=== PATIENT | male | born 1945 | race Caucasian/White ===

== ENCOUNTER 2017-12-08 06:41 | Day surgery (SDC) | payer MEDICARE ==
[2017-12-03 11:18] VITALS: BMI 32.5
[2017-12-08] MEDS ORDERED: LIDOCAINE 1% 20 ML VIAL (10MG/ML) FOR IV START INTRADERMA PRN (06:44)
[2017-12-08] MEDS ORDERED: LACTATED RINGERS 1,000 ML IV SCH (06:45)
[2017-12-08 07:20] VITALS: TEMP 98.8
[2017-12-08 07:27] LABS: Glucose,Whole Blood 145 mg/dL (75-99)
[2017-12-08] MEDS ORDERED: PROPOFOL 10 MG/ML 20 ML VIAL IV ONE (07:38)
[2017-12-08] MEDS ORDERED: LIDOCAINE 1% INJ 10MG/ML (20 ML MDV) ONE (07:38)
--- NOTE | 2017-12-08 07:46 | P.GSHP ---
History of Present Illness H&P Date: 12/08/17 Chief Complaint: Colon cancer screening Patient here today for colonoscopy. Last colonoscopy several years ago. No bowel complaints. No family history colon cancer. Past Medical History Past Medical History: Asthma, Diabetes Mellitus, GERD/Reflux, Hyperlipidemia, Hypertension Additional Past Medical History / Comment(s): diet controlled diabetic History of Any Multi-Drug Resistant Organisms: None Reported Past Surgical History: Appendectomy, Hernia Repair, Joint Replacement Additional Past Surgical History / Comment(s): lung surgery benign tumor, lt total knee replacement Past Anesthesia/Blood Transfusion Reactions: Previous Problems w/ Anesthesia Additional Past Anesthesia/Blood Transfusion Reaction / Comment(s): with last endoscopy coughed throughout procedure Smoking Status: Former smoker - Past Family History Mother Family Medical History: No Reported History Additional Family Medical History / Comment(s): adopted Sister(s) Family Medical History: Cancer Additional Family Medical History / Comment(s): pancreatic cancer Medications and Allergies Home Medications Medication Instructions Recorded Confirmed Type Acetaminophen [Tylenol Arthritis] 650 mg PO DAILY PRN 12/03/17 12/08/17 History Albuterol Sulfate [Proventil Hfa] 2 puff INHALATION Q6HR PRN 12/03/17 12/08/17 History Ascorbic Acid [Vitamin C] 1,000 mg PO DAILY 12/03/17 12/08/17 History Aspirin [Adult Low Dose Aspirin EC] 81 mg PO DAILY 12/03/17 12/08/17 History Cholecalciferol [Vitamin D3] 5,000 unit PO DAILY 12/03/17 12/08/17 History Escitalopram Oxalate [Lexapro] 10 mg PO DAILY 12/03/17 12/08/17 History Ferrous Sulfate [Feosol] 325 mg PO DAILY 12/03/17 12/08/17 History Losartan Potassium [Cozaar] 100 mg PO DAILY 12/03/17 12/08/17 History Melatonin 10 mg PO HS 12/03/17 12/08/17 History Multivit-Min/FA/Lycopen/Lutein 1 each PO DAILY 12/03/17 12/08/17 History [Centrum Silver Tablet] Omeprazole [PriLOSEC] 20 mg PO AC-BRKFST 12/03/17 12/08/17 History Simvastatin 40 mg PO DAILY 12/03/17 12/08/17 History buPROPion [Wellbutrin] 150 mg PO BID 12/03/17 12/08/17 History Allergies Allergy/AdvReac Type Severity Reaction Status Date / Time No Known Allergies Allergy Verified 12/03/17 11:05 Surgical - Exam Vital Signs Temp Pulse Resp BP Pulse Ox 98.8 F 86 18 153/82 96 12/08/17 07:17 12/08/17 07:17 12/08/17 07:17 12/08/17 07:17 12/08/17 07:17 Physical exam: General: Well-developed, well-nourished HEENT: Normocephalic, sclerae nonicteric Abdomen: Nontender, nondistended Extremities: No edema Neuro: Alert and oriented Results - Labs Abnormal Lab Results - Last 24 Hours (Table) 12/08/17 Range/Units 07:22 POC Glucose (mg/dL) 145 H (75-99) mg/dL Assessment and Plan (1) Colon cancer screening Narrative/Plan: Will proceed with colonoscopy at this time. Current Visit: Yes Status: Acute Code(s): Z12.11 - ENCOUNTER FOR SCREENING FOR MALIGNANT NEOPLASM OF COLON SNOMED Code(s): 520281294
--- NOTE | 2017-12-08 08:08 | P.PCN ---
Date of Procedure: 12/08/17 Procedure(s) Performed: PREOPERATIVE DIAGNOSIS: Colon cancer screening POSTOPERATIVE DIAGNOSIS: Polyps, diverticulosis PROCEDURE: Colonoscopy with biopsy ANESTHESIA: MAC SURGEON: Jose Bernal M.D. SPECIMENS: Polyps ENDOSCOPIC PROCEDURE: The patient was placed on the endoscopy table in the left decubitus position. The Olympus colonoscope was inserted into the anus and passed under direct visualization to the base of the cecum. The appendiceal orifice was visualized. From that point the scope was slowly withdrawn inspecting all surfaces carefully. There were no neoplastic inflammatory or polypoid lesions throughout the cecum. In the ascending colon a small polyp was removed using the cold biopsy forceps. A similar polyp was identified in the mid transverse and the descending colon and also removed using the cold biopsy forceps. The remainder of the descending sigmoid and rectum appeared normal. There was moderate left-sided diverticulosis present. Digital rectal examination was normal. The patient was taken to the recovery room in stable condition per anesthesia guidelines. RECOMMENDATIONS: Await biopsies results. Anticipate follow-up colonoscopy 5 years.
[2017-12-08 08:29] VITALS: BP 111/69; PULSE 58; RESP 18
== END 2017-12-08 08:53 | disposition home or self-care (01) ==
LOC: ORWHC2ENDO 06:41
PROVIDERS: ATTEND Surgery
DX: Z12.11 Encounter for screening for malignant neoplasm of colon (principal); D12.3 Benign neoplasm of transverse colon; K63.5 Polyp of colon; K57.30 Diverticulosis of large intestine without perforation or abscess without bleeding; J45.909 Unspecified asthma, uncomplicated; E11.9 Type 2 diabetes mellitus without complications; K21.9 Gastro-esophageal reflux disease without esophagitis; F32.9 Major depressive disorder, single episode, unspecified; E78.5 Hyperlipidemia, unspecified; I10 Essential (primary) hypertension; Z96.652 Presence of left artificial knee joint; Z87.891 Personal history of nicotine dependence; Z79.82 Long term (current) use of aspirin; Z79.899 Other long term (current) drug therapy
CPT/HCPCS: 88305; 45380; J2001; J2704

== ENCOUNTER → 2018-01-05 | Outpatient (CLI) | payer OTHER ==
--- NOTE | 2018-01-05 12:50 | CT ---
EXAMINATION TYPE: CT chest wo con DATE OF EXAM: 01/05/2018 COMPARISON: NONE HISTORY: Sx shortness of breath, interstitial lung disease. CT DLP: 192 mGycm. Automated Exposure Control for Dose Reduction was Utilized. TECHNIQUE: CT scan of the thorax is performed without IV contrast per HRCT protocol limiting evaluat ion for pulmonary nodules. FINDINGS: LUNGS: There is right hemidiaphragm elevation. Scattered cystic spaces are seen with mild emphysemato us change. There is upper lung predominant honeycombing and interlobular septal thickening at the rig ht lung base. Calcified pleural plaques are noted along the right major fissure and multifocal mild p leural thickening is seen posteriorly along the right lower lobe. There is mild diffuse cylindrical b ronchiectasis with minimal varicosity in the upper lungs. No focal consolidation to suggest pneumonia . No pleural effusion or pneumothorax. Main ventricular brachial tree is patent. No discrete pulmonar y mass. MEDIASTINUM: Lack of IV contrast is noted to limit evaluation for mediastinal and especially hilar ad enopathy. There are no definitive greater than 1 cm hilar or mediastinal lymph nodes. No cardiomega ly or pericardial effusion is seen. Atherosclerosis is noted of the thoracic aorta, mild overall. OTHER: Incidental note of cholelithiasis is made. Probable left upper pole renal cyst is partially vi sualized. IMPRESSION: 1. Interstitial lung disease with a upper lobe predominance as there is mild fibrosis and early honey combing in the lung apices. Few calcific plaques are also noted. These findings may relate to this pa tient's provided history of possible coccidiomycosis although no nodular pattern is seen. Other upper lobe predominant etiologies such as pneumoconioses, Langerhans' cell histiocytosis, histoplasmosis o r drug induced lung disease or possible. 2. Right hemidiaphragm elevation for which a sniff test was performed on the same day.
--- NOTE | 2018-01-05 13:01 | FL ---
EXAMINATION TYPE: FL sniff test without CXR DATE OF EXAM: 01/05/2018 COMPARISON: NONE HISTORY: Prior thoracic surgery on the right. Right hemidiaphragm elevation. TECHNIQUE: Fluoroscopy. 28 seconds of fluoroscopy time was utilized with 0 images saved as the exam w as recorded. FINDINGS: Evaluation of the hemidiaphragms was performed with real-time fluoroscopically. There is pa radoxical subtle motion of the right hemidiaphragm upon inspiration, expiration, and sniffing althoug h there remains right lung expansion. 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
== END | disposition home or self-care (01) ==
LOC: RADFLMAIN 10:18
PROVIDERS: ATTEND Internal Medicine Critical Care Medicine
DX: J84.9 Interstitial pulmonary disease, unspecified (principal); J84.10 Pulmonary fibrosis, unspecified; G58.8 Other specified mononeuropathies
CPT/HCPCS: 71250; 76000

== ENCOUNTER 2018-02-17 06:56 | Inpatient (IN) | payer OTHER ==
[2018-02-15 14:32] VITALS: BMI 32.5
[~2018-02-17 06:56] MED LIST: MORPHINE SULFATE 2 MG/ML SYRINGE IV PRN; ceFAZolin IN SWFI 2 GM/20 ML SYRINGE IVP ONE
[2018-02-17] MEDS: LACTATED RINGERS 1,000 ML IV SCH ×2 (07:32→23:38)
[2018-02-17 07:33] LABS: Glucose,Whole Blood 145 mg/dL (75-99)
[2018-02-17] MEDS ORDERED: MIDAZOLAM 2 MG/2 ML VIAL IV ONE (07:50)
[2018-02-17] MEDS ORDERED: ONDANSETRON 4 MG/2 ML VIAL IVP ONE (08:04)
[2018-02-17] MEDS ORDERED: LIDOCAINE 1% INJ 10MG/ML (20 ML MDV) ONE (08:21)
[2018-02-17] MEDS ORDERED: fentaNYL (PF) 50 MCG/ML 2 ML AMP ONE (08:21)
[2018-02-17] MEDS ORDERED: ROCURONIUM BROMIDE 10 MG/ML 10 ML VIAL IV ONE (08:21)
[2018-02-17] MEDS ORDERED: SUCCINYLCHOLINE CHLORIDE 100 MG/5 ML SYR IV ONE (08:21)
[2018-02-17] MEDS ORDERED: ePHEDrine SULFATE/0.9% NACL/PF 50 MG/5 ML SYRINGE IV ONE (08:21)
[2018-02-17] MEDS ORDERED: GLYCOPYRROLATE 0.2 MG/ML 2 ML VIAL ONE (08:21)
[2018-02-17] MEDS ORDERED: NEOSTIGMINE 1 MG/ML 10 ML VIAL ONE (08:21)
[2018-02-17] MEDS ORDERED: PROPOFOL 10 MG/ML 20 ML VIAL IV ONE (08:21)
[2018-02-17] MEDS ORDERED: BUPIVACAINE (PF) 0.25% 30 ML VIAL SQ ONE ×2 (08:51)
[2018-02-17] MEDS: HYDROmorphone 0.5 MG/0.5 ML SYRINGE IVP PRN ×4 (09:25→09:48)
--- NOTE | 2018-02-17 09:38 | P.OP ---
Date of Procedure: 02/17/18 Preoperative Diagnosis: Bilateral pulmonary infiltrates Postoperative Diagnosis: Same Procedure(s) Performed: Thoracoscopic left lung biopsy Anesthesia: PRINCEA Admission Nurse Coordinator #1: Brandon Hensley Estimated Blood Loss (ml): 10 IV fluids (ml): 250 Pathology: other (Biopsies of lingula and left lower lobe were sent for pathology as well as cultures including routine AFB and fungal cultures) Condition: stable Disposition: PACU Indications for Procedure: 72-year-old male referred to me by Dr. Schuster for lung biopsy. Patient has persistent cough and mild shortness of breath. He has computed tomography scan showing bilateral pulmonary interstitial disease. Operative Findings: There was some mild interstitial disease with blebs present in the tip of the lingula. Otherwise the lung looked relatively normal. Compliance was less than usual. There was some mild thoracotomy staining of the pulmonary tissues. Description of Procedure: The patient was brought to the operating room, placed supine on the operating table, anesthetized and intubated with double-lumen endotracheal tube. He was turned in the right lateral decubitus position of the left chest sterilely prepped and draped. 3 one-inch incisions were made in the left chest. Video thoracoscope was introduced. Single lung ventilation had been utilized in order to obtain pneumothorax on the left. Lung compliance was poor but we were able to compress along and get adequate pneumothorax to perform the procedure. Findings as noted above. Biopsies of the lingula and the lower lobe were obtained with multiple firings of Endo EFREM medium thick stapler. Specimens were removed from the patient and brought onto the back table where they were cut. Small portion of each was sent for cultures and the remainder for pathology. Staple lines were intact and there was no bleeding. A 28-Swazi chest tube was placed through separate stab incision and positioned posterior apically. It was secured with 0 Ethibond suture. Rib blocks were performed at the level of the incisions with quarter percent Marcaine. The incisions were then closed with Vicryl suture while 2 lung ventilation was reinitiated. The incisions closed they were dressed with skin glue and chest tube dressing was placed around the chest tube. Patient was turned supine and extubated and transferred to recovery in stable condition.
[2018-02-17 09:54] LABS: Glucose,Whole Blood 156 mg/dL (75-99)
[2018-02-17] MEDS ORDERED: hydrALAZINE HCL 20 MG/ML 1 ML VIAL IVP ONE (09:57)
--- NOTE | 2018-02-17 10:17 | XR ---
EXAMINATION TYPE: XR chest 1V portable DATE OF EXAM: 02/17/2018 Comparison: Correlation CT 01/05/2018 Clinical History: 72-year-old male chest tube insertion, post vats Findings: Apically directed left-sided chest tube is present. Possible trace left apical pneumothorax estimated at less than 5%. Low lung volumes and crowded vascular markings. Patchy bibasilar opacity. Heart upp er limits of normal in size. Impression: Low lung volumes. Left-sided chest tube in place. Possible trace left apical pneumothorax less than 5 %. Patchy bibasilar areas of atelectasis or infiltrate.
[2018-02-17] MEDS ORDERED: DEXTROSE 5%-0.45% NACL 1,000 ML IV SCH (11:15)
[2018-02-17] MEDS ORDERED: IPRATROPIUM-ALBUTEROL 3 ML NEB IH PRN (11:15)
[2018-02-17] MEDS ORDERED: ONDANSETRON 4 MG/2 ML VIAL IVP PRN (11:15)
[2018-02-17] MEDS: IPRATROPIUM-ALBUTEROL 3 ML NEB IH SCH ×3 (11:41→18:59)
[2018-02-17] MEDS: KETOROLAC 30 MG/ML 1 ML VIAL IVP SCH ×3 (11:49→23:28)
[2018-02-17] MEDS: traMADol 50 MG TAB PO SCH ×3 (15:06→23:29)
--- NOTE | 2018-02-17 15:59 | P.CNPUL ---
History of Present Illness Consult date: 02/17/18 Chief complaint: Interstitial lung disease, postop lung care following lung biopsy History of present illness: This is a 70-year-old male patient underwent a thoracoscopic left lung biopsy. Estimated blood loss was less than 10 mL. The patient currently is a left- sided chest tube. Chest x-ray postop shows a limited success emphysema on the left. There is a very tiny left apical pneumothorax. There is no evidence of any air leak and output from the chest tube is minimal at this point in time. Pain is under good control. The patient is using incentive spirometer. The patient is awake and alert and following commands and answering questions appropriately. No respiratory distress. No significant cough sputum production chest tightness or wheezing. This biopsy was done as part of an investigation for an underlying interstitial lung disease. 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 He has been expressing progressive exertional dyspnea. He is hemodynamically stable. He is on Ultram for pain control of 10 mg 4 times a day, when necessary. Review of Systems Constitutional: Denies chills, Denies fever Eyes: denies as per HPI, denies blurred vision, denies bulging eye, denies decreased vision, denies diplopia, denies discharge, denies dry eye, denies irritation, denies itching, denies pain, denies photophobia, denies loss of peripheral vision, denies loss of vision, denies tunnel vision/blind spots Ears: deny: decreased hearing, ear discharge, earache, tinnitus Ears, nose, mouth and throat: Denies headache, Denies sore throat Cardiovascular: Reports decreased exercise tolerance, Reports dyspnea on exertion Respiratory: Reports dyspnea Gastrointestinal: Denies abdominal pain, Denies diarrhea, Denies nausea, Denies vomiting Genitourinary: Reports as per HPI Musculoskeletal: Reports as per HPI Musculoskeletal: absent: ankle pain, ankle stiffness, ankle swelling, as per HPI , elbow pain, elbow stiffness, elbow swelling, foot pain, foot stiffness, foot swelling, hand pain, hand stiffness, hand swelling, hip pain, hip stiffness, hip swelling, knee pain, knee stiffness, knee swelling, shoulder pain, shoulder stiffness, shoulder swelling, wrist pain, wrist stiffness, wrist swelling Integumentary: Reports as per HPI Neurological: Reports as per HPI Psychiatric: Reports as per HPI Endocrine: Reports as per HPI Hematologic/Lymphatic: Reports as per HPI Allergic/Immunologic: Reports as per HPI Past Medical History Past Medical History: Asthma, Diabetes Mellitus, GERD/Reflux, Hyperlipidemia, Hypertension, Osteoarthritis (OA) Additional Past Medical History / Comment(s): Diabetes mellitus interstitial lung disease, hyperlipidemia, chronic heartburn, hypertension remote history of a coccidiomycosis of the lungs. History of Any Multi-Drug Resistant Organisms: None Reported Past Surgical History: Appendectomy, Hernia Repair, Joint Replacement Additional Past Surgical History / Comment(s): lung surgery rt thoractomy benign tumor age 19, lt total knee replacement, inguinal hernia repair with mesh Past Anesthesia/Blood Transfusion Reactions: Previous Problems w/ Anesthesia Additional Past Anesthesia/Blood Transfusion Reaction / Comment(s): with last endoscopy coughed throughout procedure Smoking Status: Former smoker - Past Family History Mother Family Medical History: No Reported History Additional Family Medical History / Comment(s): adopted Sister(s) Family Medical History: Cancer Additional Family Medical History / Comment(s): pancreatic cancer Medications and Allergies Home Medications Medication Instructions Recorded Confirmed Type Acetaminophen [Tylenol Arthritis] 650 mg PO DAILY PRN 12/03/17 02/17/18 History Albuterol Sulfate [Proventil Hfa] 2 puff INHALATION RT-Q6H PRN 12/03/17 History Ascorbic Acid [Vitamin C] 1,000 mg PO DAILY 12/03/17 02/17/18 History Aspirin [Adult Low Dose Aspirin EC] 81 mg PO DAILY 12/03/17 02/17/18 History Cholecalciferol [Vitamin D3] 5,000 unit PO DAILY 12/03/17 02/17/18 History Escitalopram Oxalate [Lexapro] 10 mg PO DAILY 12/03/17 02/17/18 History Losartan Potassium [Cozaar] 100 mg PO DAILY 12/03/17 02/17/18 History Melatonin 10 mg PO HS 12/03/17 02/17/18 History Multivit-Min/FA/Lycopen/Lutein 1 tab PO DAILY 12/03/17 02/17/18 History [Centrum Silver Tablet] Omeprazole [PriLOSEC] 20 mg PO AC-BRKFST 12/03/17 02/17/18 History Simvastatin 40 mg PO DAILY 12/03/17 02/17/18 History buPROPion [Wellbutrin] 150 mg PO BID 12/03/17 02/17/18 History Budesonide-Formot 160-4.5 Mcg 2 puff INHALATION RT-BID 02/15/18 02/17/18 History [Symbicort 160-4.5 Mcg Inhaler] Montelukast Sodium [Singulair] 10 mg PO HS 02/15/18 02/17/18 History Allergies Allergy/AdvReac Type Severity Reaction Status Date / Time No Known Allergies Allergy Verified 02/17/18 12:42 Physical Exam Vitals: Vital Signs Temp Pulse Pulse Resp BP BP Pulse Ox 02/17/18 15:34 69 02/17/18 15:26 67 02/17/18 11:53 68 02/17/18 11:42 68 02/17/18 11:03 97.8 F 78 16 131/72 93 L 02/17/18 10:30 79 14 143/76 94 L 02/17/18 10:15 77 16 145/71 92 L 02/17/18 10:00 74 16 164/75 93 L 02/17/18 09:45 70 16 196/82 95 02/17/18 09:30 74 16 179/93 95 02/17/18 09:25 97.3 F L 77 16 185/99 98 02/17/18 07:33 98.6 F 75 16 190/86 98 Intake and Output 02/17/18 02/17/18 02/17/18 06:59 14:59 22:59 Intake Total 600 Output Total 80 Balance 520 Intake: IV 600 Output: Chest Tube Drainage 60 Chest Tube Left Mid- 60 Axillary Chest Estimated Blood Loss 20 Other: Voiding Method Urinal Appearance, comfortable likely distress. Head exam was generally normal. There was no scleral icterus or corneal arcus. Mucous membranes were moist. Neck was supple and without jugular venous distension, thyromegaly, or carotid bruits. Carotids were easily palpable bilaterally. There was no adenopathy. Lungs sounds are diminished equal and symmetrical breath sounds bilaterally started diminished on the left compared to the right, left-sided chest tube Cardiac exam revealed the PMI to be normally situated and sized. The rhythm was regular and no extrasystoles were noted during several minutes of auscultation. The first and second heart sounds were normal and physiologic splitting of the second heart sound was noted. There were no murmurs, rubs, clicks, or gallops. Abdominal exam revealed normal bowel sounds. The abdomen was soft, non-tender, and without masses, organomegaly, or appreciable enlargement of the abdominal aorta. Examination of the extremities revealed easily palpable radial, femoral and pedal pulses. There was no cyanosis, clubbing or edema. Examination of the skin revealed no evidence of significant rashes, suspicious appearing nevi or other concerning lesions. Neurologically the patient is awake and alert and that is no focal neurological deficit. Results - Laboratory Findings Abnormal lab findings: Abnormal Labs 02/17/18 02/17/18 07:31 09:50 POC Glucose (mg/dL) 145 H 156 H - Diagnostic Findings Chest x-ray: image reviewed Assessment and Plan Plan: Assessment 1 physician lung disease, currently under investigation. The patient is status post thoracoscopic left lung biopsy. The patient is postop day #0. The patient is using incentive spirometer has a chest tube in place. Output is minimal. 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 The patient underwent a sniff test that showed paradoxic motion of the right hemidiaphragm compatible with a phrenic nerve palsy, right hemidiaphragmatic paralysis. Plan Patient is doing extremely well. Pain is under good control. Output from the chest tube is minimal. Chest x-ray shows no acute abnormalities. The lung is well expanded. There is may be a questionable left apical pneumothorax and some limited success emphysema along the left lung border. We'll continue to follow make further recommendations. The chest tube will likely, but the next 24 hours.
[2018-02-17] MEDS: HEPARIN SODIUM,PORCINE 5,000 UNIT/ML 1 ML VIAL SQ SCH ×2 (16:32→23:28)
[2018-02-17] MEDS: ceFAZolin IN SWFI 2 GM/20 ML SYRINGE IVP SCH ×2 (16:32→23:27)
[2018-02-17] MEDS: SYMBICORT 160-4.5 MCG INHALER INHALATION SCH (19:02)
[2018-02-17 20:52] VITALS: RESP 20
[2018-02-17] MEDS: buPROPion SR 150 MG TABLET.ER PO SCH (20:53)
[2018-02-17] MEDS ORDERED: MELATONIN 5 MG TABLET PO SCH (21:00)
[2018-02-17] MEDS ORDERED: MONTELUKAST 10 MG TAB PO SCH (21:00)
[2018-02-18 06:47] LABS: Basophils % (A) 0 %; Eosinophils % (A) 1 %; HCT 38.3 % (39.0-53.0); HGB 12.1 gm/dL (13.0-17.5); Lymphocytes % (A) 12 %; MCH 29.1 pg (25.0-35.0); MCHC 31.7 g/dL (31.0-37.0); MCV 91.7 fL (80.0-100.0); Mean Platelet Volume 8.6; Monocytes # (A) 0.6 k/uL (0-1.0); Monocytes % (A) 7 %; Neutrophils # (A) 6.6 k/uL (1.3-7.7); Neutrophils % (A) 79 %; Platelet Count 136 k/uL (150-450); RBC 4.17 m/uL (4.30-5.90); RDW 14.2 % (11.5-15.5); WBC 8.4 k/uL (3.8-10.6)
[2018-02-18] MEDS: KETOROLAC 30 MG/ML 1 ML VIAL IVP SCH (06:51)
[2018-02-18 06:57] LABS: Calcium 9.3 mg/dL (8.4-10.2); Potassium 4.6 mmol/L (3.5-5.1)
[2018-02-18] MEDS ORDERED: PANTOPRAZOLE 40 MG TABLET PO SCH (07:30)
[2018-02-18] MEDS: IPRATROPIUM-ALBUTEROL 3 ML NEB IH SCH ×2 (08:55→11:51)
[2018-02-18] MEDS: SYMBICORT 160-4.5 MCG INHALER INHALATION SCH (08:55)
[2018-02-18] MEDS ORDERED: CHOLECALCIFEROL 1,000 UNIT TAB PO SCH (09:00)
[2018-02-18] MEDS ORDERED: ESCITALOPRAM 10 MG TAB PO SCH (09:00)
[2018-02-18] MEDS ORDERED: ASCORBIC ACID 500 MG TAB PO SCH (09:00)
[2018-02-18] MEDS ORDERED: ASPIRIN 81 MG PO SCH (09:00)
[2018-02-18] MEDS ORDERED: LOSARTAN 50 MG TAB PO SCH (09:00)
[2018-02-18] MEDS ORDERED: ATORVASTATIN 20 MG TAB PO SCH (09:00)
[2018-02-18] MEDS: HEPARIN SODIUM,PORCINE 5,000 UNIT/ML 1 ML VIAL SQ SCH (09:02)
[2018-02-18] MEDS: buPROPion SR 150 MG TABLET.ER PO SCH (09:03)
[2018-02-18] MEDS: traMADol 50 MG TAB PO SCH (09:03)
--- NOTE | 2018-02-18 10:32 | P.PN ---
Subjective Progress Note Date: 02/18/18 Principal diagnosis: Bilateral pulmonary infiltrates. History of asthma, GERD, hyperlipidemia, hypertension, osteoarthritis, remote coccidiomycosis of the lungs, and previous tobacco dependence. POD #1 thoracoscopic left lung biopsy. The patient sitting up in bed this morning in no acute distress. His only complaint was that he didn't get sleep overnight. States pain is controlled with current medication regimen. Left pleural chest tube was placed to waterseal yesterday, no air leak present this morning. Objective - Vital Signs Vital signs: Vital Signs Temp 99.3 F 02/18/18 08:00 Pulse 70 02/18/18 09:12 Resp 20 02/18/18 08:00 BP 126/77 02/18/18 08:00 Pulse Ox 95 02/18/18 08:00 Intake & Output 02/17/18 02/18/18 02/18/18 18:59 06:59 18:59 Intake Total 600 120 240 Output Total 80 130 Balance 520 -10 240 Weight 99.2 kg Intake: IV 600 Oral 120 240 Output: Chest Tube Drainage 60 130 Chest Tube Left Mid- 60 130 Axillary Chest Estimated Blood Loss 20 Other: Voiding Method Urinal Toilet Urinal - Constitutional General appearance: Present: cooperative, no acute distress - Respiratory Details: Lungs sounds diminished bilaterally. Respirations even, nonlabored. Currently on room air with oxygen saturation 95%. Able to achieve 1500 mL on his incentive spirometry. Left pleural chest tube was to waterseal this morning, 130 mL serosanguineous drainage since surgery. No air leaks present. - Cardiovascular Details: S1, S2 present. Regular rate and rhythm, sinus rhythm on telemetry. Palpable peripheral pulses bilaterally. No edema present. No calf pain or tenderness noted. SCDs present. - Gastrointestinal Gastrointestinal Comment(s): Abdomen soft, nontender, nondistended. Active bowel sounds 4 quadrants. Tolerating diet. - Genitourinary Genitourinary Comment(s): Continues to void clear, yellow urine. - Integumentary Integumentary Comment(s): Skin is warm and dry with evidence of good perfusion. - Neurologic Neurologic: Present: CNII-XII intact - Musculoskeletal Musculoskeletal: Present: gait normal, strength equal bilaterally - Psychiatric Psychiatric: Present: A&O x's 3, appropriate affect, intact judgment & insight - Allied health notes Allied health notes reviewed: nursing - Labs CBC & Chem 7: 02/18/18 05:57 02/18/18 05:57 Labs: Abnormal Lab Results - Last 24 Hours (Table) 02/18/18 02/18/18 Range/Units 05:57 05:57 RBC 4.17 L (4.30-5.90) m/uL Hgb 12.1 L (13.0-17.5) gm/dL Hct 38.3 L (39.0-53.0) % Plt Count 136 L (150-450) k/uL BUN 35 H (9-20) mg/dL Creatinine 1.60 H (0.66-1.25) mg/dL Glucose 123 H (74-99) mg/dL Microbiology - Last 24 Hours (Table) 02/17/18 09:20 Gram Stain - Preliminary Lung - Left Tissue Culture - Preliminary 02/17/18 09:30 Acid Fast Bacilli Smear - Final Lung - Left Acid Fast Bacilli Culture - Preliminary 02/17/18 09:20 Acid Fast Bacilli Smear - Final Lung - Left Acid Fast Bacilli Culture - Preliminary 02/17/18 09:30 Gram Stain - Preliminary Lung - Left Tissue Culture - Preliminary 02/17/18 09:20 Anaerobic Culture - Preliminary Lung - Left 02/17/18 09:30 Fungal Culture - Preliminary Lung - Left 02/17/18 09:30 Anaerobic Culture - Preliminary Lung - Left 02/17/18 09:20 Fungal Culture - Preliminary Lung - Left - Imaging and Cardiology Chest x-ray: report reviewed, image reviewed Assessment and Plan (1) Bilateral pulmonary infiltrates on chest x-ray Current Visit: Yes Status: Chronic Code(s): R91.8 - OTHER NONSPECIFIC ABNORMAL FINDING OF LUNG FIELD SNOMED Code(s): 369561574 (2) COPD (chronic obstructive pulmonary disease) Current Visit: Yes Status: Chronic Code(s): J44.9 - CHRONIC OBSTRUCTIVE PULMONARY DISEASE, UNSPECIFIED SNOMED Code(s): 95522710 (3) Asthma Current Visit: Yes Status: Chronic Code(s): J45.909 - UNSPECIFIED ASTHMA, UNCOMPLICATED SNOMED Code(s): 460203204 (4) Hypertension Current Visit: Yes Status: Acute Code(s): I10 - ESSENTIAL (PRIMARY) HYPERTENSION SNOMED Code(s): 28327756 (5) Hyperlipidemia Current Visit: Yes Status: Acute Code(s): E78.5 - HYPERLIPIDEMIA, UNSPECIFIED SNOMED Code(s): 56179324 (6) Osteoarthritis Current Visit: Yes Status: Acute Code(s): M19.90 - UNSPECIFIED OSTEOARTHRITIS, UNSPECIFIED SITE SNOMED Code(s): 313137251 (7) Tobacco dependence in remission Current Visit: Yes Status: Acute Code(s): F17.201 - NICOTINE DEPENDENCE, UNSPECIFIED, IN REMISSION SNOMED Code(s): 039853333 Plan: 1. Left pleural chest tube was discontinued without incident. Patient tolerated well. 2. Repeat chest x-ray in 2 hours. 3. If repeat chest x-ray stable, will discharge to home on home medications. May alternate Tylenol with Motrin for pain control. 4. Follow-up with Dr. Hensley and Dr. Schuster in the next 2 weeks. 5. Encourage continued incentive spirometry use. 6. Encourage continued smoking cessation. 7. Patient instructed to call with any signs and symptoms of infection, heavy lifting for the next couple of weeks. Time with Patient: Greater than 30
--- NOTE | 2018-02-18 11:13 | P.DS ---
Providers Date of admission: 02/17/18 06:56 Expected date of discharge: 02/18/18 Attending physician: Brandon Hensley Consults: 02/17/18 11:15 Consult Physician Routine Consulting Provider: David Savage Consult Reason/Comments: pulm management, pt of [facility] Do you want consulting provider notified?: Yes Primary care physician: Wilson Taylor - Discharge Diagnosis(es) (1) Bilateral pulmonary infiltrates on chest x-ray Current Visit: Yes Status: Chronic (2) COPD (chronic obstructive pulmonary disease) Current Visit: Yes Status: Chronic (3) Asthma Current Visit: Yes Status: Chronic (4) Hypertension Current Visit: Yes Status: Acute (5) Hyperlipidemia Current Visit: Yes Status: Acute (6) Osteoarthritis Current Visit: Yes Status: Acute (7) Tobacco dependence in remission Current Visit: Yes Status: Acute Hospital Course: FINAL DIAGNOSIS: 1. Bilateral pulmonary infiltrates 2. Asthma 3. GERD 4. Hypertension 5. Hyperlipidemia 6. Osteoarthritis 7. Remote coccidiomycosis of the lungs 8. Previous tobacco dependence PRINCIPAL PROCEDURE: 1. Thoracoscopic left lung biopsy HISTORY OF PRESENT ILLNESS: This is a 72-year-old gentleman he follows with Dr. Wilson Taylor on an outpatient basis. He was seen at the ID clinic with complaints of persistent and worsening dyspnea, cough, and clear sputum production. He was referred to Dr. Schuster into the computed tomography scan of the chest which demonstrated bilateral pulmonary interstitial disease, most predominant in the upper lobes. Of note the patient did have a history of previous right thoracotomy and wedge resection of the mass from the right middle lobe which proved to be fungal in origin. The patient was referred to Dr. Hensley from cardiothoracic surgery for thoracoscopic lung biopsy. The usual perioperative course was discussed in detail with the patient has family, all risks and benefits were explained, all questions were answered, and consent was obtained to proceed with surgery. HOSPITAL COURSE: The patient was brought to the hospital on 02/17/2018, taken to the preoperative area, prepared in the usual fashion, and subsequently taken to the operating room where Dr. Hensley to performed a thoracoscopic left lung biopsy. Upon completion of surgery the patient was extubated, taken to the recovery room where he was recovered and monitored hemodynamically, and was eventually admitted to [address] [place] [address] cardiac stepdown unit for further monitoring. He had no air leak the night of surgery and his chest tube was placed to waterseal. The following morning his x-ray demonstrated no residual pneumothorax, he had no air leak, and his chest tube was discontinued. Repeat chest x-ray was stable. His oxygen was titrated down, he was tolerating oral diet, his pain was controlled, and he was ready to be discharged to home on postoperative day #1. He received written and verbal instruction regarding his medications, activity restrictions, signs and symptoms requiring physician notification, and follow-up appointments. COMPLICATIONS: The patient experienced no postoperative complications. Plan - Discharge Summary Discharge Rx Participant: No New Discharge Prescriptions: Continue Multivit-Min/FA/Lycopen/Lutein [Centrum Silver Tablet] 1 tab PO DAILY Cholecalciferol [Vitamin D3] 5,000 unit PO DAILY Aspirin [Adult Low Dose Aspirin EC] 81 mg PO DAILY Simvastatin 40 mg PO DAILY Melatonin 10 mg PO HS Ascorbic Acid [Vitamin C] 1,000 mg PO DAILY Omeprazole [PriLOSEC] 20 mg PO AC-BRKFST Losartan Potassium [Cozaar] 100 mg PO DAILY Escitalopram Oxalate [Lexapro] 10 mg PO DAILY buPROPion [Wellbutrin] 150 mg PO BID Acetaminophen [Tylenol Arthritis] 650 mg PO DAILY PRN PRN Reason: Pain Albuterol Sulfate [Proventil Hfa] 2 puff INHALATION RT-Q6H PRN PRN Reason: Dyspnea Montelukast Sodium [Singulair] 10 mg PO HS Budesonide-Formot 160-4.5 Mcg [Symbicort 160-4.5 Mcg Inhaler] 2 puff INHALATION RT-BID Discharge Medication List Acetaminophen [Tylenol Arthritis] 650 mg PO DAILY PRN 12/03/17 [History] Albuterol Sulfate [Proventil Hfa] 2 puff INHALATION RT-Q6H PRN 12/03/17 [History ] Ascorbic Acid [Vitamin C] 1,000 mg PO DAILY 12/03/17 [History] Aspirin [Adult Low Dose Aspirin EC] 81 mg PO DAILY 12/03/17 [History] Cholecalciferol [Vitamin D3] 5,000 unit PO DAILY 12/03/17 [History] Escitalopram Oxalate [Lexapro] 10 mg PO DAILY 12/03/17 [History] Losartan Potassium [Cozaar] 100 mg PO DAILY 12/03/17 [History] Melatonin 10 mg PO HS 12/03/17 [History] Multivit-Min/FA/Lycopen/Lutein [Centrum Silver Tablet] 1 tab PO DAILY 12/03/17 [ History] Omeprazole [PriLOSEC] 20 mg PO AC-BRKFST 12/03/17 [History] Simvastatin 40 mg PO DAILY 12/03/17 [History] buPROPion [Wellbutrin] 150 mg PO BID 12/03/17 [History] Budesonide-Formot 160-4.5 Mcg [Symbicort 160-4.5 Mcg Inhaler] 2 puff INHALATION RT-BID 02/15/18 [History] Montelukast Sodium [Singulair] 10 mg PO HS 02/15/18 [History] Follow up Appointment(s)/Referral(s): Brandon Hensley MD [STAFF PHYSICIAN] - 03/03/18 1:15 pm Tariq Schuster DO [Doctor of Osteopathic Medicine] - 02/25/18 11:30 am Patient Instructions/Handouts: Video Assisted Thoracoscopic Surgery (DC) Activity/Diet/Wound Care/Special Instructions: DISCHARGE INSTRUCTIONS: 1. No driving for 2 weeks, or until physician gives their ok. 2. No lifting, pushing, or pulling more than 10 pounds for 2 weeks. The physician will advise of any restriction changes. 3. Continue pain control with alternating acetaminophen and ibuprofen. 4. Continue with incentive spirometry and splinting until otherwise directed by the physician. 5. May shower Wednesday then daily using liquid antibacterial soap. 6. Routine incision care. No powders, lotions, ointments on incisions. 7. Please call surgeon/SHIPPING PROCESSOR for temp greater than 101 F or purulent drainage from incisions. Discharge Disposition: HOME SELF-CARE
--- NOTE | 2018-02-18 11:32 | XR ---
EXAMINATION TYPE: XR chest 1V DATE OF EXAM: 02/18/2018 COMPARISON: 02/17/2018 INDICATION: Post VATS TECHNIQUE: Single frontal view of the chest is obtained. FINDINGS: The heart size is normal. The pulmonary vasculature is normal. The lungs are clear. Left-sided chest tube is present. No pneumothorax is evident. The faint minimal left apical line is l ess well visualized appears to have lumbar kink extending to the pleural margin on the current exam. Subcutaneous air is in the lateral left chest wall. IMPRESSION: 1. No pneumothorax. Left-sided chest tube is present.
--- NOTE | 2018-02-18 11:34 | XR ---
EXAMINATION TYPE: XR chest 2V DATE OF EXAM: 02/18/2018 COMPARISON: 02/18/2018 earlier exam INDICATION: Pneumothorax, post chest tube removal TECHNIQUE: Frontal and lateral views of the chest are obtained. FINDINGS: The heart size is normal. The pulmonary vasculature is normal. No suspicious significant infiltrates are evident. Some mild atelectasis may be at the left base. The left-sided chest tube is been removed. No suspicious pneumothorax is evident. Subcutaneous emphys magaly remains at the left lateral chest base. Some atelectasis may be at the left lung base. IMPRESSION: 1. Mild left basilar atelectasis. 2. No pneumothorax post chest tube removal.
[2018-02-18 11:45] VITALS: BP 125/69; TEMP 99
[2018-02-18 11:54] VITALS: PULSE 70
[2018-02-18] MEDS ORDERED: MULTIVITAMINS, THERA 1 EACH TAB PO SCH (12:00)
--- NOTE | 2018-02-18 16:52 | P.PN ---
Subjective Progress Note Date: 02/18/18 on 02/18/2018 the patient is postop day #1. The patient doing extremely well. Chest x-ray shows no acute abnormalities. There is some limited ILD and there left-sided chest tube in place and there is no evidence of any air leak and the patient has no issues with pain. The patient on room air. Hihe is ambulating. Chest tube was removed, and the patient be discharged home today. Objective - Vital Signs Vital signs: Vital Signs Temp 99 F 02/18/18 11:44 Pulse 70 02/18/18 12:02 Resp 20 02/18/18 11:44 BP 125/69 02/18/18 11:44 Pulse Ox 91 L 02/18/18 11:44 Intake & Output 02/17/18 02/18/18 02/18/18 18:59 06:59 18:59 Intake Total 600 120 240 Output Total 80 130 Balance 520 -10 240 Weight 99.2 kg Intake: IV 600 Oral 120 240 Output: Chest Tube Drainage 60 130 Chest Tube Left Mid- 60 130 Axillary Chest Estimated Blood Loss 20 Other: Voiding Method Urinal Toilet Urinal - Exam The patient appeared well nourished and normally developed. Vital signs as documented. Head exam is unremarkable. No scleral icterus or corneal arcus noted. Neck is without jugular venous distension, thyromegaly, or carotid bruits. Carotid upstrokes are brisk bilaterally. Lungs are clear to auscultation and percussion. Cardiac exam reveals the PMI to be normally sized and situated. Rhythm is regular. First and second heart sounds normal. No murmurs, rubs or gallops. Abdominal exam reveals normal bowel sounds, no masses , no organomegaly and no aortic enlargement. Extremities are nonedematous and both femoral and pedal pulses are normal.neurologically the patient is awake and alert and is no focal neurological deficit. - Labs CBC & Chem 7: 02/18/18 05:57 02/18/18 05:57 Labs: Abnormal Lab Results - Last 24 Hours (Table) 02/18/18 02/18/18 Range/Units 05:57 05:57 RBC 4.17 L (4.30-5.90) m/uL Hgb 12.1 L (13.0-17.5) gm/dL Hct 38.3 L (39.0-53.0) % Plt Count 136 L (150-450) k/uL BUN 35 H (9-20) mg/dL Creatinine 1.60 H (0.66-1.25) mg/dL Glucose 123 H (74-99) mg/dL Microbiology - Last 24 Hours (Table) 02/17/18 09:20 Gram Stain - Preliminary Lung - Left Tissue Culture - Preliminary 02/17/18 09:30 Gram Stain - Preliminary Lung - Left Tissue Culture - Preliminary 02/17/18 09:30 Acid Fast Bacilli Smear - Final Lung - Left Acid Fast Bacilli Culture - Preliminary 02/17/18 09:20 Acid Fast Bacilli Smear - Final Lung - Left Acid Fast Bacilli Culture - Preliminary 02/17/18 09:20 Anaerobic Culture - Preliminary Lung - Left 02/17/18 09:30 Fungal Culture - Preliminary Lung - Left 02/17/18 09:30 Anaerobic Culture - Preliminary Lung - Left 02/17/18 09:20 Fungal Culture - Preliminary Lung - Left Assessment and Plan Plan: Assessment 1 Interstitial lung disease, currently under investigation. The patient is status post thoracoscopic left lung biopsy. 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 The patient underwent a sniff test that showed paradoxic motion of the right hemidiaphragm compatible with a phrenic nerve palsy, right hemidiaphragmatic paralysis. 8 renal failure, creatinine of 1.8 , likely chronic. Plan the chest tube has been removed.the patient will be discharged home. We'll follow-up on the postoperative surgical biopsies on outpatient basis.
--- NOTE | 2018-02-23 10:54 | CDI ---
Documentation Clarification Form Date: 02/23/2018 10:46:04 AM From: ELI Sylvester; Geri Escalona Rent Control Office Manager Phone: If you have a question about this query, please contact Geri Escalona Rent Control Office Manager at [phone] between 8am and 5pm. Admit Date: 02/17/2018 6:56:00 AM Patient Name: Pravin Simmons Visit Number: [id number] Discharge Date: 02/18/2018 12:27:00 PM ATTENTION: The Clinical Documentation Specialists (CDI) and [facility] Coding Staff appreciate your assistance in clarifying documentation. Please respond to the clarification below the line at the bottom and electronically sign. The CDI & [facility] Coding staff will review the response and follow-up if needed. Please note: Queries are made part of the Legal Health Record. If you have any questions, please contact the author of this message via ITS. Dr. Brandon Hensley The final diagnosis of the pathology report states: Usual interstitial pneumonia and emphysema. Discharge summary documentation states: Bilateral pulmonary infiltrates. Patient history/risk factors: Persistent cough and mild shortness of breath. Treatment: thoracoscopic left lung biopsy. In your professional opinion, do you agree with the pathology report specifying wedge biopsy as usual interstitial pneumonia and emphysema? Yes No Other (please specify) Unable to determine yes but please see also addendum to path report from Declan WINN
== END 2018-02-18 12:27 | disposition home or self-care (01) | DRG 167 ==
LOC: 2ORMAIN 06:56 → 3SCARD 09:19
PROVIDERS: ADMIT Thoracic Surgery (Cardiothoracic Vascular Surgery); ATTEND Thoracic Surgery (Cardiothoracic Vascular Surgery)
PROC: 0BBJ4ZX Excision of Left Lower Lung Lobe, Percutaneous Endoscopic Approach, Diagnostic (ICD-10-PCS; principal; 2018-02-17 08:15)
PROC: 0BBH4ZX Excision of Lung Lingula, Percutaneous Endoscopic Approach, Diagnostic (ICD-10-PCS; principal; 2018-02-17 08:15)
DX: J84.112 Idiopathic pulmonary fibrosis (principal); B38.1 Chronic pulmonary coccidioidomycosis; E78.5 Hyperlipidemia, unspecified; F17.201 Nicotine dependence, unspecified, in remission; F32.9 Major depressive disorder, single episode, unspecified; F41.9 Anxiety disorder, unspecified; G58.8 Other specified mononeuropathies; J43.9 Emphysema, unspecified; J98.6 Disorders of diaphragm; K21.9 Gastro-esophageal reflux disease without esophagitis; M19.90 Unspecified osteoarthritis, unspecified site; I12.9 Hypertensive chronic kidney disease with stage 1 through stage 4 chronic kidney disease, or unspecified chronic kidney disease; N18.9 Chronic kidney disease, unspecified; Z79.51 Long term (current) use of inhaled steroids; Z79.82 Long term (current) use of aspirin; Z79.899 Other long term (current) drug therapy; Z80.0 Family history of malignant neoplasm of digestive organs; Z96.652 Presence of left artificial knee joint; E11.22 Type 2 diabetes mellitus with diabetic chronic kidney disease
CPT/HCPCS: 71045; 71046; 80048; 85025; 87070; 87075; 87102; 87116; 87205; 87206; 88307; 94640

== ENCOUNTER → 2018-04-05 | Outpatient (CLI) | payer OTHER ==
[2018-04-05 17:44] LABS: Albumin 4.3 g/dL (3.80-4.90); Albumin/Globulin Ratio 1.95 (1.20-2.10); Bilirubin, Conjugated 0.2 mg/dL (0.20-0.40); Bilirubin,Unconjugated 0.6 mg/dL; Globulin 2.2 g/dL (1.6-3.3); Total Bilirubin 0.8 mg/dL (0.3-1.2); Total Protein 6.5 g/dL (6.2-8.2)
== END | disposition home or self-care (01) ==
LOC: LABWHC1 10:28
PROVIDERS: ATTEND Internal Medicine Critical Care Medicine
DX: Z51.81 Encounter for therapeutic drug level monitoring (principal); Z79.899 Other long term (current) drug therapy
CPT/HCPCS: 36415; 80076

== ENCOUNTER → 2018-06-29 | Outpatient (CLI) | payer MEDICARE ==
[2018-06-29 18:00] LABS: Albumin 4.6 g/dL (3.80-4.90); Anion Gap 10.5 mmol/L (4.00-12.00); Calcium 10.3 mg/dL (8.7-10.3); Carbon Dioxide 21.5 mmol/L (21.6-31.8); Globulin 2.3 g/dL (1.6-3.3); Potassium 4.6 mmol/L (3.5-5.5); Total Protein 6.9 g/dL (6.2-8.2)
== END | disposition home or self-care (01) ==
LOC: LABWHC1 11:24
PROVIDERS: ATTEND Internal Medicine Critical Care Medicine
DX: J84.10 Pulmonary fibrosis, unspecified (principal)
CPT/HCPCS: 36415; 80053

== ENCOUNTER 2018-09-16 13:39 | Emergency (ER) | payer MEDICARE ==
[2018-09-16 14:02] VITALS: BP 133/69; PULSE 74; RESP 18; TEMP 99.3
[2018-09-16] MEDS ORDERED: IBUPROFEN 600 MG TAB PO STA (14:25)
--- NOTE | 2018-09-16 14:45 | XR ---
EXAMINATION TYPE: XR shoulder complete RT DATE OF EXAM: 09/16/2018 CLINICAL HISTORY: pain TECHNIQUE: Three views of the right shoulder are obtained. COMPARISON: None FINDINGS: There is no acute fracture/dislocation evident. The acromioclavicular and glenohumeral karo int spaces appear within normal limits. The visualized ribs are intact and unremarkable. IMPRESSION: 1. There is no acute fracture or dislocation. ICD 10 NO FRACTURE, INITIAL EVALUATION
--- NOTE | 2018-09-16 15:06 | ED ---
General Adult HPI - General Chief complaint: Extremity Injury, Upper Stated complaint: Shoulder injury Time Seen by Provider: 09/16/18 14:06 Source: patient Mode of arrival: ambulatory Limitations: physical limitation - History of Present Illness Initial comments: Patient is 70-year-old male presents emergency Department with right shoulder pain. Patient reports the pain started earlier today when he was lifting something heavy and felt a "pop" in his right shoulder. Patient reports the pain is a 6 and constant. Patient denies numbness and tingling or muscle weakness. Patient reports pain is alleviated at rest and exacerbated with arm abduction above 90. Patient states the pain does not radiate anywhere. Patient denies taking medication to relieve the pain. - Related Data Home Medications Medication Instructions Recorded Confirmed Acetaminophen [Tylenol Arthritis] 650 mg PO DAILY PRN 12/03/17 02/17/18 Albuterol Sulfate [Proventil Hfa] 2 puff INHALATION RT-Q6H PRN 12/03/17 02/17/18 Ascorbic Acid [Vitamin C] 1,000 mg PO DAILY 12/03/17 02/17/18 Aspirin [Adult Low Dose Aspirin EC] 81 mg PO DAILY 12/03/17 02/17/18 Cholecalciferol [Vitamin D3 (25 5,000 unit PO DAILY 12/03/17 02/17/18 Mcg = 1000 Iu)] Escitalopram Oxalate [Lexapro] 10 mg PO DAILY 12/03/17 02/17/18 Losartan Potassium [Cozaar] 100 mg PO DAILY 12/03/17 02/17/18 Melatonin 10 mg PO HS 12/03/17 02/17/18 Multivit-Min/FA/Lycopen/Lutein 1 tab PO DAILY 12/03/17 02/17/18 [Centrum Silver Tablet] Omeprazole [PriLOSEC] 20 mg PO AC-BRKFST 12/03/17 02/17/18 Simvastatin 40 mg PO DAILY 12/03/17 02/17/18 buPROPion [Wellbutrin] 150 mg PO BID 12/03/17 02/17/18 Budesonide-Formot 160-4.5 Mcg 2 puff INHALATION RT-BID 02/15/18 02/17/18 [Symbicort 160-4.5 Mcg Inhaler] Montelukast Sodium [Singulair] 10 mg PO HS 02/15/18 02/17/18 Allergies Allergy/AdvReac Type Severity Reaction Status Date / Time No Known Allergies Allergy Verified 09/16/18 14:02 Review of Systems ROS Statement: Those systems with pertinent positive or pertinent negative responses have been documented in the HPI. ROS Other: All systems not noted in ROS Statement are negative. Past Medical History Past Medical History: Asthma, Diabetes Mellitus, GERD/Reflux, Hyperlipidemia, Hypertension, Osteoarthritis (OA) Additional Past Medical History / Comment(s): interstitial lung disease, remote history of a coccidiomycosis of the lungs. History of Any Multi-Drug Resistant Organisms: None Reported Past Surgical History: Appendectomy, Hernia Repair, Joint Replacement Additional Past Surgical History / Comment(s): lung surgery rt thoractomy benign tumor age 19, lt total knee replacement, inguinal hernia repair with mesh Past Anesthesia/Blood Transfusion Reactions: Previous Problems w/ Anesthesia Additional Past Anesthesia/Blood Transfusion Reaction / Comment(s): with last endoscopy coughed throughout procedure Past Psychological History: Anxiety, Depression Smoking Status: Former smoker Past Alcohol Use History: Daily Past Drug Use History: None Reported - Past Family History Mother Family Medical History: No Reported History Additional Family Medical History / Comment(s): adopted Sister(s) Family Medical History: Cancer Additional Family Medical History / Comment(s): pancreatic cancer General Exam Limitations: no limitations General appearance: alert, in no apparent distress Head exam: Present: atraumatic, normocephalic, normal inspection Eye exam: Present: normal appearance, PERRL, EOMI Pupils: Present: normal accommodation ENT exam: Present: normal exam, mucous membranes moist, normal external ear exam Neck exam: Present: normal inspection, full ROM Respiratory exam: Present: normal lung sounds bilaterally Cardiovascular Exam: Present: regular rate, normal rhythm, normal heart sounds Extremities exam: Present: normal inspection (Right shoulder: No bony abnormalities. No crepitus, no joint swelling.), tenderness (Minimal tenderness on palpation of right shoulder), normal capillary refill, other (+2 ulnar, radial pulses, bilaterally.). Absent: full ROM (Limited range of motion with shoulder abduction above 90) Back exam: Present: normal inspection, full ROM Neurological exam: Present: alert, oriented X3 Psychiatric exam: Present: normal affect, normal mood Skin exam: Present: warm, intact, normal color Course Vital Signs 09/16/18 14:00 Temperature 99.3 F Pulse Rate 74 Respiratory 18 Rate Blood Pressure 133/69 O2 Sat by Pulse 97 Oximetry Medical Decision Making - Medical Decision Making Patient is 17-year-old male presenting to the emergency Department with right shoulder pain. Patient was given ibuprofen for pain control. X-ray of the right shoulder is negative for acute fracture or dislocations. Based on history and physical examination suspect the patient to have sprained his right shoulder. Patient advised to keep cold compress on the right shoulder and limited carrying weight with it. Patient advised to follow-up with orthopedics. Strict return parameters were thoroughly discussed with patient who is understanding and agreeable. Case discussed with physician. Disposition Clinical Impression: Shoulder pain, right Disposition: HOME SELF-CARE Condition: Stable Instructions (If sedation given, give patient instructions): Shoulder Sprain (ED) Additional Instructions: Please follow up with orthopedics. Please return to emergency department if symptoms worsen. Please keep cold compresses and area of tenderness. Is patient prescribed a controlled substance at d/c from ED?: No Referrals: Wilson Taylor DO [Primary Care Provider] - 1-2 days Indio Butts DO [Doctor of Osteopathic Medicine] - 1-2 days Time of Disposition: 15:04
== END 2018-09-16 14:15 | disposition home or self-care (01) ==
LOC: EC 13:39
DX: M25.511 Pain in right shoulder (principal); J45.909 Unspecified asthma, uncomplicated; K21.9 Gastro-esophageal reflux disease without esophagitis; E78.5 Hyperlipidemia, unspecified; I10 Essential (primary) hypertension; M19.90 Unspecified osteoarthritis, unspecified site; F32.9 Major depressive disorder, single episode, unspecified; F41.9 Anxiety disorder, unspecified; Z87.891 Personal history of nicotine dependence; Z79.51 Long term (current) use of inhaled steroids; Z79.82 Long term (current) use of aspirin; Z79.899 Other long term (current) drug therapy; Z96.652 Presence of left artificial knee joint; X50.0XXA Overexertion from strenuous movement or load, initial encounter
CPT/HCPCS: 99283

== ENCOUNTER → 2018-10-07 | Outpatient (CLI) | payer MEDICARE ==
[2018-10-07 17:04] LABS: African American GFR (CKD) 86.8 (60.0-200.0); Albumin 4.3 g/dL (3.80-4.90); Albumin/Globulin Ratio 2.15 (1.60-3.17); Anion Gap 9.9 mmol/L (4.00-12.00); Calcium 9.2 mg/dL (8.7-10.3); Carbon Dioxide 27.1 mmol/L (21.6-31.8); Potassium 4.5 mmol/L (3.5-5.5); Total Bilirubin 1.1 mg/dL (0.3-1.2); Total Protein 6.3 g/dL (6.2-8.2)
== END | disposition home or self-care (01) ==
LOC: LABWHC1 10:30
PROVIDERS: ATTEND Internal Medicine Critical Care Medicine
DX: J84.112 Idiopathic pulmonary fibrosis (principal); E78.5 Hyperlipidemia, unspecified
CPT/HCPCS: 36415; 80053

== ENCOUNTER → 2019-01-12 | Outpatient (CLI) | payer MEDICARE ==
--- NOTE | 2019-01-12 08:46 | CT ---
EXAMINATION TYPE: CT chest wo con DATE OF EXAM: 01/12/2019 COMPARISON: 01/05/2018 HISTORY: Idiopathic pulmonary fibrosis CT DLP: 779.5 mGycm High-resolution noncontrast CT of the chest was performed with the patient in the prone and supine po sitions. Lung and mediastinal window settings are submitted. Chronic elevation right hemidiaphragm noted. Stable subpleural fibrosis with early honeycombing seen throughout both lung bonilla with upper lobe predominance redemonstrated. Scattered cystic spaces pers istent mild emphysema noted. Calcified pleural plaques are redemonstrated. No evidence for pneumonia. No evidence for distinct mass. No pleural effusion identified. Innumerable gallstones identified. Probable large left renal cyst. No evidence for hilar or mediastinal adenopathy or mass. Atheromatous and ectatic change thoracic aor ta without aneurysm. IMPRESSION: 1. Stable features of nonspecific interstitial lung disease with upper lobe predominance.
== END ==
LOC: CPPFTMAIN 07:18
PROVIDERS: ATTEND Internal Medicine Critical Care Medicine
DX: J84.112 Idiopathic pulmonary fibrosis (principal)
CPT/HCPCS: 71250; 94060; 94726; 94729

== ENCOUNTER → 2019-01-19 | Outpatient (CLI) | payer MEDICARE | END | disposition home or self-care (01) | LOC: LABPAT 12:20 | PROVIDERS: ATTEND Orthopaedic Surgery | DX: Z01.812 Encounter for preprocedural laboratory examination (principal) | CPT/HCPCS: 87070 ==

== ENCOUNTER 2019-01-30 05:53 | Day surgery (SDC) | payer MEDICARE ==
--- NOTE | 2019-01-29 10:36 | HP ---
HISTORY AND PHYSICAL REASON FOR ADMISSION: Surgery 01/30/2019 HISTORY OF PRESENT ILLNESS: Pravin Simmons is a 73-year-old patient seen with symptomatic right knee osteoarthritis. We discussed options for treatment. He elected to proceed with right total knee arthroplasty. Consent was obtained. Medical clearance was provided by Dr. Wilson Taylor. PAST MEDICAL HISTORY: Hypertension, hyperlipidemia, depression, gastroesophageal reflux disease. PAST SURGICAL HISTORY: Appendectomy, knee arthroscopy, total knee arthroplasty, cervical spine fusion. DAILY MEDICATIONS: Albuterol, buspirone, losartan, omeprazole. ALLERGIES: None. SOCIAL HISTORY: Denies current tobacco use. PHYSICAL EXAMINATION: Evaluation of the right knee his range of motion is -2/3-120. Mild effusion. Tenderness medial joint line. Crepitus along the medial patellofemoral compartments with range of motion. Pain with patellofemoral compression. Ligaments are stable. Hip rotation is without pain. Distal neurovascular exam is intact. RADIOGRAPHS: Radiographs of the right knee reveal severe medial moderate patellofemoral compartment osteoarthritis. IMPRESSION: 1. Right knee osteoarthritis. 2. Hypertension. 3. Hyperlipidemia. 4. Gastroesophageal reflux disease. PLAN: Right total knee arthroplasty. Surgery is scheduled for 01/30/2019. MMODL / IJN: [id number] /
[~2019-01-30 05:53] MED LIST changes: +ACETAMINOPHEN TAB 500 MG TAB PO ONE; +MELOXICAM 7.5 MG TAB PO ONE; -MORPHINE SULFATE 2 MG/ML SYRINGE IV PRN; +TRANEXAMIC ACID 1,000 MG in SODIUM CHLORIDE 0.9% 100 ML IVPB ONE; -ceFAZolin IN SWFI 2 GM/20 ML SYRINGE IVP ONE
[2019-01-30] MEDS ORDERED: ROPIVACAINE 246.25 MG, EPINEPHrine 0.5 MG, KETOROLAC 30 MG, cloNIDine HCL/PF 80 MCG, WA... MISCELLANE ONE ×5 (06:00)
[2019-01-30] MEDS: LACTATED RINGERS 1,000 ML IV SCH ×4 (06:38→23:07)
[2019-01-30] MEDS ORDERED: MIDAZOLAM 2 MG/2 ML VIAL IVP ONE (06:48)
[2019-01-30] MEDS ORDERED: LIDOCAINE 1% 20 ML VIAL (10MG/ML) FOR IV START INTRADERMA PRN (07:00)
[2019-01-30] MEDS ORDERED: MIDAZOLAM 2 MG/2 ML VIAL IV PRN (07:00)
[2019-01-30] MEDS ORDERED: DEXAMETHASONE SOD PHOSPHATE 10 MG/ML 1 ML VIAL IV ONE (07:00)
[2019-01-30] MEDS ORDERED: fentaNYL (PF) 50 MCG/ML 2 ML AMP IV PRN (07:00)
[2019-01-30] MEDS ORDERED: ONDANSETRON 4 MG/2 ML VIAL IVP ONE (07:00)
[2019-01-30] MEDS ORDERED: HYDROmorphone 0.5 MG/0.5 ML SYRINGE IVP PRN ×4 (07:00→09:19)
[2019-01-30] MEDS ORDERED: LIDOCAINE 1% INJ 10MG/ML (20 ML MDV) ONE (07:22)
[2019-01-30] MEDS ORDERED: PROPOFOL 10 MG/ML 20 ML VIAL IV ONE (07:22)
[2019-01-30] MEDS ORDERED: SODIUM CHLORIDE 0.9% 100 ML BAG ONE (07:22)
[2019-01-30] MEDS ORDERED: MIDAZOLAM 2 MG/2 ML VIAL ONE (07:22)
[2019-01-30] MEDS ORDERED: TRANEXAMIC ACID 1,000 MG/10 ML VIAL ONE (07:22)
[2019-01-30] MEDS ORDERED: ROPIVACAINE 0.2%-NS ON-Q PUMP 1,090 MG, EMPTY PAIN BALL 1 EACH MISCELLANE PRN (07:49)
[2019-01-30] MEDS ORDERED: ceFAZolin 3,000 MG in SODIUM CHLORIDE 0.9% IRRIGATIO 3,000 ML IRRIGATION ONE (08:02)
[2019-01-30] MEDS ORDERED: LACTATED RINGERS 1,000 ML IV ONE (08:56)
[2019-01-30] MEDS ORDERED: HYDROcodone/APAP 5-325MG 1 EACH TAB PO PRN (09:19)
[2019-01-30] MEDS ORDERED: NALOXONE 0.4 MG/ML 1 ML VIAL IV PRN (09:19)
[2019-01-30] MEDS ORDERED: ONDANSETRON 4 MG/2 ML VIAL IVP PRN (09:19)
--- NOTE | 2019-01-30 09:19 | P.OP ---
Date of Procedure: 01/30/19 Preoperative Diagnosis: Right knee osteoarthritis Postoperative Diagnosis: Right knee osteoarthritis Procedure(s) Performed: Right total knee arthroplasty Implants: 1. Depuy attune size 6 right cruciate-retaining cemented femur 2. Depuy attune size 6 fixed bearing cemented tibial baseplate 3. Depuy attune size 6 fixed bearing cruciate retaining 10 mm polyethylene tibial insert 4. Depuy attune 38 mm all polyethylene cemented patella Anesthesia: regional (Adductor canal catheter), local, spinal Surgeon: Indio Butts Professional Skater #1: Jesús Dee Estimated Blood Loss (ml): 30 Pathology: other (Bone) Condition: stable Disposition: PACU Indications for Procedure: 73-year-old patient seen with symptomatic right knee osteoarthritis. After treatment options were discussed, he elected to proceed with total knee art hroplasty. Operative Findings: See description of procedure Description of Procedure: Patient was taken to the operative suite after having an adductor canal catheter placed by the department of anesthesia for postoperative pain management. Patient underwent a spinal anesthetic by the department of anesthesia. Patient was given preoperative IV intake antibiotics and TXA. A well-padded tourniquet was placed about the right lower extremity. The lower extremity was then prepped and draped in the normal sterile orthopedic fashion. The extremity was elevated, a tourniquet was insufflated to 300. A standard anterior incision was made sharply through skin. Dissection was taken down through the subcutaneous soft tissues down to the extensor mechanism. A medial arthrotomy was performed, patella was everted and knee was flexed. There was advanced osteoarthritis noted. I introduced my distal intramedullary femoral drill. I then introduced the distal femoral cutting jig. Seamus FELIZ secured the cutting jig with 2 pins. I held retractors in position while Seamus FELIZ performed the distal femoral resection through the guide area we now removed her distal femoral cutting guide. We now placed our 4-in-1 femoral cutting block and positioned and it was secured with 2 pins by Seamus FELIZ while I held the block in position. The distal femoral finishing was now completed. A proximal tibial cutting guide was positioned. I held the guide in the appropriate position with both hands well Seamus FELIZ inserted stabilizing pins into the guide. Proximal tibial cut was made. We now placed a trial femoral component into position, along with an appropriate size tibial tray and insert. We now took the knee through range of motion and had full extension good flexion and good overall soft tissue balance noted. The patella was everted and stabilized with 2 towel clips held by Seamus FELIZ while I performed a flush with patellar quad tendon utilizing a fresh sawblade. We templated the patella, appropriate drill holes were made. An appropriate trial patella was positioned, knee was taken through full range of motion with the patella tracking very nicely. The trial patella was removed. Drill holes were made through the femoral component. All trial components were removed after marking off the appropriate rotation of the tibia. Retractors were now positioned along the proximal tibia. An appropriate keel punch was made with the appropriate size tibial guide by myself on Seamus FELIZ assisted by holding retractors. At this point appropriate size implants were chosen and opened. The joint was irrigated copiously with pulse lavage mechanical irrigation. The posterior capsule was infiltrated with local analgesic. The wound was irrigated with pulse lavage mechanical irrigation. We mixed antibiotic methylmethacrylate. We placed the knee into flexion. We placed multiple retractors assisted by Seamus FELIZ to expose the proximal tibia. Once the methyl methacrylate was ready, the tibial component was cemented into place removing any excess methylmethacrylate form by both myself and Seamus FELIZ. The femoral component was cemented into place removing the removing any excess methylmethacrylate performed by both myself and Seamus FELIZ. We then inserted the appropriate size polyethylene tibial insert. We made sure that it was locked into position. We took the knee into full extension, and then back in a flexion making sure we had removed any excess methylmethacrylate. The patellar component was then cemented down and secured with clamp. Excess methylmethacrylate removed. We kept the knee in full extension, patellar clamp in position until methylmethacrylate had hardened. Once it had hardened the patellar clamp was removed. The knee was taken through full range of motion. The patella tracked nicely. There was good soft tissue balancing. The tourniquet was now released. Additional hemostasis was achieved via electrocautery. A second gram of TXA was given. The wound again was irrigated with pulse lavage mechanical irrigation. The superficial soft tissues were infiltrated local analgesic. The extensor mechanism was repaired with Vicryl. We checked the repair with range of motion and it was stable. The subcutaneous soft tissues were repaired with Vicryl in layers. The skin was approximated with pernio/Dermabond. Sterile dressings were applied followed by loose web roll and Deejay bandage. The patient was transferred to a bed, and taken to recovery in stable and satisfactory condition. Seamus FELIZ assisted with this complex procedure.
--- NOTE | 2019-01-30 09:57 | XR ---
EXAMINATION TYPE: XR knee limited RT DATE OF EXAM: 01/30/2019 CLINICAL HISTORY: Right knee pain and arthritis status post total knee replacement. TECHNIQUE: Portable AP and crosstable lateral views of the right knee are obtained immediately posto peratively. COMPARISON: None FINDINGS: Metallic hardware from total right knee arthroplasty is seen and appears satisfactory in a lignment and position. There is evidence of recent surgery with diffuse subcutaneous gas and soft ti ssue swelling noted. IMPRESSION: METALLIC HARDWARE FROM TOTAL RIGHT KNEE ARTHROPLASTY IS SATISFACTORY IN ALIGNMENT.
[2019-01-30 10:50] VITALS: BMI 27.2
[2019-01-30] MEDS ORDERED: ALBUTEROL NEBULIZED 2.5 MG/3 ML INHALATION PRN (16:52)
[2019-01-30] MEDS: SYMBICORT 160-4.5 MCG INHALER INHALATION SCH (19:00)
--- NOTE | 2019-01-30 19:38 | P.ANPRN ---
Procedure Note - Anesthesia - Nerve Block Performed Right Adductor Canal Infusion Time Out Performed: Yes Date of Procedure: 01/30/19 Procedure Start Time: 06:49 Procedure Stop Time: 07:04 Location of Patient: PreOp Indication: Acute Post-Operative Pain, Requested by Surgeon Sedation Type: Sedate with meaningful contact maintained Preparation: Sterile Prep Position: Supine Catheter: Indwelling Needle Types: Pajunk Needle Gauge: 21 Ultrasound used to visualize needle placement: Yes Ultrasound used to observe medication spread: Yes Blood Aspirated: No Pain Paresthesia on Injection Noted: No Resistance on Injection: Normal Image Stored and Saved: Yes Events: Uneventful and Well Tolerated (ropi .5% 30cc plus dexamethasone 4mg)
[2019-01-30] MEDS: ENOXAPARIN 30 MG/0.3 ML SYRINGE SQ SCH (20:38)
[2019-01-30] MEDS ORDERED: ESCITALOPRAM 10 MG TAB PO SCH (21:00)
[2019-01-30] MEDS ORDERED: SENNOSIDES-DOCUSATE SODIUM 1 EACH TAB PO SCH (21:00)
[2019-01-30] MEDS ORDERED: ATORVASTATIN 20 MG TAB PO SCH (21:00)
[2019-01-31] MEDS: HYDROcodone/APAP 5-325MG 1 EACH TAB PO PRN ×2 (02:05→12:23)
[2019-01-31 07:00] LABS: Basophils % (A) 0 %; Eosinophils % (A) 0 %; HCT 33.4 % (39.0-53.0); HGB 11.1 gm/dL (13.0-17.5); Lymphocytes % (A) 8 %; MCHC 33.1 g/dL (31.0-37.0); MCV 93.7 fL (80.0-100.0); Mean Platelet Volume 8.4; Monocytes # (A) 0.7 k/uL (0-1.0); Monocytes % (A) 5 %; Neutrophils # (A) 10.9 k/uL (1.3-7.7); Neutrophils % (A) 86 %; Platelet Count 132 k/uL (150-450); RBC 3.57 m/uL (4.30-5.90); WBC 12.7 k/uL (3.8-10.6)
[2019-01-31] MEDS ORDERED: PANTOPRAZOLE 40 MG TABLET PO SCH (07:30)
--- NOTE | 2019-01-31 07:41 | P.PN ---
Progress Note - Text 01/31 645am 73-year-old male status post total knee replacement by Dr. Lomeli. Patient has an On-Q pump for postop pain control with the solution running at 8 mL an hour with a VAS of 3. Plan patient to continue On-Q pump infusion
[2019-01-31 08:19] VITALS: BP 163/69; PULSE 65; RESP 16; TEMP 98.5
[2019-01-31] MEDS: SYMBICORT 160-4.5 MCG INHALER INHALATION SCH (08:47)
[2019-01-31] MEDS ORDERED: LOSARTAN 50 MG TAB PO SCH (09:00)
[2019-01-31] MEDS ORDERED: MONTELUKAST 10 MG TAB PO SCH (09:00)
[2019-01-31] MEDS ORDERED: MELOXICAM 7.5 MG TAB PO SCH (09:00)
[2019-01-31] MEDS: ENOXAPARIN 30 MG/0.3 ML SYRINGE SQ SCH (09:49)
[2019-01-31] MEDS ORDERED: buPROPion 75 MG TAB PO SCH (10:00)
--- NOTE | 2019-01-31 13:18 | P.PN ---
Subjective Progress Note Date: 01/31/19 Principal diagnosis: Status post right total knee arthroplasty Patient evaluated at bedside, he's resting comfortably. His ambulate well with therapy. His pain is well-controlled. Objective - Vital Signs Vital signs: Vital Signs Temp 98.5 F 01/31/19 08:19 Pulse 65 01/31/19 08:19 Resp 16 01/31/19 08:19 BP 163/69 01/31/19 08:19 Pulse Ox 95 01/31/19 08:19 Intake & Output 01/30/19 01/31/19 01/31/19 18:59 06:59 18:59 Intake Total 1547 280 Output Total 735 Balance 812 280 Intake: IV 1251 Intake, IV Titration 280 Amount Lactated Ringers 1,000 ml 280 @ 80 mls/hr IV .[id number] DANELLE Rx#:[id number] Oral 296 Output: Urine 700 Estimated Blood Loss 35 Other: Voiding Method Toilet Toilet # Voids 1 - Exam Right lower extremity: Incision is clean, dry, and intact. The exofin fusion tape is in good condition. There is minimal soft tissue swelling and ecchymosis surrounding the medial and lateral aspects of the incision. Calf is soft, no tenderness with palpation. Plantar flexion, dorsiflexion, EHL, FHL are intact. Sensory exam to light touch throughout the extremity is intact, dorsal pedis pulses 2+. - Labs CBC & Chem 7: 01/31/19 06:26 Labs: Abnormal Lab Results - Last 24 Hours (Table) 01/31/19 Range/Units 06:26 WBC 12.7 H (3.8-10.6) k/uL RBC 3.57 L (4.30-5.90) m/uL Hgb 11.1 L (13.0-17.5) gm/dL Hct 33.4 L (39.0-53.0) % Plt Count 132 L (150-450) k/uL Neutrophils # 10.9 H (1.3-7.7) k/uL Assessment and Plan Plan: Assessment: Postop day 1 status post right total knee arthroplasty Plan: Pain control, plan for discharge on oral medication GI and DVT prophylaxis, aspirin 81 mg twice a day Wound care instructions discussed Home therapy and nursing after discharge Medical recommendations Discharge home today Time with Patient: Less than 30
--- NOTE | 2019-01-31 13:20 | P.DS ---
Providers Date of admission: 01/30/2019 Expected date of discharge: 01/31/19 Attending physician: Indio Butts Consults: 01/30/19 09:19 Consult Physician Routine Consulting Provider: Wilson Taylor Reason/Comments: Medical management Do you want consulting provider notified?: Yes Primary care physician: Wilson Taylor [facility] Course: Date of admission: 01/30/2019 Date of discharge: 01/31/2019 Admission diagnosis: Status post post right total knee arthroplasty Discharge diagnosis: Same Attending physician: Dr. Butts Surgical procedures: Right total knee arthroplasty Brief history: Patient is a 73-year-old male with a history of progressive primary right knee osteoarthritis. At this point patient has failed conservative treatment measures and has opted to proceed with a elective right total knee arthroplasty. Hospital course: Details of patient's surgery can be found in operative report. Patient tolerated the procedure well and was subsequently transported to orthopedic floor. Patient's orthopeidc and medical care was provided daily. Patient had daily laboratory tests performed for evaluation of overall blood counts. Patient had daily physical therapy to include strengthening range of motion as well as education with walker ambulation. Patient had daily CPM usage as part of their physical therapy program. Patient was treated with Lovenox for their postoperative DVT prophylaxis during their inpatient stay. Patient was noted to have a relatively uneventful postoperative course. Patient reported satisfactory pain control with oral pain medications by postoperative day 0. Patient showed satisfactory progress with physical therapy. Patient moved steadily through the program and had no difficulty meeting the goals by postoperative day 1. Given patient's otherwise satisfactory course and having met physical therapy goals, plan is to discharge patient home on postoperative day 1. Discharge condition/disposition: Patient will be discharged home in stable condition. Discharge medications: Instructions are given on resumption of patient's normal daily medications per primary care recommendation, in addition patient will be p rescribed Mercer 5 mg/325 mg, Colace 100 mg. Discharge instructions: 1. Wound care and infection precautions, keep incision dry and covered while showering, no lotions, creams, moisturizers. No soaking, tubs, pools, hottubs. Do not scrub over the incision. 2. Weight-bear as tolerated with walker / cane until follow-up. 3. Ice and elevate when necessary. Do not exceed 20 minutes per hour with ice pack. 4. Utilize compression sleeve until seen at first follow up appointment. 5. Visiting nursing care. 6. Home physical therapy including home CPM. 7. Pain meds and anticoagulants per prescription. 8. Pain medication has potential to cause constipation. Increase oral fluid and fiber intake. Contact primary care provider if you have not had a bowel movement within 48 hours after discharge 9. No anti-inflammatory medication until discussed at first post operative visit, this including Motrin, Aleve, Mobic, Diclofenac. 10. Follow up in office at 2 weeks postop with Seamus Dee PA-C 11. Follow up with your primary care doctor 7-10 days after discharge. 12. Contact [facility] with any questions, . Procedures: Right total knee arthroplasty Plan - Discharge Summary Discharge Rx Participant: Yes New Discharge Prescriptions: New Aspirin [Adult Low Dose Aspirin EC] 81 mg PO BID #60 tablet. Docusate [Colace] 100 mg PO DAILY #30 capsule Hydrocodone/Acetaminophen [Mercer 5-325] 1 - 2 each PO Q6HR PRN #56 tab PRN Reason: Pain Discontinued Aspirin [Adult Low Dose Aspirin EC] 81 mg PO DAILY No Action Multivit-Min/FA/Lycopen/Lutein [Centrum Silver Tablet] 1 tab PO DAILY Cholecalciferol [Vitamin D3 (25 Mcg = 1000 Iu)] 5,000 unit PO DAILY Simvastatin 40 mg PO HS Melatonin 10 mg PO HS Ascorbic Acid [Vitamin C] 1,000 mg PO DAILY Omeprazole [PriLOSEC] 20 mg PO AC-BRKFST Losartan Potassium [Cozaar] 100 mg PO DAILY Escitalopram Oxalate [Lexapro] 10 mg PO HS buPROPion [Wellbutrin] 150 mg PO BID Acetaminophen [Tylenol Arthritis] 650 mg PO DAILY PRN PRN Reason: Pain Albuterol Sulfate [Proventil Hfa] 2 puff INHALATION RT-Q6H PRN PRN Reason: Dyspnea Montelukast Sodium [Singulair] 10 mg PO DAILY Budesonide-Formot 160-4.5 Mcg [Symbicort 160-4.5 Mcg Inhaler] 2 puff INHALATION RT-BID Nintedanib Esylate [Ofev] 150 mg PO BID Discharge Medication List Acetaminophen [Tylenol Arthritis] 650 mg PO DAILY PRN 12/03/17 [History] Albuterol Sulfate [Proventil Hfa] 2 puff INHALATION RT-Q6H PRN 12/03/17 [History] Ascorbic Acid [Vitamin C] 1,000 mg PO DAILY 12/03/17 [History] Cholecalciferol [Vitamin D3 (25 Mcg = 1000 Iu)] 5,000 unit PO DAILY 12/03/17 [History] Escitalopram Oxalate [Lexapro] 10 mg PO HS 12/03/17 [History] Losartan Potassium [Cozaar] 100 mg PO DAILY 12/03/17 [History] Melatonin 10 mg PO HS 12/03/17 [History] Multivit-Min/FA/Lycopen/Lutein [Centrum Silver Tablet] 1 tab PO DAILY 12/03/17 [History] Omeprazole [PriLOSEC] 20 mg PO AC-BRKFST 12/03/17 [History] Simvastatin 40 mg PO HS 12/03/17 [History] buPROPion [Wellbutrin] 150 mg PO BID 12/03/17 [History] Budesonide-Formot 160-4.5 Mcg [Symbicort 160-4.5 Mcg Inhaler] 2 puff INHALATION RT-BID 02/15/18 [History] Montelukast Sodium [Singulair] 10 mg PO DAILY 02/15/18 [History] Nintedanib Esylate [Ofev] 150 mg PO BID 01/25/19 [History] Aspirin [Adult Low Dose Aspirin EC] 81 mg PO BID #60 tablet. 01/31/19 [Rx] Docusate [Colace] 100 mg PO DAILY #30 capsule 01/31/19 [Rx] Hydrocodone/Acetaminophen [Mercer 5-325] 1 - 2 each PO Q6HR PRN #56 tab 01/31/19 [Rx] Follow up Appointment(s)/Referral(s): [facility], [NON-STAFF] - Jesús Dee PAC [PHYSICIAN P[employer] INSTALLER] - 02/15/19 2:10 pm Patient Instructions/Handouts: Knee Replacement (DC) Activity/Diet/Wound Care/Special Instructions: Orthopedic Discharge Instructions: 1. Wound care and infection precautions, keep incision dry and covered while showering, no lotions, creams, moisturizers. No soaking, pools, hot tubs. Do not scrub over incision. 2. Weight-bear as tolerated with walker / cane until follow-up. 3. Ice and elevate when necessary. Do not exceed 20 minutes per hour with ice pack. 4. Utilize compression sleeve until seen at first follow up appointment. 5. Pain meds and anticoagulants per prescription. 6. Pain medication has potential to cause constipation. Increase oral fluid and fiber intake. Contact primary care provider if you have not had a bowel movement within 48 hours after discharge. 7. No anti-inflammatory medication until discussed at first post operative visit, this including Motrin, Aleve, Mobic, Diclofenac. 8. Follow up in office at 2 weeks postop with Seamus Dee PA-C 9. Follow up with your primary care doctor 7-10 days after discharge. 10. Contact [facility] with any questions, [phone]. 11. *Please call [employer] once home to arrange delivery of Continuous Passive Motion (CPM) machine: [phone] Discharge Disposition: HOME WITH HOME HEALTH SERVICES
--- NOTE | 2019-01-31 15:12 | P.CONS ---
History of Present Illness - Reason for Consult Consult date: 01/31/19 Medical management asthma, COPD, gastroesophageal reflux disease, hypertens Requesting physician: Indio Butts - Chief Complaint Elective surgery - History of Present Illness - Hospital course: This is a 73-year-old gentleman with history of asthma, COPD, interstitial lung disease, pulmonary fibrosis, gastroesophageal reflux disease, hypertension, hyperlipidemia, anxiety, depression and multiple other medical issues status post right total knee arthroplasty. Pain controlled. Ambulating with walker, tolerated exertion well. Denies lightheadedness, dizziness or focal deficits.Passing flatus, no bowel movement. Incentive spirometer [id number]. Denies chest pain, palpitations or shortness of breath. Review of Systems Constitutional: Denied any fatigue denied any fever. Cardio vascular: denied any chest pain, palpitations Gastrointestinal denied any nausea vomiting Pulmonary: Denied any shortness of breath cough Neurologic denied any new focal deficits ROS Statement: Those systems with pertinent positive or pertinent negative responses have been documented in the HPI. ROS Other: All systems not noted in ROS Statement are negative. Past Medical History Past Medical History: Asthma, COPD, GERD/Reflux, Hyperlipidemia, Hypertension, Osteoarthritis (OA) Additional Past Medical History / Comment(s): interstitial lung disease, pulmonary fibrosis History of Any Multi-Drug Resistant Organisms: None Reported Past Surgical History: Appendectomy, Hernia Repair, Joint Replacement Additional Past Surgical History / Comment(s): lung surgery rt thoractomy benign tumor age 19, lt total knee replacement, inguinal hernia repair with mesh Past Anesthesia/Blood Transfusion Reactions: Previous Problems w/ Anesthesia Additional Past Anesthesia/Blood Transfusion Reaction / Comm: with last endoscopy coughed throughout procedure Past Psychological History: Anxiety, Depression Smoking Status: Former smoker Past Alcohol Use History: Daily Additional Past Alcohol Use History / Comment(s): smoked 15 years 1 ppd 1984, 1 beer or cocktail per day Past Drug Use History: None Reported - Past Family History Mother Family Medical History: No Reported History Additional Family Medical History / Comment(s): adopted Sister(s) Family Medical History: Cancer Additional Family Medical History / Comment(s): pancreatic cancer Medications and Allergies Home Medications Medication Instructions Recorded Confirmed Type Albuterol Sulfate [Proventil Hfa] 2 puff INHALATION RT-Q6H PRN 12/03/17 01/30/19 History Ascorbic Acid [Vitamin C] 1,000 mg PO DAILY 12/03/17 01/25/19 History Cholecalciferol [Vitamin D3 (25 5,000 unit PO DAILY 12/03/17 01/25/19 History Mcg = 1000 Iu)] Escitalopram Oxalate [Lexapro] 10 mg PO HS 12/03/17 01/30/19 History Losartan Potassium [Cozaar] 100 mg PO DAILY 12/03/17 01/25/19 History Melatonin 10 mg PO HS 12/03/17 01/25/19 History Multivit-Min/FA/Lycopen/Lutein 1 tab PO DAILY 12/03/17 01/25/19 History [Centrum Silver Tablet] Omeprazole [PriLOSEC] 20 mg PO AC-BRKFST 12/03/17 01/30/19 History Simvastatin 40 mg PO HS 12/03/17 01/30/19 History buPROPion [Wellbutrin] 150 mg PO BID 12/03/17 01/30/19 History Budesonide-Formot 160-4.5 Mcg 2 puff INHALATION RT-BID 02/15/18 01/25/19 History [Symbicort 160-4.5 Mcg Inhaler] Montelukast Sodium [Singulair] 10 mg PO DAILY 02/15/18 01/30/19 History Nintedanib Esylate [Ofev] 150 mg PO BID 01/25/19 01/30/19 History Aspirin [Adult Low Dose Aspirin EC] 81 mg PO BID #60 tablet.dr 01/31/19 Rx Docusate [Colace] 100 mg PO DAILY #30 capsule 01/31/19 Rx Hydrocodone/Acetaminophen [Piseco 1 - 2 each PO Q6HR PRN #56 tab 01/31/19 Rx 5-325] Allergies Allergy/AdvReac Type Severity Reaction Status Date / Time No Known Allergies Allergy Verified 01/25/19 10:18 Physical Exam Vitals: Vital Signs Temp Pulse Pulse Resp BP Pulse Ox 01/31/19 08:19 98.5 F 65 16 163/69 95 01/31/19 07:08 68 18 01/31/19 00:42 98.3 F 68 18 138/72 96 01/30/19 19:30 98.1 F 66 18 148/72 96 Intake and Output 01/30/19 01/31/19 01/31/19 22:59 06:59 14:59 Intake Total 280 Balance 280 Intake: Intake, IV Titration 280 Amount Lactated Ringers 1,000 ml 280 @ 80 mls/hr IV .[id number] DANELLE Rx#:[id number] Other: Voiding Method Toilet Toilet # Voids 1 1 PHYSICAL EXAM: VITAL SIGNS: As above GENERAL: Sitting up in chair, no acute distress HEENT: Conjunctivae normal. eyes normal. Oral mucosa moist NECK: No JVD. No thyroid enlargement. No LNs CARDIOVASCULAR: S1, S2 regular. No murmur RESPIRATION: Breath sounds diminished in the bases. No rhonchi or crackles. No bronchial breathing. ABDOMEN: Soft, nontender . No guarding. no masses palpable. No ascites, No hepatosplenomegaly.Bowel sounds heard. EXTREMITY: Right lower extremity dressing clean dry and intact, mild edema, positive pulses PSYCHIATRY: Alert and oriented X3, mood and affect normal. NERVOUS SYSTEM: Cranial N 2-12 grossly normal. Moves all 4 limbs. Diffuse weakness No focal deficits. Strength and sensation grossly intact.. Skin: no lesions, no rash Results CBC & Chem 7: 01/31/19 06:26 Labs: Abnormal Lab Results - Last 24 Hours (Table) 01/31/19 Range/Units 06:26 WBC 12.7 H (3.8-10.6) k/uL RBC 3.57 L (4.30-5.90) m/uL Hgb 11.1 L (13.0-17.5) gm/dL Hct 33.4 L (39.0-53.0) % Plt Count 132 L (150-450) k/uL Neutrophils # 10.9 H (1.3-7.7) k/uL Assessment and Plan Assessment: -Status post right total knee arthroplasty -Chronic intermittent asthma, stable -COPD, stable -Gastroesophageal reflux disease -hyperlipidemia -hypertension -Osteoarthritis -Interstitial lung disease, pulmonary fibrosis -Anxiety -depression -Former nicotine dependence Plan: Continue current medication regime ,monitoring and symptomatic treatment. Home meds have been reviewed and resumed accordingly. GI and DVT prophylaxis in place. Patient is expecting to be discharged home later today as per orthopedic surgery. Anticoagulation on/pain management as per primary. Follow-up with PCP in 1 week. Further recommendations to follow. The impression and plan of care has been dictated as directed. : I performed a history and examination of this patient, discussed the same with the dictator. I agree with the dictator's note ,documented as a scribe. Any additional findings or plans will be noted.
== END 2019-01-31 16:29 | disposition home health service (06) ==
LOC: OR 05:53 → 4SSUR 09:15 → OR 01-31 16:29
PROVIDERS: ATTEND Orthopaedic Surgery
DX: M17.11 Unilateral primary osteoarthritis, right knee (principal); I10 Essential (primary) hypertension; F41.9 Anxiety disorder, unspecified; E78.5 Hyperlipidemia, unspecified; J44.9 Chronic obstructive pulmonary disease, unspecified; K21.9 Gastro-esophageal reflux disease without esophagitis; F32.9 Major depressive disorder, single episode, unspecified; Z98.1 Arthrodesis status; J84.10 Pulmonary fibrosis, unspecified; Z96.652 Presence of left artificial knee joint; Z98.42 Cataract extraction status, left eye; Z98.41 Cataract extraction status, right eye; Z87.891 Personal history of nicotine dependence; Z80.0 Family history of malignant neoplasm of digestive organs; Z79.82 Long term (current) use of aspirin; Z79.51 Long term (current) use of inhaled steroids; Z79.899 Other long term (current) drug therapy; Z79.891 Long term (current) use of opiate analgesic
CPT/HCPCS: 94640 ×2; 97116; 97161; 64448; 76942; 85025; 88300; 73560; 27447; C1776; C1713; J2250; J0171; J1100; J0690 ×2; J2405; J2001; J1885; J1650; J2795 ×2; J2704; J0735

== ENCOUNTER → 2019-03-31 | Outpatient (CLI) | payer MEDICARE ==
[2019-03-31 17:49] LABS: African American GFR (CKD) 97.9 (60.0-200.0); Albumin 4.3 g/dL (3.80-4.90); Albumin/Globulin Ratio 2.15 (1.60-3.17); Anion Gap 12.4 mmol/L (4.00-12.00); BUN/Creat Ratio 25.56 Ratio (12.00-20.00); Calcium 9.5 mg/dL (8.7-10.3); Carbon Dioxide 23.6 mmol/L (21.6-31.8); Non-African American GFR(CKD) 84.4 (60.0-200.0); Potassium 4.3 mmol/L (3.5-5.5); Total Bilirubin 0.6 mg/dL (0.3-1.2); Total Protein 6.3 g/dL (6.2-8.2)
== END | disposition home or self-care (01) ==
LOC: LABWHC1 09:19
PROVIDERS: ATTEND Internal Medicine Critical Care Medicine
DX: J84.112 Idiopathic pulmonary fibrosis (principal); I10 Essential (primary) hypertension; Z79.899 Other long term (current) drug therapy
CPT/HCPCS: 36415; 80053

== ENCOUNTER → 2019-11-08 | Outpatient (CLI) | payer MEDICARE ==
[2019-11-09 00:36] LABS: Albumin 4.4 g/dL (3.80-4.90); Albumin/Globulin Ratio 1.91 (1.60-3.17); Bilirubin, Conjugated 0.3 mg/dL (0.20-0.40); Globulin 2.3 g/dL (1.6-3.3); Total Bilirubin 1.3 mg/dL (0.3-1.2); Total Protein 6.7 g/dL (6.2-8.2)
== END | disposition home or self-care (01) ==
LOC: LABWHC1 16:10
PROVIDERS: ATTEND Internal Medicine Critical Care Medicine
DX: Z51.81 Encounter for therapeutic drug level monitoring (principal)
CPT/HCPCS: 36415; 80076

== ENCOUNTER → 2019-12-26 | Outpatient (CLI) | payer MEDICARE ==
--- NOTE | 2019-12-26 12:16 | CT ---
EXAMINATION TYPE: CT chest wo con DATE OF EXAM: 12/26/2019 COMPARISON: 01/12/2019 HISTORY: COPD CT DLP: 694.9 mGycm, Automated exposure control for dose reduction was used. CONTRAST: None TECHNIQUE: Axial images were obtained at 1 mm thick sections at 10 mm intervals. This will limit po rtions of the examination which may not be visualized within the [id number]. Images were obtained in the prone and supine views. FINDINGS: Portion of the thyroid visualized is normal. There is a 0.8 cm nodule within the anterior right upper lobe. Series 8 image 6. A pleural-based nodule may be present measuring 0.8 cm. Series 8 image 9. A tiny 0.4 cm pleural-based nodules in the anterior right lobe. Series 8 image 9. Peripheral pulmonary fibrosis is evident. No enlarged mediastinal or hilar adenopathy is evident. The ascending aorta diameter at the level o f the main pulmonary artery is 4.0 cm. The main pulmonary artery diameter at the bifurcation is 3.[address] sections are obtained through the upper abdomen. Abdomen is essentially unremarkable. IMPRESSIONS: 1. Pulmonary fibrosis, similar to prior exam. 2. There may be some new nodules, most notably the left anterior upper lobe. Consider standard CT [address]ia [address] for additional evaluation
== END | disposition home or self-care (01) ==
LOC: RADCTMAIN 06:47
PROVIDERS: ATTEND Internal Medicine Critical Care Medicine
DX: J84.10 Pulmonary fibrosis, unspecified (principal); J44.9 Chronic obstructive pulmonary disease, unspecified
CPT/HCPCS: 71250

== ENCOUNTER → 2020-01-02 | Outpatient (CLI) | payer MEDICARE ==
[2020-01-02 14:58] LABS: African American GFR (CKD) 76.2 (60.0-200.0); Albumin 4.3 g/dL (3.80-4.90); Albumin/Globulin Ratio 1.95 (1.60-3.17); Anion Gap 6.7 mmol/L (4.00-12.00); BUN/Creat Ratio 19.09 Ratio (12.00-20.00); Calcium 9.2 mg/dL (8.7-10.3); Carbon Dioxide 25.3 mmol/L (21.6-31.8); Globulin 2.2 g/dL (1.6-3.3); Non-African American GFR(CKD) 65.8 (60.0-200.0); Potassium 4.1 mmol/L (3.5-5.5); Total Protein 6.5 g/dL (6.2-8.2)
== END | disposition home or self-care (01) ==
LOC: LABWHC1 10:05
PROVIDERS: ATTEND Internal Medicine Critical Care Medicine
DX: Z51.81 Encounter for therapeutic drug level monitoring (principal); Z79.899 Other long term (current) drug therapy
CPT/HCPCS: 36415; 80053

== ENCOUNTER → 2020-08-28 | Outpatient (CLI) | payer MEDICARE ==
[2020-08-28 23:14] LABS: African American GFR (CKD) 68.6 (60.0-200.0); Albumin 4.8 g/dL (3.80-4.90); Albumin/Globulin Ratio 1.85 (1.60-3.17); Anion Gap 13.1 mmol/L (4.00-12.00); BUN/Creat Ratio 20.83 Ratio (12.00-20.00); Calcium 10.3 mg/dL (8.7-10.3); Carbon Dioxide 26.9 mmol/L (21.6-31.8); Globulin 2.6 g/dL (1.6-3.3); Non-African American GFR(CKD) 59.2 (60.0-200.0); Potassium 4.6 mmol/L (3.5-5.5); Total Bilirubin 0.6 mg/dL (0.3-1.2); Total Protein 7.4 g/dL (6.2-8.2)
== END | disposition home or self-care (01) ==
LOC: LABWHC1 09:00
PROVIDERS: ATTEND Internal Medicine Critical Care Medicine
DX: Z51.81 Encounter for therapeutic drug level monitoring (principal); Z79.899 Other long term (current) drug therapy
CPT/HCPCS: 36415; 80053

== ENCOUNTER → 2021-01-01 | Outpatient (CLI) | payer MEDICARE ==
[2021-01-01 18:28] LABS: ALT 27 U/L (10-49); AST 26 U/L (14-35); Albumin 4.5 g/dL (3.8-4.9); Albumin/Globulin Ratio 1.73 (1.60-3.17); Alkaline Phosphatase 88 U/L (41-126); Bilirubin, Conjugated <0.20 mg/dL (0.20-0.40); Globulin 2.6 g/dL (1.6-3.3); Total Protein 7.1 g/dL (6.2-8.2)
== END | disposition home or self-care (01) ==
LOC: LABWHC1 08:27
PROVIDERS: ATTEND Internal Medicine Critical Care Medicine
DX: Z79.899 Other long term (current) drug therapy (principal)
CPT/HCPCS: 36415; 80076

== ENCOUNTER 2021-04-26 09:55 | Inpatient (IN) | payer MEDICARE ==
[2021-04-26] MEDS ORDERED: methylPREDNISolone SOD SUCCI 125 MG/2 ML VIAL IV STA (10:29)
--- NOTE | 2021-04-26 10:41 | ED ---
General Adult HPI - General Chief complaint: Shortness of Breath Stated complaint: Low O2/SOB Time Seen by Provider: 04/26/21 10:00 Source: patient, family, RN notes reviewed, old records reviewed Mode of arrival: wheelchair Limitations: no limitations - History of Present Illness Initial comments: This is a 75-year-old male who has a past medical history significant for pulmonary fibrosis as well as a paralyzed diaphragm. Patient comes in because he was short of breath this morning and he noted his pulse ox is in the low 70s. Patient was seen in triage and his pulse ox was in the 60s at that point in time. Patient states his hemoglobin is also been a little bit low lately. Has not had any black or bloody stools. Patient denies any chest pain or palpitations. Patient states on 2 L of oxygen at home normally. Patient denies any vomiting or diarrhea recently. Patient denies any fever chills or cough. Patient denies any swelling to the legs or calf tenderness. - Related Data Home Medications Medication Instructions Recorded Confirmed Escitalopram Oxalate [Lexapro] 10 mg PO HS 12/03/17 04/26/21 Losartan Potassium [Cozaar] 100 mg PO DAILY 12/03/17 04/26/21 Multivit-Min/FA/Lycopen/Lutein 1 tab PO DAILY 12/03/17 04/26/21 [Centrum Silver Tablet] Omeprazole [PriLOSEC] 20 mg PO AC-BRKFST 12/03/17 04/26/21 buPROPion [Wellbutrin] 150 mg PO BID 12/03/17 04/26/21 Montelukast Sodium [Singulair] 10 mg PO HS 02/15/18 04/26/21 Nintedanib Esylate [Ofev] 150 mg PO BID 01/25/19 04/26/21 Albuterol Sulfate [Proair Hfa] 2 puff INHALATION RT-Q6H PRN 04/26/21 04/26/21 Aspirin [Adult Low Dose Aspirin EC] 81 mg PO DAILY 04/26/21 04/26/21 Simvastatin [Zocor] 40 mg PO HS 04/26/21 04/26/21 Allergies Allergy/AdvReac Type Severity Reaction Status Date / Time No Known Allergies Allergy Verified 04/26/21 11:15 Review of Systems ROS Statement: Those systems with pertinent positive or pertinent negative responses have been documented in the HPI. ROS Other: All systems not noted in ROS Statement are negative. Past Medical History Past Medical History: Asthma, Diabetes Mellitus, GERD/Reflux, Hyperlipidemia, Hypertension, Osteoarthritis (OA) Additional Past Medical History / Comment(s): interstitial lung disease, remote history of a coccidiomycosis of the lungs. History of Any Multi-Drug Resistant Organisms: None Reported Past Surgical History: Appendectomy, Hernia Repair, Joint Replacement Additional Past Surgical History / Comment(s): lung surgery rt thoractomy benign tumor age 19, lt total knee replacement, inguinal hernia repair with mesh Past Anesthesia/Blood Transfusion Reactions: Previous Problems w/ Anesthesia Additional Past Anesthesia/Blood Transfusion Reaction / Comment(s): with last endoscopy coughed throughout procedure Past Psychological History: Anxiety, Depression Smoking Status: Never smoker Past Alcohol Use History: Daily Past Drug Use History: None Reported - Past Family History Mother Family Medical History: No Reported History Additional Family Medical History / Comment(s): adopted Sister(s) Family Medical History: Cancer Additional Family Medical History / Comment(s): pancreatic cancer General Exam - General Exam Comments Initial Comments: GENERAL: Patient is well-developed and well-nourished. Patient is nontoxic and well- hydrated and is in mild distress. ENT: Neck is soft and supple. No significant lymphadenopathy is noted. Oropharynx is clear. Moist mucous membranes. Neck has full range of motion without eliciting any pain. EYES: The sclera were anicteric and conjunctiva were pink and moist. Extraocular movements were intact and pupils were equal round and reactive to light. Eyelids were unremarkable. PULMONARY: Unlabored respirations. Good breath sounds bilaterally. Faint crackles bilaterally CARDIOVASCULAR: There is a regular rate and rhythm without any murmurs gallops or rubs. ABDOMEN: Soft and nontender with normal bowel sounds. SKIN: Skin is clear with no lesions or rashes and otherwise unremarkable. NEUROLOGIC: Patient is alert and oriented x3. Cranial nerves II through XII are grossly intact. Motor and sensory are also intact. Normal speech, volume and content. Symmetrical smile. MUSCULOSKELETAL: Normal extremities with adequate strength and full range of motion. LYMPHATICS: No significant lymphadenopathy is noted PSYCHIATRIC: Normal psychiatric evaluation. Limitations: no limitations Course Vital Signs 04/26/21 04/26/21 04/26/21 09:55 12:21 12:28 Temperature 97.8 F Pulse Rate 109 H 89 86 Respiratory 32 H Rate Blood Pressure 165/93 O2 Sat by Pulse 62 L Oximetry 04/26/21 12:33 Temperature Pulse Rate Respiratory Rate Blood Pressure O2 Sat by Pulse 96 Oximetry Procedures - Sepsis Sepsis Focused Exam #1 Time Sepsis Criteria Met: 11:30 Sepsis Focused Exam Date: 04/26/21 Sepsis Focused Exam Time: 14:12 Sepsis Focused Exam Complete: Yes Vital Signs & RN Notes Reviewed: Yes Capillary Refill: < 2 Seconds: Fingers Peripheral Pulses: Normal: Radial (R) Skin Color: Normal for Patient Respiratory Exam: normal lung sounds Cardiovascular Exam: normal rhythm Medical Decision Making - Medical Decision Making EKG shows sinus rhythm at 80 bpm VA interval 154 QRS is 102 QT interval 395 QTC is 441. Patient's EKG shows no ST segment elevation or depression. Chest x-ray shows multifocal pneumonia. I saw the x-ray of infection at 11:30 AM. I spoke with Dr. ramos he agreed to admit the patient admitted the patient wrote admitting orders. I started the patient on Zosyn. Patient's lactic acid was over 5 so the patient is considered to be in sepsis. Because the patient's troponin was elevated I spoke with Dr. Roth the slat basket maker machine he was in agreement with the current plan and agreed no heparin at this time. - Lab Data Result diagrams: 04/26/21 10:13 04/26/21 10:13 Lab Results 04/26/21 04/26/21 04/26/21 Range/Units 10:13 10:13 10:13 WBC 15.3 H (3.8-10.6) k/uL RBC 4.04 L (4.30-5.90) m/uL Hgb 12.3 L (13.0-17.5) gm/dL Hct 36.5 L (39.0-53.0) % MCV 90.5 (80.0-100.0) fL MCH 30.4 (25.0-35.0) pg MCHC 33.6 (31.0-37.0) g/dL RDW 14.5 (11.5-15.5) % Plt Count 242 (150-450) k/uL MPV 10.8 Neutrophils % 90 % Lymphocytes % 4 % Monocytes % 5 % Eosinophils % 0 % Basophils % 0 % Neutrophils # 13.7 H (1.3-7.7) k/uL Lymphocytes # 0.7 L (1.0-4.8) k/uL Monocytes # 0.8 (0-1.0) k/uL Eosinophils # 0.0 (0-0.7) k/uL Basophils # 0.0 (0-0.2) k/uL PT 11.4 (9.0-12.0) sec INR 1.1 (<1.2) APTT 23.7 (22.0-30.0) sec D-Dimer 1.67 H (<0.60) mg/L FEU Sodium 143 (137-145) mmol/L Potassium 4.1 (3.5-5.1) mmol/L Chloride 101 (98-107) mmol/L Carbon Dioxide 25 (22-30) mmol/L Anion Gap 17 mmol/L BUN 18 (9-20) mg/dL Creatinine 1.24 (0.66-1.25) mg/dL Est GFR (CKD-EPI)AfAm 66 (>60 ml/min/1.73 sqM) Est GFR (CKD-EPI)NonAf 57 (>60 ml/min/1.73 sqM) Glucose 196 H (74-99) mg/dL Lactic Ac Sepsis Rflx Plasma Lactic Acid James (0.7-2.0) mmol/L Calcium 9.3 (8.4-10.2) mg/dL Magnesium 1.3 L (1.6-2.3) mg/dL Total Bilirubin 2.0 H (0.2-1.3) mg/dL AST 53 (17-59) U/L ALT 33 (4-49) U/L Alkaline Phosphatase 92 (38-126) U/L Troponin I (0.000-0.034) ng/mL NT-Pro-B Natriuret Pep pg/mL Total Protein 7.1 (6.3-8.2) g/dL Albumin 3.8 (3.5-5.0) g/dL Coronavirus (PCR) (Not Detectd) 04/26/21 04/26/21 04/26/21 Range/Units 10:13 10:13 10:13 WBC (3.8-10.6) k/uL RBC (4.30-5.90) m/uL Hgb (13.0-17.5) gm/dL Hct (39.0-53.0) % MCV (80.0-100.0) fL MCH (25.0-35.0) pg MCHC (31.0-37.0) g/dL RDW (11.5-15.5) % Plt Count (150-450) k/uL MPV Neutrophils % % Lymphocytes % % Monocytes % % Eosinophils % % Basophils % % Neutrophils # (1.3-7.7) k/uL Lymphocytes # (1.0-4.8) k/uL Monocytes # (0-1.0) k/uL Eosinophils # (0-0.7) k/uL Basophils # (0-0.2) k/uL PT (9.0-12.0) sec INR (<1.2) APTT (22.0-30.0) sec D-Dimer (<0.60) mg/L FEU Sodium (137-145) mmol/L Potassium (3.5-5.1) mmol/L Chloride (98-107) mmol/L Carbon Dioxide (22-30) mmol/L Anion Gap mmol/L BUN (9-20) mg/dL Creatinine (0.66-1.25) mg/dL Est GFR (CKD-EPI)AfAm (>60 ml/min/1.73 sqM) Est GFR (CKD-EPI)NonAf (>60 ml/min/1.73 sqM) Glucose (74-99) mg/dL Lactic Ac Sepsis Rflx Plasma Lactic Acid James 5.8 H* (0.7-2.0) mmol/L Calcium (8.4-10.2) mg/dL Magnesium (1.6-2.3) mg/dL Total Bilirubin (0.2-1.3) mg/dL AST (17-59) U/L ALT (4-49) U/L Alkaline Phosphatase (38-126) U/L Troponin I 0.381 H* (0.000-0.034) ng/mL NT-Pro-B Natriuret Pep 4460 pg/mL Total Protein (6.3-8.2) g/dL Albumin (3.5-5.0) g/dL Coronavirus (PCR) (Not Detectd) 04/26/21 04/26/21 Range/Units 11:20 11:35 WBC (3.8-10.6) k/uL RBC (4.30-5.90) m/uL Hgb (13.0-17.5) gm/dL Hct (39.0-53.0) % MCV (80.0-100.0) fL MCH (25.0-35.0) pg MCHC (31.0-37.0) g/dL RDW (11.5-15.5) % Plt Count (150-450) k/uL MPV Neutrophils % % Lymphocytes % % Monocytes % % Eosinophils % % Basophils % % Neutrophils # (1.3-7.7) k/uL Lymphocytes # (1.0-4.8) k/uL Monocytes # (0-1.0) k/uL Eosinophils # (0-0.7) k/uL Basophils # (0-0.2) k/uL PT (9.0-12.0) sec INR (<1.2) APTT (22.0-30.0) sec D-Dimer (<0.60) mg/L FEU Sodium (137-145) mmol/L Potassium (3.5-5.1) mmol/L Chloride (98-107) mmol/L Carbon Dioxide (22-30) mmol/L Anion Gap mmol/L BUN (9-20) mg/dL Creatinine (0.66-1.25) mg/dL Est GFR (CKD-EPI)AfAm (>60 ml/min/1.73 sqM) Est GFR (CKD-EPI)NonAf (>60 ml/min/1.73 sqM) Glucose (74-99) mg/dL Lactic Ac Sepsis Rflx Y Plasma Lactic Acid James (0.7-2.0) mmol/L Calcium (8.4-10.2) mg/dL Magnesium (1.6-2.3) mg/dL Total Bilirubin (0.2-1.3) mg/dL AST (17-59) U/L ALT (4-49) U/L Alkaline Phosphatase (38-126) U/L Troponin I (0.000-0.034) ng/mL NT-Pro-B Natriuret Pep pg/mL Total Protein (6.3-8.2) g/dL Albumin (3.5-5.0) g/dL Coronavirus (PCR) Not Detected (Not Detectd) Critical Care Time Critical Care Time: Yes Total Critical Care Time: 35 Disposition Clinical Impression: Pneumonia, Sepsis Disposition: ADMITTED IP TO THIS HOSP Time of Disposition: 11:39
--- NOTE | 2021-04-26 11:12 | XR ---
EXAMINATION TYPE: XR chest 2V DATE OF EXAM: 04/26/2021 11:01 AM COMPARISON:Chest radiographs from 10/01/2017 TECHNIQUE: XR chest 2V Frontal and lateral views of the chest. CLINICAL INDICATION:Male, 75 years old with history of difficulty breathing; FINDINGS: Lungs/Pleura: Multifocal airspace opacities. No evidence of pneumothorax or pleural effusion. Persist ent elevated right diaphragm. Pulmonary vascularity: Unremarkable. Heart/mediastinum: Cardiomediastinal silhouette is unremarkable. Musculoskeletal: No acute osseous pathology. IMPRESSION: Multifocal pneumonia.
[2021-04-26 11:14] LABS: Albumin 3.8 g/dL (3.5-5.0); Calcium 9.3 mg/dL (8.4-10.2); Total Protein 7.1 g/dL (6.3-8.2)
[2021-04-26 11:18] LABS: Magnesium 1.3 mg/dL (1.6-2.3); Potassium 4.1 mmol/L (3.5-5.1)
[2021-04-26 11:23] LABS: INR 1.1 (<1.2); Partial Thromboplastin Time 23.7 sec (22.0-30.0); Prothrombin Time 11.4 sec (9.0-12.0)
[2021-04-26 11:24] LABS: Basophils % (A) 0 %; Eosinophils % (A) 0 %; HCT 36.5 % (39.0-53.0); HGB 12.3 gm/dL (13.0-17.5); Lymphocytes # (A) 0.7 k/uL (1.0-4.8); Lymphocytes % (A) 4 %; MCH 30.4 pg (25.0-35.0); MCHC 33.6 g/dL (31.0-37.0); MCV 90.5 fL (80.0-100.0); Mean Platelet Volume 10.8; Monocytes # (A) 0.8 k/uL (0-1.0); Monocytes % (A) 5 %; Neutrophils # (A) 13.7 k/uL (1.3-7.7); Neutrophils % (A) 90 %; Platelet Count 242 k/uL (150-450); RBC 4.04 m/uL (4.30-5.90); RDW 14.5 % (11.5-15.5); WBC 15.3 k/uL (3.8-10.6)
[2021-04-26] MEDS ORDERED: PIPERACILLIN-TAZOBACTAM 3.375 GM in SODIUM CHLORIDE 0.9% 100 ML IVPB STA (11:26)
[2021-04-26] MEDS ORDERED: SODIUM CHLORIDE 0.9% 2,000 ML IV ONE (11:27)
[2021-04-26] MEDS ORDERED: AZITHROMYCIN 500 MG in SODIUM CHLORIDE 0.9% 250 ML IVPB STA (11:27)
[2021-04-26] MEDS ORDERED: PNEUMONIA PROTOCOL UTILIZED 1 EACH MISC PO PRN (11:39)
[2021-04-26] MEDS: MAGNESIUM SULFATE-D5W PMX 1 GM in DEXTROSE/WATER 1 100ML.BAG IVPB SCH ×2 (11:42→12:53)
[2021-04-26] MEDS ORDERED: ASPIRIN 81 MG PO STA (11:43)
[2021-04-26] MEDS: IPRATROPIUM-ALBUTEROL 3 ML NEB INHALATION SCH ×3 (12:19→18:44)
[2021-04-26] MEDS ORDERED: FUROSEMIDE 10 MG/ML 4 ML VIAL IV STA (12:39)
--- NOTE | 2021-04-26 12:48 | CT ---
EXAMINATION TYPE: CT chest angio for PE CT DLP: 340.6 mGycm, Automated exposure control for dose reduction was used. DATE OF EXAM: 04/26/2021 12:22 PM COMPARISON: Chest radiograph from same day. CT of the chest on 01/05/2018 . CLINICAL INDICATION:Male, 75 years old with history of Elevated d-dimer, short of breath; Elevated d- dimer, shortness of breath, COPD, asthma, fibrosis TECHNIQUE/CONTRAST: CTA scan of the thorax is performed with IV Contrast, patient injected with 80 mL of Isovue 370, pulm onary embolism protocol. MIP images are created and reviewed. FINDINGS: Pulmonary Artery: There is no evidence for a filling defect within the pulmonary vasculature to sugge st acute pulmonary embolism. The pulmonary artery is of normal size. Lungs/Pleura: Peripheral groundglass opacities are seen throughout the lungs. No evidence of pneumoth orax or pleural effusion. Airway: Large airways are patent. Heart: The heart is mildly enlarged.. Vasculature: No evidence of aortic aneurysm. Mediastinum: No gross evidence of adenopathy. Musculoskeletal: No acute osseous abnormalities Soft Tissues: Unremarkable. Lower neck: No significant findings. Upper Abdomen: Partially visualized cyst in the left upper quadrant. Cholelithiasis are within the ga llbladder lumen. Nondependent focus of gas is seen within the gallbladder. Right upper renal pole 26 mm cyst. IMPRESSION: 1. No evidence of pulmonary embolism. 2. Peripheral groundglass pulmonary opacities consistent with atypical pulmonary infection such as CO VID-19. 3. Emphysema. 4. This focus of pneumobilia within the gallbladder lumen. No additional signs to suggest infection. Correlate clinically. 5. Cholelithiasis.
--- NOTE | 2021-04-26 12:51 | P.CNPUL ---
History of Present Illness Consult date: 04/26/21 Requesting physician: Yuriy E Mohan Reason for consult: dyspnea, hypoxemia, abnormal CXR/CT Chief complaint: Shortness of breath, dyspnea on exertion History of present illness: This is a very pleasant 75-year-old male patient who follows with Dr. Taylor as his primary care provider. He has a history of hypertension, gastroesophageal reflux disease, hyperlipidemia and a right diaphragmatic paralysis. He also has a history of biopsy-proven idiopathic pulmonary fibrosis and is maintained on OFEV 150 mg twice a day. He follows with Dr. Schuster in our office. He is oxygen dependent on 2 L in the outpatient setting. FEV1 value 80% of predicted however there is noted restrictive lung disease consistent with his fibrosis. He is vaccinated 3 against the coronavirus. He presented to the emergency room earlier today with a three-day history of worsening shortness of breath and dyspnea on exertion. He has productive cough with yellow and blood-tinged sputum. He was quite hypoxemic in the 60s on 2 L nasal cannula. White count 15.3. Hemoglobin 12.3. D-dimer 1.67. Sodium 143. Potassium 4.1. BUN 18. Creatinine 1.24. Bicarb 25. Lactic acid 5.8. Glucose 196. AST 53. ALT 33. Troponin 0.381. Coronavirus by PCR not detected. X-ray revealing evidence of multifocal airspace disease. Persistent elevated right diaphragm. He is seen today in consultation in the emergency department. He is currently sitting up on the stretcher. Awake and alert. In mild respiratory distress. Up to 4 L nasal cannula currently. Coarse crackles bilaterally. He's been initiated on DuoNeb inhalations and antibiotics in the form of Zosyn and azithromycin, IV Solu-Medrol. He is received 2 L of fluid resuscitation. 0.9 normal saline at 130 ML's per hour. Computed tomography scan of the chest is pending. Review of Systems REVIEW OF SYSTEMS: CONSTITUTIONAL: Denies any recent significant weight loss or weight gain. EYES: Denies change in vision. EARS, NOSE, MOUTH, THROAT: Denies headaches, denies sore throat. CARDIOVASCULAR: Denies chest pain, palpitations or syncopal episodes. RESPIRATORY: Positive for shortness of breath, cough, congestion. GASTROINTESTINAL: Denies change in appetite, denies abdominal pain GENITOURINARY: Denies hematuria, denies infections. MUSKULOSKELETAL: Denies pain, denies swelling. INTEGUMENTARY: Denies rash, denies eczema. NEUROLOGICAL: Denies recent memory loss, no recent seizure activity. PSYCHIATRIC: Denies anxiety, denies depression. HEMATOLOGIC/LYMPHATIC: Denies anemia, denies enlarged lymph nodes. Past Medical History Past Medical History: Asthma, Diabetes Mellitus, GERD/Reflux, Hyperlipidemia, Hypertension, Osteoarthritis (OA) Additional Past Medical History / Comment(s): interstitial lung disease, remote history of a coccidiomycosis of the lungs. History of Any Multi-Drug Resistant Organisms: None Reported Past Surgical History: Appendectomy, Hernia Repair, Joint Replacement Additional Past Surgical History / Comment(s): lung surgery rt thoractomy benign tumor age 19, lt total knee replacement, inguinal hernia repair with mesh Past Anesthesia/Blood Transfusion Reactions: Previous Problems w/ Anesthesia Additional Past Anesthesia/Blood Transfusion Reaction / Comment(s): with last endoscopy coughed throughout procedure Past Psychological History: Anxiety, Depression Smoking Status: Never smoker Past Alcohol Use History: Daily Past Drug Use History: None Reported - Past Family History Mother Family Medical History: No Reported History Additional Family Medical History / Comment(s): adopted Sister(s) Family Medical History: Cancer Additional Family Medical History / Comment(s): pancreatic cancer Medications and Allergies Home Medications Medication Instructions Recorded Confirmed Type Escitalopram Oxalate [Lexapro] 10 mg PO HS 12/03/17 04/26/21 History Losartan Potassium [Cozaar] 100 mg PO DAILY 12/03/17 04/26/21 History Multivit-Min/FA/Lycopen/Lutein 1 tab PO DAILY 12/03/17 04/26/21 History [Centrum Silver Tablet] Omeprazole [PriLOSEC] 20 mg PO AC-BRKFST 12/03/17 04/26/21 History buPROPion [Wellbutrin] 150 mg PO BID 12/03/17 04/26/21 History Montelukast Sodium [Singulair] 10 mg PO HS 02/15/18 04/26/21 History Nintedanib Esylate [Ofev] 150 mg PO BID 01/25/19 04/26/21 History Albuterol Sulfate [Proair Hfa] 2 puff INHALATION RT-Q6H PRN 04/26/21 04/26/21 History Aspirin [Adult Low Dose Aspirin EC] 81 mg PO DAILY 04/26/21 04/26/21 History Simvastatin [Zocor] 40 mg PO HS 04/26/21 04/26/21 History Allergies Allergy/AdvReac Type Severity Reaction Status Date / Time No Known Allergies Allergy Verified 04/26/21 11:15 Physical Exam Vitals: Vital Signs Temp Pulse Resp BP Pulse Ox 04/26/21 09:55 97.8 F 109 H 32 H 165/93 62 L Intake and Output 04/25/21 04/26/21 04/26/21 22:59 06:59 14:59 Other: Weight 81.647 kg GENERAL EXAM: Alert, very pleasant 75-year-old male patient, on 4 L nasal cannula, in mild respiratory distress. HEAD: Normocephalic. EYES: Normal reaction of pupils, equal size. NOSE: Clear with pink turbinates. THROAT: No erythema or exudates. NECK: No masses, no JVD. CHEST: No chest wall deformity. LUNGS: Equal air entry with coarse crackles in the bilateral bases. CVS: S1 and S2 normal with no audible murmur, regular rhythm. ABDOMEN: No hepatosplenomegaly, normal bowel sounds, no guarding or rigidity. SPINE: No scoliosis or deformity SKIN: No rashes CENTRAL NERVOUS SYSTEM: No focal deficits, tone is normal in all 4 extremities. EXTREMITIES: There is no peripheral edema. No clubbing, no cyanosis. Peripheral pulses are intact. Results - Laboratory Findings CBC and BMP: 04/26/21 10:13 04/26/21 10:13 PT/INR, D-dimer PT 11.4 sec (9.0-12.0) 04/26/21 10:13 INR 1.1 (<1.2) 04/26/21 10:13 D-Dimer 1.67 mg/L FEU (<0.60) H 04/26/21 10:13 Abnormal lab findings: Abnormal Labs 04/26/21 04/26/21 04/26/21 10:13 10:13 10:13 WBC 15.3 H RBC 4.04 L Hgb 12.3 L Hct 36.5 L Neutrophils # 13.7 H Lymphocytes # 0.7 L D-Dimer 1.67 H Glucose 196 H Plasma Lactic Acid James Magnesium 1.3 L Total Bilirubin 2.0 H Troponin I 04/26/21 04/26/21 10:13 10:13 WBC RBC Hgb Hct Neutrophils # Lymphocytes # D-Dimer Glucose Plasma Lactic Acid James 5.8 H* Magnesium Total Bilirubin Troponin I 0.381 H* - Diagnostic Findings Chest x-ray: image reviewed Assessment and Plan Assessment: 1 Acute on chronic hypoxemic respiratory failure, multifactorial, acute exacerbation of chronic obstructive pulmonary disease, pulmonary fibrosis, interstitial edema, right brittani-diaphragm paralysis, possible community-acquired pneumonia. COVID-19 screen negative. Vaccinated 3. 2 Troponin leak 3 Elevated d-dimer, CT angiogram pending 4 Lactic acidosis 5 Chronic hypoxemic respiratory failure secondary to biopsy-proven usual interstitial pneumonia (UIP) in 2018, maintained on OFEV in the outpatient setting 6 History of right sided hemidiaphragm paralysis 7 History of mild intermittent chronic bronchial asthma. 8 Hypertension 9 Hyperlipidemia 10 Degenerative joint disease 11 Gastroesophageal reflux disease 12 Vitamin D deficiency Plan: The patient was seen and evaluated Chest x-ray and labs reviewed CT angiogram pending Check pro BNP, pro-calcitonin Obtain echocardiogram Give Lasix 40 mg IVP 1 Solu-Medrol 60 mg IV every 6 hours Add Symbicort, DuoNeb inhalations Antibiotics in the form of Zosyn and Levaquin Titrate the FiO2 as tolerated We will continue to follow and make further recommendations based on his clinical status I, the cosigning physician, performed a history & physical examination of the patient. Lungs sounds with coarse crackles in the bilateral bases. Maintaining O2 saturations in the 90s on 4 L/m per nasal cannula. I discussed the assessment and plan of care with my nurse practitioner, Noelle Canchola. I attest to the above consultation as dictated by her. Time with Patient: Greater than 30
[2021-04-26] MEDS ORDERED: LEVOFLOXACIN 500MG-D5W PMX 500 MG in DEXTROSE/WATER 1 100ML.BAG IVPB SCH (13:00)
[2021-04-26] MEDS: SODIUM CHLORIDE 0.9% 1,000 ML IV SCH ×2 (13:37→16:02)
[2021-04-26] MEDS ORDERED: ALBUTEROL HFA INHALER INHALATION PRN (16:07)
[2021-04-26] MEDS: methylPREDNISolone SOD SUCCI 125 MG/2 ML VIAL IV SCH (16:50)
--- NOTE | 2021-04-26 17:45 | US ---
EXAMINATION TYPE: US venous doppler duplex LE BI DATE OF EXAM: 04/26/2021 5:11 PM COMPARISON: NONE CLINICAL HISTORY: dvt. SIDE PERFORMED: Bilateral TECHNIQUE: The lower extremity deep venous system is examined utilizing real time linear array sonog jah with graded compression, doppler sonography and color-flow sonography. VESSELS IMAGED: Common Femoral Vein Deep Femoral Vein Greater Saphenous Vein * Femoral Vein Popliteal Vein Small Saphenous Vein * Proximal Calf Veins (* superficial vessels) Right Leg: no evidence of DVT. anechoic area right popliteal fossa = 3.5 x 1.2 x 2.1cm Left Leg: no evidence of DVT IMPRESSION: No evidence of deep vein thrombosis in both legs. There is right-sided popliteal cyst not ed.
--- NOTE | 2021-04-26 17:48 | HP ---
HISTORY AND PHYSICAL CHIEF COMPLAINT: Shortness of breath. HISTORY OF PRESENT ILLNESS: This is a 75-year-old gentleman with a past medical history of multiple medical problems, including asthma, diabetes mellitus, GERD. He was not feeling well over the past several days. The patient had increasing cough and shortness of breath. The patient came to [facility] and was found to have bilateral interstitial pneumonia. Patient was admitted for further evaluation. Patient was hypoxic. Patient was started on broad-spectrum IV antibiotics also. There is no history of any fever, rigors, chills at this time. COVID-19 was negative. Patient is vaccinated. PAST MEDICAL HISTORY: Diabetes mellitus, asthma. MEDICATIONS: Medications prior to admission include Wellbutrin, Zocor, Prilosec. Doses and other medications are reviewed. ALLERGIES: NONE. FAMILY HISTORY: The patient is adopted. SOCIAL HISTORY: No smoking currently. Previous history of smoking. Daily alcohol intake. REVIEW OF SYSTEMS: Fourteen-point review of systems negative except as mentioned above. PHYSICAL EXAMINATION: Alert and oriented x3. Pulse 90, blood pressure 156/97, respiration 20, pulse ox 92% on 15 L. HEENT: Conjunctivae normal. NECK: No jugular venous distention. CARDIOVASCULAR: S1, S2 muffled. RESPIRATION: Breath sounds diminished at the bases. A few scattered rhonchi and crackles. ABDOMEN: Soft, nontender. LEGS: No edema. No swelling. NERVOUS SYSTEM: Higher functions as mentioned earlier. No focal motor or sensory deficit. LYMPHATICS: No lymph node palpable in neck, axillae or groin. SKIN: No ulcer, rash, bleeding. JOINTS: No active deforming arthropathy. LABS: WBC 15.3, hemoglobin 12.3. Other labs as well as CT scan personally reviewed. ASSESSMENT: 1. Acute bilateral interstitial pneumonia, possibly COVID-19 interstitial pneumonia with acute hypoxic respiratory failure with possible sepsis, present on admission. 2. Elevated plasma lactic acid. 3. Hypomagnesemia. 4. Elevated D-dimer. 5. Elevated white count. 6. Asthma. 7. Diabetes mellitus, type 2. RECOMMENDATIONS AND DISCUSSION: In this 75-year-old gentleman who presented with multiple complex medical issues, as listed above, at this time I recommend continue the current medications, continue symptomatic treatment, broad-spectrum IV antibiotics. Otherwise I would also recommend COVID-19 PCR testing, IV steroids. Resume the home medications. Prognosis guarded because of multiple complex medical issues. Further recommendations to follow. MMODL / IJN: [id number] /
[2021-04-26] MEDS: SYMBICORT 160-4.5 MCG INHALER INHALATION SCH (18:44)
[2021-04-26] MEDS: PIPERACILLIN-TAZOBACTAM 3.375 GM in SODIUM CHLORIDE 0.9% 100 ML IVPB SCH (20:02)
[2021-04-26] MEDS: MONTELUKAST 10 MG TAB PO SCH (20:03)
[2021-04-26] MEDS: buPROPion 75 MG TAB PO SCH (20:03)
[2021-04-26] MEDS: FUROSEMIDE 10 MG/ML 4 ML VIAL IV SCH (20:03)
[2021-04-26] MEDS: ESCITALOPRAM 10 MG TAB PO SCH (20:03)
[2021-04-26] MEDS: ATORVASTATIN 20 MG TAB PO SCH (20:03)
[2021-04-26] MEDS ORDERED: NON FORMULARY DRUG (Nintedanib Esylate [Ofev] 150 MG Capsule) PO SCH (21:00)
[2021-04-27] MEDS: methylPREDNISolone SOD SUCCI 125 MG/2 ML VIAL IV SCH ×5 (00:07→23:22)
[2021-04-27] MEDS: PIPERACILLIN-TAZOBACTAM 3.375 GM in SODIUM CHLORIDE 0.9% 100 ML IVPB SCH ×3 (03:58→19:27)
[2021-04-27] MEDS: FUROSEMIDE 10 MG/ML 4 ML VIAL IV SCH ×2 (03:59→13:28)
[2021-04-27] MEDS: PANTOPRAZOLE 40 MG TABLET PO SCH (06:30)
[2021-04-27] MEDS: SYMBICORT 160-4.5 MCG INHALER INHALATION SCH ×2 (07:55→20:33)
[2021-04-27] MEDS: IPRATROPIUM-ALBUTEROL 3 ML NEB INHALATION SCH ×4 (07:55→20:33)
[2021-04-27 08:09] LABS: Basophils % (A) 0 %; Eosinophils % (A) 0 %; HCT 36.1 % (39.0-53.0); HGB 12.2 gm/dL (13.0-17.5); Lymphocytes # (A) 0.4 k/uL (1.0-4.8); Lymphocytes % (A) 2 %; MCH 30.3 pg (25.0-35.0); MCHC 33.8 g/dL (31.0-37.0); MCV 89.6 fL (80.0-100.0); Mean Platelet Volume 9.7; Monocytes # (A) 0.6 k/uL (0-1.0); Monocytes % (A) 3 %; Neutrophils # (A) 17.2 k/uL (1.3-7.7); Neutrophils % (A) 94 %; Platelet Count 214 k/uL (150-450); RBC 4.03 m/uL (4.30-5.90); WBC 18.3 k/uL (3.8-10.6)
--- NOTE | 2021-04-27 08:17 | XR ---
EXAMINATION TYPE: XR chest 2V DATE OF EXAM: 04/27/2021 COMPARISON: 04/26/2021 INDICATION: Pneumonia short of breath TECHNIQUE: Frontal and lateral views of the chest are obtained. FINDINGS: The heart size is normal. The pulmonary vasculature is prominent. Diffuse increased lung markings are present greater in the upper lung bonilla. Correlate for pulmonary edema. Atypical pneumonia could be considered. There is chronic elevation of the right diaphragm. IMPRESSION: 1. Increasing upper lung field infiltrates.
[2021-04-27 08:31] LABS: Albumin 3.5 g/dL (3.5-5.0); Calcium 8.7 mg/dL (8.4-10.2); Potassium 3.3 mmol/L (3.5-5.1); Total Bilirubin 1.7 mg/dL (0.2-1.3); Total Protein 6.9 g/dL (6.3-8.2)
[2021-04-27] MEDS: buPROPion 75 MG TAB PO SCH ×2 (08:36→20:54)
[2021-04-27] MEDS: ASPIRIN 81 MG PO SCH (08:36)
[2021-04-27] MEDS: MULTIVITAMINS, THERA 1 EACH TAB PO SCH (08:36)
[2021-04-27] MEDS: LOSARTAN 50 MG TAB PO SCH (08:36)
[2021-04-27] MEDS: NON FORMULARY DRUG (Nintedanib Esylate [Ofev] 150 MG Capsule) PO SCH ×2 (08:37→20:56)
[2021-04-27] MEDS ORDERED: AZITHROMYCIN 500 MG in SODIUM CHLORIDE 0.9% 250 ML IVPB SCH (09:00)
[2021-04-27 11:23] LABS: Coronavirus SARS CoV-2 Not Detected (Not Detected)
--- NOTE | 2021-04-27 11:37 | P.GSCN ---
History of Present Illness Consult date: 04/27/21 Reason for Consult: Cholelithiasis History of present illness: This is a 75-year-old male admitted to the hospital for treatment of pneumonia. The patient is known to me. I have performed a previous inguinal hernia on him. The patient underwent chest CT angiogram. He is found have cholelithiasis. The patient states he currently has no significant abdominal pain. He states he's had some intermittent pain in the past. He had nothing significant. He is currently in bed with a nonrebreather mask. Past Medical History Past Medical History: Asthma, Diabetes Mellitus, GERD/Reflux, Hyperlipidemia, Hypertension, Osteoarthritis (OA) Additional Past Medical History / Comment(s): interstitial lung disease, remote history of a coccidiomycosis of the lungs. History of Any Multi-Drug Resistant Organisms: None Reported Past Surgical History: Appendectomy, Hernia Repair, Joint Replacement Additional Past Surgical History / Comment(s): lung surgery rt thoractomy benign tumor age 19, lt total knee replacement, inguinal hernia repair with mesh Past Anesthesia/Blood Transfusion Reactions: Previous Problems w/ Anesthesia Additional Past Anesthesia/Blood Transfusion Reaction / Comm: with last endoscopy coughed throughout procedure Past Psychological History: Anxiety, Depression Smoking Status: Never smoker Past Alcohol Use History: Daily Past Drug Use History: None Reported - Past Family History Mother Family Medical History: No Reported History Additional Family Medical History / Comment(s): adopted Sister(s) Family Medical History: Cancer Additional Family Medical History / Comment(s): pancreatic cancer Medications and Allergies Home Medications Medication Instructions Recorded Confirmed Type Escitalopram Oxalate [Lexapro] 10 mg PO HS 12/03/17 04/26/21 History Losartan Potassium [Cozaar] 100 mg PO DAILY 12/03/17 04/26/21 History Multivit-Min/FA/Lycopen/Lutein 1 tab PO DAILY 12/03/17 04/26/21 History [Centrum Silver Tablet] Omeprazole [PriLOSEC] 20 mg PO AC-BRKFST 12/03/17 04/26/21 History buPROPion [Wellbutrin] 150 mg PO BID 12/03/17 04/26/21 History Montelukast Sodium [Singulair] 10 mg PO HS 02/15/18 04/26/21 History Nintedanib Esylate [Ofev] 150 mg PO BID 01/25/19 04/26/21 History Albuterol Sulfate [Proair Hfa] 2 puff INHALATION RT-Q6H PRN 04/26/21 04/26/21 History Aspirin [Adult Low Dose Aspirin EC] 81 mg PO DAILY 04/26/21 04/26/21 History Simvastatin [Zocor] 40 mg PO HS 04/26/21 04/26/21 History Allergies Allergy/AdvReac Type Severity Reaction Status Date / Time No Known Allergies Allergy Verified 04/26/21 11:15 Surgical - Exam Vital Signs Temp Pulse Resp BP Pulse Ox 97.8 F 109 H 32 H 165/93 62 L 04/26/21 09:55 04/26/21 09:55 04/26/21 09:55 04/26/21 09:55 04/26/21 09:55 - General well developed, well nourished, no distress - Eyes PERRL - Respiratory Labored breathing - Abdomen Abdomen: soft, non tender Results - Labs 04/27/21 07:36 04/27/21 07:36 Abnormal Lab Results - Last 24 Hours (Table) 04/26/21 04/26/21 04/26/21 Range/Units 10:13 10:13 10:13 WBC (3.8-10.6) k/uL RBC (4.30-5.90) m/uL Hgb (13.0-17.5) gm/dL Hct (39.0-53.0) % Neutrophils # (1.3-7.7) k/uL Lymphocytes # (1.0-4.8) k/uL D-Dimer 1.67 H (<0.60) mg/L FEU Potassium (3.5-5.1) mmol/L BUN (9-20) mg/dL Creatinine (0.66-1.25) mg/dL Glucose (74-99) mg/dL Plasma Lactic Acid James (0.7-2.0) mmol/L Total Bilirubin (0.2-1.3) mg/dL AST (17-59) U/L Troponin I 0.381 H* (0.000-0.034) ng/mL Procalcitonin 0.16 H (0.02-0.09) ng/mL 04/26/21 04/26/21 04/26/21 Range/Units 14:40 14:40 18:10 WBC (3.8-10.6) k/uL RBC (4.30-5.90) m/uL Hgb (13.0-17.5) gm/dL Hct (39.0-53.0) % Neutrophils # (1.3-7.7) k/uL Lymphocytes # (1.0-4.8) k/uL D-Dimer (<0.60) mg/L FEU Potassium (3.5-5.1) mmol/L BUN (9-20) mg/dL Creatinine (0.66-1.25) mg/dL Glucose (74-99) mg/dL Plasma Lactic Acid James 2.1 H* (0.7-2.0) mmol/L Total Bilirubin (0.2-1.3) mg/dL AST (17-59) U/L Troponin I 0.539 H* 0.566 H* (0.000-0.034) ng/mL Procalcitonin (0.02-0.09) ng/mL 04/27/21 04/27/21 Range/Units 07:36 07:36 WBC 18.3 H (3.8-10.6) k/uL RBC 4.03 L (4.30-5.90) m/uL Hgb 12.2 L (13.0-17.5) gm/dL Hct 36.1 L (39.0-53.0) % Neutrophils # 17.2 H (1.3-7.7) k/uL Lymphocytes # 0.4 L (1.0-4.8) k/uL D-Dimer (<0.60) mg/L FEU Potassium 3.3 L (3.5-5.1) mmol/L BUN 25 H (9-20) mg/dL Creatinine 1.61 H (0.66-1.25) mg/dL Glucose 153 H (74-99) mg/dL Plasma Lactic Acid James (0.7-2.0) mmol/L Total Bilirubin 1.7 H (0.2-1.3) mg/dL AST 66 H (17-59) U/L Troponin I (0.000-0.034) ng/mL Procalcitonin (0.02-0.09) ng/mL Diabetes panel 04/27/21 Range/Units 07:36 Sodium 145 (137-145) mmol/L Potassium 3.3 L (3.5-5.1) mmol/L Chloride 102 (98-107) mmol/L Carbon Dioxide 30 (22-30) mmol/L BUN 25 H (9-20) mg/dL Creatinine 1.61 H (0.66-1.25) mg/dL Glucose 153 H (74-99) mg/dL Calcium 8.7 (8.4-10.2) mg/dL AST 66 H (17-59) U/L ALT 39 (4-49) U/L Alkaline Phosphatase 101 (38-126) U/L Total Protein 6.9 (6.3-8.2) g/dL Albumin 3.5 (3.5-5.0) g/dL Calcium panel 04/27/21 Range/Units 07:36 Calcium 8.7 (8.4-10.2) mg/dL Albumin 3.5 (3.5-5.0) g/dL Pituitary panel 04/27/21 Range/Units 07:36 Sodium 145 (137-145) mmol/L Potassium 3.3 L (3.5-5.1) mmol/L Chloride 102 (98-107) mmol/L Carbon Dioxide 30 (22-30) mmol/L BUN 25 H (9-20) mg/dL Creatinine 1.61 H (0.66-1.25) mg/dL Glucose 153 H (74-99) mg/dL Calcium 8.7 (8.4-10.2) mg/dL Adrenal panel 04/27/21 Range/Units 07:36 Sodium 145 (137-145) mmol/L Potassium 3.3 L (3.5-5.1) mmol/L Chloride 102 (98-107) mmol/L Carbon Dioxide 30 (22-30) mmol/L BUN 25 H (9-20) mg/dL Creatinine 1.61 H (0.66-1.25) mg/dL Glucose 153 H (74-99) mg/dL Calcium 8.7 (8.4-10.2) mg/dL Total Bilirubin 1.7 H (0.2-1.3) mg/dL AST 66 H (17-59) U/L ALT 39 (4-49) U/L Alkaline Phosphatase 101 (38-126) U/L Total Protein 6.9 (6.3-8.2) g/dL Albumin 3.5 (3.5-5.0) g/dL Assessment and Plan Assessment: Rester failure with pneumonia. Cholelithiasis with probable chronic cholecystitis. Patient is relatively asymptomatic currently from his cholelithiasis. Patient will be observed. Once he has recovered from his pneumonia we can revisit his cholelithiasis as an outpatient.
--- NOTE | 2021-04-27 11:38 | P.PN ---
Subjective Progress Note Date: 04/27/21 Principal diagnosis: Acute hypoxic respiratory failure, multifactorial. This is a very pleasant 75-year-old male patient who follows with Dr. Taylor as his primary care provider. He has a history of hypertension, gastroesophageal reflux disease, hyperlipidemia and a right diaphragmatic paralysis. He also has a history of biopsy-proven idiopathic pulmonary fibrosis and is maintained on OFEV 150 mg twice a day. He follows with Dr. Schuster in our office. He is oxygen dependent on 2 L in the outpatient setting. FEV1 value 80% of predicted however there is noted restrictive lung disease consistent with his fibrosis. He is vaccinated 3 against the coronavirus. He presented to the emergency room earlier today with a three-day history of worsening shortness of breath and dyspnea on exertion. He has productive cough with yellow and blood-tinged sputum. He was quite hypoxemic in the 60s on 2 L nasal cannula. White count 15.3. Hemoglobin 12.3. D-dimer 1.67. Sodium 143. Potassium 4.1. BUN 18. Creatinine 1.24. Bicarb 25. Lactic acid 5.8. Glucose 196. AST 53. ALT 33. Troponin 0.381. Coronavirus by PCR not detected. X-ray revealing evidence of multifocal airspace disease. Persistent elevated right diaphragm. He is seen today in consultation in the emergency department. He is currently sitting up on the stretcher. Awake and alert. In mild respiratory distress. Up to 4 L nasal cannula currently. Coarse crackles bilaterally. He's been initiated on DuoNeb inhalations and antibiotics in the form of Zosyn and azithromycin, IV Solu-Medrol. He is received 2 L of fluid resuscitation. 0.9 normal saline at 130 ML's per hour. Computed tomography scan of the chest is pending. Reevaluated today on 04/27/2021, patient is clinically feeling better today, chest x-ray is basically about the same, remains on bronchodilators, diuretics, steroids, and antibiotics. However I noted that the patient is receiving IV fluid at 1 50 mL per hour, and I cut it down to KVO, patient is also receiving Lasix. WBC count is 18.3 hemoglobin is 12.2. Left lites are normal. Renal profile showed a BUN of 25 creatinine 1.61, troponins remain high. PCR for COV ID-19 is negative. BNP is elevated, pro-calcitonin level is negligible, 0.16 Objective - Vital Signs Vital signs: Vital Signs Temp 98 F 04/27/21 08:00 Pulse 88 04/27/21 11:29 Resp 28 H 04/27/21 08:00 BP 181/90 04/27/21 08:00 Pulse Ox 94 L 04/27/21 08:00 Intake & Output 04/26/21 04/27/21 04/27/21 18:59 06:59 18:59 Intake Total 1000 Output Total 3300 Balance -2300 Weight 81.647 kg Intake: Intake, IV Titration 700 Amount Piperacillin-Tazobactam 3 50 .375 gm In Sodium Chloride 0.9% 100 ml @ 25 mls/hr IVPB Q8H [facility] Rx#: [id number] Sodium Chloride 0.9% 1, 130 000 ml @ 20 mls/hr IV . Q24H [facility] Rx#:[id number] Sodium Chloride 0.9% 2, 520 000 ml @ 999 mls/hr IV . Q2H1M ONE Rx#:[id number] Oral 300 Output: Urine 3300 Other: Voiding Method Urinal - Exam GENERAL EXAM: Revealed a 75-year-old white male, on nonrebreather mask, not in distress. Head: Atraumatic, normocephalic. EYES: Normal reaction of pupils, equal size. NOSE: Clear with pink turbinates. THROAT: No erythema or exudates. NECK: No masses, no JVD. CHEST: No chest wall deformity. LUNGS: Coarse crackles at the bases. CVS: S1 and S2 normal with no audible murmur, regular rhythm. ABDOMEN: No hepatosplenomegaly, normal bowel sounds, no guarding or rigidity. SPINE: No scoliosis or deformity SKIN: No rashes CENTRAL NERVOUS SYSTEM: Alert and oriented 3 focal deficits. EXTREMITIES: No clubbing, no edema, no cyanosis. - Labs CBC & Chem 7: 04/27/21 07:36 04/27/21 07:36 Labs: Abnormal Lab Results - Last 24 Hours (Table) 04/26/21 04/26/21 04/26/21 Range/Units 10:13 10:13 10:13 WBC (3.8-10.6) k/uL RBC (4.30-5.90) m/uL Hgb (13.0-17.5) gm/dL Hct (39.0-53.0) % Neutrophils # (1.3-7.7) k/uL Lymphocytes # (1.0-4.8) k/uL D-Dimer 1.67 H (<0.60) mg/L FEU Potassium (3.5-5.1) mmol/L BUN (9-20) mg/dL Creatinine (0.66-1.25) mg/dL Glucose (74-99) mg/dL Plasma Lactic Acid James (0.7-2.0) mmol/L Total Bilirubin (0.2-1.3) mg/dL AST (17-59) U/L Troponin I 0.381 H* (0.000-0.034) ng/mL Procalcitonin 0.16 H (0.02-0.09) ng/mL 04/26/21 04/26/21 04/26/21 Range/Units 14:40 14:40 18:10 WBC (3.8-10.6) k/uL RBC (4.30-5.90) m/uL Hgb (13.0-17.5) gm/dL Hct (39.0-53.0) % Neutrophils # (1.3-7.7) k/uL Lymphocytes # (1.0-4.8) k/uL D-Dimer (<0.60) mg/L FEU Potassium (3.5-5.1) mmol/L BUN (9-20) mg/dL Creatinine (0.66-1.25) mg/dL Glucose (74-99) mg/dL Plasma Lactic Acid James 2.1 H* (0.7-2.0) mmol/L Total Bilirubin (0.2-1.3) mg/dL AST (17-59) U/L Troponin I 0.539 H* 0.566 H* (0.000-0.034) ng/mL Procalcitonin (0.02-0.09) ng/mL 04/27/21 04/27/21 Range/Units 07:36 07:36 WBC 18.3 H (3.8-10.6) k/uL RBC 4.03 L (4.30-5.90) m/uL Hgb 12.2 L (13.0-17.5) gm/dL Hct 36.1 L (39.0-53.0) % Neutrophils # 17.2 H (1.3-7.7) k/uL Lymphocytes # 0.4 L (1.0-4.8) k/uL D-Dimer (<0.60) mg/L FEU Potassium 3.3 L (3.5-5.1) mmol/L BUN 25 H (9-20) mg/dL Creatinine 1.61 H (0.66-1.25) mg/dL Glucose 153 H (74-99) mg/dL Plasma Lactic Acid James (0.7-2.0) mmol/L Total Bilirubin 1.7 H (0.2-1.3) mg/dL AST 66 H (17-59) U/L Troponin I (0.000-0.034) ng/mL Procalcitonin (0.02-0.09) ng/mL Assessment and Plan Assessment: 1 Acute on chronic hypoxemic respiratory failure, multifactorial, acute exacerbation of chronic obstructive pulmonary disease, pulmonary fibrosis, interstitial edema, right brittani-diaphragm paralysis, possible community-acquired pneumonia. COVID-19 screen negative. Vaccinated 3. 2 Troponin leak 3 Elevated d-dimer, CT angiogram pending 4 Lactic acidosis 5 Chronic hypoxemic respiratory failure secondary to biopsy-proven usual i nterstitial pneumonia (UIP) in 2018, maintained on OFEV in the outpatient setting 6 History of right sided hemidiaphragm paralysis 7 History of mild intermittent chronic bronchial asthma. 8 Hypertension 9 Hyperlipidemia 10 Degenerative joint disease 11 Gastroesophageal reflux disease 12 Vitamin D deficiency Recommendation: Decrease IV fluids to KVO Continue diuretics. Continue empiric antibiotics. Patient is on Zosyn and Levaquin. Continue Solu-Medrol. Continue bronchodilators. Continue to monitor chest x-ray and repeat chest x-ray in a.m. Continue oxygen and titrate accordingly. We'll continue to follow Time with Patient: Less than 30
[2021-04-27] MEDS: LEVOFLOXACIN 250MG-D5W PMX 250 MG in DEXTROSE/WATER 1 50ML.BAG IVPB SCH (13:29)
--- NOTE | 2021-04-27 14:14 | P.CRDCN ---
History of Present Illness History of present illness: HISTORY OF PRESENTING ILLNESS Patient is a pleasant 75-year-old male with history of apparent normal coronary arteries by prior heart catheterization approximately 8 years ago, hypertension, pulmonary fibrosis on 2 L home oxygen, GERD, right diaphragm paralysis. Patient presented with worsened shortness breath or the prior 3-4 days on top of his chronic 2 L oxygen dependence. Patient denies any recent fevers or chills and denies any cough. He was hypoxic with oxygen saturation in the 60s and therefore placed on nonrebreather. Workup showed white blood cell count 15.3, hemoglobin 12.3, d-dimer 1.6, creatinine 1.2, lactic acid 5.8, bilirubin 2.0, troponin 0.38, 0.53, 0.56, proBNP 4400, pro-calcitonin 0.16. He is placed on oxygen with improvement and lactic acid. He had a CTA and unfortunately his kidney function has worsened with creatinine 1.6. He also was placed on IV La six. CTA showed no PE, groundglass opacities consistent with atypical infection such as COVID-19, emphysema. EKG shows normal sinus rhythm, left axis deviation, LVH with nonspecific ST, T-wave abnormalities. He denies any chest pain or pressure. REVIEW OF SYSTEMS At the time of my exam: CONSTITUTIONAL: Denies fever or chills. CARDIOVASCULAR: Denies chest pain, +shortness of breath, no orthopnea, PND or palpitations. RESPIRATORY: Denies cough. GASTROINTESTINAL: Denies abdominal pain, diarrhea, constipation, nausea or vomiting. MUSCULOSKELETAL: Denies myalgias. NEUROLOGIC: Denies numbness, tingling or weakness. ENDOCRINE: Denies fatigue, weight change, polydipsia or polyurina. GENITOURINARY: Denies burning, hematuria or urgency with micturation. HEMATOLOGIC: Denies history of anemia or bleeding. PHYSICAL EXAMINATION Vital signs reviewed. CONSTITUTIONAL: No apparent distress, on O2 HEENT: Head is normocephalic. Pupils are equal, round. Sclerae anicteric. Mucous membranes of the mouth are moist. No JVD. No carotid bruit. CHEST EXAMINATION: Bilateral crackles HEART EXAMINATION: Regular rate and rhythm. S1, S2 heard. No murmurs, gallops or rub. ABDOMEN: Soft, nontender. Positive bowel sounds. EXTREMITIES: 2+ peripheral pulses, no lower extremity edema and no calf tenderness. NEUROLOGIC EXAMINATION: Patient is awake, alert and oriented x3. ASSESSMENT 1. Acute on chronic respiratory failure likely component of exacerbation of pulmonary fibrosis with pneumonia with elevated pro-calcitonin 2. Non-STEMI likely related to type II mechanism from hypoxia with oxygen in the 60s 3. Reported normal heart catheterization approximately 8 years ago 4. Elevated proBNP, questionable component of heart failure 5. Acute kidney injury, possibly related to VIDA from CTA versus overdiuresis 6. Hypertension 7. Pulmonary fibrosis on home 2 L oxygen PLAN Patient's main presentation of respiratory failure and found to be hypoxic with oxygen levels in the 60s and increased lactic acidosis. Suspect non-STEMI related to type II mechanism from hypoxia. Check 2-D echo. We will decrease diuretics given acute kidney injury which may be related to contrast. Some of volume status difficult to assess with chronic crackles related to pulmonary fibrosis. No significant JVD or lower extremity edema. Further recommendations to follow. Past Medical History Past Medical History: Asthma, Diabetes Mellitus, GERD/Reflux, Hyperlipidemia, Hy pertension, Osteoarthritis (OA) Additional Past Medical History / Comment(s): interstitial lung disease, remote history of a coccidiomycosis of the lungs. History of Any Multi-Drug Resistant Organisms: None Reported Past Surgical History: Appendectomy, Hernia Repair, Joint Replacement Additional Past Surgical History / Comment(s): lung surgery rt thoractomy benign tumor age 19, lt total knee replacement, inguinal hernia repair with mesh Past Anesthesia/Blood Transfusion Reactions: Previous Problems w/ Anesthesia Additional Past Anesthesia/Blood Transfusion Reaction / Comment(s): with last endoscopy coughed throughout procedure Past Psychological History: Anxiety, Depression Smoking Status: Never smoker Past Alcohol Use History: Daily Past Drug Use History: None Reported - Past Family History Mother Family Medical History: No Reported History Additional Family Medical History / Comment(s): adopted Sister(s) Family Medical History: Cancer Additional Family Medical History / Comment(s): pancreatic cancer Medications and Allergies Home Medications Medication Instructions Recorded Confirmed Type Escitalopram Oxalate [Lexapro] 10 mg PO HS 12/03/17 04/26/21 History Losartan Potassium [Cozaar] 100 mg PO DAILY 12/03/17 04/26/21 History Multivit-Min/FA/Lycopen/Lutein 1 tab PO DAILY 12/03/17 04/26/21 History [Centrum Silver Tablet] Omeprazole [PriLOSEC] 20 mg PO AC-BRKFST 12/03/17 04/26/21 History buPROPion [Wellbutrin] 150 mg PO BID 12/03/17 04/26/21 History Montelukast Sodium [Singulair] 10 mg PO HS 02/15/18 04/26/21 History Nintedanib Esylate [Ofev] 150 mg PO BID 01/25/19 04/26/21 History Albuterol Sulfate [Proair Hfa] 2 puff INHALATION RT-Q6H PRN 04/26/21 04/26/21 History Aspirin [Adult Low Dose Aspirin EC] 81 mg PO DAILY 04/26/21 04/26/21 History Simvastatin [Zocor] 40 mg PO HS 04/26/21 04/26/21 History Allergies Allergy/AdvReac Type Severity Reaction Status Date / Time No Known Allergies Allergy Verified 04/26/21 11:15 Physical Exam Vitals: Vital Signs Temp Pulse Pulse Resp BP BP Pulse Ox 04/27/21 13:21 28 H 04/27/21 12:00 97.5 F L 84 20 142/79 97 04/27/21 11:29 88 04/27/21 11:16 88 04/27/21 08:07 94 04/27/21 08:00 98 F 91 28 H 181/90 94 L 04/27/21 07:57 92 04/27/21 03:57 85 20 135/82 93 L 04/27/21 01:11 90 22 04/27/21 00:00 90 22 163/85 96 04/26/21 20:00 97.9 F 91 22 142/84 94 L 04/26/21 18:57 92 22 04/26/21 18:45 94 22 04/26/21 16:50 98.4 F 90 18 129/97 90 L 04/26/21 15:49 93 04/26/21 15:39 89 04/26/21 14:52 90 20 156/97 92 L 04/26/21 14:32 93 L Intake and Output 04/26/21 04/27/21 04/27/21 22:59 06:59 14:59 Intake Total 230 770 Output Total 700 2600 Balance -470 -1830 Intake: Intake, IV Titration 130 570 Amount Piperacillin-Tazobactam 3 50 .375 gm In Sodium Chloride 0.9% 100 ml @ 25 mls/hr IVPB Q8H [facility] Rx#: [id number] Sodium Chloride 0.9% 1, 130 000 ml @ 20 mls/hr IV . Q24H [facility] Rx#:[id number] Sodium Chloride 0.9% 2, 520 000 ml @ 999 mls/hr IV . Q2H1M ONE Rx#:[id number] Oral 100 200 Output: Urine 700 2600 Other: Voiding Method Urinal Urinal Results 04/27/21 07:36 04/27/21 07:36 Cardiac Enzymes 04/26/21 04/26/21 04/27/21 Range/Units 14:40 18:10 07:36 AST 66 H (17-59) U/L Troponin I 0.539 H* 0.566 H* (0.000-0.034) ng/mL CBC 04/27/21 Range/Units 07:36 WBC 18.3 H (3.8-10.6) k/uL RBC 4.03 L (4.30-5.90) m/uL Hgb 12.2 L (13.0-17.5) gm/dL Hct 36.1 L (39.0-53.0) % Plt Count 214 (150-450) k/uL Comprehensive Metabolic Panel 04/27/21 Range/Units 07:36 Sodium 145 (137-145) mmol/L Potassium 3.3 L (3.5-5.1) mmol/L Chloride 102 (98-107) mmol/L Carbon Dioxide 30 (22-30) mmol/L BUN 25 H (9-20) mg/dL Creatinine 1.61 H (0.66-1.25) mg/dL Glucose 153 H (74-99) mg/dL Calcium 8.7 (8.4-10.2) mg/dL AST 66 H (17-59) U/L ALT 39 (4-49) U/L Alkaline Phosphatase 101 (38-126) U/L Total Protein 6.9 (6.3-8.2) g/dL Albumin 3.5 (3.5-5.0) g/dL Current Medications Generic Name Dose Route Start Last Admin Trade Name Freq PRN Reason Stop Dose Admin Albuterol/Ipratropium 3 ml 04/26/21 12:00 04/27/21 11:16 Ipratropium-Albuterol 3 Ml Neb INHALATION 3 ml RT-QID [facility] Administration Aspirin 81 mg 04/27/21 09:00 04/27/21 08:36 Aspirin 81 Mg PO 81 mg DAILY [facility] Administration Atorvastatin Calcium 20 mg 04/26/21 21:00 04/26/21 20:03 Atorvastatin 20 Mg Tab PO 20 mg HS [facility] Administration Budesonide/Formoterol Fumarate 2 puff 04/26/21 20:00 04/27/21 07:55 Symbicort 160-4.5 Mcg Inhaler INHALATION 2 puff RT-BID [facility] Administration Bupropion HCl 150 mg 04/26/21 21:00 04/27/21 08:36 Bupropion 75 Mg Tab PO 150 mg BID [facility] Administration Escitalopram Oxalate 10 mg 04/26/21 21:00 04/26/21 20:03 Escitalopram 10 Mg Tab PO 10 mg HS [facility] Administration Furosemide 40 mg 04/26/21 19:00 04/27/21 13:28 Furosemide 10 Mg/Ml 4 Ml Vial IV 40 mg Q8H [facility] Administration Sodium Chloride 1,000 mls @ 20 mls/hr 04/26/21 11:30 04/26/21 16:02 Saline 0.9% IV Not Given .Q24H [facility] Piperacillin Sod/Tazobactam 100 mls @ 25 mls/hr 04/26/21 20:00 04/27/21 13:28 Sod 3.375 gm/ Sodium Chloride IVPB 05/03/21 20:01 25 mls/hr Q8H [facility] Administration Levofloxacin/Dextrose 250 mg/ 50 mls @ 50 mls/hr 04/27/21 14:00 04/27/21 13:29 IV Solution IVPB 50 mls/hr Q24H [facility] Administration Losartan Potassium 100 mg 04/27/21 09:00 04/27/21 08:36 Losartan 50 Mg Tab PO 100 mg DAILY [facility] Administration Methylprednisolone Sodium Succinate 60 mg 04/26/21 18:00 04/27/21 13:28 Methylprednisolone Sod Succi 125 Mg/2 Ml Vial IV 60 mg Q6HR [facility] Administration Miscellaneous Information 1 each 04/26/21 11:39 Pneumonia Protocol Utilized 1 Each Misc PO ONCE PRN Per Protocol Montelukast Sodium 10 mg 04/26/21 21:00 04/26/21 20:03 Montelukast 10 Mg Tab PO 10 mg HS [facility] Administration Multivitamins 1 each 04/27/21 09:00 04/27/21 08:36 Multivitamins, Thera 1 Each Tab PO 1 each DAILY [facility] Administration Non-Formulary Medication 150 mg 04/27/21 00:21 04/27/21 08:37 Nintedanib Esylate [Ofev] PO 150 mg Q12HR [facility] Administration Pantoprazole Sodium 40 mg 04/27/21 07:30 04/27/21 06:30 Pantoprazole 40 Mg Tablet PO Not Given -KFST [facility] Intake and Output 04/26/21 04/27/21 04/27/21 22:59 06:59 14:59 Intake Total 230 770 Output Total 700 2600 Balance -470 -1830 Intake: Intake, IV Titration 130 570 Amount Piperacillin-Tazobactam 3 50 .375 gm In Sodium Chloride 0.9% 100 ml @ 25 mls/hr IVPB Q8H [facility] Rx#: [id number] Sodium Chloride 0.9% 1, 130 000 ml @ 20 mls/hr IV . Q24H [facility] Rx#:[id number] Sodium Chloride 0.9% 2, 520 000 ml @ 999 mls/hr IV . Q2H1M ONE Rx#:[id number] Oral 100 200 Output: Urine 700 2600 Other: Voiding Method Urinal Urinal 04/27/21 07:36 04/27/21 07:36
[2021-04-27] MEDS: SODIUM CHLORIDE 0.9% 1,000 ML IV SCH (15:24)
--- NOTE | 2021-04-27 17:01 | PN ---
PROGRESS NOTE DATE OF SERVICE: 04/27/2021 This 75-year-old gentleman who was admitted with bilateral interstitial pneumonia is severely hypoxic. The patient is on 15 L non-rebreather at this time. COVID-19 test was negative, including PCR. However, the findings are very close to COVID-19 pneumonia. The patient also had renal failure with creatinine 1.61. No chest pain. No palpitations. Past medical history reviewed. REVIEW OF SYSTEMS: CARDIOVASCULAR SYSTEM: No angina. RESPIRATION: No cough, hemoptysis. GI: As mentioned earlier. : No dysuria. NERVOUS SYSTEM: No numbness, weakness. CURRENT MEDICATIONS: Reviewed. They include DuoNeb, aspirin, Lipitor, Symbicort. Doses and other medications are reviewed. PHYSICAL EXAMINATION: Pulse is 84, blood pressure 142/70, respiration 20, temperature 97.4, pulse ox 97% on 15 L nasal cannula. HEENT: Conjunctivae normal. CARDIOVASCULAR: S1, S2 muffled. RESPIRATION: Breath sounds diminished at the bases. Breathing efforts are markedly increased. Bilateral scattered rhonchi and crackles. ABDOMEN: Soft, nontender. NERVOUS SYSTEM: No focal deficit. LABS: WBC 18.3. Potassium 3.3. ASSESSMENT: 1. Acute bilateral interstitial pneumonia with acute hypoxic respiratory failure. COVID-19 test was negative x2. 2. Elevated plasma lactic acid. 3. Hypomagnesemia. 4. Elevated D-dimer. 5. Asthma. 6. Diabetes mellitus, type 2. RECOMMENDATIONS AND DISCUSSION: In this 75-year-old gentleman who presented with multiple medical issues, at this time I recommend continuing the current medications, continue the bronchodilators empiric antibiotics. Closely follow with Pulmonary and Cardiology. Guarded prognosis. Dr. Taylor will follow. MMGEETHAL / IJN: [id number] /
[2021-04-27] MEDS: ATORVASTATIN 20 MG TAB PO SCH (20:55)
[2021-04-27] MEDS: MONTELUKAST 10 MG TAB PO SCH (20:55)
[2021-04-27] MEDS: ESCITALOPRAM 10 MG TAB PO SCH (20:55)
[2021-04-28] MEDS: PIPERACILLIN-TAZOBACTAM 3.375 GM in SODIUM CHLORIDE 0.9% 100 ML IVPB SCH ×3 (04:11→20:00)
[2021-04-28] MEDS: methylPREDNISolone SOD SUCCI 125 MG/2 ML VIAL IV SCH ×4 (05:40→23:03)
[2021-04-28] MEDS: NON FORMULARY DRUG (Nintedanib Esylate [Ofev] 150 MG Capsule) PO SCH ×2 (08:00→21:54)
[2021-04-28] MEDS: ASPIRIN 81 MG PO SCH (08:00)
[2021-04-28] MEDS: buPROPion 75 MG TAB PO SCH ×2 (08:00→21:54)
[2021-04-28] MEDS: LOSARTAN 50 MG TAB PO SCH (08:00)
[2021-04-28] MEDS: PANTOPRAZOLE 40 MG TABLET PO SCH (08:00)
[2021-04-28] MEDS: MULTIVITAMINS, THERA 1 EACH TAB PO SCH (08:00)
[2021-04-28] MEDS ORDERED: FUROSEMIDE 10 MG/ML 4 ML VIAL IV SCH (09:00)
[2021-04-28] MEDS: SYMBICORT 160-4.5 MCG INHALER INHALATION SCH ×2 (09:02→20:14)
[2021-04-28] MEDS: IPRATROPIUM-ALBUTEROL 3 ML NEB INHALATION SCH ×4 (09:02→20:14)
[2021-04-28 11:58] LABS: Calcium 8.7 mg/dL (8.4-10.2); Potassium 3.2 mmol/L (3.5-5.1)
[2021-04-28] MEDS ORDERED: Potassium Replacement Protocol 1 EACH MISC MISCELLANE PRN ×2 (12:13→14:33)
--- NOTE | 2021-04-28 12:19 | P.PN ---
Subjective HISTORY OF PRESENTING ILLNESS Patient is a pleasant 75-year-old male with history of apparent normal coronary arteries by prior heart catheterization approximately 8 years ago, hypertension, pulmonary fibrosis on 2 L home oxygen, GERD, right diaphragm paralysis. Patient presented with worsened shortness breath or the prior 3-4 days on top of his chronic 2 L oxygen dependence. Patient denies any recent fevers or chills and denies any cough. He was hypoxic with oxygen saturation in the 60s and therefore placed on nonrebreather. He had a CTA and unfortunately his kidney function has worsened with creatinine 1.6. He also was placed on IV Lasix. CTA showed no PE, groundglass opacities consistent with atypical infection such as COVID-19, emphysema. EKG shows normal sinus rhythm, left axis deviation, LVH with nonspecific ST, T-wave abnormalities. 04/28/2021 Patient seen and examined at bedside, no acute distress. Patient went 3.3 L urine output over the past 24 hours. Labs, sodium 144, potassium 3.2, BUN 46, serum creatinine 1.6. He's currently maintained on IV Lasix 40 mg daily, aspirin 80 mg daily, atorvastatin 20 mg nightly, losartan 100 mg daily, IV antibiotics PHYSICAL EXAMINATION Vital signs reviewed. CONSTITUTIONAL: No apparent distress, on O2 HEENT: Neck supple. No JVD. CHEST EXAMINATION: Some mild bilateral crackles HEART EXAMINATION: Regular rate and rhythm. S1, S2 heard. No murmurs, gallops or rub. ABDOMEN: Soft, nontender. Positive bowel sounds. EXTREMITIES: 2+ peripheral pulses, no lower extremity edema and no calf tenderness. NEUROLOGIC EXAMINATION: Patient is awake, alert and oriented x3. ASSESSMENT Acute on chronic respiratory failure likely component of exacerbation of pulmonary fibrosis with pneumonia with elevated pro-calcitonin Non-STEMI likely related to type II mechanism from hypoxia with oxygen in the 60s Reported normal heart catheterization approximately 8 years ago Elevated proBNP, questionable component of heart failure Acute kidney injury, possibly related to VIDA from CTA versus overdiuresis Hypertension Pulmonary fibrosis on home 2 L oxygen PLAN Patient's main presentation of respiratory failure and found to be hypoxic with oxygen levels in the 60s and increased lactic acidosis. Suspect non-STEMI related to type II mechanism from hypoxia. 2D echocardiogram ordered and pending We will transition to PO Lasix, given acute kidney injury which may be related to contrast. Some of volume status difficult to assess with chronic crackles related to pulmonary fibrosis. No significant JVD or lower extremity edema. Further recommendations to follow. Objective - Vital Signs Vital signs: Vital Signs Temp 97.9 F 04/28/21 08:00 Pulse 88 04/28/21 09:21 Resp 28 H 04/28/21 08:00 BP 139/72 04/28/21 08:00 Pulse Ox 95 04/28/21 08:00 Intake & Output 04/27/21 04/28/21 04/28/21 18:59 06:59 18:59 Output Total 2100 Balance -2100 Output: Urine 2100 Other: Voiding Method Urinal - Labs CBC & Chem 7: 04/27/21 07:36 04/28/21 11:30 Labs: Abnormal Lab Results - Last 24 Hours (Table) 04/28/21 Range/Units 11:30 Potassium 3.2 L (3.5-5.1) mmol/L Chloride 96 L (98-107) mmol/L Carbon Dioxide 35 H (22-30) mmol/L BUN 46 H (9-20) mg/dL Creatinine 1.62 H (0.66-1.25) mg/dL Glucose 209 H (74-99) mg/dL Microbiology - Last 24 Hours (Table) 04/26/21 11:40 Blood Culture - Preliminary Blood No Growth after 24 hours 04/26/21 11:30 Blood Culture - Preliminary Blood No Growth after 24 hours
[2021-04-28] MEDS: LEVOFLOXACIN 250MG-D5W PMX 250 MG in DEXTROSE/WATER 1 50ML.BAG IVPB SCH (12:23)
[2021-04-28] MEDS: POTASSIUM CHLORIDE ER 20 MEQ TAB.ER PO SCH ×2 (12:24→17:07)
[2021-04-28] MEDS: SODIUM CHLORIDE 0.9% 1,000 ML IV SCH (13:26)
[2021-04-28] MEDS ORDERED: SODIUM CHLORIDE 0.65% NASAL SPRAY 44 ML BTL NASAL PRN (13:51)
--- NOTE | 2021-04-28 14:22 | P.PN ---
Subjective Progress Note Date: 04/28/21 Principal diagnosis: Respiratory failure. Acute hypoxic respiratory failure, multifactorial. This is a very pleasant 75-year-old male patient who follows with Dr. Taylor as his primary care provider. He has a history of hypertension, gastroesophageal reflux disease, hyperlipidemia and a right diaphragmatic paralysis. He also has a history of biopsy-proven idiopathic pulmonary fibrosis and is maintained on OFEV 150 mg twice a day. He follows with Dr. Schuster in our office. He is oxygen dependent on 2 L in the outpatient setting. FEV1 value 80% of predicted however there is noted restrictive lung disease consistent with his fibrosis. He is vaccinated 3 against the coronavirus. He presented to the emergency room earlier today with a three-day history of worsening shortness of breath and dyspnea on exertion. He has productive cough with yellow and blood-tinged spu jen. He was quite hypoxemic in the 60s on 2 L nasal cannula. White count 15.3. Hemoglobin 12.3. D-dimer 1.67. Sodium 143. Potassium 4.1. BUN 18. Creatinine 1.24. Bicarb 25. Lactic acid 5.8. Glucose 196. AST 53. ALT 33. Troponin 0.381. Coronavirus by PCR not detected. X-ray revealing evidence of multifocal airspace disease. Persistent elevated right diaphragm. He is seen today in consultation in the emergency department. He is currently sitting up on the stretcher. Awake and alert. In mild respiratory distress. Up to 4 L nasal cannula currently. Coarse crackles bilaterally. He's been initiated on DuoNeb inhalations and antibiotics in the form of Zosyn and azithromycin, IV Solu-Medrol. He is received 2 L of fluid resuscitation. 0.9 normal saline at 130 ML's per hour. Computed tomography scan of the chest is pending. Reevaluated today on 04/27/2021, patient is clinically feeling better today, chest x-ray is basically about the same, remains on bronchodilators, diuretics, steroids, and antibiotics. However I noted that the patient is receiving IV fluid at 1 50 mL per hour, and I cut it down to KVO, patient is also receiving Lasix. WBC count is 18.3 hemoglobin is 12.2. Left lites are normal. Renal profile showed a BUN of 25 creatinine 1.61, troponins remain high. PCR for COVID-19 is negative. BNP is elevated, pro-calcitonin level is negligible, 0.16 Progress note dated 04/28/2021. 75-year-old male who sees Dr. Wilson Taylor as a primary. He was seen by us in consultation 2 days ago. He has a history of hypertension, gastroesophageal reflux disease, hyperlipidemia, and diaphragmatic paralysis, status post plication. In addition, he has a diagnosis of biopsy-proven idiopathic pulmonary fibrosis. He is maintained on OFEV. He does have chronic hypoxemic respiratory failure and uses oxygen at 2 L/m, 05/10. The patient is currently on AIRVO at 50 L/m, and 95%. He feels like he is improved. He still quite short of breath, some conversational dyspnea. There is no audible wheezing or use of accessory muscles. Laboratory data from today includes a sodium 144, potassium 3.2, chlorides 96, CO2 35, anion gap 13, BUN 46, creatinine 1.62. Blood cultures are thus far negative. Chest x-ray shows diffuse bilateral interstitial infiltrates consistent with the patient's diagnosis of interstitial lung disease/pulmonary fibrosis. CT angiogram was negative for pulmonary embolism. Objective - Vital Signs Vital signs: Vital Signs Temp 97.6 F 04/28/21 12:00 Pulse 88 04/28/21 12:41 Resp 30 H 04/28/21 12:41 BP 181/91 04/28/21 12:00 Pulse Ox 85 L 04/28/21 12:29 Intake & Output 04/27/21 04/28/21 04/28/21 18:59 06:59 18:59 Output Total 2100 Balance -2100 Output: Urine 2100 Other: Voiding Method Urinal - Exam Mild respiratory distress. Oriented 3. AIRVO in place. Mild conversational dyspnea. No use of accessory muscles. HEENT examination is grossly unremarkable. Neck supple. Full range of motion. No adenopathy thyromegaly or neck vein distention. Cardiovascular examination reveals regular rhythm rate. S1-S2 normal. No S3 or S4. No discernible murmur noted. Heart sounds are distant. Heart rate 88 bpm. Lungs reveal diffuse bilateral rhonchi and bibasilar crackles. Breath sounds are equal bilaterally. He is restricted in his breathing. There are no wheezes. Saturations are 85-91% on AIRVO. Abdomen soft bowel sounds are heard. No masses or tenderness. Extremities are intact. No cyanosis clubbing or edema. Skin is without rash or lesion. Neurologic examination is brief but nonfocal. - Labs CBC & Chem 7: 04/27/21 07:36 04/28/21 11:30 Labs: Abnormal Lab Results - Last 24 Hours (Table) 04/28/21 Range/Units 11:30 Potassium 3.2 L (3.5-5.1) mmol/L Chloride 96 L (98-107) mmol/L Carbon Dioxide 35 H (22-30) mmol/L BUN 46 H (9-20) mg/dL Creatinine 1.62 H (0.66-1.25) mg/dL Glucose 209 H (74-99) mg/dL Microbiology - Last 24 Hours (Table) 04/26/21 11:40 Blood Culture - Preliminary Blood No Growth after 48 hours 04/26/21 11:30 Blood Culture - Preliminary Blood No Growth after 48 hours Assessment and Plan Assessment: Acute on chronic hypoxemic respiratory failure, secondary to acute exacerbation of the patient's underlying idiopathic pulmonary fibrosis, and possible community-acquired pneumonia. Elevated troponin, likely related to supply/demand mismatch. CT angiogram negative for pulmonary embolism. Lactic acidosis. Biopsy-proven usual interstitial pneumonia, maintained on OFEV. History of right-sided hemidiaphragm paralysis. History of mild asthma. History of hypertension. History of hyperlipidemia. DJD. Gastroesophageal reflux disease. Vitamin D deficiency. Plan: Plan dated 04/28/2021. The patient remains on AIRVO. The patient also remains on Zosyn and Levaquin, empirically. The patient is currently on bronchodilators, and Solu-Medrol. The patient states that he feels like he is doing better. He still very short of breath with some conversational dyspnea. His AIRVO settings included 50 L/m with an FiO2 of 95%. The patient remains also on Symbicort, Levaquin, and Zosyn. Additional recommendations and suggestions are forthcoming. We will continue corticosteroids. Prognosis is guarded. Time with Patient: Less than 30
[2021-04-28] MEDS ORDERED: Magnesium Replacement Protocol 1 EACH MISC MISCELLANE PRN (14:35)
--- NOTE | 2021-04-28 14:40 | P.PN ---
Subjective Progress Note Date: 04/28/21 CHIEF COMPLAINT: Cholelithiasis HISTORY OF PRESENT ILLNESS: Patient sitting up in bed comfortably. Denies any abdominal pain. Denies any nausea or vomiting. Patient currently on Airvo for his acute on chronic hypoxic respiratory failure with underlying idiopathic pulmonary fibrosis and community-acquired pneumonia. Patient followed by pulmonary service. Patient seen and examined with Dr. spencer PHYSICAL EXAM: VITAL SIGNS: Reviewed. GENERAL: Well-developed in no acute distress. HEENT: No sclera icterus. Extraocular movements grossly intact. Moist buccal mucosa. Head is atraumatic, normocephalic. ABDOMEN: Soft. Nondistended. Nontender. NEUROLOGIC: Alert and oriented. Cranial nerves II through XII grossly intact. ASSESSMENT: 1. Cholelithiasis with probable chronic cholecystitis. Patient asymptomatic PLAN: -Continue to observe -Once patient has recovered from his pneumonia and rest her status improves we can revisit his cholelithiasis in the outpatient setting -No surgical intervention planned at this time Physician Coordinator [employer] note has been reviewed by physician. Signing provider agrees with the documented findings, assessment, and plan of care. Objective - Vital Signs Vital signs: Vital Signs Temp 97.6 F 04/28/21 12:00 Pulse 88 04/28/21 12:41 Resp 30 H 04/28/21 12:41 BP 181/91 04/28/21 12:00 Pulse Ox 85 L 04/28/21 12:29 Intake & Output 04/27/21 04/28/21 04/28/21 18:59 06:59 18:59 Output Total 2100 Balance -2100 Output: Urine 2100 Other: Voiding Method Urinal - Labs CBC & Chem 7: 04/27/21 07:36 04/28/21 11:30 Labs: Abnormal Lab Results - Last 24 Hours (Table) 04/28/21 Range/Units 11:30 Potassium 3.2 L (3.5-5.1) mmol/L Chloride 96 L (98-107) mmol/L Carbon Dioxide 35 H (22-30) mmol/L BUN 46 H (9-20) mg/dL Creatinine 1.62 H (0.66-1.25) mg/dL Glucose 209 H (74-99) mg/dL Microbiology - Last 24 Hours (Table) 04/26/21 11:40 Blood Culture - Preliminary Blood No Growth after 48 hours 04/26/21 11:30 Blood Culture - Preliminary Blood No Growth after 48 hours
--- NOTE | 2021-04-28 14:51 | P.PN ---
Subjective This is a 75-year-old gentleman admitted with acute hypoxic respiratory failure secondary to acute exacerbation of pulmonary fibrosis, possible community- acquired pneumonia and multiple other medical issues. Maintained on nebulized bronchodilators, Symbicort, IV steroids, Zosyn and Levaquin. Tachypneic,currently requiring Airvo 60 Flow Rate/95% FIO2, maintaining O2 sats in the mid 80s to low 90s. Afebrile, WBC 18.3. Preliminary blood cultures reporting no growth after 48 hours. BUN 46, creatinine 1.62. Objective - Vital Signs Vital signs: Vital Signs Temp 97.6 F 04/28/21 12:00 Pulse 88 04/28/21 12:41 Resp 30 H 04/28/21 12:41 BP 181/91 04/28/21 12:00 Pulse Ox 85 L 04/28/21 12:29 Intake & Output 04/27/21 04/28/21 04/28/21 18:59 06:59 18:59 Output Total 2100 Balance -2100 Output: Urine 2100 Other: Voiding Method Urinal - Exam PHYSICAL EXAM: VITAL SIGNS: [As above] GENERAL: Sitting up in bed, respiratory effort increased, dyspneic with conversing. HEENT: Conjunctivae normal. eyes normal. NECK: No JVD. No thyroid enlargement. No LNs CARDIOVASCULAR: S1, S2 regular..No murmur RESPIRATION: Breath sounds diminished in the bases. Scattered bilateral rhonchi and crackles. ABDOMEN: Soft, nontender . No guarding. no masses palpable. No ascites, No hepatosplenomegaly.Bowel sounds heard. LEGS: No edema. no swelling PSYCHIATRY: Alert and oriented X3, mood and affect normal. NERVOUS SYSTEM: Cranial N 2-12 grossly normal. Moves all 4 limbs. No focal deficits. Strength and sensation grossly intact.. - Labs CBC & Chem 7: 04/27/21 07:36 04/28/21 11:30 Labs: Abnormal Lab Results - Last 24 Hours (Table) 04/28/21 Range/Units 11:30 Potassium 3.2 L (3.5-5.1) mmol/L Chloride 96 L (98-107) mmol/L Carbon Dioxide 35 H (22-30) mmol/L BUN 46 H (9-20) mg/dL Creatinine 1.62 H (0.66-1.25) mg/dL Glucose 209 H (74-99) mg/dL Microbiology - Last 24 Hours (Table) 04/26/21 11:40 Blood Culture - Preliminary Blood No Growth after 48 hours 04/26/21 11:30 Blood Culture - Preliminary Blood No Growth after 48 hours Assessment and Plan Assessment: Acute on chronic hypoxic respiratory failure secondary to acute exacerbation of underlying pulmonary fibrosis, possible bilateral community acquired pneumonia. Wears 2 L at home Elevated troponins, NSTEMI, related to the above Lactic acidosis Elevated d-dimer,CTA reported negative for pulmonary embolism Acute renal failure, possibly related to IV contrast Chronic mild asthma Gastroesophageal reflux disease Hypertension Hyperlipidemia DJD Hypokalemia Plan: Continue on current medication regime ,monitoring and symptomatic treatm ent. Magnesium level pending. Electrolyte replacement as per ordered replacement protocols. Aggressive pulmonary toileting with nebulized bronchodilators, steroids ,antibiotics. Diuretics with close monitoring of renal function-repeat labs ordered for a.m. The impression and plan of care has been dictated as directed. : I performed a history and examination of this patient, discussed the same with the dictator. I agree with the dictator's note ,documented as a scribe. Any additional findings or plans will be noted.
[2021-04-28 16:26] LABS: Glucose,Whole Blood 173 mg/dL (75-99)
[2021-04-28] MEDS: FUROSEMIDE 20 MG TAB PO SCH (17:07)
[2021-04-28 19:50] LABS: ABG Base Excess 10.9 mmol/L; ABG HCO3 34 mmol/L (21-25); ABG Oxygen Saturation 95.2 % (94-97); ABG PCO2 42 mmHg (35-45); ABG PH 7.52 (7.35-7.45); ABG PO2 76 mmHg (83-108); ABG TCO2 35 mmol/L (19-24); Allen Test Performed? Yes
[2021-04-28 19:54] LABS: Glucose,Whole Blood 180 mg/dL (75-99)
--- NOTE | 2021-04-28 20:43 | P.EN ---
A- team: Indication: Hypoxia, SOB Arrived on Scene to find: Patient on Airvo, with SpO2 74% Vital signs reviewed: BP 124/80, P 97, SpO2 74-95% Patient seen and examined at bedside. The patient reported occasional worsening of his SOB. Denied any additional complaints. Denied chest pain, nausea, vomiting, abdominal pain. The patient was placed on non-rebreather with the Airvo with which his SpO2 improved to 95%. General: [non toxic], in mild respiratory distress on Airvo, [appears at stated age] Derm: [warm], [dry] Head: [atraumatic], [normocephalic], [symmetric] Eyes: [EOMI], [no lid lag], [anicteric sclera] Mouth: [no lip lesion], [mucus membranes moist] Cardiovascular: [S1S2 reg], [no murmur], [positive posterior tibial pulse bilateral], Lungs: Scattered ronchi, no rales or wheezing, [no accessory muscle use] Abdominal: [soft], [nontender to palpation], [no guarding], [no appreciable organomegaly] Ext: [no gross muscle atrophy], [no edema], [no contractures] Neuro: [ CN II-XI grossly intact], [no focal neuro deficits] Psych: [Alert], [oriented], [appropriate affect] Assessment: Acute on chronic hypoxic respiratory failure Plan: C/w non-rebreather with Airvo at this time ABG reviewed Consider transfer to MICU if hypoxia worsens [employer]INE FEEDER discussed case with Cake Wrapper who was in agreement with the plan Notified: Primary team notified A Total of 35 minutes of critical care time was spent on the complex care of this patient.
[2021-04-28] MEDS: ATORVASTATIN 20 MG TAB PO SCH (21:54)
[2021-04-28] MEDS: MONTELUKAST 10 MG TAB PO SCH (21:54)
[2021-04-28] MEDS: ESCITALOPRAM 10 MG TAB PO SCH (21:54)
[2021-04-29] MEDS: PIPERACILLIN-TAZOBACTAM 3.375 GM in SODIUM CHLORIDE 0.9% 100 ML IVPB SCH ×3 (04:30→21:35)
[2021-04-29] MEDS: methylPREDNISolone SOD SUCCI 125 MG/2 ML VIAL IV SCH ×3 (06:11→17:20)
[2021-04-29] MEDS: SYMBICORT 160-4.5 MCG INHALER INHALATION SCH ×2 (08:00→19:10)
[2021-04-29] MEDS: IPRATROPIUM-ALBUTEROL 3 ML NEB INHALATION SCH ×4 (08:00→19:10)
[2021-04-29] MEDS: FUROSEMIDE 20 MG TAB PO SCH ×2 (08:17→17:20)
[2021-04-29] MEDS: PANTOPRAZOLE 40 MG TABLET PO SCH (08:17)
[2021-04-29] MEDS: MULTIVITAMINS, THERA 1 EACH TAB PO SCH (08:17)
[2021-04-29] MEDS: LOSARTAN 50 MG TAB PO SCH (08:17)
[2021-04-29] MEDS: buPROPion 75 MG TAB PO SCH ×2 (08:17→21:26)
[2021-04-29] MEDS: ASPIRIN 81 MG PO SCH (08:17)
[2021-04-29] MEDS: NON FORMULARY DRUG (Nintedanib Esylate [Ofev] 150 MG Capsule) PO SCH ×2 (08:18→21:27)
[2021-04-29 09:37] LABS: HCT 36.3 % (39.0-53.0); HGB 12.2 gm/dL (13.0-17.5); Hypochromasia Slight; MCH 30.8 pg (25.0-35.0); MCHC 33.5 g/dL (31.0-37.0); MCV 91.9 fL (80.0-100.0); Platelet Count 208 k/uL (150-450); RBC 3.95 m/uL (4.30-5.90); RDW 14.6 % (11.5-15.5); WBC 14.6 k/uL (3.8-10.6)
[2021-04-29 09:45] LABS: Albumin 3.2 g/dL (3.5-5.0); Calcium 8.8 mg/dL (8.4-10.2); Potassium 3.9 mmol/L (3.5-5.1); Total Protein 6.3 g/dL (6.3-8.2)
[2021-04-29 11:38] LABS: Glucose,Whole Blood 223 mg/dL (75-99)
--- NOTE | 2021-04-29 11:38 | P.PN ---
Subjective Progress Note Date: 04/29/21 Principal diagnosis: Respiratory failure. Acute hypoxic respiratory failure, multifactorial. This is a very pleasant 75-year-old male patient who follows with Dr. Taylor as his primary care provider. He has a history of hypertension, gastroesophageal reflux disease, hyperlipidemia and a right diaphragmatic paralysis. He also has a history of biopsy-proven idiopathic pulmonary fibrosis and is maintained on OFEV 150 mg twice a day. He follows with Dr. Schuster in our office. He is oxygen dependent on 2 L in the outpatient setting. FEV1 value 80% of predicted however there is noted restrictive lung disease consistent with his fibrosis. He is vaccinated 3 against the coronavirus. He presented to the emergency room earlier today with a three-day history of worsening shortness of breath and dyspnea on exertion. He has productive cough with yellow and blood-tinged spu jen. He was quite hypoxemic in the 60s on 2 L nasal cannula. White count 15.3. Hemoglobin 12.3. D-dimer 1.67. Sodium 143. Potassium 4.1. BUN 18. Creatinine 1.24. Bicarb 25. Lactic acid 5.8. Glucose 196. AST 53. ALT 33. Troponin 0.381. Coronavirus by PCR not detected. X-ray revealing evidence of multifocal airspace disease. Persistent elevated right diaphragm. He is seen today in consultation in the emergency department. He is currently sitting up on the stretcher. Awake and alert. In mild respiratory distress. Up to 4 L nasal cannula currently. Coarse crackles bilaterally. He's been initiated on DuoNeb inhalations and antibiotics in the form of Zosyn and azithromycin, IV Solu-Medrol. He is received 2 L of fluid resuscitation. 0.9 normal saline at 130 ML's per hour. Computed tomography scan of the chest is pending. Reevaluated today on 04/27/2021, patient is clinically feeling better today, chest x-ray is basically about the same, remains on bronchodilators, diuretics, steroids, and antibiotics. However I noted that the patient is receiving IV fluid at 1 50 mL per hour, and I cut it down to KVO, patient is also receiving Lasix. WBC count is 18.3 hemoglobin is 12.2. Left lites are normal. Renal profile showed a BUN of 25 creatinine 1.61, troponins remain high. PCR for COVID-19 is negative. BNP is elevated, pro-calcitonin level is negligible, 0.16 Progress note dated 04/28/2021. 75-year-old male who sees Dr. Wilson Taylor as a primary. He was seen by us in consultation 2 days ago. He has a history of hypertension, gastroesophageal reflux disease, hyperlipidemia, and diaphragmatic paralysis, status post plication. In addition, he has a diagnosis of biopsy-proven idiopathic pulmonary fibrosis. He is maintained on OFEV. He does have chronic hypoxemic respiratory failure and uses oxygen at 2 L/m, 05/10. The patient is currently on AIRVO at 50 L/m, and 95%. He feels like he is improved. He still quite short of breath, some conversational dyspnea. There is no audible wheezing or use of accessory muscles. Laboratory data from today includes a sodium 144, potassium 3.2, chlorides 96, CO2 35, anion gap 13, BUN 46, creatinine 1.62. Blood cultures are thus far negative. Chest x-ray shows diffuse bilateral interstitial infiltrates consistent with the patient's diagnosis of interstitial lung disease/pulmonary fibrosis. CT angiogram was negative for pulmonary embolism. Progress note dated 04/29/2021. 75-year-old white male, well-known to me. He has a history of biopsy-proven idiopathic pulmonary fibrosis, diaphragmatic weakness, and mild asthma. The patient is again seen in room 354. Today, he is on BiPAP at 10 and 5 and 85%. I was called about him last night. He feels better today, and feels like the BiPAP has helped him. Yesterday, he was on AIRVO. Today's laboratory data includes a white count of 14.6, hemoglobin 12.2, hematocrit 36.3, and a normal platelet count. Yesterday, he had a blood gas showing a pO2 of 76, pCO2 42, and a pH is 7.52. This was on 100%. Sodium 144, potassium 3.9, chlorides 104, CO2 32, anion gap 8, BUN 48, creatinine 1.38. AST 98, and ALT 129. Objective - Vital Signs Vital signs: Vital Signs Temp 97.1 F L 04/29/21 08:23 Pulse 73 04/29/21 08:23 Resp 24 04/29/21 04:00 BP 168/91 04/29/21 08:23 Pulse Ox 96 04/29/21 09:29 Intake & Output 04/28/21 04/29/21 04/29/21 18:59 06:59 18:59 Intake Total 240 120 Output Total 1000 175 Balance 240 -1000 -55 Intake: Oral 240 120 Output: Urine 1000 175 Other: Voiding Method Urinal Urinal # Bowel Movements 1 - Exam Mild respiratory distress. Oriented 3. Currently on BiPAP. No use of accessory muscles or conversational dyspnea. HEENT examination is grossly unremarkable. Neck supple. Full range of motion. No adenopathy thyromegaly or neck vein distention. Cardiovascular examination reveals regular rhythm rate. S1-S2 normal. No S3 or S4. No discernible murmur noted. Heart sounds are distant. Heart rate 73 bpm. Lungs reveal diffuse bilateral rhonchi and bibasilar crackles. Breath sounds are equal bilaterally. He is restricted in his breathing. There are no wheezes. Saturations are 92-96% on BiPAP Abdomen soft bowel sounds are heard. No masses or tenderness. Extremities are intact. No cyanosis clubbing or edema. Skin is without rash or lesion. Neurologic examination is brief but nonfocal. - Labs CBC & Chem 7: 04/29/21 06:48 04/29/21 06:48 Labs: Abnormal Lab Results - Last 24 Hours (Table) 04/28/21 04/28/21 04/28/21 Range/Units 11:30 11:30 16:25 WBC (3.8-10.6) k/uL RBC (4.30-5.90) m/uL Hgb (13.0-17.5) gm/dL Hct (39.0-53.0) % ABG pH (7.35-7.45) ABG pO2 (83-108) mmHg ABG HCO3 (21-25) mmol/L ABG Total CO2 (19-24) mmol/L Potassium 3.2 L (3.5-5.1) mmol/L Chloride 96 L (98-107) mmol/L Carbon Dioxide 35 H (22-30) mmol/L BUN 46 H (9-20) mg/dL Creatinine 1.62 H (0.66-1.25) mg/dL Glucose 209 H (74-99) mg/dL POC Glucose (mg/dL) 173 H (75-99) mg/dL Magnesium 1.5 L (1.6-2.3) mg/dL AST (17-59) U/L ALT (4-49) U/L Albumin (3.5-5.0) g/dL 04/28/21 04/28/21 04/29/21 Range/Units 19:45 19:53 06:48 WBC 14.6 H (3.8-10.6) k/uL RBC 3.95 L (4.30-5.90) m/uL Hgb 12.2 L (13.0-17.5) gm/dL Hct 36.3 L (39.0-53.0) % ABG pH 7.52 H (7.35-7.45) ABG pO2 76 L (83-108) mmHg ABG HCO3 34 H (21-25) mmol/L ABG Total CO2 35 H (19-24) mmol/L Potassium (3.5-5.1) mmol/L Chloride (98-107) mmol/L Carbon Dioxide (22-30) mmol/L BUN (9-20) mg/dL Creatinine (0.66-1.25) mg/dL Glucose (74-99) mg/dL POC Glucose (mg/dL) 180 H (75-99) mg/dL Magnesium (1.6-2.3) mg/dL AST (17-59) U/L ALT (4-49) U/L Albumin (3.5-5.0) g/dL 04/29/21 Range/Units 06:48 WBC (3.8-10.6) k/uL RBC (4.30-5.90) m/uL Hgb (13.0-17.5) gm/dL Hct (39.0-53.0) % ABG pH (7.35-7.45) ABG pO2 (83-108) mmHg ABG HCO3 (21-25) mmol/L ABG Total CO2 (19-24) mmol/L Potassium (3.5-5.1) mmol/L Chloride (98-107) mmol/L Carbon Dioxide 32 H (22-30) mmol/L BUN 48 H (9-20) mg/dL Creatinine 1.38 H (0.66-1.25) mg/dL Glucose 189 H (74-99) mg/dL POC Glucose (mg/dL) (75-99) mg/dL Magnesium (1.6-2.3) mg/dL AST 98 H (17-59) U/L ALT 129 H (4-49) U/L Albumin 3.2 L (3.5-5.0) g/dL Microbiology - Last 24 Hours (Table) 04/27/21 21:01 Sputum Culture - Preliminary Sputum 04/26/21 11:40 Blood Culture - Preliminary Blood No Growth after 48 hours 04/26/21 11:30 Blood Culture - Preliminary Blood No Growth after 48 hours Assessment and Plan Assessment: Acute on chronic hypoxemic respiratory failure, secondary to acute exacerbation of the patient's underlying idiopathic pulmonary fibrosis, and possible community-acquired pneumonia. Elevated troponin, likely related to supply/demand mismatch. CT angiogram negative for pulmonary embolism. Lactic acidosis. Biopsy-proven usual interstitial pneumonia, maintained on OFEV. History of right-sided hemidiaphragm paralysis. History of mild asthma. History of hypertension. History of hyperlipidemia. DJD. Gastroesophageal reflux disease. Vitamin D deficiency. Plan: Plan dated 04/28/2021. The patient remains on AIRVO. The patient also remains on Zosyn and Levaquin, empirically. The patient is currently on bronchodilators, and Solu-Medrol. The patient states that he feels like he is doing better. He still very short of breath with some conversational dyspnea. His AIRVO settings included 50 L/m with an FiO2 of 95%. The patient remains also on Symbicort, Levaquin, and Zosyn. Additional recommendations and suggestions are forthcoming. We will continue corticosteroids. Prognosis is guarded. Plan dated 04/29/2021. Yesterday, the patient was on AIRVO. Last night, he is some increasing respiratory difficulty, we placed him on BiPAP. He seems to be doing much better. He feels like the BiPAP is really helping him. His labs, x-rays, and medications are reviewed. Arterial blood gases from yesterday are also reviewed. The patient remains on Zosyn and corticosteroids. Overall prognosis remains very guarded. We will continue to follow and make recommendations where appropriate. Time with Patient: Less than 30
[2021-04-29] MEDS: guaiFENesin 600 MG TABLET.ER PO SCH ×2 (12:17→21:26)
[2021-04-29] MEDS: LEVOFLOXACIN 250 MG TAB PO SCH (12:17)
--- NOTE | 2021-04-29 12:31 | P.PN ---
Subjective Progress Note Date: 04/29/21 This is a 75-year-old gentleman admitted with acute hypoxic respiratory failure secondary to acute exacerbation of pulmonary fibrosis, possible community- acquired pneumonia and multiple other medical issues. Maintained on nebulized bronchodilators, Symbicort, IV steroids, Zosyn and Levaquin. Tachypneic,cu rrently requiring Airvo 60 Flow Rate/95% FIO2, maintaining O2 sats in the mid 80s to low 90s. Afebrile, WBC 18.3. Preliminary blood cultures reporting no growth after 48 hours. BUN 46, creatinine 1.62. 04/29/2019 last night, patient developed worsening dyspnea ,desatted on airvo down into the mid 70s. Changed over to BiPAP with O2 sats improved. Currently on 85% BiPAP. Creatinine decreased to 1.38. T bili 1, AST 98, ALT 129. Reports he is not sleeping well, requesting melatonin. Objective - Vital Signs Vital signs: Vital Signs Temp 97.1 F L 04/29/21 08:23 Pulse 72 04/29/21 11:44 Resp 24 04/29/21 04:00 BP 168/91 04/29/21 08:23 Pulse Ox 96 04/29/21 09:29 Intake & Output 04/28/21 04/29/21 04/29/21 18:59 06:59 18:59 Intake Total 240 120 Output Total 1000 175 Balance 240 -1000 -55 Intake: Oral 240 120 Output: Urine 1000 175 Other: Voiding Method Urinal Urinal # Bowel Movements 1 - Exam PHYSICAL EXAM: VITAL SIGNS: [As above] GENERAL: Sitting up in bed, wearing BiPAP HEENT: Conjunctivae normal. eyes normal. NECK: No JVD. No thyroid enlargement. No LNs CARDIOVASCULAR: S1, S2 regular.No murmur RESPIRATION: Breath sounds diminished in the bases. Scattered bilateral rhonchi and crackles. ABDOMEN: Soft, nontender . No guarding. no masses palpable.positive bowel sounds. LEGS: No edema. no swelling PSYCHIATRY: Alert and oriented X3, mood and affect normal. NERVOUS SYSTEM: Cranial N 2-12 grossly normal. No focal deficits. Strength and sensation grossly intact. - Labs CBC & Chem 7: 04/29/21 06:48 04/29/21 06:48 Labs: Abnormal Lab Results - Last 24 Hours (Table) 02/04/28/21 04/28/21 Range/Units 11:30 16:25 19:45 WBC (3.8-10.6) k/uL RBC (4.30-5.90) m/uL Hgb (13.0-17.5) gm/dL Hct (39.0-53.0) % ABG pH 7.52 H (7.35-7.45) ABG pO2 76 L (83-108) mmHg ABG HCO3 34 H (21-25) mmol/L ABG Total CO2 35 H (19-24) mmol/L Carbon Dioxide (22-30) mmol/L BUN (9-20) mg/dL Creatinine (0.66-1.25) mg/dL Glucose (74-99) mg/dL POC Glucose (mg/dL) 173 H (75-99) mg/dL Magnesium 1.5 L (1.6-2.3) mg/dL AST (17-59) U/L ALT (4-49) U/L Albumin (3.5-5.0) g/dL 04/28/21 04/29/21 04/29/21 Range/Units 19:53 06:48 06:48 WBC 14.6 H (3.8-10.6) k/uL RBC 3.95 L (4.30-5.90) m/uL Hgb 12.2 L (13.0-17.5) gm/dL Hct 36.3 L (39.0-53.0) % ABG pH (7.35-7.45) ABG pO2 (83-108) mmHg ABG HCO3 (21-25) mmol/L ABG Total CO2 (19-24) mmol/L Carbon Dioxide 32 H (22-30) mmol/L BUN 48 H (9-20) mg/dL Creatinine 1.38 H (0.66-1.25) mg/dL Glucose 189 H (74-99) mg/dL POC Glucose (mg/dL) 180 H (75-99) mg/dL Magnesium (1.6-2.3) mg/dL AST 98 H (17-59) U/L ALT 129 H (4-49) U/L Albumin 3.2 L (3.5-5.0) g/dL 04/29/21 Range/Units 11:36 WBC (3.8-10.6) k/uL RBC (4.30-5.90) m/uL Hgb (13.0-17.5) gm/dL Hct (39.0-53.0) % ABG pH (7.35-7.45) ABG pO2 (83-108) mmHg ABG HCO3 (21-25) mmol/L ABG Total CO2 (19-24) mmol/L Carbon Dioxide (22-30) mmol/L BUN (9-20) mg/dL Creatinine (0.66-1.25) mg/dL Glucose (74-99) mg/dL POC Glucose (mg/dL) 223 H (75-99) mg/dL Magnesium (1.6-2.3) mg/dL AST (17-59) U/L ALT (4-49) U/L Albumin (3.5-5.0) g/dL Microbiology - Last 24 Hours (Table) 04/27/21 21:01 Gram Stain - Preliminary Sputum Sputum Culture - Preliminary 04/26/21 11:40 Blood Culture - Preliminary Blood No Growth after 48 hours 04/26/21 11:30 Blood Culture - Preliminary Blood No Growth after 48 hours Assessment and Plan Assessment: Acute on chronic hypoxic respiratory failure secondary to acute exacerbation of underlying pulmonary fibrosis, possible bilateral community acquired pneumonia. Wears 2 L at home. Elevated troponins, NSTEMI, related to the above Lactic acidosis Elevated d-dimer,CTA reported negative for pulmonary embolism Acute renal failure, possibly related to IV contrast Chronic mild asthma Gastroesophageal reflux disease Hypertension Hyperlipidemia DJD Hypokalemia Plan: Continue on current medication regime ,monitoring and symptomatic treatment. Maintain aggressive pulmonary toileting with nebulized bronch odilators, steroids ,antibiotics. Currently on oral diuretics,close monitoring of renal function-repeat labs ordered for a.m. The impression and plan of care has been dictated as directed. : I performed a history and examination of this patient, discussed the same with the dictator. I agree with the dictator's note ,documented as a scribe. Any additional findings or plans will be noted.
--- NOTE | 2021-04-29 12:45 | P.PN ---
Subjective HISTORY OF PRESENTING ILLNESS Patient is a pleasant 75-year-old male with history of apparent normal coronary arteries by prior heart catheterization approximately 8 years ago, hypertension, pulmonary fibrosis on 2 L home oxygen, GERD, right diaphragm paralysis. Patient presented with worsened shortness breath or the prior 3-4 days on top of his chronic 2 L oxygen dependence. Patient denies any recent fevers or chills and denies any cough. He was hypoxic with oxygen saturation in the 60s and therefore placed on nonrebreather. He had a CTA and unfortunately his kidney function has worsened with creatinine 1.6. He also was placed on IV Lasix. CTA showed no PE, groundglass opacities consistent with atypical infection such as COVID-19, emphysema. EKG shows normal sinus rhythm, left axis deviation, LVH with nonspecific ST, T-wave abnormalities. 04/29/2021 Patient seen and examined at bedside, continues to be short of breath and h ypoxic requiring BIPAP and AIRVO. Overnight, had some increased respiratory distress requiring non-rebreather. Patient went 3.3 L urine output over the past 24 hours. Labs, sodium 144, potassium 3.9, BUN 48, serum creatinine 1.38, magnesium 1.7 He's currently maintained on IV Lasix 40 mg daily, aspirin 80 mg daily, atorvastatin 20 mg nightly, losartan 100 mg daily, IV antibiotics Echocardiogram report revealed EF 60-65%, severe pulmonary hypertension with RVSP 57mmHg, mild to moderate mitral regurgitation PHYSICAL EXAMINATION Vital signs reviewed. CONSTITUTIONAL: No apparent distress, on O2 HEENT: Neck supple. No JVD. CHEST EXAMINATION: Some mild bilateral crackles HEART EXAMINATION: Regular rate and rhythm. S1, S2 heard. ABDOMEN: Soft, nontender. Positive bowel sounds. EXTREMITIES: 2+ peripheral pulses, no lower extremity edema and no calf tenderness. NEUROLOGIC EXAMINATION: Patient is awake, alert and oriented x3. ASSESSMENT Acute on chronic respiratory failure likely component of exacerbation of pulmonary fibrosis with pneumonia with elevated pro-calcitonin Non-STEMI likely related to type II mechanism from hypoxia with oxygen in the 60s Reported normal heart catheterization approximately 8 years ago Elevated proBNP, questionable component of heart failure Acute kidney injury, possibly related to VIDA from CTA versus overdiuresis Hypertension Pulmonary fibrosis on home 2 L oxygen Severe pulmonary hypertension PLAN -Patient's main presentation of respiratory failure and found to be hypoxic with oxygen levels in the 60s and increased lactic acidosis. Suspect non-STEMI related to type II mechanism from hypoxia. -Echocardiogram report revealed EF 60-65%, severe pulmonary hypertension with RVSP 57mmHg, mild to moderate mitral regurgitation. -Kidney function is improving. Some of volume status difficult to assess with chronic crackles related to pulmonary fibrosis. No significant JVD or lower extremity edema. -We will follow the patient as needed. Please reconsult if needed. Objective - Vital Signs Vital signs: Vital Signs Temp 97.1 F L 04/29/21 08:23 Pulse 73 04/29/21 08:23 Resp 24 04/29/21 04:00 BP 168/91 04/29/21 08:23 Pulse Ox 96 04/29/21 09:29 Intake & Output 04/28/21 04/29/21 04/29/21 18:59 06:59 18:59 Intake Total 240 120 Output Total 1000 Balance 240 -1000 120 Intake: Oral 240 120 Output: Urine 1000 Other: Voiding Method Urinal Urinal - Labs CBC & Chem 7: 04/29/21 06:48 04/29/21 06:48 Labs: Abnormal Lab Results - Last 24 Hours (Table) 04/28/21 04/28/21 04/28/21 Range/Units 11:30 11:30 16:25 WBC (3.8-10.6) k/uL RBC (4.30-5.90) m/uL Hgb (13.0-17.5) gm/dL Hct (39.0-53.0) % ABG pH (7.35-7.45) ABG pO2 (83-108) mmHg ABG HCO3 (21-25) mmol/L ABG Total CO2 (19-24) mmol/L Potassium 3.2 L (3.5-5.1) mmol/L Chloride 96 L (98-107) mmol/L Carbon Dioxide 35 H (22-30) mmol/L BUN 46 H (9-20) mg/dL Creatinine 1.62 H (0.66-1.25) mg/dL Glucose 209 H (74-99) mg/dL POC Glucose (mg/dL) 173 H (75-99) mg/dL Magnesium 1.5 L (1.6-2.3) mg/dL AST (17-59) U/L ALT (4-49) U/L Albumin (3.5-5.0) g/dL 04/28/21 04/28/21 04/29/21 Range/Units 19:45 19:53 06:48 WBC 14.6 H (3.8-10.6) k/uL RBC 3.95 L (4.30-5.90) m/uL Hgb 12.2 L (13.0-17.5) gm/dL Hct 36.3 L (39.0-53.0) % ABG pH 7.52 H (7.35-7.45) ABG pO2 76 L (83-108) mmHg ABG HCO3 34 H (21-25) mmol/L ABG Total CO2 35 H (19-24) mmol/L Potassium (3.5-5.1) mmol/L Chloride (98-107) mmol/L Carbon Dioxide (22-30) mmol/L BUN (9-20) mg/dL Creatinine (0.66-1.25) mg/dL Glucose (74-99) mg/dL POC Glucose (mg/dL) 180 H (75-99) mg/dL Magnesium (1.6-2.3) mg/dL AST (17-59) U/L ALT (4-49) U/L Albumin (3.5-5.0) g/dL 04/29/21 Range/Units 06:48 WBC (3.8-10.6) k/uL RBC (4.30-5.90) m/uL Hgb (13.0-17.5) gm/dL Hct (39.0-53.0) % ABG pH (7.35-7.45) ABG pO2 (83-108) mmHg ABG HCO3 (21-25) mmol/L ABG Total CO2 (19-24) mmol/L Potassium (3.5-5.1) mmol/L Chloride (98-107) mmol/L Carbon Dioxide 32 H (22-30) mmol/L BUN 48 H (9-20) mg/dL Creatinine 1.38 H (0.66-1.25) mg/dL Glucose 189 H (74-99) mg/dL POC Glucose (mg/dL) (75-99) mg/dL Magnesium (1.6-2.3) mg/dL AST 98 H (17-59) U/L ALT 129 H (4-49) U/L Albumin 3.2 L (3.5-5.0) g/dL Microbiology - Last 24 Hours (Table) 04/27/21 21:01 Sputum Culture - Preliminary Sputum 04/26/21 11:40 Blood Culture - Preliminary Blood No Growth after 48 hours 04/26/21 11:30 Blood Culture - Preliminary Blood No Growth after 48 hours
--- NOTE | 2021-04-29 13:31 | P.PN ---
Subjective Progress Note Date: 04/29/21 CHIEF COMPLAINT: Cholelithiasis HISTORY OF PRESENT ILLNESS: Patient is on BiPAP for his respiratory failure with underlying idiopathic pulmonary fibrosis and community-acquired pneumonia. He is still reporting no abdominal pain. He is tolerating diet. Denies any nausea or vomiting. Patient seen and examined with Dr. spencer PHYSICAL EXAM: VITAL SIGNS: Reviewed. GENERAL: Well-developed in no acute distress. HEENT: No sclera icterus. Extraocular movements grossly intact. Moist buccal mucosa. Head is atraumatic, normocephalic. ABDOMEN: Soft. Nondistended. Nontender. NEUROLOGIC: Alert and oriented. Cranial nerves II through XII grossly intact. ASSESSMENT: 1. Cholelithiasis with probable chronic cholecystitis. Patient asymptomatic PLAN: -Continue to observe -Once patient has recovered from his pneumonia and rest her status improves we can revisit his cholelithiasis in the outpatient setting -No surgical intervention planned at this time Physician Fish Straightener note has been reviewed by physician. Signing provider agrees with the documented findings, assessment, and plan of care. Objective - Vital Signs Vital signs: Vital Signs Temp 97.6 F 04/29/21 12:30 Pulse 68 04/29/21 12:30 Resp 32 H 04/29/21 12:30 BP 156/86 04/29/21 12:30 Pulse Ox 96 04/29/21 12:30 Intake & Output 04/28/21 04/29/21 04/29/21 18:59 06:59 18:59 Intake Total 240 320 Output Total 1000 175 Balance 240 -1000 145 Intake: Oral 240 320 Output: Urine 1000 175 Other: Voiding Method Urinal Urinal # Bowel Movements 1 - Labs CBC & Chem 7: 04/29/21 06:48 04/29/21 06:48 Labs: Abnormal Lab Results - Last 24 Hours (Table) 04/28/21 04/28/21 04/28/21 Range/Units 11:30 16:25 19:45 WBC (3.8-10.6) k/uL RBC (4.30-5.90) m/uL Hgb (13.0-17.5) gm/dL Hct (39.0-53.0) % ABG pH 7.52 H (7.35-7.45) ABG pO2 76 L (83-108) mmHg ABG HCO3 34 H (21-25) mmol/L ABG Total CO2 35 H (19-24) mmol/L Carbon Dioxide (22-30) mmol/L BUN (9-20) mg/dL Creatinine (0.66-1.25) mg/dL Glucose (74-99) mg/dL POC Glucose (mg/dL) 173 H (75-99) mg/dL Magnesium 1.5 L (1.6-2.3) mg/dL AST (17-59) U/L ALT (4-49) U/L Albumin (3.5-5.0) g/dL 04/28/21 04/29/21 04/29/21 Range/Units 19:53 06:48 06:48 WBC 14.6 H (3.8-10.6) k/uL RBC 3.95 L (4.30-5.90) m/uL Hgb 12.2 L (13.0-17.5) gm/dL Hct 36.3 L (39.0-53.0) % ABG pH (7.35-7.45) ABG pO2 (83-108) mmHg ABG HCO3 (21-25) mmol/L ABG Total CO2 (19-24) mmol/L Carbon Dioxide 32 H (22-30) mmol/L BUN 48 H (9-20) mg/dL Creatinine 1.38 H (0.66-1.25) mg/dL Glucose 189 H (74-99) mg/dL POC Glucose (mg/dL) 180 H (75-99) mg/dL Magnesium (1.6-2.3) mg/dL AST 98 H (17-59) U/L ALT 129 H (4-49) U/L Albumin 3.2 L (3.5-5.0) g/dL 04/29/21 Range/Units 11:36 WBC (3.8-10.6) k/uL RBC (4.30-5.90) m/uL Hgb (13.0-17.5) gm/dL Hct (39.0-53.0) % ABG pH (7.35-7.45) ABG pO2 (83-108) mmHg ABG HCO3 (21-25) mmol/L ABG Total CO2 (19-24) mmol/L Carbon Dioxide (22-30) mmol/L BUN (9-20) mg/dL Creatinine (0.66-1.25) mg/dL Glucose (74-99) mg/dL POC Glucose (mg/dL) 223 H (75-99) mg/dL Magnesium (1.6-2.3) mg/dL AST (17-59) U/L ALT (4-49) U/L Albumin (3.5-5.0) g/dL Microbiology - Last 24 Hours (Table) 04/27/21 21:01 Gram Stain - Preliminary Sputum Sputum Culture - Preliminary 04/26/21 11:40 Blood Culture - Preliminary Blood No Growth after 48 hours 04/26/21 11:30 Blood Culture - Preliminary Blood No Growth after 48 hours
--- NOTE | 2021-04-29 15:47 | ECHOF ---
Referral Reason: MEASUREMENTS -------- HEIGHT: 172.7 cm WEIGHT: 81.6 kg BP: 165/93 RVIDd: 3.5 cm (< 3.3) IVSd: 1.5 cm (0.6 - 1.1) LVIDd: 3.6 cm (3.9 - 5.3) LVPWd: 1.4 cm (0.6 - 1.1) IVSs: 2.0 cm LVIDs: 2.8 cm LVPWs: 1.9 cm LA Diam: 3.6 cm (2.7 - 3.8) LAESV Index (A-L): 18.54 ml/m Ao Diam: 3.3 cm (2.0 - 3.7) AV Cusp: 2.2 cm (1.5 - 2.6) MV EXCURSION: 12.842 mm (> 18.000) MV EF SLOPE: 69 mm/s (70 - 150) EPSS: 0.4 cm MV E Timur: 1.03 m/s MV DecT: 139 ms MV A Timur: 1.34 m/s MV E/A Ratio: 0.77 RAP: 15.00 mmHg RVSP: 57.24 mmHg FINDINGS -------- Sinus rhythm. This was a technically adequate study. The left ventricular size is normal. There is moderate concentric left ventricular hypertrophy. O verall left ventricular systolic function is normal with, an EF between 60 - 65 %. The right ventricle is mildly enlarged. Normal LA size by volume 22+/-6 ml/m2. The right atrium is normal in size. Interatrial and interventricular septum intact. The aortic valve is trileaflet, and appears structurally normal. No aortic stenosis or regurgitation. Gkoy-vl-cvxnywyn mitral regurgitation is present. Moderate tricuspid regurgitation present. There is severe pulmonary hypertension. The right ventr icular systolic pressure, as measured by Doppler, is 57.24mmHg. Trace/mild (physiologic) pulmonic regurgitation. The aortic root size is normal. Normal inferior vena cava with less than 50% inspiratory collapse consistent with estimated right atr ial pressure of 15 mmHg. There is no pericardial effusion. CONCLUSIONS -------- 1. The left ventricular size is normal. 2. There is moderate concentric left ventricular hypertrophy. 3. Overall left ventricular systolic function is normal with, an EF between 60 - 65 %. 4. The right ventricle is mildly enlarged. 5. Vaao-gr-hplaknyx mitral regurgitation is present. 6. Moderate tricuspid regurgitation present. 7. There is severe pulmonary hypertension. 8. The right ventricular systolic pressure, as measured by Doppler, is 57.24mmHg. 9. Trace/mild (physiologic) pulmonic regurgitation. 10. Normal inferior vena cava with less than 50% inspiratory collapse consistent with estimated right atrial pressure of 15 mmHg. 11. There is no pericardial effusion. UTILITY FORESTER: Bela Olvera RDCS
[2021-04-29] MEDS: SODIUM CHLORIDE 0.9% 1,000 ML IV SCH (16:29)
[2021-04-29 16:42] LABS: Glucose,Whole Blood 237 mg/dL (75-99)
[2021-04-29] MEDS: INSULIN ASPART (NovoLOG) 100 UNIT/ML VIAL SQ SCH ×2 (17:33→21:26)
[2021-04-29 20:12] LABS: Glucose,Whole Blood 249 mg/dL (75-99)
[2021-04-29] MEDS: ATORVASTATIN 20 MG TAB PO SCH (21:26)
[2021-04-29] MEDS: ESCITALOPRAM 10 MG TAB PO SCH (21:26)
[2021-04-29] MEDS: MELATONIN 5 MG TABLET PO SCH (21:26)
[2021-04-29] MEDS: MONTELUKAST 10 MG TAB PO SCH (21:26)
[2021-04-30] MEDS ORDERED: methylPREDNISolone SOD SUCCI 125 MG/2 ML VIAL ONE (00:27)
[2021-04-30] MEDS: methylPREDNISolone SOD SUCCI 125 MG/2 ML VIAL IV SCH ×4 (03:14→16:57)
[2021-04-30] MEDS: PIPERACILLIN-TAZOBACTAM 3.375 GM in SODIUM CHLORIDE 0.9% 100 ML IVPB SCH ×3 (05:00→21:11)
[2021-04-30] MEDS: PANTOPRAZOLE 40 MG TABLET PO SCH (05:44)
[2021-04-30 06:12] LABS: Glucose,Whole Blood 217 mg/dL (75-99)
[2021-04-30] MEDS: INSULIN ASPART (NovoLOG) 100 UNIT/ML VIAL SQ SCH ×4 (07:00→21:11)
[2021-04-30] MEDS: buPROPion 75 MG TAB PO SCH ×2 (07:24→21:11)
[2021-04-30] MEDS: guaiFENesin 600 MG TABLET.ER PO SCH ×2 (07:24→21:12)
[2021-04-30] MEDS: LOSARTAN 50 MG TAB PO SCH (07:24)
[2021-04-30] MEDS: MULTIVITAMINS, THERA 1 EACH TAB PO SCH (07:25)
[2021-04-30] MEDS: FUROSEMIDE 20 MG TAB PO SCH ×2 (07:25→16:57)
[2021-04-30] MEDS: NON FORMULARY DRUG (Nintedanib Esylate [Ofev] 150 MG Capsule) PO SCH ×2 (07:25→21:12)
[2021-04-30] MEDS: ASPIRIN 81 MG PO SCH (07:25)
[2021-04-30 07:43] LABS: Calcium 8.9 mg/dL (8.4-10.2); Potassium 4.4 mmol/L (3.5-5.1)
[2021-04-30] MEDS: IPRATROPIUM-ALBUTEROL 3 ML NEB INHALATION SCH ×4 (08:01→19:57)
[2021-04-30] MEDS: SYMBICORT 160-4.5 MCG INHALER INHALATION SCH ×2 (08:01→19:58)
[2021-04-30 11:27] LABS: Glucose,Whole Blood 332 mg/dL (75-99)
[2021-04-30] MEDS: LEVOFLOXACIN 250 MG TAB PO SCH (11:50)
--- NOTE | 2021-04-30 12:15 | P.PN ---
Subjective Progress Note Date: 04/30/21 CHIEF COMPLAINT: Cholelithiasis HISTORY OF PRESENT ILLNESS: Patient is on BiPAP for his respiratory failure with underlying idiopathic pulmonary fibrosis and community-acquired pneumonia. He is still reporting no abdominal pain. He is tolerating diet. Denies any nausea or vomiting. Patient seen and examined with Dr. spencer PHYSICAL EXAM: VITAL SIGNS: Reviewed. GENERAL: Well-developed in no acute distress. HEENT: No sclera icterus. Extraocular movements grossly intact. Moist buccal mucosa. Head is atraumatic, normocephalic. ABDOMEN: Soft. Nondistended. Nontender. NEUROLOGIC: Alert and oriented. Cranial nerves II through XII grossly intact. ASSESSMENT: 1. Cholelithiasis with probable chronic cholecystitis. 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 Signing provider agrees with the documented findings, assessment, and plan of care. Objective - Vital Signs Vital signs: Vital Signs Temp 96.8 F L 04/30/21 11:11 Pulse 77 04/30/21 11:11 Resp 30 H 04/30/21 11:11 BP 156/82 04/30/21 11:11 Pulse Ox 95 04/30/21 11:12 Intake & Output 04/29/21 04/30/21 04/30/21 18:59 06:59 18:59 Intake Total 1120 820 Output Total 575 300 400 Balance 545 -300 420 Weight 81 kg Intake: Intake, IV Titration 340 340 Amount Piperacillin-Tazobactam 3 100 100 .375 gm In Sodium Chloride 0.9% 100 ml @ 25 mls/hr IVPB Q8H [facility] Rx#: [id number] Sodium Chloride 0.9% 1, 240 240 000 ml @ 20 mls/hr IV . Q24H DAN[facility]LE Rx#:[id number] Oral 780 480 Output: Urine 575 300 400 Other: Voiding Method Urinal Urinal Urinal # Voids 2 1 # Bowel Movements 2 1 - Labs CBC & Chem 7: 04/29/21 06:48 04/30/21 06:47 Labs: Abnormal Lab Results - Last 24 Hours (Table) 04/29/21 04/29/21 04/30/21 Range/Units 16:40 20:09 06:10 Carbon Dioxide (22-30) mmol/L BUN (9-20) mg/dL Creatinine (0.66-1.25) mg/dL Glucose (74-99) mg/dL POC Glucose (mg/dL) 237 H 249 H 217 H (75-99) mg/dL 04/30/21 04/30/21 Range/Units 06:47 11:25 Carbon Dioxide 36 H (22-30) mmol/L BUN 47 H (9-20) mg/dL Creatinine 1.28 H (0.66-1.25) mg/dL Glucose 201 H (74-99) mg/dL POC Glucose (mg/dL) 332 H (75-99) mg/dL Microbiology - Last 24 Hours (Table) 04/26/21 11:40 Blood Culture - Preliminary Blood No Growth after 72 hours 04/26/21 11:30 Blood Culture - Preliminary Blood No Growth after 72 hours 04/27/21 21:01 Gram Stain - Preliminary Sputum Sputum Culture - Preliminary
--- NOTE | 2021-04-30 12:51 | P.PN ---
Subjective Progress Note Date: 04/30/21 Principal diagnosis: Shortness of breath On 04/30/2021 patient seen in follow-up on selective care unit. He is awake and alert, in no acute distress, remains on BiPAP at 10/5 and FiO2 75%, he sat 95% and subsequently affected has been decreased down to 65%. He has been able to tolerate high flow nasal cannula trials at mealtimes. Overall breathing is improving, occasional cough with production of small amount of yellow sputum. Vital signs have been stable overnight. Altered mentation, lung sounds are positive for bibasilar crackles, he remains on Lasix 20 mg by mouth twice daily, he is on inhaled and nebulized bronchodilators, he is on Zosyn. His blood and sputum cultures have shown no growth thus far. Objective - Vital Signs Vital signs: Vital Signs Temp 96.8 F L 04/30/21 11:11 Pulse 77 04/30/21 11:11 Resp 30 H 04/30/21 11:11 BP 156/82 04/30/21 11:11 Pulse Ox 95 04/30/21 11:12 Intake & Output 04/29/21 04/30/21 04/30/21 18:59 06:59 18:59 Intake Total 1120 820 Output Total 575 300 400 Balance 545 -300 420 Weight 81 kg Intake: Intake, IV Titration 340 340 Amount Piperacillin-Tazobactam 3 100 100 .375 gm In Sodium Chloride 0.9% 100 ml @ 25 mls/hr IVPB Q8H [facility] Rx#: [id number] Sodium Chloride 0.9% 1, 240 240 000 ml @ 20 mls/hr IV . Q24H [facility] Rx#:[id number] Oral 780 480 Output: Urine 575 300 400 Other: Voiding Method Urinal Urinal Urinal # Voids 2 1 # Bowel Movements 2 1 - Exam GENERAL EXAM: Alert, very pleasant 75-year-old white male, on BiPAP at pressures of 10/5 and FiO2 of 75% satting 95% comfortable in no apparent distress. HEAD: Normocephalic/atraumatic. EYES: Normal reaction of pupils, equal size. Conjunctiva pink, sclera white. NOSE: Clear with pink turbinates. THROAT: No erythema or exudates. NECK: No masses, no JVD, no thyroid enlargement, no adenopathy. CHEST: No chest wall deformity. Symmetrical expansion. LUNGS: Equal air entry with basilar crackles CVS: Regular rate and rhythm, normal S1 and S2, no gallops, no murmurs, no rubs ABDOMEN: Soft, nontender. No hepatosplenomegaly, normal bowel sounds, no guarding or rigidity. EXTREMITIES: No clubbing, no edema, no cyanosis, 2+ pulses and upper and lower extremities. MUSCULOSKELETAL: Muscle strength and tone normal. SPINE: No scoliosis or deformity SKIN: No rashes CENTRAL NERVOUS SYSTEM: Alert and oriented -3. No focal deficits, tone is normal in all 4 extremities. PSYCHIATRIC: Alert and oriented -3. Appropriate affect. Intact judgment and insight. - Labs CBC & Chem 7: 04/29/21 06:48 04/30/21 06:47 Labs: Abnormal Lab Results - Last 24 Hours (Table) 04/29/21 04/29/21 04/30/21 Range/Units 16:40 20:09 06:10 Carbon Dioxide (22-30) mmol/L BUN (9-20) mg/dL Creatinine (0.66-1.25) mg/dL Glucose (74-99) mg/dL POC Glucose (mg/dL) 237 H 249 H 217 H (75-99) mg/dL 04/30/21 04/30/21 Range/Units 06:47 11:25 Carbon Dioxide 36 H (22-30) mmol/L BUN 47 H (9-20) mg/dL Creatinine 1.28 H (0.66-1.25) mg/dL Glucose 201 H (74-99) mg/dL POC Glucose (mg/dL) 332 H (75-99) mg/dL Microbiology - Last 24 Hours (Table) 04/26/21 11:40 Blood Culture - Preliminary Blood No Growth after 72 hours 04/26/21 11:30 Blood Culture - Preliminary Blood No Growth after 72 hours 04/27/21 21:01 Gram Stain - Preliminary Sputum Sputum Culture - Preliminary Assessment and Plan Plan: Assessment: #1. Acute on chronic hypoxic respiratory failure secondary to acute a patient of IPF, with the possibility of community-acquired pneumonia. #2. Elevated troponin possibly related to supply demand mismatch #3. Biopsy-proven UIP, maintained on OFEV on an outpatient basis #4. History of right-sided hemidiaphragm pulses #5. History of mild intermittent bronchial asthma #6. Hypertension #7. Hyperlipidemia #8. DJD Plan: Continue current medical treatment Continue same antibiotics Weaning FiO2 Use BiPAP as needed, may trial on high flow nasal cannula for as long as he tolerates it Follow-up chest x-ray tomorrow Encourage patient to sit up in the chair Follow-up labs including CBC and CMP I performed a history & physical examination of the patient and discussed their management with my nurse practitioner, Aniya Clark. I reviewed the nurse practitioner's note and agree with the documented findings and plan of care. Lung sounds are positive for bibasilar rales throughout the lung bonilla. The findings and the impression was discussed with the patient. I attest to the documentation by the nurse practitioner. Time with Patient: Less than 30
[2021-04-30 16:39] LABS: Glucose,Whole Blood 168 mg/dL (75-99)
[2021-04-30] MEDS: SODIUM CHLORIDE 0.9% 1,000 ML IV SCH (16:58)
[2021-04-30 20:10] LABS: Glucose,Whole Blood 187 mg/dL (75-99)
[2021-04-30] MEDS: MELATONIN 5 MG TABLET PO SCH (21:11)
[2021-04-30] MEDS: ATORVASTATIN 20 MG TAB PO SCH (21:12)
[2021-04-30] MEDS: MONTELUKAST 10 MG TAB PO SCH (21:12)
[2021-04-30] MEDS: ESCITALOPRAM 10 MG TAB PO SCH (21:12)
[2021-05-01] MEDS: methylPREDNISolone SOD SUCCI 125 MG/2 ML VIAL IV SCH ×5 (01:15→23:31)
[2021-05-01] MEDS: PIPERACILLIN-TAZOBACTAM 3.375 GM in SODIUM CHLORIDE 0.9% 100 ML IVPB SCH ×3 (05:00→20:22)
[2021-05-01 05:53] LABS: Glucose,Whole Blood 186 mg/dL (75-99)
[2021-05-01] MEDS: INSULIN ASPART (NovoLOG) 100 UNIT/ML VIAL SQ SCH ×5 (06:14→21:37)
[2021-05-01] MEDS: PANTOPRAZOLE 40 MG TABLET PO SCH (06:15)
[2021-05-01] MEDS: SYMBICORT 160-4.5 MCG INHALER INHALATION SCH ×2 (07:11→19:31)
[2021-05-01] MEDS: IPRATROPIUM-ALBUTEROL 3 ML NEB INHALATION SCH ×4 (07:11→19:30)
[2021-05-01 07:35] LABS: Basophils % (A) 0 %; Eosinophils % (A) 0 %; HCT 37.5 % (39.0-53.0); HGB 12.5 gm/dL (13.0-17.5); Lymphocytes # (A) 0.2 k/uL (1.0-4.8); Lymphocytes % (A) 1 %; MCH 30.7 pg (25.0-35.0); MCHC 33.2 g/dL (31.0-37.0); MCV 92.5 fL (80.0-100.0); Mean Platelet Volume 10.3; Monocytes # (A) 0.3 k/uL (0-1.0); Monocytes % (A) 2 %; Neutrophils # (A) 14.7 k/uL (1.3-7.7); Neutrophils % (A) 97 %; Platelet Count 192 k/uL (150-450); RBC 4.06 m/uL (4.30-5.90); RDW 13.9 % (11.5-15.5); WBC 15.1 k/uL (3.8-10.6)
[2021-05-01 08:01] LABS: Albumin 3.1 g/dL (3.5-5.0); Potassium 4.2 mmol/L (3.5-5.1); Total Protein 6.1 g/dL (6.3-8.2)
[2021-05-01] MEDS: buPROPion 75 MG TAB PO SCH ×2 (08:18→20:22)
[2021-05-01] MEDS: guaiFENesin 600 MG TABLET.ER PO SCH ×2 (08:19→20:22)
[2021-05-01] MEDS: ASPIRIN 81 MG PO SCH (08:19)
[2021-05-01] MEDS: LOSARTAN 50 MG TAB PO SCH (08:19)
[2021-05-01] MEDS: MULTIVITAMINS, THERA 1 EACH TAB PO SCH (08:19)
[2021-05-01] MEDS: FUROSEMIDE 20 MG TAB PO SCH ×2 (08:19→17:18)
[2021-05-01] MEDS: NON FORMULARY DRUG (Nintedanib Esylate [Ofev] 150 MG Capsule) PO SCH ×2 (08:20→20:22)
--- NOTE | 2021-05-01 10:50 | XR ---
EXAMINATION TYPE: XR chest 1V portable DATE OF EXAM: 05/01/2021 COMPARISON: CT dated 04/27/2021 HISTORY: SOB TECHNIQUE: Single frontal view of the chest is obtained. FINDINGS: Persistent scattered pulmonary opacities and infiltrates in both lung bonilla, slightly improved in th e right upper lung zone. No progressive pulmonary infiltration. Questionable small pleural effusions. Persistent elevation of the right hemidiaphragm. Unchanged cardiomediastinal silhouette, aortic ather osclerotic calcifications and degenerative changes of the thoracic spine. IMPRESSION: Minimal interval changes as described above.
[2021-05-01 10:56] VITALS: BMI 27.1
--- NOTE | 2021-05-01 11:30 | P.PN ---
Subjective Progress Note Date: 05/01/21 Principal diagnosis: Respiratory failure. Acute hypoxic respiratory failure, multifactorial. This is a very pleasant 75-year-old male patient who follows with Dr. Taylor as his primary care provider. He has a history of hypertension, gastroesophageal reflux disease, hyperlipidemia and a right diaphragmatic paralysis. He also has a history of biopsy-proven idiopathic pulmonary fibrosis and is maintained on OFEV 150 mg twice a day. He follows with Dr. Schuster in our office. He is oxygen dependent on 2 L in the outpatient setting. FEV1 value 80% of predicted however there is noted restrictive lung disease consistent with his fibrosis. He is vaccinated 3 against the coronavirus. He presented to the emergency room earlier today with a three-day history of worsening shortness of breath and dyspnea on exertion. He has productive cough with yellow and blood-tinged spu jen. He was quite hypoxemic in the 60s on 2 L nasal cannula. White count 15.3. Hemoglobin 12.3. D-dimer 1.67. Sodium 143. Potassium 4.1. BUN 18. Creatinine 1.24. Bicarb 25. Lactic acid 5.8. Glucose 196. AST 53. ALT 33. Troponin 0.381. Coronavirus by PCR not detected. X-ray revealing evidence of multifocal airspace disease. Persistent elevated right diaphragm. He is seen today in consultation in the emergency department. He is currently sitting up on the stretcher. Awake and alert. In mild respiratory distress. Up to 4 L nasal cannula currently. Coarse crackles bilaterally. He's been initiated on DuoNeb inhalations and antibiotics in the form of Zosyn and azithromycin, IV Solu-Medrol. He is received 2 L of fluid resuscitation. 0.9 normal saline at 130 ML's per hour. Computed tomography scan of the chest is pending. Reevaluated today on 04/27/2021, patient is clinically feeling better today, chest x-ray is basically about the same, remains on bronchodilators, diuretics, steroids, and antibiotics. However I noted that the patient is receiving IV fluid at 1 50 mL per hour, and I cut it down to KVO, patient is also receiving Lasix. WBC count is 18.3 hemoglobin is 12.2. Left lites are normal. Renal profile showed a BUN of 25 creatinine 1.61, troponins remain high. PCR for COVID-19 is negative. BNP is elevated, pro-calcitonin level is negligible, 0.16 Progress note dated 04/28/2021. 75-year-old male who sees Dr. Wilson Taylor as a primary. He was seen by us in consultation 2 days ago. He has a history of hypertension, gastroesophageal reflux disease, hyperlipidemia, and diaphragmatic paralysis, status post plication. In addition, he has a diagnosis of biopsy-proven idiopathic pulmonary fibrosis. He is maintained on OFEV. He does have chronic hypoxemic respiratory failure and uses oxygen at 2 L/m, /. The patient is currently on AIRVO at 50 L/m, and 95%. He feels like he is improved. He still quite short of breath, some conversational dyspnea. There is no audible wheezing or use of accessory muscles. Laboratory data from today includes a sodium 144, potassium 3.2, chlorides 96, CO2 35, anion gap 13, BUN 46, creatinine 1.62. Blood cultures are thus far negative. Chest x-ray shows diffuse bilateral interstitial infiltrates consistent with the patient's diagnosis of interstitial lung disease/pulmonary fibrosis. CT angiogram was negative for pulmonary embolism. Progress note dated 04/29/2021. 75-year-old white male, well-known to me. He has a history of biopsy-proven idiopathic pulmonary fibrosis, diaphragmatic weakness, and mild asthma. The patient is again seen in room 354. Today, he is on BiPAP at 10 and 5 and 85%. I was called about him last night. He feels better today, and feels like the BiPAP has helped him. Yesterday, he was on AIRVO. Today's laboratory data includes a white count of 14.6, hemoglobin 12.2, hematocrit 36.3, and a normal platelet count. Yesterday, he had a blood gas showing a pO2 of 76, pCO2 42, and a pH is 7.52. This was on 100%. Sodium 144, potassium 3.9, chlorides 104, CO2 32, anion gap 8, BUN 48, creatinine 1.38. AST 98, and ALT 129. On 04/30/2021 patient seen in follow-up on selective care unit. He is awake and alert, in no acute distress, remains on BiPAP at 10/5 and FiO2 75%, he sat 95% and subsequently affected has been decreased down to 65%. He has been able to tolerate high flow nasal cannula trials at mealtimes. Overall breathing is improving, occasional cough with production of small amount of yellow sputum. Vital signs have been stable overnight. Altered mentation, lung sounds are positive for bibasilar crackles, he remains on Lasix 20 mg by mouth twice daily, he is on inhaled and nebulized bronchodilators, he is on Zosyn. His blood and sputum cultures have shown no growth thus far. Progress note dated 05/01/2021. The patient is again seen in room 354. Currently, he is on AIRVO at 60 L/m with an FiO2 of 90%. He also has a partial rebreather and place. At nighttime, he is on BiPAP. He getting saline at 20 mL an hour. Despite his large oxygen requirements, the patient states that he feels like he is improving. He denies any significant phlegm production. There is no fever or chills. He denies any chest pain or chest discomfort. White count 15.1, hemoglobin 12.5, hematocrit 37.5, and platelet count 192,000. Sodium 143, potassium 4.2, chlorides 98, CO2 40, anion gap 5, E1 45, and creatinine 1.18. Albumin is 3.1. Diffuse bilateral infiltrates, maybe slightly improved. Objective - Vital Signs Vital signs: Vital Signs Temp 97.5 F L 05/01/21 08:16 Pulse 78 05/01/21 11:17 Resp 17 05/01/21 08:16 BP 140/75 05/01/21 08:16 Pulse Ox 94 L 05/01/21 08:16 Intake & Output 04/30/21 05/01/21 05/01/21 18:59 06:59 18:59 Intake Total 1600 237 120 Output Total 1025 250 Balance 575 237 -130 Weight 81 kg Intake: Intake, IV Titration 340 Amount Piperacillin-Tazobactam 3 100 .375 gm In Sodium Chloride 0.9% 100 ml @ 25 mls/hr IVPB Q8H [facility] Rx#: [id number] Sodium Chloride 0.9% 1, 240 000 ml @ 20 mls/hr IV . Q24H [facility] Rx#:[id number] Oral 1260 237 120 Output: Urine 1025 250 Other: Voiding Method Urinal Urinal Urinal # Voids 1 1 # Bowel Movements 1 1 - Exam Mild respiratory distress. Oriented 3. Currently on AIRVO, and a partial rebreather mask. No use of accessory muscles or conversational dyspnea. HEENT examination is grossly unremarkable. Neck supple. Full range of motion. No adenopathy thyromegaly or neck vein distention. Cardiovascular examination reveals regular rhythm rate. S1-S2 normal. No S3 or S4. No discernible murmur noted. Heart sounds are distant. Heart rate 79 bpm. Lungs reveal diffuse bilateral rhonchi and bibasilar crackles. Breath sounds are equal bilaterally. He is restricted in his breathing. There are no wh eezes. Saturations are 94% on AIRVO and a partial rebreather. Abdomen soft bowel sounds are heard. No masses or tenderness. Extremities are intact. No cyanosis clubbing or edema. Skin is without rash or lesion. Neurologic examination is brief but nonfocal. - Labs CBC & Chem 7: 05/01/21 07:00 05/01/21 07:00 Labs: Abnormal Lab Results - Last 24 Hours (Table) 04/30/21 04/30/21 04/30/21 Range/Units 11:25 16:37 20:09 WBC (3.8-10.6) k/uL RBC (4.30-5.90) m/uL Hgb (13.0-17.5) gm/dL Hct (39.0-53.0) % Neutrophils # (1.3-7.7) k/uL Lymphocytes # (1.0-4.8) k/uL Carbon Dioxide (22-30) mmol/L BUN (9-20) mg/dL Glucose (74-99) mg/dL POC Glucose (mg/dL) 332 H 168 H 187 H (75-99) mg/dL ALT (4-49) U/L Total Protein (6.3-8.2) g/dL Albumin (3.5-5.0) g/dL 05/01/21 05/01/21 05/01/21 Range/Units 05:52 07:00 07:00 WBC 15.1 H (3.8-10.6) k/uL RBC 4.06 L (4.30-5.90) m/uL Hgb 12.5 L (13.0-17.5) gm/dL Hct 37.5 L (39.0-53.0) % Neutrophils # 14.7 H (1.3-7.7) k/uL Lymphocytes # 0.2 L (1.0-4.8) k/uL Carbon Dioxide 40 H (22-30) mmol/L BUN 45 H (9-20) mg/dL Glucose 199 H (74-99) mg/dL POC Glucose (mg/dL) 186 H (75-99) mg/dL ALT 115 H (4-49) U/L Total Protein 6.1 L (6.3-8.2) g/dL Albumin 3.1 L (3.5-5.0) g/dL Microbiology - Last 24 Hours (Table) 04/26/21 11:40 Blood Culture - Preliminary Blood No Growth after 96 hours 04/26/21 11:30 Blood Culture - Preliminary Blood No Growth after 96 hours 04/27/21 21:01 Gram Stain - Final Sputum Sputum Culture - Final Assessment and Plan Assessment: Acute on chronic hypoxemic respiratory failure, secondary to acute exacerbation of the patient's underlying idiopathic pulmonary fibrosis, and possible community-acquired pneumonia. Elevated troponin, likely related to supply/demand mismatch. CT angiogram negative for pulmonary embolism. Lactic acidosis. Biopsy-proven usual interstitial pneumonia, maintained on OFEV. History of right-sided hemidiaphragm paralysis. History of mild asthma. History of hypertension. History of hyperlipidemia. DJD. Gastroesophageal reflux disease. Vitamin D deficiency. Plan: Plan dated 04/28/2021. The patient remains on AIRVO. The patient also remains on Zosyn and Levaquin, empirically. The patient is currently on bronchodilators, and Solu-Medrol. The patient states that he feels like he is doing better. He still very short of breath with some conversational dyspnea. His AIRVO settings included 50 L/m with an FiO2 of 95%. The patient remains also on Symbicort, Levaquin, and Zosyn. Additional recommendations and suggestions are forthcoming. We will continue corticosteroids. Prognosis is guarded. Plan dated 04/29/2021. Yesterday, the patient was on AIRVO. Last night, he is some increasing respiratory difficulty, we placed him on BiPAP. He seems to be doing much better. He feels like the BiPAP is really helping him. His labs, x-rays, and medications are reviewed. Arterial blood gases from yesterday are also reviewed. The patient remains on Zosyn and corticosteroids. Overall prognosis remains very guarded. We will continue to follow and make recommendations where appropriate. Plan dated 05/01/2021. The patient is doing better according to him. This is despite the fact that he is both on AIRVO and partial rebreather. We will continue to follow. Prognosis is guarded. The patient remains on Zosyn empirically. He also gets breathing treatments, and Solu-Medrol. I'm hoping the patient turns around. Prognosis is guarded. Additional recommendations and suggestions are forthcoming we will continue to follow make recommendations where appropriate. Time with Patient: Less than 30
[2021-05-01 11:36] LABS: Glucose,Whole Blood 250 mg/dL (75-99)
--- NOTE | 2021-05-01 12:04 | P.PN ---
Subjective Progress Note Date: 04/30/21 This is a 75-year-old gentleman admitted with acute hypoxic respiratory failure secondary to acute exacerbation of pulmonary fibrosis, possible community- acquired pneumonia and multiple other medical issues. Maintained on nebulized bronchodilators, Symbicort, IV steroids, Zosyn and Levaquin. Tachypneic,cu rrently requiring Airvo 60 Flow Rate/95% FIO2, maintaining O2 sats in the mid 80s to low 90s. Afebrile, WBC 18.3. Preliminary blood cultures reporting no growth after 48 hours. BUN 46, creatinine 1.62. 04/29/2021 last night, patient developed worsening dyspnea ,desatted on airvo down into the mid 70s. Changed over to BiPAP with O2 sats improved. Currently on 85% BiPAP. Creatinine decreased to 1.38. T bili 1, AST 98, ALT 129. Reports he is not sleeping well, requesting melatonin. 04/30/2021 continues on nebulized bronchodilators, IV steroids, and empiric Zosyn. Reports occasional minimally productive cough of pale yellow sputum. Currently FiO2 better controlled on BiPAP 10/5 FIO2 75%, at 95%. Last night melatonin added to med regimen and patient reports he slept much better. Diet intake fair, consuming ensure supplements between meals. Creatinine decreased to 1.28. Afebrile, WBC 14.6 , blood cultures negative, sputum culture pending. Objective - Vital Signs Vital signs: Vital Signs Temp 96.8 F L 04/30/21 11:11 Pulse 77 04/30/21 11:11 Resp 30 H 04/30/21 11:11 BP 156/82 04/30/21 11:11 Pulse Ox 95 04/30/21 11:12 Intake & Output 04/29/21 04/30/21 04/30/21 18:59 06:59 18:59 Intake Total 1120 940 Output Total 575 300 400 Balance 545 -300 540 Weight 81 kg Intake: Intake, IV Titration 340 340 Amount Piperacillin-Tazobactam 3 100 100 .375 gm In Sodium Chloride 0.9% 100 ml @ 25 mls/hr IVPB Q8H [facility] Rx#: [id number] Sodium Chloride 0.9% 1, 240 240 000 ml @ 20 mls/hr IV . Q24H [facility] Rx#:[id number] Oral 780 600 Output: Urine 575 300 400 Other: Voiding Method Urinal Urinal Urinal # Voids 2 1 # Bowel Movements 2 1 - Exam PHYSICAL EXAM: VITAL SIGNS: [As above] GENERAL: Sitting up in bed, comfortable -wearing BiPAP,NAD HEENT: Conjunctivae normal. eyes normal. NECK: No JVD. No thyroid enlargement. No LNs CARDIOVASCULAR: S1, S2 regular.No murmur RESPIRATION: Diminished air entry.Scattered bilateral rhonchi and crackles. ABDOMEN: Soft, nontender . No guarding. no masses palpable.positive bowel sounds. LEGS: No edema. no swelling PSYCHIATRY: Alert and oriented X3, mood and affect normal. NERVOUS SYSTEM: Cranial N 2-12 grossly normal. No focal deficits. Strength and sensation grossly intact. - Labs CBC & Chem 7: 05/01/21 07:00 05/01/21 07:00 Labs: Abnormal Lab Results - Last 24 Hours (Table) 04/29/21 04/29/21 04/30/21 Range/Units 16:40 20:09 06:10 Carbon Dioxide (22-30) mmol/L BUN (9-20) mg/dL Creatinine (0.66-1.25) mg/dL Glucose (74-99) mg/dL POC Glucose (mg/dL) 237 H 249 H 217 H (75-99) mg/dL 04/30/21 04/30/21 Range/Units 06:47 11:25 Carbon Dioxide 36 H (22-30) mmol/L BUN 47 H (9-20) mg/dL Creatinine 1.28 H (0.66-1.25) mg/dL Glucose 201 H (74-99) mg/dL POC Glucose (mg/dL) 332 H (75-99) mg/dL Microbiology - Last 24 Hours (Table) 04/26/21 11:40 Blood Culture - Preliminary Blood No Growth after 96 hours 04/26/21 11:30 Blood Culture - Preliminary Blood No Growth after 96 hours 04/27/21 21:01 Gram Stain - Final Sputum Sputum Culture - Final Assessment and Plan Assessment: Acute on chronic hypoxic respiratory failure secondary to acute exacerbation of underlying pulmonary fibrosis, possible bilateral community acquired pneumonia. Wears 2 L at home. Elevated troponins, NSTEMI, related to the above Lactic acidosis Elevated d-dimer,CTA reported negative for pulmonary embolism Acute renal failure, possibly related to IV contrast Chronic mild asthma Gastroesophageal reflux disease Hypertension Hyperlipidemia DJD Hypokalemia Plan: Continue on current medication regime ,monitoring and symptomatic treatment. Aggressive pulmonary toileting with nebulized bronchodilators, steroids ,antibiotics. Close monitoring of renal function, maintain on oral diuretics,repeat labs ordered for a.m. The impression and plan of care has been dictated as directed. : I performed a history and examination of this patient, discussed the same with the dictator. I agree with the dictator's note ,documented as a scribe. Any additional findings or plans will be noted.
--- NOTE | 2021-05-01 12:17 | P.PN ---
Subjective Progress Note Date: 05/01/21 This is a 75-year-old gentleman admitted with acute hypoxic respiratory failure secondary to acute exacerbation of pulmonary fibrosis, possible community- acquired pneumonia and multiple other medical issues. Maintained on nebulized bronchodilators, Symbicort, IV steroids, Zosyn and Levaquin. Tachypneic,cu rrently requiring Airvo 60 Flow Rate/95% FIO2, maintaining O2 sats in the mid 80s to low 90s. Afebrile, WBC 18.3. Preliminary blood cultures reporting no growth after 48 hours. BUN 46, creatinine 1.62. 04/29/2021 last night, patient developed worsening dyspnea ,desatted on airvo down into the mid 70s. Changed over to BiPAP with O2 sats improved. Currently on 85% BiPAP. Creatinine decreased to 1.38. T bili 1, AST 98, ALT 129. Reports he is not sleeping well, requesting melatonin. 04/30/2021 continues on nebulized bronchodilators, IV steroids, and empiric Zosyn. Reports occasional minimally productive cough of pale yellow sputum. Currently FiO2 better controlled on BiPAP 10/5 FIO2 75%, at 95%. Last night melatonin added to med regimen and patient reports he slept much better. Diet intake fair, consuming ensure supplements between meals. Creatinine decreased to 1.28. Afebrile, WBC 14.6 , blood cultures negative, sputum culture pending. 05/01/21 maintained on BiPAP during the night , currently wearing airvo with a partial rebreather. Maintaining O2 sats in the 90s, minimal productive cough .afebrile, WBC 15.1 Consumed approximately 75% of breakfast this morning. Creatinine continues improving, 1.18. Denies chest pain, palpitations. Chest x-ray pending. Objective - Vital Signs Vital signs: Vital Signs Temp 98.1 F 05/01/21 11:51 Pulse 76 05/01/21 11:51 Resp 17 05/01/21 11:51 BP 163/79 05/01/21 11:51 Pulse Ox 94 L 05/01/21 11:51 Intake & Output 04/30/21 05/01/21 05/01/21 18:59 06:59 18:59 Intake Total 1600 237 120 Output Total 1025 250 Balance 575 237 -130 Weight 81 kg Intake: Intake, IV Titration 340 Amount Piperacillin-Tazobactam 3 100 .375 gm In Sodium Chloride 0.9% 100 ml @ 25 mls/hr IVPB Q8H [facility] Rx#: [id number] Sodium Chloride 0.9% 1, 240 000 ml @ 20 mls/hr IV . Q24H [facility] Rx#:[id number] Oral 1260 237 120 Output: Urine 1025 250 Other: Voiding Method Urinal Urinal Urinal # Voids 1 1 # Bowel Movements 1 1 - Exam PHYSICAL EXAM: VITAL SIGNS: [As above] GENERAL: Sitting up in bed, comfortable -wearing BiPAP,NAD HEENT: Conjunctivae normal. eyes normal. NECK: No JVD. No thyroid enlargement. No LNs CARDIOVASCULAR: S1, S2 regular.No murmur RESPIRATION: Better air entry.Scattered minimal crackles. ABDOMEN: Soft, nontender . No guarding. no masses palpable.positive bowel sounds. LEGS: No edema. no swelling PSYCHIATRY: Alert and oriented X3, mood and affect normal. NERVOUS SYSTEM: Cranial N 2-12 grossly normal. No focal deficits. Strength and sensation grossly intact. - Labs CBC & Chem 7: 05/01/21 07:00 05/01/21 07:00 Labs: Abnormal Lab Results - Last 24 Hours (Table) 04/30/21 04/30/21 05/01/21 Range/Units 16:37 20:09 05:52 WBC (3.8-10.6) k/uL RBC (4.30-5.90) m/uL Hgb (13.0-17.5) gm/dL Hct (39.0-53.0) % Neutrophils # (1.3-7.7) k/uL Lymphocytes # (1.0-4.8) k/uL Carbon Dioxide (22-30) mmol/L BUN (9-20) mg/dL Glucose (74-99) mg/dL POC Glucose (mg/dL) 168 H 187 H 186 H (75-99) mg/dL ALT (4-49) U/L Total Protein (6.3-8.2) g/dL Albumin (3.5-5.0) g/dL 05/01/21 05/01/21 05/01/21 Range/Units 07:00 07:00 11:35 WBC 15.1 H (3.8-10.6) k/uL RBC 4.06 L (4.30-5.90) m/uL Hgb 12.5 L (13.0-17.5) gm/dL Hct 37.5 L (39.0-53.0) % Neutrophils # 14.7 H (1.3-7.7) k/uL Lymphocytes # 0.2 L (1.0-4.8) k/uL Carbon Dioxide 40 H (22-30) mmol/L BUN 45 H (9-20) mg/dL Glucose 199 H (74-99) mg/dL POC Glucose (mg/dL) 250 H (75-99) mg/dL ALT 115 H (4-49) U/L Total Protein 6.1 L (6.3-8.2) g/dL Albumin 3.1 L (3.5-5.0) g/dL Microbiology - Last 24 Hours (Table) 04/26/21 11:40 Blood Culture - Preliminary Blood No Growth after 96 hours 04/26/21 11:30 Blood Culture - Preliminary Blood No Growth after 96 hours 04/27/21 21:01 Gram Stain - Final Sputum Sputum Culture - Final Assessment and Plan Assessment: Acute on chronic hypoxic respiratory failure secondary to acute exacerbation of underlying pulmonary fibrosis, possible bilateral community acquired pneumonia. Wears 2 L at home. Elevated troponins, NSTEMI, related to the above Lactic acidosis, resolved Elevated d-dimer,CTA reported negative for pulmonary embolism Acute renal failure, possibly related to IV contrast Chronic mild asthma Gastroesophageal reflux disease Hypertension Hyperlipidemia DJD Hypokalemia,resolved Plan: Continue on current medication regime ,monitoring and symptomatic treatment. Still requiring significant amounts of O2 ,maintain aggressive pulmonary toileting with nebulized bronchodilators, steroids ,antibiotics. Prognosis guarded given multiple complex medical issues. The impression and plan of care has been dictated as directed. : I performed a history and examination of this patient, discussed the same with the dictator. I agree with the dictator's note ,documented as a scribe. Any additional findings or plans will be noted.
[2021-05-01] MEDS: LEVOFLOXACIN 250 MG TAB PO SCH (12:39)
--- NOTE | 2021-05-01 13:18 | P.PN ---
Subjective Progress Note Date: 05/01/21 CHIEF COMPLAINT: Cholelithiasis HISTORY OF PRESENT ILLNESS: Patient is on Airvo and non-rebreather for his respiratory failure with underlying idiopathic pulmonary fibrosis and community- acquired pneumonia. He is still reporting no abdominal pain. He is tolerating diet. Denies any nausea or vomiting. Patient seen and examined with Dr. spencer PHYSICAL EXAM: VITAL SIGNS: Reviewed. GENERAL: Well-developed in no acute distress. HEENT: No sclera icterus. Extraocular movements grossly intact. Moist buccal mucosa. Head is atraumatic, normocephalic. ABDOMEN: Soft. Nondistended. Nontender. NEUROLOGIC: Alert and oriented. Cranial nerves II through XII grossly intact. ASSESSMENT: 1. Cholelithiasis with probable chronic cholecystitis. Patient asymptomatic PLAN: -No surgical intervention planned during this admission -Continue to observe -Once patient has recovered from his pneumonia and respiratory status improves we can revisit his cholelithiasis in the outpatient setting Physician Upholstery Bundler note has been reviewed by physician. Signing provider agrees with the documented findings, assessment, and plan of care. Objective - Vital Signs Vital signs: Vital Signs Temp 98.1 F 05/01/21 11:51 Pulse 76 05/01/21 11:51 Resp 17 05/01/21 11:51 BP 163/79 05/01/21 11:51 Pulse Ox 94 L 05/01/21 11:51 Intake & Output 04/30/21 05/01/21 05/01/21 18:59 06:59 18:59 Intake Total 5356 860 4174 Output Total 1025 850 Balance 575 237 220 Weight 81 kg Intake: Intake, IV Titration 340 Amount Piperacillin-Tazobactam 3 100 .375 gm In Sodium Chloride 0.9% 100 ml @ 25 mls/hr IVPB Q8H [facility] Rx#: [id number] Sodium Chloride 0.9% 1, 240 000 ml @ 20 mls/hr IV . Q24H [facility] Rx#:[id number] Oral [id number] [id number] 4674 Output: Urine 1025 850 Other: Voiding Method Urinal Urinal Urinal # Voids 1 1 3 # Bowel Movements 1 1 - Labs CBC & Chem 7: 05/01/21 07:00 05/01/21 07:00 Labs: Abnormal Lab Results - Last 24 Hours (Table) 04/30/21 04/30/21 05/01/21 Range/Units 16:37 20:09 05:52 WBC (3.8-10.6) k/uL RBC (4.30-5.90) m/uL Hgb (13.0-17.5) gm/dL Hct (39.0-53.0) % Neutrophils # (1.3-7.7) k/uL Lymphocytes # (1.0-4.8) k/uL Carbon Dioxide (22-30) mmol/L BUN (9-20) mg/dL Glucose (74-99) mg/dL POC Glucose (mg/dL) 168 H 187 H 186 H (75-99) mg/dL ALT (4-49) U/L Total Protein (6.3-8.2) g/dL Albumin (3.5-5.0) g/dL 05/01/21 05/01/21 05/01/21 Range/Units 07:00 07:00 11:35 WBC 15.1 H (3.8-10.6) k/uL RBC 4.06 L (4.30-5.90) m/uL Hgb 12.5 L (13.0-17.5) gm/dL Hct 37.5 L (39.0-53.0) % Neutrophils # 14.7 H (1.3-7.7) k/uL Lymphocytes # 0.2 L (1.0-4.8) k/uL Carbon Dioxide 40 H (22-30) mmol/L BUN 45 H (9-20) mg/dL Glucose 199 H (74-99) mg/dL POC Glucose (mg/dL) 250 H (75-99) mg/dL ALT 115 H (4-49) U/L Total Protein 6.1 L (6.3-8.2) g/dL Albumin 3.1 L (3.5-5.0) g/dL Microbiology - Last 24 Hours (Table) 04/26/21 11:40 Blood Culture - Preliminary Blood No Growth after 96 hours 04/26/21 11:30 Blood Culture - Preliminary Blood No Growth after 96 hours 04/27/21 21:01 Gram Stain - Final Sputum Sputum Culture - Final
[2021-05-01] MEDS ORDERED: Magnesium Replacement Protocol 1 EACH MISC MISCELLANE PRN (13:58)
[2021-05-01 16:04] LABS: Glucose,Whole Blood 185 mg/dL (75-99)
[2021-05-01] MEDS: MAGNESIUM SULFATE-D5W PMX 1 GM in DEXTROSE/WATER 1 100ML.BAG IVPB SCH ×2 (17:18→18:38)
[2021-05-01] MEDS: SODIUM CHLORIDE 0.9% 1,000 ML IV SCH (17:19)
[2021-05-01] MEDS: ESCITALOPRAM 10 MG TAB PO SCH (20:22)
[2021-05-01] MEDS: ATORVASTATIN 20 MG TAB PO SCH (20:22)
[2021-05-01] MEDS: MONTELUKAST 10 MG TAB PO SCH (20:22)
[2021-05-01] MEDS: MELATONIN 5 MG TABLET PO SCH (20:22)
[2021-05-01 20:52] LABS: Glucose,Whole Blood 149 mg/dL (75-99)
[2021-05-02] MEDS: PIPERACILLIN-TAZOBACTAM 3.375 GM in SODIUM CHLORIDE 0.9% 100 ML IVPB SCH ×3 (05:00→20:37)
[2021-05-02] MEDS: methylPREDNISolone SOD SUCCI 125 MG/2 ML VIAL IV SCH ×4 (05:15→23:31)
[2021-05-02 06:28] LABS: Glucose,Whole Blood 186 mg/dL (75-99)
[2021-05-02] MEDS: PANTOPRAZOLE 40 MG TABLET PO SCH (06:38)
[2021-05-02] MEDS: INSULIN ASPART (NovoLOG) 100 UNIT/ML VIAL SQ SCH ×4 (06:38→20:36)
[2021-05-02] MEDS: SYMBICORT 160-4.5 MCG INHALER INHALATION SCH ×2 (08:22→20:20)
[2021-05-02] MEDS: IPRATROPIUM-ALBUTEROL 3 ML NEB INHALATION SCH ×4 (08:22→20:20)
[2021-05-02] MEDS: LOSARTAN 50 MG TAB PO SCH (08:26)
[2021-05-02] MEDS: guaiFENesin 600 MG TABLET.ER PO SCH ×2 (08:26→20:36)
[2021-05-02] MEDS: ASPIRIN 81 MG PO SCH (08:26)
[2021-05-02] MEDS: FUROSEMIDE 20 MG TAB PO SCH ×2 (08:26→17:11)
[2021-05-02] MEDS: buPROPion 75 MG TAB PO SCH ×2 (08:26→21:13)
[2021-05-02] MEDS: MULTIVITAMINS, THERA 1 EACH TAB PO SCH (08:26)
[2021-05-02] MEDS: NON FORMULARY DRUG (Nintedanib Esylate [Ofev] 150 MG Capsule) PO SCH ×2 (08:27→20:36)
--- NOTE | 2021-05-02 09:14 | P.PN ---
Progress Note - Text Progress Note Date: 05/02/21 Patient denies any significant abdominal pain. On exam patient is still tachypneic. He appears mildly short of breath. Abdomen soft. Chronic cholecystitis with cholelithiasis. Patient will be seen in the outpatient setting for possible laparoscopically cholecystectomy when stable.
[2021-05-02 11:45] LABS: Glucose,Whole Blood 283 mg/dL (75-99)
[2021-05-02] MEDS: LEVOFLOXACIN 250 MG TAB PO SCH (12:13)
--- NOTE | 2021-05-02 13:35 | CDI ---
Documentation Clarification Form Date: 05/02/2021 01:24:04 PM From: Yudelka [email or web address] [email or web address], CCDS Admit Date: 04/26/2021 11:41:00 AM Patient Name: Pravin Simmons Visit Number: [id number] Discharge Date: ATTENTION: The Clinical Documentation Specialists (CDI) and [facility] Coding Staff appreciate your assistance in clarifying documentation. Please respond to the clarification below the line at the bottom and electronically sign. The CDI & [facility] Coding staff will review the response and follow-up if needed. Please note: Queries are made part of the Legal Health Record. If you have any questions, please contact the author of this message via ITS. Dr. Vanesa Sung, Possible Sepsis, present on admission is documented in the 04/26 ED Note and the 04/26 History & Physical but not documented in subsequent notes. Clarification regarding Sepsis is requested. History/Risk Factors per the 04/26 H/P: Pulmonary Fibrosis, Asthma, DM, GERD, Hyperlipidemia, Hypertension, Former smoker. Clinical Indicators: Presented to the ED on 04/26 with SOB & Low O2. History of pulmonary fibrosis & paralyzed diaphragm. Pulse Ox in the low 70s, 60s in triage at one point. Admit with Pneumonia and Sepsis 04/26 VS: T 97.8, P 109, R 32 (SOB), BP 165/93, PO 62 2Lnc - 96 15% nrb. 04/26 LAB: C 15.3, RBC 4.04, Hgb 12.3, Hct 36.5, Neut 13.7, Lymph 0.7; D Dimer 1.67; Glucose 196, Lactic Acid 5.8^^, 2.1^^, 1.9; Mag 1.3, Total Bili 2.0, Troponin 0.381, 0.539, 0.566; Procalcitonin 0.16 04/26 COVID Negative 04/26 CXR: Multifocal pneumonia. 04/26 CT Chest: No PE, Atypical pulmonary infection such as COVID-19, Emphysema, Cholelithiasis. Treatment 04/26: Blood cultures, O2, IV Solumedrol 125 mg x1, IV Zosyn 200 mls/hr x1, IV Na Cl 999 mls/hr q2H, IV MagSulf 100 mls/hr q1H, IV Na Cl 20 mls/hr q24H, INH Duoneb QID, IV Lasix 40 mg x1, IV Levaquin 100 mls/hr q24H, INH Ventolin Q6H/prn, IV Solumedrol 60 mg q6H. Please clarify if the following: [ ] Sepsis, Present on Admission, remains under treatment [ ] Sepsis, Present on Admission, resolved [ ] Sepsis, ruled out [ ] Other condition, please specify: [ ] Unable to determine (Template Last Revised: May 2020) No sepsis MTDD
--- NOTE | 2021-05-02 16:09 | P.PN ---
Subjective Progress Note Date: 05/02/21 75-year-old gentleman admitted with acute hypoxic respiratory failure secondary to acute exacerbation of pulmonary fibrosis, possible community-acquired pneumonia and multiple other medical issues. Maintained on nebulized bronchodilators, Symbicort, IV steroids, Zosyn and Levaquin. Tachypneic,currently requiring Airvo 60 Flow Rate/95% FIO2, maintaining O2 sats in the mid 80s to low 90s. Afebrile, WBC 18.3. Preliminary blood cultures reporting no growth after 48 hours. BUN 46, creatinine 1.62. Patient remains tachypneic and tachycardic; surgery is on board and recommending outpatient possible laparoscopic cholecystectomy for chronic cholecystitis and cholelithiasis Objective - Vital Signs Vital signs: Vital Signs Temp 97.8 F 05/02/21 11:51 Pulse 63 05/02/21 11:51 Resp 16 05/02/21 11:51 BP 117/75 05/02/21 11:51 Pulse Ox 91 L 05/02/21 11:51 Intake & Output 05/01/21 05/02/21 05/02/21 18:59 06:59 18:59 Intake Total 1430 222 870 Output Total 1350 300 Balance 80 -78 870 Weight 81 kg Intake: Oral 1430 222 870 Output: Urine 1350 300 Other: Voiding Method Urinal Bedside Commode Bedside Commode Urinal Urinal # Voids 3 - Exam GENERAL: Sitting up in bed, comfortable -wearing BiPAP,NAD HEENT: Conjunctivae normal. eyes normal. NECK: No JVD. No thyroid enlargement. No LNs CARDIOVASCULAR: S1, S2 regular.No murmur RESPIRATION: Better air entry.Scattered minimal crackles. ABDOMEN: Soft, nontender . No guarding. no masses palpable.positive bowel sounds. LEGS: No edema. no swelling PSYCHIATRY: Alert and oriented X3, mood and affect normal. NERVOUS SYSTEM: Cranial N 2-12 grossly normal. No focal deficits. Strength and sensation grossly intact. - Labs CBC & Chem 7: 05/01/21 07:00 05/01/21 07:00 Labs: Abnormal Lab Results - Last 24 Hours (Table) 05/01/21 05/01/21 05/02/21 Range/Units 16:03 20:33 06:27 POC Glucose (mg/dL) 185 H 149 H 186 H (75-99) mg/dL 05/02/21 Range/Units 11:43 POC Glucose (mg/dL) 283 H (75-99) mg/dL Microbiology - Last 24 Hours (Table) 04/26/21 11:40 Blood Culture - Preliminary Blood No Growth after 120 hours 04/26/21 11:30 Blood Culture - Preliminary Blood No Growth after 120 hours Assessment and Plan Assessment: Acute on chronic hypoxic respiratory failure secondary to acute exacerbation of underlying pulmonary fibrosis, possible bilateral community acquired pneumonia. Wears 2 L at home. Elevated troponins, NSTEMI, related to the above Lactic acidosis, resolved Elevated d-dimer,CTA reported negative for pulmonary embolism Acute renal failure, possibly related to IV contrast Chronic mild asthma Gastroesophageal reflux disease Hypertension Hyperlipidemia DJD Patient remains on IV Zosyn empirically; continues to be on breathing treatments and Solu-Medrol Patient was reported to have brief episode of V. tach; patient was asymptomatic; electrolytes are reviewed and are stable; we will consult cardiology for further recommendations
--- NOTE | 2021-05-02 16:11 | P.PN ---
Subjective Progress Note Date: 05/02/21 Principal diagnosis: Respiratory failure. Acute hypoxic respiratory failure, multifactorial. This is a very pleasant 75-year-old male patient who follows with Dr. Taylor as his primary care provider. He has a history of hypertension, gastroesophageal reflux disease, hyperlipidemia and a right diaphragmatic paralysis. He also has a history of biopsy-proven idiopathic pulmonary fibrosis and is maintained on OFEV 150 mg twice a day. He follows with Dr. Schuster in our office. He is oxygen dependent on 2 L in the outpatient setting. FEV1 value 80% of predicted however there is noted restrictive lung disease consistent with his fibrosis. He is vaccinated 3 against the coronavirus. He presented to the emergency room earlier today with a three-day history of worsening shortness of breath and dyspnea on exertion. He has productive cough with yellow and blood-tinged spu jen. He was quite hypoxemic in the 60s on 2 L nasal cannula. White count 15.3. Hemoglobin 12.3. D-dimer 1.67. Sodium 143. Potassium 4.1. BUN 18. Creatinine 1.24. Bicarb 25. Lactic acid 5.8. Glucose 196. AST 53. ALT 33. Troponin 0.381. Coronavirus by PCR not detected. X-ray revealing evidence of multifocal airspace disease. Persistent elevated right diaphragm. He is seen today in consultation in the emergency department. He is currently sitting up on the stretcher. Awake and alert. In mild respiratory distress. Up to 4 L nasal cannula currently. Coarse crackles bilaterally. He's been initiated on DuoNeb inhalations and antibiotics in the form of Zosyn and azithromycin, IV Solu-Medrol. He is received 2 L of fluid resuscitation. 0.9 normal saline at 130 ML's per hour. Computed tomography scan of the chest is pending. Reevaluated today on 04/27/2021, patient is clinically feeling better today, chest x-ray is basically about the same, remains on bronchodilators, diuretics, steroids, and antibiotics. However I noted that the patient is receiving IV fluid at 1 50 mL per hour, and I cut it down to KVO, patient is also receiving Lasix. WBC count is 18.3 hemoglobin is 12.2. Left lites are normal. Renal profile showed a BUN of 25 creatinine 1.61, troponins remain high. PCR for COVID-19 is negative. BNP is elevated, pro-calcitonin level is negligible, 0.16 Progress note dated 04/28/2021. 75-year-old male who sees Dr. Wilson Taylor as a primary. He was seen by us in consultation 2 days ago. He has a history of hypertension, gastroesophageal reflux disease, hyperlipidemia, and diaphragmatic paralysis, status post plication. In addition, he has a diagnosis of biopsy-proven idiopathic pulmonary fibrosis. He is maintained on OFEV. He does have chronic hypoxemic respiratory failure and uses oxygen at 2 L/m, /. The patient is currently on AIRVO at 50 L/m, and 95%. He feels like he is improved. He still quite short of breath, some conversational dyspnea. There is no audible wheezing or use of accessory muscles. Laboratory data from today includes a sodium 144, potassium 3.2, chlorides 96, CO2 35, anion gap 13, BUN 46, creatinine 1.62. Blood cultures are thus far negative. Chest x-ray shows diffuse bilateral interstitial infiltrates consistent with the patient's diagnosis of interstitial lung disease/pulmonary fibrosis. CT angiogram was negative for pulmonary embolism. Progress note dated 04/29/2021. 75-year-old white male, well-known to me. He has a history of biopsy-proven idiopathic pulmonary fibrosis, diaphragmatic weakness, and mild asthma. The patient is again seen in room 354. Today, he is on BiPAP at 10 and 5 and 85%. I was called about him last night. He feels better today, and feels like the BiPAP has helped him. Yesterday, he was on AIRVO. Today's laboratory data includes a white count of 14.6, hemoglobin 12.2, hematocrit 36.3, and a normal platelet count. Yesterday, he had a blood gas showing a pO2 of 76, pCO2 42, and a pH is 7.52. This was on 100%. Sodium 144, potassium 3.9, chlorides 104, CO2 32, anion gap 8, BUN 48, creatinine 1.38. AST 98, and ALT 129. On 04/30/2021 patient seen in follow-up on selective care unit. He is awake and alert, in no acute distress, remains on BiPAP at 10/5 and FiO2 75%, he sat 95% and subsequently affected has been decreased down to 65%. He has been able to tolerate high flow nasal cannula trials at mealtimes. Overall breathing is improving, occasional cough with production of small amount of yellow sputum. Vital signs have been stable overnight. Altered mentation, lung sounds are positive for bibasilar crackles, he remains on Lasix 20 mg by mouth twice daily, he is on inhaled and nebulized bronchodilators, he is on Zosyn. His blood and sputum cultures have shown no growth thus far. Progress note dated 05/01/2021. The patient is again seen in room 354. Currently, he is on AIRVO at 60 L/m with an FiO2 of 90%. He also has a partial rebreather and place. At nighttime, he is on BiPAP. He getting saline at 20 mL an hour. Despite his large oxygen requirements, the patient states that he feels like he is improving. He denies any significant phlegm production. There is no fever or chills. He denies any chest pain or chest discomfort. White count 15.1, hemoglobin 12.5, hematocrit 37.5, and platelet count 192,000. Sodium 143, potassium 4.2, chlorides 98, CO2 40, anion gap 5, E1 45, and creatinine 1.18. Albumin is 3.1. Diffuse bilateral infiltrates, maybe slightly improved. Progress note dated 05/02/2021. The patient is again seen in room 354. Currently, the patient's on a partial rebreather along with AIRVO, at 60 L/m with an FiO2 of 90%. At nighttime, the patient uses BiPAP. BiPAP settings are 10/5 at 65%. Currently, the patient's doing about the same. The patient feels like his breathing is stable, or sli ghtly improved. He still requiring significant amounts of oxygen. He has a diagnosis of biopsy-proven pulmonary fibrosis. He also has a history of mild asthma, and diaphragmatic weakness. No new labs today. Laboratory data from yesterday, are reviewed. Chest x-ray from yesterday is also reviewed. Medications are reviewed as well. Objective - Vital Signs Vital signs: Vital Signs Temp 97.9 F 05/02/21 12:09 Pulse 89 05/02/21 12:09 Resp 16 05/02/21 12:09 BP 162/106 05/02/21 12:09 Pulse Ox 92 L 05/02/21 12:09 Intake & Output 05/01/21 05/02/21 05/02/21 18:59 06:59 18:59 Intake Total 1430 222 870 Output Total 1350 300 750 Balance 80 -78 120 Weight 81 kg Intake: Oral 1430 222 870 Output: Urine 1350 300 750 Other: Voiding Method Urinal Bedside Commode Bedside Commode Urinal Urinal # Voids 3 - Exam Mild respiratory distress. Oriented 3. Currently on AIRVO, and a partial rebreather mask. No use of accessory muscles or conversational dyspnea. Saturations are 92%. HEENT examination is grossly unremarkable. Neck supple. Full range of motion. No adenopathy thyromegaly or neck vein di stention. Cardiovascular examination reveals regular rhythm rate. S1-S2 normal. No S3 or S4. No discernible murmur noted. Heart sounds are distant. Heart rate 88 bpm. Lungs reveal diffuse bilateral rhonchi and bibasilar crackles. Breath sounds are equal bilaterally. He is restricted in his breathing. There are no wheezes. Saturations are 92% on AIRVO and a partial rebreather. Abdomen soft bowel sounds are heard. No masses or tenderness. Extremities are intact. No cyanosis clubbing or edema. Skin is without rash or lesion. Neurologic examination is brief but nonfocal. - Labs CBC & Chem 7: 05/01/21 07:00 05/01/21 07:00 Labs: Abnormal Lab Results - Last 24 Hours (Table) 05/01/21 05/01/21 05/02/21 Range/Units 16:03 20:33 06:27 POC Glucose (mg/dL) 185 H 149 H 186 H (75-99) mg/dL 05/02/21 Range/Units 11:43 POC Glucose (mg/dL) 283 H (75-99) mg/dL Microbiology - Last 24 Hours (Table) 04/26/21 11:40 Blood Culture - Final Blood No Growth after 144 hours 04/26/21 11:30 Blood Culture - Final Blood No Growth after 144 hours Assessment and Plan Assessment: Acute on chronic hypoxemic respiratory failure, secondary to acute exacerbation of the patient's underlying idiopathic pulmonary fibrosis, and possible community-acquired pneumonia. Elevated troponin, likely related to supply/demand mismatch. CT angiogram negative for pulmonary embolism. Lactic acidosis. Biopsy-proven usual interstitial pneumonia, maintained on OFEV. History of right-sided hemidiaphragm paralysis. History of mild asthma. History of hypertension. History of hyperlipidemia. DJD. Gastroesophageal reflux disease. Vitamin D deficiency. Plan: Plan dated 04/28/2021. The patient remains on AIRVO. The patient also remains on Zosyn and Levaquin, empirically. The patient is currently on bronchodilators, and Solu-Medrol. The patient states that he feels like he is doing better. He still very short of breath with some conversational dyspnea. His AIRVO settings included 50 L/m with an FiO2 of 95%. The patient remains also on Symbicort, Levaquin, and Zosyn. Additional recommendations and suggestions are forthcoming. We will continue corticosteroids. Prognosis is guarded. Plan dated 04/29/2021. Yesterday, the patient was on AIRVO. Last night, he is some increasing respiratory difficulty, we placed him on BiPAP. He seems to be doing much better. He feels like the BiPAP is really helping him. His labs, x-rays, and medications are reviewed. Arterial blood gases from yesterday are also reviewed. The patient remains on Zosyn and corticosteroids. Overall prognosis remains very guarded. We will continue to follow and make recommendations where appropriate. Plan dated 05/01/2021. The patient is doing better according to him. This is despite the fact that he is both on AIRVO and partial rebreather. We will continue to follow. Prognosis is guarded. The patient remains on Zosyn empirically. He also gets breathing treatments, and Solu-Medrol. I'm hoping the patient turns around. Prognosis is guarded. Additional recommendations and suggestions are forthcoming we will continue to follow make recommendations where appropriate. Plan dated 05/02/2021. Currently, the patient remains on Symbicort, DuoNebs, Singulair, Zosyn, and Lev aquin. The antibiotics can probably be de-escalated at this time. I'll stop the Levaquin. We'll continue with Zosyn. The patient remains on Solu-Medrol. Additional recommendations and suggestions are forthcoming. Prognosis is guarded. The patient has maintained a good attitude despite the fact that he is quite short of breath, and requiring a lot of oxygen. We will continue to follow make recommendations were appropriate. Prognosis is guarded. Time with Patient: Less than 30
[2021-05-02 16:34] LABS: Glucose,Whole Blood 193 mg/dL (75-99)
[2021-05-02] MEDS: SODIUM CHLORIDE 0.9% 1,000 ML IV SCH (17:10)
--- NOTE | 2021-05-02 18:44 | P.PN ---
Subjective Progress Note Date: 05/02/21 This 75 to gentleman with history of pulmonary fibrosis and pulmonary hypertension and chronic shortness of breath is admitted to the hospital with difficulty breathing. Patient has been treated with high dose of oxygen and seemed to be gradually showing some improvement . We are asked to see the patient because of nonsustained V. tach consisting of 5 beats. Patient is asymptomatic. His LV function is well-preserved. Patient is still having significant issues with oxygenation and and his respiratory status. His potassium and magnesium levels are within normal limits. At this point we'll continue to monitor for arrhythmia .No specific therapy at this time Objective - Vital Signs Vital signs: Vital Signs Temp 97.5 F L 05/02/21 17:09 Pulse 91 05/02/21 17:09 Resp 20 05/02/21 17:09 BP 162/80 05/02/21 17:09 Pulse Ox 91 L 05/02/21 17:51 Intake & Output 05/01/21 05/02/21 05/02/21 18:59 06:59 18:59 Intake Total 2950 837 4733 Output Total 1350 300 750 Balance 80 -78 420 Weight 81 kg Intake: Oral 0726 049 3151 Output: Urine 1350 300 750 Other: Voiding Method Urinal Bedside Commode Bedside Commode Urinal Urinal # Voids 3 - Exam GENERAL EXAM: Patient is alert and oriented and appears to be in moderate distress HEENT: Normocephalic. Normal reaction of pupils, equal size, normal range of extraocular motion. No erythema or exudates in the throat. NECK: No masses, no nuchal rigidity. CHEST: No chest wall deformity. LUNGS: Diminished air exchange HEART: S1 and S2 normal w ABDOMEN: No hepatosplenomegaly, normal bowel sounds, no guarding or rigidity. SKIN: No rashes CENTRAL NERVOUS SYSTEM: No focal deficits. EXTREMITIES: No cyanosis, clubbing or edema. - Labs CBC & Chem 7: 05/01/21 07:00 05/01/21 07:00 Labs: Abnormal Lab Results - Last 24 Hours (Table) 05/01/21 05/02/21 05/02/21 Range/Units 20:33 06:27 11:43 POC Glucose (mg/dL) 149 H 186 H 283 H (75-99) mg/dL 05/02/21 Range/Units 16:32 POC Glucose (mg/dL) 193 H (75-99) mg/dL Microbiology - Last 24 Hours (Table) 04/26/21 11:40 Blood Culture - Final Blood No Growth after 144 hours 04/26/21 11:30 Blood Culture - Final Blood No Growth after 144 hours Assessment and Plan (1) Nonsustained ventricular tachycardia Current Visit: Yes Status: Acute Code(s): I47.2 - VENTRICULAR TACHYCARDIA SNOMED Code(s): 161320950 (2) Hyperlipidemia Current Visit: No Status: Acute Code(s): E78.5 - HYPERLIPIDEMIA, UNSPECIFIED SNOMED Code(s): 45959938 (3) Hypertension Current Visit: No Status: Acute Code(s): I10 - ESSENTIAL (PRIMARY) HYPERTENSION SNOMED Code(s): 77604452 (4) Chronic respiratory failure Current Visit: Yes Status: Acute Code(s): J96.10 - CHRONIC RESPIRATORY FAILURE, UNSP W HYPOXIA OR HYPERCAPNIA SNOMED Code(s): 68336752 (5) Pulmonary fibrosis Current Visit: Yes Status: Acute Code(s): J84.10 - PULMONARY FIBROSIS, UNSPECIFIED SNOMED Code(s): 28025735 Plan: Connected to monitoring for any further arrhythmias. Continue current medical therapy. We'll follow
[2021-05-02 20:20] LABS: Glucose,Whole Blood 252 mg/dL (75-99)
[2021-05-02] MEDS: INSULIN DETEMIR (LEVEMIR) 100 UNIT/ML SYR SQ SCH (20:36)
[2021-05-02] MEDS: ATORVASTATIN 20 MG TAB PO SCH (20:36)
[2021-05-02] MEDS: MELATONIN 5 MG TABLET PO SCH (20:36)
[2021-05-02] MEDS: MONTELUKAST 10 MG TAB PO SCH (20:36)
[2021-05-02] MEDS: ESCITALOPRAM 10 MG TAB PO SCH (20:36)
[2021-05-03] MEDS: PIPERACILLIN-TAZOBACTAM 3.375 GM in SODIUM CHLORIDE 0.9% 100 ML IVPB SCH ×2 (04:03→12:47)
[2021-05-03 06:21] LABS: Glucose,Whole Blood 150 mg/dL (75-99)
[2021-05-03] MEDS: methylPREDNISolone SOD SUCCI 125 MG/2 ML VIAL IV SCH ×4 (06:27→22:50)
[2021-05-03] MEDS: INSULIN ASPART (NovoLOG) 100 UNIT/ML VIAL SQ SCH ×4 (06:27→20:42)
[2021-05-03] MEDS: PANTOPRAZOLE 40 MG TABLET PO SCH (06:27)
[2021-05-03] MEDS: IPRATROPIUM-ALBUTEROL 3 ML NEB INHALATION SCH ×4 (07:38→19:53)
[2021-05-03] MEDS: SYMBICORT 160-4.5 MCG INHALER INHALATION SCH ×2 (07:39→19:53)
[2021-05-03] MEDS: buPROPion 75 MG TAB PO SCH ×2 (08:57→20:42)
[2021-05-03] MEDS: LOSARTAN 50 MG TAB PO SCH (08:57)
[2021-05-03] MEDS: FUROSEMIDE 20 MG TAB PO SCH ×2 (08:57→17:36)
[2021-05-03] MEDS: guaiFENesin 600 MG TABLET.ER PO SCH ×2 (08:57→20:42)
[2021-05-03] MEDS: MULTIVITAMINS, THERA 1 EACH TAB PO SCH (08:58)
[2021-05-03] MEDS: ASPIRIN 81 MG PO SCH (08:58)
[2021-05-03] MEDS: NON FORMULARY DRUG (Nintedanib Esylate [Ofev] 150 MG Capsule) PO SCH ×2 (08:58→20:43)
--- NOTE | 2021-05-03 11:09 | P.PN ---
Subjective Progress Note Date: 05/03/21 History of present illness: This 75 to gentleman with history of pulmonary fibrosis and pulmonary hyperten nunu and chronic shortness of breath is admitted to the hospital with difficulty breathing. Patient has been treated with high dose of oxygen and seemed to be gradually showing some improvement . We are asked to see the patient because of nonsustained V. tach consisting of 5 beats. Patient is asymptomatic. His LV function is well-preserved. Patient is still having significant issues with oxygenation and and his respiratory status. His potassium and magnesium levels are within normal limits. At this point we'll continue to monitor for arrhythmia .No specific therapy at this time 05/03: Patient has short episode of nonsustained V. tach yesterday, no arrhythmias noted today. Patient states that he is feeling okay. Physical examination: GENERAL EXAM: Patient is alert and oriented and appears to be in moderate distress HEENT: Normocephalic. Normal reaction of pupils, equal size, normal range of extraocular motion. No erythema or exudates in the throat. NECK: No masses, no nuchal rigidity. CHEST: No chest wall deformity. LUNGS: Diminished air exchange HEART: S1 and S2 normal w ABDOMEN: No hepatosplenomegaly, normal bowel sounds, no guarding or rigidity. SKIN: No rashes CENTRAL NERVOUS SYSTEM: No focal deficits. EXTREMITIES: No cyanosis, clubbing or edema. Assessment: Unstable ventricular tachycardia Hyperlipidemia Hypertension Chronic respiratory failure Pulmonary fibrosis Anemia Plan: Continue to monitor for arrhythmias Further recommendations to follow based upon clinical course Thank you kindly for this consultation. Nurse practitioner note has been reviewed, I agree with documented findings and plan of care. Patient was seen and examined. Objective - Vital Signs Vital signs: Vital Signs Temp 97.7 F 05/03/21 04:05 Pulse 72 05/03/21 07:51 Resp 18 05/03/21 04:05 BP 174/85 05/03/21 04:05 Pulse Ox 92 L 05/03/21 04:05 Intake & Output 05/02/21 05/03/21 05/03/21 18:59 06:59 18:59 Intake Total 1170 Output Total 750 700 600 Balance 420 -700 -600 Intake: Oral 1170 Output: Urine 750 700 600 Other: Voiding Method Bedside Commode Bedside Commode Urinal Urinal # Voids 4 # Bowel Movements 1 - Labs CBC & Chem 7: 05/01/21 07:00 05/01/21 07:00 Labs: Abnormal Lab Results - Last 24 Hours (Table) 05/02/21 05/02/21 05/02/21 Range/Units 11:43 16:32 20:08 POC Glucose (mg/dL) 283 H 193 H 252 H (75-99) mg/dL 05/03/21 Range/Units 06:09 POC Glucose (mg/dL) 150 H (75-99) mg/dL Microbiology - Last 24 Hours (Table) 04/26/21 11:40 Blood Culture - Final Blood No Growth after 144 hours 04/26/21 11:30 Blood Culture - Final Blood No Growth after 144 hours
[2021-05-03 11:39] LABS: Glucose,Whole Blood 390 mg/dL (75-99)
--- NOTE | 2021-05-03 14:54 | P.PN ---
Subjective Progress Note Date: 05/03/21 Principal diagnosis: Respiratory failure. Acute hypoxic respiratory failure, multifactorial. This is a very pleasant 75-year-old male patient who follows with Dr. Taylor as his primary care provider. He has a history of hypertension, gastroesophageal reflux disease, hyperlipidemia and a right diaphragmatic paralysis. He also has a history of biopsy-proven idiopathic pulmonary fibrosis and is maintained on OFEV 150 mg twice a day. He follows with Dr. Schuster in our office. He is oxygen dependent on 2 L in the outpatient setting. FEV1 value 80% of predicted however there is noted restrictive lung disease consistent with his fibrosis. He is vaccinated 3 against the coronavirus. He presented to the emergency room earlier today with a three-day history of worsening shortness of breath and dyspnea on exertion. He has productive cough with yellow and blood-tinged spu jen. He was quite hypoxemic in the 60s on 2 L nasal cannula. White count 15.3. Hemoglobin 12.3. D-dimer 1.67. Sodium 143. Potassium 4.1. BUN 18. Creatinine 1.24. Bicarb 25. Lactic acid 5.8. Glucose 196. AST 53. ALT 33. Troponin 0.381. Coronavirus by PCR not detected. X-ray revealing evidence of multifocal airspace disease. Persistent elevated right diaphragm. He is seen today in consultation in the emergency department. He is currently sitting up on the stretcher. Awake and alert. In mild respiratory distress. Up to 4 L nasal cannula currently. Coarse crackles bilaterally. He's been initiated on DuoNeb inhalations and antibiotics in the form of Zosyn and azithromycin, IV Solu-Medrol. He is received 2 L of fluid resuscitation. 0.9 normal saline at 130 ML's per hour. Computed tomography scan of the chest is pending. Reevaluated today on 04/27/2021, patient is clinically feeling better today, chest x-ray is basically about the same, remains on bronchodilators, diuretics, steroids, and antibiotics. However I noted that the patient is receiving IV fluid at 1 50 mL per hour, and I cut it down to KVO, patient is also receiving Lasix. WBC count is 18.3 hemoglobin is 12.2. Left lites are normal. Renal profile showed a BUN of 25 creatinine 1.61, troponins remain high. PCR for COVID-19 is negative. BNP is elevated, pro-calcitonin level is negligible, 0.16 Progress note dated 04/28/2021. 75-year-old male who sees Dr. Wilson Taylor as a primary. He was seen by us in consultation 2 days ago. He has a history of hypertension, gastroesophageal reflux disease, hyperlipidemia, and diaphragmatic paralysis, status post plication. In addition, he has a diagnosis of biopsy-proven idiopathic pulmonary fibrosis. He is maintained on OFEV. He does have chronic hypoxemic respiratory failure and uses oxygen at 2 L/m, /. The patient is currently on AIRVO at 50 L/m, and 95%. He feels like he is improved. He still quite short of breath, some conversational dyspnea. There is no audible wheezing or use of accessory muscles. Laboratory data from today includes a sodium 144, potassium 3.2, chlorides 96, CO2 35, anion gap 13, BUN 46, creatinine 1.62. Blood cultures are thus far negative. Chest x-ray shows diffuse bilateral interstitial infiltrates consistent with the patient's diagnosis of interstitial lung disease/pulmonary fibrosis. CT angiogram was negative for pulmonary embolism. Progress note dated 04/29/2021. 75-year-old white male, well-known to me. He has a history of biopsy-proven idiopathic pulmonary fibrosis, diaphragmatic weakness, and mild asthma. The patient is again seen in room 354. Today, he is on BiPAP at 10 and 5 and 85%. I was called about him last night. He feels better today, and feels like the BiPAP has helped him. Yesterday, he was on AIRVO. Today's laboratory data includes a white count of 14.6, hemoglobin 12.2, hematocrit 36.3, and a normal platelet count. Yesterday, he had a blood gas showing a pO2 of 76, pCO2 42, and a pH is 7.52. This was on 100%. Sodium 144, potassium 3.9, chlorides 104, CO2 32, anion gap 8, BUN 48, creatinine 1.38. AST 98, and ALT 129. On 04/30/2021 patient seen in follow-up on selective care unit. He is awake and alert, in no acute distress, remains on BiPAP at 10/5 and FiO2 75%, he sat 95% and subsequently affected has been decreased down to 65%. He has been able to tolerate high flow nasal cannula trials at mealtimes. Overall breathing is improving, occasional cough with production of small amount of yellow sputum. Vital signs have been stable overnight. Altered mentation, lung sounds are positive for bibasilar crackles, he remains on Lasix 20 mg by mouth twice daily, he is on inhaled and nebulized bronchodilators, he is on Zosyn. His blood and sputum cultures have shown no growth thus far. Progress note dated 05/01/2021. The patient is again seen in room 354. Currently, he is on AIRVO at 60 L/m with an FiO2 of 90%. He also has a partial rebreather and place. At nighttime, he is on BiPAP. He getting saline at 20 mL an hour. Despite his large oxygen requirements, the patient states that he feels like he is improving. He denies any significant phlegm production. There is no fever or chills. He denies any chest pain or chest discomfort. White count 15.1, hemoglobin 12.5, hematocrit 37.5, and platelet count 192,000. Sodium 143, potassium 4.2, chlorides 98, CO2 40, anion gap 5, E1 45, and creatinine 1.18. Albumin is 3.1. Diffuse bilateral infiltrates, maybe slightly improved. Progress note dated 05/02/2021. The patient is again seen in room 354. Currently, the patient's on a partial rebreather along with AIRVO, at 60 L/m with an FiO2 of 90%. At nighttime, the patient uses BiPAP. BiPAP settings are 10/5 at 65%. Currently, the patient's doing about the same. The patient feels like his breathing is stable, or sli ghtly improved. He still requiring significant amounts of oxygen. He has a diagnosis of biopsy-proven pulmonary fibrosis. He also has a history of mild asthma, and diaphragmatic weakness. No new labs today. Laboratory data from yesterday, are reviewed. Chest x-ray from yesterday is also reviewed. Medications are reviewed as well. Progress note dated 05/03/2021. The patient is again seen in room 354. The patient has history of biopsy-proven idiopathic pulmonary fibrosis. The patient presented with acute on chronic hypoxemic respiratory failure. The patient's currently on AIRVO at 60 L/m with an FiO2 of 90%, as well as a nonrebreather mass. The patient did not use of BiPAP device last night. He is not receiving any IV fluids. The patient feels like he is improved. No new labs today to report. No chest x-ray to report. All recent labs, x-rays, and medications are reviewed. Objective - Vital Signs Vital signs: Vital Signs Temp 97.8 F 05/03/21 08:00 Pulse 83 05/03/21 12:00 Resp 18 05/03/21 13:59 BP 165/75 05/03/21 12:00 Pulse Ox 95 05/03/21 12:00 Intake & Output 05/02/21 05/03/21 05/03/21 18:59 06:59 18:59 Intake Total 1170 480 Output Total 355 070 0995 Balance 420 -700 -770 Intake: Oral 1170 480 Output: Urine 280 646 1248 Stool 0 Urine/Stool Mix 0 Other: Voiding Method Bedside Commode Bedside Commode Urinal Urinal # Voids 4 0 # Bowel Movements 0 - Exam Mild respiratory distress. Oriented 3. Currently on AIRVO, and a non- rebreather mask. No use of accessory muscles or conversational dyspnea. Saturations are 95%. HEENT examination is grossly unremarkable. Neck supple. Full range of motion. No adenopathy thyromegaly or neck vein distention. Cardiovascular examination reveals regular rhythm rate. S1-S2 normal. No S3 or S4. No discernible murmur noted. Heart sounds are distant. Heart rate 83 bpm. Lungs reveal diffuse bilateral rhonchi and bibasilar crackles. Breath sounds are equal bilaterally. He is restricted in his breathing. There are no wheezes. Saturations are 95% on AIRVO and a non-rebreather mask. Abdomen soft bowel sounds are heard. No masses or tenderness. Extremities are intact. No cyanosis clubbing or edema. Skin is without rash or lesion. Neurologic examination is brief but nonfocal. - Labs CBC & Chem 7: 05/01/21 07:00 05/01/21 07:00 Labs: Abnormal Lab Results - Last 24 Hours (Table) 05/02/21 05/02/21 05/03/21 Range/Units 16:32 20:08 06:09 POC Glucose (mg/dL) 193 H 252 H 150 H (75-99) mg/dL 05/03/21 Range/Units 11:36 POC Glucose (mg/dL) 390 H (75-99) mg/dL Microbiology - Last 24 Hours (Table) 04/26/21 11:40 Blood Culture - Final Blood No Growth after 144 hours 04/26/21 11:30 Blood Culture - Final Blood No Growth after 144 hours Assessment and Plan Assessment: Acute on chronic hypoxemic respiratory failure, secondary to acute exacerbation of the patient's underlying idiopathic pulmonary fibrosis, and possible community-acquired pneumonia. Elevated troponin, likely related to supply/demand mismatch. CT angiogram negative for pulmonary embolism. Lactic acidosis. Biopsy-proven usual interstitial pneumonia, maintained on OFEV. History of right-sided hemidiaphragm paralysis. History of mild asthma. History of hypertension. History of hyperlipidemia. DJD. Gastroesophageal reflux disease. Vitamin D deficiency. Plan: Plan dated 04/28/2021. The patient remains on AIRVO. The patient also remains on Zosyn and Levaquin, empirically. The patient is currently on bronchodilators, and Solu-Medrol. The patient states that he feels like he is doing better. He still very short of breath with some conversational dyspnea. His AIRVO settings included 50 L/m with an FiO2 of 95%. The patient remains also on Symbicort, Levaquin, and Zosyn. Additional recommendations and suggestions are forthcoming. We will continue corticosteroids. Prognosis is guarded. Plan dated 04/29/2021. Yesterday, the patient was on AIRVO. Last night, he is some increasing respiratory difficulty, we placed him on BiPAP. He seems to be doing much better. He feels like the BiPAP is really helping him. His labs, x-rays, and medications are reviewed. Arterial blood gases from yesterday are also reviewed. The patient remains on Zosyn and corticosteroids. Overall prognosis remains very guarded. We will continue to follow and make recommendations where appropriate. Plan dated 05/01/2021. The patient is doing better according to him. This is despite the fact that he is both on AIRVO and partial rebreather. We will continue to follow. Prognosis is guarded. The patient remains on Zosyn empirically. He also gets breathing treatments, and Solu-Medrol. I'm hoping the patient turns around. Prognosis is guarded. Additional recommendations and suggestions are forthcoming we will continue to follow make recommendations where appropriate. Plan dated 05/02/2021. Currently, the patient remains on Symbicort, DuoNebs, Singulair, Zosyn, and Levaquin. The antibiotics can probably be de-escalated at this time. I'll stop the Levaquin. We'll continue with Zosyn. The patient remains on Solu-Medrol. Additional recommendations and suggestions are forthcoming. Prognosis is guarded. The patient has maintained a good attitude despite the fact that he is quite short of breath, and requiring a lot of oxygen. We will continue to follow make recommendations were appropriate. Prognosis is guarded. Plan dated 05/03/2021. The patient's antibiotics were discontinued. The patient remains on Symbicort, DuoNeb nebs, and corticosteroids. Additional recommendations and suggestions are forthcoming. Prognosis is guarded. The patient's pro-calcitonin level was quite low. The patient feels like he is improved. He did not have to use BiPAP last night. He remains on AIRVO and a nonrebreather mask. Prognosis is guarded. We will continue to follow make recommendations where appropriate. Time with Patient: Less than 30
[2021-05-03 16:36] LABS: Glucose,Whole Blood 217 mg/dL (75-99)
--- NOTE | 2021-05-03 19:51 | P.PN ---
Subjective Progress Note Date: 05/03/21 75-year-old gentleman admitted with acute hypoxic respiratory failure secondary to acute exacerbation of pulmonary fibrosis, possible community-acquired pneumonia and multiple other medical issues. Maintained on nebulized bronchodilators, Symbicort, IV steroids, Zosyn and Levaquin. Tachypneic,currently requiring Airvo 60 Flow Rate/95% FIO2, maintaining O2 sats in the mid 80s to low 90s. Afebrile, WBC 18.3. Preliminary blood cultures reporting no growth after 48 hours. BUN 46, creatinine 1.62. Patient remains tachypneic and tachycardic; surgery is on board and recommending outpatient possible laparoscopic cholecystectomy for chronic cholecystitis and cholelithiasis 05/03/2021 Patient is seen and evaluated with family at bedside; biopsy-proven idiopathic pulmonary fibrosis. The patient presented with acute on chronic hypoxemic respiratory failure. The patient's currently on AIRVO at 60 L/m with an FiO2 of 90%, as well as a nonrebreather mass. The patient did not use of BiPAP device last night. He is not receiving any IV fluids. The patient feels like he is improved. No new labs today to report. No chest x-ray to report. All recent labs, x-rays, and medications are reviewed. Patient remains on Symbicort, DuoNeb and corticosteroids; antibiotics have been discontinued; plan is to continue to titrate O2 as able; patient will need to be discharged home on oxygen Prognosis remains guarded Objective - Vital Signs Vital signs: Vital Signs Temp 97.8 F 05/03/21 08:00 Pulse 83 05/03/21 12:00 Resp 18 05/03/21 13:59 BP 165/75 05/03/21 12:00 Pulse Ox 95 05/03/21 12:00 Intake & Output 05/02/21 05/03/21 05/03/21 18:59 06:59 18:59 Intake Total 1170 480 Output Total 424 067 9996 Balance 420 -700 -770 Intake: Oral 1170 480 Output: Urine 179 335 8621 Stool 0 Urine/Stool Mix 0 Other: Voiding Method Bedside Commode Bedside Commode Urinal Urinal # Voids 4 0 # Bowel Movements 0 - Exam GENERAL: Sitting up in bed, comfortable -wearing BiPAP,NAD HEENT: Conjunctivae normal. eyes normal. NECK: No JVD. No thyroid enlargement. No LNs CARDIOVASCULAR: S1, S2 regular.No murmur RESPIRATION: Better air entry.Scattered minimal crackles. ABDOMEN: Soft, nontender . No guarding. no masses palpable.positive bowel sounds. LEGS: No edema. no swelling PSYCHIATRY: Alert and oriented X3, mood and affect normal. NERVOUS SYSTEM: Cranial N 2-12 grossly normal. No focal deficits. Strength and sensation grossly intact. - Labs CBC & Chem 7: 05/01/21 07:00 05/01/21 07:00 Labs: Abnormal Lab Results - Last 24 Hours (Table) 05/02/21 05/02/21 05/03/21 Range/Units 16:32 20:08 06:09 POC Glucose (mg/dL) 193 H 252 H 150 H (75-99) mg/dL 05/03/21 Range/Units 11:36 POC Glucose (mg/dL) 390 H (75-99) mg/dL Microbiology - Last 24 Hours (Table) 04/26/21 11:40 Blood Culture - Final Blood No Growth after 144 hours 04/26/21 11:30 Blood Culture - Final Blood No Growth after 144 hours Assessment and Plan Assessment: Acute on chronic hypoxic respiratory failure secondary to acute exacerbation of underlying pulmonary fibrosis, possible bilateral community acquired pneumonia. Wears 2 L at home. Elevated troponins, NSTEMI, related to the above Lactic acidosis, resolved Elevated d-dimer,CTA reported negative for pulmonary embolism Acute renal failure, possibly related to IV contrast Chronic mild asthma Gastroesophageal reflux disease Hypertension Hyperlipidemia DJD Patient remains on IV Zosyn empirically; continues to be on breathing treatments and Solu-Medrol Patient was reported to have brief episode of V. tach; patient was asymptomatic; electrolytes are reviewed and are stable; we will consult cardiology for further recommendations
[2021-05-03 20:22] LABS: Glucose,Whole Blood 241 mg/dL (75-99)
[2021-05-03] MEDS: ATORVASTATIN 20 MG TAB PO SCH (20:42)
[2021-05-03] MEDS: ESCITALOPRAM 10 MG TAB PO SCH (20:42)
[2021-05-03] MEDS: MONTELUKAST 10 MG TAB PO SCH (20:42)
[2021-05-03] MEDS: MELATONIN 5 MG TABLET PO SCH (20:42)
[2021-05-03] MEDS: INSULIN DETEMIR (LEVEMIR) 100 UNIT/ML SYR SQ SCH (20:42)
[2021-05-04 06:29] LABS: Glucose,Whole Blood 134 mg/dL (75-99)
[2021-05-04] MEDS: methylPREDNISolone SOD SUCCI 125 MG/2 ML VIAL IV SCH ×4 (06:29→22:57)
[2021-05-04] MEDS: PANTOPRAZOLE 40 MG TABLET PO SCH (06:29)
[2021-05-04] MEDS: SODIUM CHLORIDE 0.9% 1,000 ML IV SCH ×2 (06:29→22:59)
[2021-05-04] MEDS: INSULIN ASPART (NovoLOG) 100 UNIT/ML VIAL SQ SCH ×4 (06:29→20:39)
[2021-05-04 07:17] LABS: Basophils % (A) 0 %; Eosinophils % (A) 0 %; HCT 38.8 % (39.0-53.0); HGB 12.5 gm/dL (13.0-17.5); Lymphocytes # (A) 0.2 k/uL (1.0-4.8); Lymphocytes % (A) 1 %; MCH 30.1 pg (25.0-35.0); MCHC 32.3 g/dL (31.0-37.0); MCV 93.1 fL (80.0-100.0); Mean Platelet Volume 10.7; Monocytes # (A) 0.7 k/uL (0-1.0); Monocytes % (A) 3 %; Neutrophils % (A) 96 %; Platelet Count 208 k/uL (150-450); RBC 4.17 m/uL (4.30-5.90); RDW 13.9 % (11.5-15.5); WBC 27.3 k/uL (3.8-10.6)
[2021-05-04 07:20] LABS: Neutrophils # (A) 26.2 k/uL (1.3-7.7)
[2021-05-04 07:23] LABS: African American GFR (CKD) >90 (>60 ml/min/1.73 sqM); Anion Gap 6 mmol/L; Blood Urea Nitrogen 48 mg/dL (9-20); Calcium 8.5 mg/dL (8.4-10.2); Carbon Dioxide 36 mmol/L (22-30); Chloride 96 mmol/L (98-107); Glucose 136 mg/dL (74-99); Non-African American GFR(CKD) 81 (>60 ml/min/1.73 sqM); Potassium 4.1 mmol/L (3.5-5.1); Sodium 138 mmol/L (137-145)
[2021-05-04] MEDS: SYMBICORT 160-4.5 MCG INHALER INHALATION SCH ×2 (07:43→19:05)
[2021-05-04] MEDS: IPRATROPIUM-ALBUTEROL 3 ML NEB INHALATION SCH ×4 (07:43→19:12)
[2021-05-04] MEDS: NON FORMULARY DRUG (Nintedanib Esylate [Ofev] 150 MG Capsule) PO SCH ×2 (08:32→20:39)
[2021-05-04] MEDS: guaiFENesin 600 MG TABLET.ER PO SCH ×2 (08:33→20:39)
[2021-05-04] MEDS: ASPIRIN 81 MG PO SCH (08:33)
[2021-05-04] MEDS: LOSARTAN 50 MG TAB PO SCH (08:33)
[2021-05-04] MEDS: buPROPion 75 MG TAB PO SCH ×2 (08:33→20:38)
[2021-05-04] MEDS: MULTIVITAMINS, THERA 1 EACH TAB PO SCH (08:33)
[2021-05-04] MEDS: FUROSEMIDE 20 MG TAB PO SCH ×2 (08:33→17:45)
--- NOTE | 2021-05-04 10:26 | P.PN ---
Subjective Progress Note Date: 05/04/21 History of present illness: This 75 to gentleman with history of pulmonary fibrosis and pulmonary hyperten nunu and chronic shortness of breath is admitted to the hospital with difficulty breathing. Patient has been treated with high dose of oxygen and seemed to be gradually showing some improvement . We are asked to see the patient because of nonsustained V. tach consisting of 5 beats. Patient is asymptomatic. His LV function is well-preserved. Patient is still having significant issues with oxygenation and and his respiratory status. His potassium and magnesium levels are within normal limits. At this point we'll continue to monitor for arrhythmia .No specific therapy at this time 05/03: Patient has short episode of nonsustained V. tach yesterday, no arrhythmias noted today. Patient states that he is feeling okay. 05/04: Patient has had no arrhythmias overnight. He is currently on a nonrebreather with pulse ox of 95%. Heart rate has been running in the 70s and 80s. Blood pressure 122/67. Repeat blood work is BUN of 48 creatinine 0.92. White count 27.3. Physical examination: GENERAL EXAM: Patient is alert and oriented and appears to be in moderate distress HEENT: Normocephalic. Normal reaction of pupils, equal size, normal range of extraocular motion. No erythema or exudates in the throat. NECK: No masses, no nuchal rigidity. CHEST: No chest wall deformity. LUNGS: Diminished air exchange HEART: S1 and S2 normal w ABDOMEN: No hepatosplenomegaly, normal bowel sounds, no guarding or rigidity. SKIN: No rashes CENTRAL NERVOUS SYSTEM: No focal deficits. EXTREMITIES: No cyanosis, clubbing or edema. Assessment: Nonsustained ventricular tachycardia Hyperlipidemia Hypertension Chronic respiratory failure Pulmonary fibrosis Anemia Plan: Continue to monitor for arrhythmias Cardiology will sign off and follow on an as-needed basis. Please reconsult if any new concerns. Nurse practitioner note has been reviewed, I agree with documented findings and plan of care. Patient was seen and examined. Objective - Vital Signs Vital signs: Vital Signs Temp 97.7 F 05/03/21 20:25 Pulse 76 05/04/21 07:58 Resp 19 05/04/21 03:05 BP 169/92 05/04/21 03:05 Pulse Ox 92 L 05/04/21 03:05 Intake & Output 05/03/21 05/04/21 05/04/21 18:59 06:59 18:59 Intake Total 720 Output Total 1575 900 Balance -855 900 Intake: Oral 720 Output: Urine 1575 900 Stool 0 Urine/Stool Mix 0 Other: Voiding Method Bedside Commode Urinal # Voids 0 # Bowel Movements 0 - Labs CBC & Chem 7: 05/04/21 06:04 05/04/21 06:04 Labs: Abnormal Lab Results - Last 24 Hours (Table) 05/03/21 05/03/21 05/03/21 Range/Units 11:36 16:34 19:26 WBC (3.8-10.6) k/uL RBC (4.30-5.90) m/uL Hgb (13.0-17.5) gm/dL Hct (39.0-53.0) % Neutrophils # (1.3-7.7) k/uL Lymphocytes # (1.0-4.8) k/uL Chloride (98-107) mmol/L Carbon Dioxide (22-30) mmol/L BUN (9-20) mg/dL Glucose (74-99) mg/dL POC Glucose (mg/dL) 390 H 217 H 241 H (75-99) mg/dL 05/04/21 05/04/21 05/04/21 Range/Units 05:56 06:04 06:04 WBC 27.3 H (3.8-10.6) k/uL RBC 4.17 L (4.30-5.90) m/uL Hgb 12.5 L (13.0-17.5) gm/dL Hct 38.8 L (39.0-53.0) % Neutrophils # 26.2 H (1.3-7.7) k/uL Lymphocytes # 0.2 L (1.0-4.8) k/uL Chloride 96 L (98-107) mmol/L Carbon Dioxide 36 H (22-30) mmol/L BUN 48 H (9-20) mg/dL Glucose 136 H (74-99) mg/dL POC Glucose (mg/dL) 134 H (75-99) mg/dL
--- NOTE | 2021-05-04 11:22 | P.PN ---
Subjective Progress Note Date: 05/04/21 Principal diagnosis: Acute on chronic hypoxic respiratory failure secondary Acute exacerbation of underlying pulmonary fibrosis Possible bilateral community acquired pneumonia. Wears 2 L at home. Elevated troponins, NSTEMI 75-year-old gentleman admitted with acute hypoxic respiratory failure secondary to acute exacerbation of pulmonary fibrosis, possible community-acquired pneumonia and multiple other medical issues. Maintained on nebulized bronch odilators, Symbicort, IV steroids, Zosyn and Levaquin. Tachypneic,currently requiring Airvo 60 Flow Rate/95% FIO2, maintaining O2 sats in the mid 80s to low 90s. Afebrile, WBC 18.3. Preliminary blood cultures reporting no growth after 48 hours. BUN 46, creatinine 1.62. Patient remains tachypneic and tachycardic; surgery is on board and recommending outpatient possible laparoscopic cholecystectomy for chronic cholecystitis and cholelithiasis 05/03/2021 Patient is seen and evaluated with family at bedside; biopsy-proven idiopathic pulmonary fibrosis. The patient presented with acute on chronic hypoxemic respiratory failure. The patient's currently on AIRVO at 60 L/m with an FiO2 of 90%, as well as a nonrebreather mass. The patient did not use of BiPAP device l ast night. He is not receiving any IV fluids. The patient feels like he is improved. No new labs today to report. No chest x-ray to report. All recent labs, x-rays, and medications are reviewed. Patient remains on Symbicort, DuoNeb and corticosteroids; antibiotics have been discontinued; plan is to continue to titrate O2 as able; patient will need to be discharged home on oxygen Prognosis remains guarded 05/04/2021 Patient is seen and evaluated resting in bed; denies any specific complaints; no arrhythmias overnight; remains on Airvo and nonrebreather mask Vital signs are reviewed and remained stable Laboratory review shows persistent elevated white blood count of 27.3 likely related to steroid use Patient had episode of nonsustained V. tach; cardiology has been on board; patient has been monitored closely and no further testing is recommended The patient remains on Symbicort, DuoNeb nebs, and corticosteroids. Objective - Vital Signs Vital signs: Vital Signs Temp 97.7 F 05/03/21 20:25 Pulse 76 05/04/21 07:58 Resp 19 05/04/21 03:05 BP 169/92 05/04/21 03:05 Pulse Ox 92 L 05/04/21 03:05 Intake & Output 05/03/21 05/04/21 05/04/21 18:59 06:59 18:59 Intake Total 720 Output Total 1575 900 Balance -855 -900 Intake: Oral 720 Output: Urine 1575 900 Stool 0 Urine/Stool Mix 0 Other: Voiding Method Bedside Commode Urinal # Voids 0 # Bowel Movements 0 - Exam GENERAL: Sitting up in bed, comfortable -wearing BiPAP,NAD HEENT: Conjunctivae normal. eyes normal. NECK: No JVD. No thyroid enlargement. No LNs CARDIOVASCULAR: S1, S2 regular.No murmur RESPIRATION: Better air entry.Scattered minimal crackles. ABDOMEN: Soft, nontender . No guarding. no masses palpable.positive bowel sounds. LEGS: No edema. no swelling PSYCHIATRY: Alert and oriented X3, mood and affect normal. NERVOUS SYSTEM: Cranial N 2-12 grossly normal. No focal deficits. Strength and sensation grossly intact. - Labs CBC & Chem 7: 05/04/21 06:04 05/04/21 06:04 Labs: Abnormal Lab Results - Last 24 Hours (Table) 05/03/21 05/03/21 05/03/21 Range/Units 11:36 16:34 19:26 WBC (3.8-10.6) k/uL RBC (4.30-5.90) m/uL Hgb (13.0-17.5) gm/dL Hct (39.0-53.0) % Neutrophils # (1.3-7.7) k/uL Lymphocytes # (1.0-4.8) k/uL Chloride (98-107) mmol/L Carbon Dioxide (22-30) mmol/L BUN (9-20) mg/dL Glucose (74-99) mg/dL POC Glucose (mg/dL) 390 H 217 H 241 H (75-99) mg/dL 05/04/21 05/04/21 05/04/21 Range/Units 05:56 06:04 06:04 WBC 27.3 H (3.8-10.6) k/uL RBC 4.17 L (4.30-5.90) m/uL Hgb 12.5 L (13.0-17.5) gm/dL Hct 38.8 L (39.0-53.0) % Neutrophils # 26.2 H (1.3-7.7) k/uL Lymphocytes # 0.2 L (1.0-4.8) k/uL Chloride 96 L (98-107) mmol/L Carbon Dioxide 36 H (22-30) mmol/L BUN 48 H (9-20) mg/dL Glucose 136 H (74-99) mg/dL POC Glucose (mg/dL) 134 H (75-99) mg/dL Assessment and Plan Assessment: Acute on chronic hypoxic respiratory failure secondary to acute exacerbation of underlying pulmonary fibrosis, possible bilateral community acquired pneumonia. Wears 2 L at home. Elevated troponins, NSTEMI, related to the above Lactic acidosis, resolved Elevated d-dimer,CTA reported negative for pulmonary embolism Acute renal failure, possibly related to IV contrast Chronic mild asthma Gastroesophageal reflux disease Hypertension Hyperlipidemia DJD Patient remains on IV Zosyn empirically; continues to be on breathing treatments and Solu-Medrol Patient was reported to have brief episode of V. tach; patient was asymptomatic; electrolytes are reviewed and are stable; we will consult cardiology for further recommendations
[2021-05-04 11:42] LABS: Glucose,Whole Blood 252 mg/dL (75-99)
--- NOTE | 2021-05-04 15:02 | P.PN ---
Subjective Progress Note Date: 05/04/21 Principal diagnosis: Respiratory failure. Acute hypoxic respiratory failure, multifactorial. This is a very pleasant 75-year-old male patient who follows with Dr. Taylor as his primary care provider. He has a history of hypertension, gastroesophageal reflux disease, hyperlipidemia and a right diaphragmatic paralysis. He also has a history of biopsy-proven idiopathic pulmonary fibrosis and is maintained on OFEV 150 mg twice a day. He follows with Dr. Schuster in our office. He is oxygen dependent on 2 L in the outpatient setting. FEV1 value 80% of predicted however there is noted restrictive lung disease consistent with his fibrosis. He is vaccinated 3 against the coronavirus. He presented to the emergency room earlier today with a three-day history of worsening shortness of breath and dyspnea on exertion. He has productive cough with yellow and blood-tinged spu jen. He was quite hypoxemic in the 60s on 2 L nasal cannula. White count 15.3. Hemoglobin 12.3. D-dimer 1.67. Sodium 143. Potassium 4.1. BUN 18. Creatinine 1.24. Bicarb 25. Lactic acid 5.8. Glucose 196. AST 53. ALT 33. Troponin 0.381. Coronavirus by PCR not detected. X-ray revealing evidence of multifocal airspace disease. Persistent elevated right diaphragm. He is seen today in consultation in the emergency department. He is currently sitting up on the stretcher. Awake and alert. In mild respiratory distress. Up to 4 L nasal cannula currently. Coarse crackles bilaterally. He's been initiated on DuoNeb inhalations and antibiotics in the form of Zosyn and azithromycin, IV Solu-Medrol. He is received 2 L of fluid resuscitation. 0.9 normal saline at 130 ML's per hour. Computed tomography scan of the chest is pending. Reevaluated today on 04/27/2021, patient is clinically feeling better today, chest x-ray is basically about the same, remains on bronchodilators, diuretics, steroids, and antibiotics. However I noted that the patient is receiving IV fluid at 1 50 mL per hour, and I cut it down to KVO, patient is also receiving Lasix. WBC count is 18.3 hemoglobin is 12.2. Left lites are normal. Renal profile showed a BUN of 25 creatinine 1.61, troponins remain high. PCR for COVID-19 is negative. BNP is elevated, pro-calcitonin level is negligible, 0.16 Progress note dated 04/28/2021. 75-year-old male who sees Dr. Wilson Taylor as a primary. He was seen by us in consultation 2 days ago. He has a history of hypertension, gastroesophageal reflux disease, hyperlipidemia, and diaphragmatic paralysis, status post plication. In addition, he has a diagnosis of biopsy-proven idiopathic pulmonary fibrosis. He is maintained on OFEV. He does have chronic hypoxemic respiratory failure and uses oxygen at 2 L/m, /. The patient is currently on AIRVO at 50 L/m, and 95%. He feels like he is improved. He still quite short of breath, some conversational dyspnea. There is no audible wheezing or use of accessory muscles. Laboratory data from today includes a sodium 144, potassium 3.2, chlorides 96, CO2 35, anion gap 13, BUN 46, creatinine 1.62. Blood cultures are thus far negative. Chest x-ray shows diffuse bilateral interstitial infiltrates consistent with the patient's diagnosis of interstitial lung disease/pulmonary fibrosis. CT angiogram was negative for pulmonary embolism. Progress note dated 04/29/2021. 75-year-old white male, well-known to me. He has a history of biopsy-proven idiopathic pulmonary fibrosis, diaphragmatic weakness, and mild asthma. The patient is again seen in room 354. Today, he is on BiPAP at 10 and 5 and 85%. I was called about him last night. He feels better today, and feels like the BiPAP has helped him. Yesterday, he was on AIRVO. Today's laboratory data includes a white count of 14.6, hemoglobin 12.2, hematocrit 36.3, and a normal platelet count. Yesterday, he had a blood gas showing a pO2 of 76, pCO2 42, and a pH is 7.52. This was on 100%. Sodium 144, potassium 3.9, chlorides 104, CO2 32, anion gap 8, BUN 48, creatinine 1.38. AST 98, and ALT 129. On 04/30/2021 patient seen in follow-up on selective care unit. He is awake and alert, in no acute distress, remains on BiPAP at 10/5 and FiO2 75%, he sat 95% and subsequently affected has been decreased down to 65%. He has been able to tolerate high flow nasal cannula trials at mealtimes. Overall breathing is improving, occasional cough with production of small amount of yellow sputum. Vital signs have been stable overnight. Altered mentation, lung sounds are positive for bibasilar crackles, he remains on Lasix 20 mg by mouth twice daily, he is on inhaled and nebulized bronchodilators, he is on Zosyn. His blood and sputum cultures have shown no growth thus far. Progress note dated 05/01/2021. The patient is again seen in room 354. Currently, he is on AIRVO at 60 L/m with an FiO2 of 90%. He also has a partial rebreather and place. At nighttime, he is on BiPAP. He getting saline at 20 mL an hour. Despite his large oxygen requirements, the patient states that he feels like he is improving. He denies any significant phlegm production. There is no fever or chills. He denies any chest pain or chest discomfort. White count 15.1, hemoglobin 12.5, hematocrit 37.5, and platelet count 192,000. Sodium 143, potassium 4.2, chlorides 98, CO2 40, anion gap 5, E1 45, and creatinine 1.18. Albumin is 3.1. Diffuse bilateral infiltrates, maybe slightly improved. Progress note dated 05/02/2021. The patient is again seen in room 354. Currently, the patient's on a partial rebreather along with AIRVO, at 60 L/m with an FiO2 of 90%. At nighttime, the patient uses BiPAP. BiPAP settings are 10/5 at 65%. Currently, the patient's doing about the same. The patient feels like his breathing is stable, or sli ghtly improved. He still requiring significant amounts of oxygen. He has a diagnosis of biopsy-proven pulmonary fibrosis. He also has a history of mild asthma, and diaphragmatic weakness. No new labs today. Laboratory data from yesterday, are reviewed. Chest x-ray from yesterday is also reviewed. Medications are reviewed as well. Progress note dated 05/03/2021. The patient is again seen in room 354. The patient has history of biopsy-proven idiopathic pulmonary fibrosis. The patient presented with acute on chronic hypoxemic respiratory failure. The patient's currently on AIRVO at 60 L/m with an FiO2 of 90%, as well as a nonrebreather mass. The patient did not use of BiPAP device last night. He is not receiving any IV fluids. The patient feels like he is improved. No new labs today to report. No chest x-ray to report. All recent labs, x-rays, and medications are reviewed. Progress note dated 05/04/2021. 75-year-old male again seen in room 354. The patient has a history of acute hypoxemic respiratory failure secondary to biopsy-proven idiopathic pulmonary fibrosis. The patient has now been in the hospital for 8 days. He's only marginally better. The patient remains on AIRVO at 60 L/m with an FiO2 of 90%. In addition, he is using a partial rebreather mask. The patient's getting saline at 20 mL an hour. The patient states that he slept well last night. La boratory data includes a white count of 27.3, hemoglobin 12.5, hematocrit 38.8, and platelet count of 208,000. Sodium 138, potassium 4.1, chlorides 96, CO2 36, anion gap 6, BUN 48, and creatinine 0.92. Calcium is 8.5. Microbiologic studies are negative. No recent chest x-rays of note. Objective - Vital Signs Vital signs: Vital Signs Temp 97.9 F 05/04/21 08:00 Pulse 79 05/04/21 12:00 Resp 22 05/04/21 12:00 BP 136/78 05/04/21 12:00 Pulse Ox 95 05/04/21 12:00 Intake & Output 05/03/21 05/04/21 05/04/21 18:59 06:59 18:59 Intake Total 720 Output Total 1575 900 600 Balance -855 -900 -600 Intake: Oral 720 Output: Urine 1575 900 600 Stool 0 Urine/Stool Mix 0 Other: Voiding Method Bedside Commode Urinal # Voids 0 # Bowel Movements 0 - Exam Mild respiratory distress. Oriented 3. Currently on AIRVO, and a partial rebreather mask. Mild conversational dyspnea. No use of accessory muscles. Saturations are 95%. HEENT examination is grossly unremarkable. Neck supple. Full range of motion. No adenopathy thyromegaly or neck vein distention. Cardiovascular examination reveals regular rhythm rate. S1-S2 normal. No S3 or S4. No discernible murmur noted. Heart sounds are distant. Heart rate 79 bpm. Lungs reveal diffuse bilateral rhonchi and bibasilar crackles. Breath sounds are equal bilaterally. He is restricted in his breathing. There are no wheezes. Saturations are 95% on AIRVO and partial rebreather mask. Abdomen soft bowel sounds are heard. No masses or tenderness. Extremities are intact. No cyanosis clubbing or edema. Skin is without rash or lesion. Neurologic examination is brief but nonfocal. - Labs CBC & Chem 7: 05/04/21 06:04 05/04/21 06:04 Labs: Abnormal Lab Results - Last 24 Hours (Table) 05/03/21 05/03/21 05/04/21 Range/Units 16:34 19:26 05:56 WBC (3.8-10.6) k/uL RBC (4.30-5.90) m/uL Hgb (13.0-17.5) gm/dL Hct (39.0-53.0) % Neutrophils # (1.3-7.7) k/uL Lymphocytes # (1.0-4.8) k/uL Chloride (98-107) mmol/L Carbon Dioxide (22-30) mmol/L BUN (9-20) mg/dL Glucose (74-99) mg/dL POC Glucose (mg/dL) 217 H 241 H 134 H (75-99) mg/dL 05/04/21 05/04/21 05/04/21 Range/Units 06:04 06:04 11:39 WBC 27.3 H (3.8-10.6) k/uL RBC 4.17 L (4.30-5.90) m/uL Hgb 12.5 L (13.0-17.5) gm/dL Hct 38.8 L (39.0-53.0) % Neutrophils # 26.2 H (1.3-7.7) k/uL Lymphocytes # 0.2 L (1.0-4.8) k/uL Chloride 96 L (98-107) mmol/L Carbon Dioxide 36 H (22-30) mmol/L BUN 48 H (9-20) mg/dL Glucose 136 H (74-99) mg/dL POC Glucose (mg/dL) 252 H (75-99) mg/dL Assessment and Plan Assessment: Acute on chronic hypoxemic respiratory failure, secondary to acute exacerbation of the patient's underlying idiopathic pulmonary fibrosis, and possible community-acquired pneumonia. Elevated troponin, likely related to supply/demand mismatch. CT angiogram negative for pulmonary embolism. Lactic acidosis. Biopsy-proven usual interstitial pneumonia, maintained on OFEV. History of right-sided hemidiaphragm paralysis. History of mild asthma. History of hypertension. History of hyperlipidemia. DJD. Gastroesophageal reflux disease. Vitamin D deficiency. Plan: Plan dated 04/28/2021. The patient remains on AIRVO. The patient also remains on Zosyn and Levaquin, empirically. The patient is currently on bronchodilators, and Solu-Medrol. The patient states that he feels like he is doing better. He still very short of breath with some conversational dyspnea. His AIRVO settings included 50 L/m with an FiO2 of 95%. The patient remains also on Symbicort, Levaquin, and Zosyn. Additional recommendations and suggestions are forthcoming. We will continue corticosteroids. Prognosis is guarded. Plan dated 04/29/2021. Yesterday, the patient was on AIRVO. Last night, he is some increasing respiratory difficulty, we placed him on BiPAP. He seems to be doing much better. He feels like the BiPAP is really helping him. His labs, x-rays, and medications are reviewed. Arterial blood gases from yesterday are also reviewed. The patient remains on Zosyn and corticosteroids. Overall prognosis remains very guarded. We will continue to follow and make recommendations where appropriate. Plan dated 05/01/2021. The patient is doing better according to him. This is despite the fact that he is both on AIRVO and partial rebreather. We will continue to follow. Prognosis is guarded. The patient remains on Zosyn empirically. He also gets breathing treatments, and Solu-Medrol. I'm hoping the patient turns around. Prognosis is guarded. Additional recommendations and suggestions are forthcoming we will continue to follow make recommendations where appropriate. Plan dated 05/02/2021. Currently, the patient remains on Symbicort, DuoNebs, Singulair, Zosyn, and Levaquin. The antibiotics can probably be de-escalated at this time. I'll stop the Levaquin. We'll continue with Zosyn. The patient remains on Solu-Medrol. Additional recommendations and suggestions are forthcoming. Prognosis is guarded. The patient has maintained a good attitude despite the fact that he is quite short of breath, and requiring a lot of oxygen. We will continue to follow make recommendations were appropriate. Prognosis is guarded. Plan dated 05/03/2021. The patient's antibiotics were discontinued. The patient remains on Symbicort, DuoNeb nebs, and corticosteroids. Additional recommendations and suggestions are forthcoming. Prognosis is guarded. The patient's pro-calcitonin level was quite low. The patient feels like he is improved. He did not have to use BiPAP last night. He remains on AIRVO and a nonrebreather mask. Prognosis is guarded. We will continue to follow make recommendations where appropriate. Plan dated 05/04/2021. The patient remains on breathing treatments, as well as corticosteroids. Anti biotics have been discontinued. The patient's prognosis is guarded. I'm hoping that he turns around. He clinically feels a bit better. He states he said well last night. He remains on AIRVO, at 60 L/m with an FiO2 of 90%. He is also getting saline at 20 mL an hour. We will continue to follow and make recommendations where appropriate. Prognosis is certainly guarded. Time with Patient: Less than 30
[2021-05-04 16:46] LABS: Glucose,Whole Blood 158 mg/dL (75-99)
[2021-05-04 19:46] LABS: Glucose,Whole Blood 228 mg/dL (75-99)
[2021-05-04] MEDS: MELATONIN 5 MG TABLET PO SCH (20:39)
[2021-05-04] MEDS: INSULIN DETEMIR (LEVEMIR) 100 UNIT/ML SYR SQ SCH (20:39)
[2021-05-04] MEDS: MONTELUKAST 10 MG TAB PO SCH (20:39)
[2021-05-04] MEDS: ATORVASTATIN 20 MG TAB PO SCH (20:39)
[2021-05-04] MEDS: ESCITALOPRAM 10 MG TAB PO SCH (20:39)
[2021-05-04] MEDS ORDERED: diphenhydrAMINE 25 MG CAP PO PRN (21:20)
[2021-05-05 06:13] LABS: Glucose,Whole Blood 140 mg/dL (75-99)
[2021-05-05] MEDS: PANTOPRAZOLE 40 MG TABLET PO SCH (06:29)
[2021-05-05] MEDS: methylPREDNISolone SOD SUCCI 125 MG/2 ML VIAL IV SCH ×4 (06:29→23:27)
[2021-05-05] MEDS: INSULIN ASPART (NovoLOG) 100 UNIT/ML VIAL SQ SCH ×4 (06:29→20:18)
[2021-05-05] MEDS: IPRATROPIUM-ALBUTEROL 3 ML NEB INHALATION SCH ×4 (08:11→20:33)
[2021-05-05] MEDS: SYMBICORT 160-4.5 MCG INHALER INHALATION SCH ×2 (08:11→20:33)
--- NOTE | 2021-05-05 08:36 | CDI ---
Please refer to Dr. Roth, the regional of progress note is by him on Documentation Clarification Form Date: 05/05/2021 08:25:00 AM From: Yudelka WoodRamirezJACOB [email or web address], CCDS Admit Date: 04/26/2021 11:41:00 AM Patient Name: Pravin Simmons Visit Number: [id number] Discharge Date: ATTENTION: The Clinical Documentation Specialists (CDI) and [facility] Coding Staff appreciate your assistance in clarifying documentation. Please respond to the clarification below the line at the bottom and electronically sign. The CDI & [facility] Coding staff will review the response and follow-up if needed. Please note: Queries are made part of the Legal Health Record. If you have any questions, please contact the author of this message via ITS. Dr. Thanh Hernandez: Suspect non-STEMI related to Type II mechanism from hypoxia is documented in the 04/27 Cardiology Consult and in the 04/28 & 04/29 Cardiology Progress Notes but not further documented in subsequent notes. Clarification of the documented non-STEMI Type II is requested. History/Risk Factors per the 04/26 H/P: Pulmonary Fibrosis, Asthma, DM, GERD, Hyperlipidemia, Hypertension, Former smoker. Clinical Indicators: Presented to the ED on 04/26 with SOB & Low O2. History of pulmonary fibrosis & paralyzed diaphragm. Pulse Ox in the low 70s, 60s in triage at one point. Admit with Pneumonia and Sepsis 04/26 VS: T 97.8, P 109, R 32 (SOB), BP 165/93, PO 62 2Lnc - 96 15% nrb. 04/26 LAB: C 15.3, RBC 4.04, Hgb 12.3, Hct 36.5, Neut 13.7, Lymph 0.7; D Dimer 1.67; Glucose 196, Lactic Acid 5.8^^, 2.1^^, 1.9; Mag 1.3, Total Bili 2.0, Troponin 0.381, 0.539, 0.566; Procalcitonin 0.16 04/26 COVID Negative 04/26 CXR: Multifocal pneumonia. 04/26 CT Chest: No PE, Atypical pulmonary infection such as COVID-19, Emphysema, Cholelithiasis. Treatment 2/12: Blood cultures, O2 2Lnc - 15L nrb, IV Solumedrol 125 mg x1, IV Zosyn 200 mls/hr x1, IV Na Cl 999 mls/hr q2H, IV MagSulf 100 mls/hr q1H, po Aspirin 324 mg x1, IV Na Cl 20 mls/hr q24H, INH Duoneb QID, IV Lasix 40 mg x2, IV Levaquin 100 mls/hr q24H, INH Ventolin Q6H/prn, IV Solumedrol 60 mg q6H. Please clarify the following: : [ ] Non-STEMI Type II Present on Admission, remains under treatment [ ] Non-STEMI Type II Present on Admission, confirmed, resolved [ ] Non-STEMI Type II ruled out [ ] Other condition, please specify [ ] Unable to determine (Template Last Revised: May 2020) MTDD
[2021-05-05] MEDS: NON FORMULARY DRUG (Nintedanib Esylate [Ofev] 150 MG Capsule) PO SCH ×2 (08:40→20:19)
[2021-05-05] MEDS: guaiFENesin 600 MG TABLET.ER PO SCH ×2 (08:41→20:18)
[2021-05-05] MEDS: ASPIRIN 81 MG PO SCH (08:41)
[2021-05-05] MEDS: MULTIVITAMINS, THERA 1 EACH TAB PO SCH (08:41)
[2021-05-05] MEDS: FUROSEMIDE 20 MG TAB PO SCH ×2 (08:41→17:56)
[2021-05-05] MEDS: LOSARTAN 50 MG TAB PO SCH (08:41)
[2021-05-05] MEDS: buPROPion 75 MG TAB PO SCH ×2 (08:41→20:18)
[2021-05-05 11:35] LABS: Glucose,Whole Blood 328 mg/dL (75-99)
[2021-05-05] MEDS ORDERED: INSULIN ASPART (NovoLOG) 100 UNIT/ML VIAL SQ ONE (12:15)
--- NOTE | 2021-05-05 13:27 | P.PN ---
Subjective Progress Note Date: 05/05/21 CHIEF COMPLAINT: Cholelithiasis HISTORY OF PRESENT ILLNESS: Patient is on BIPAP for his respiratory failure with underlying idiopathic pulmonary fibrosis and community-acquired pneumonia. He is still reporting no abdominal pain. He is tolerating diet. Denies any nausea or vomiting. Patient seen and examined with Dr. spencer PHYSICAL EXAM: VITAL SIGNS: Reviewed. GENERAL: Well-developed in no acute distress. HEENT: No sclera icterus. Extraocular movements grossly intact. Moist buccal mucosa. Head is atraumatic, normocephalic. ABDOMEN: Soft. Nondistended. Nontender. NEUROLOGIC: Alert and oriented. Cranial nerves II through XII grossly intact. ASSESSMENT: 1. Cholelithiasis with probable chronic cholecystitis. Patient asymptomatic PLAN: -No surgical intervention planned during this admission -Continue to observe -Once patient has recovered from his pneumonia and respiratory status improves we can revisit his cholelithiasis in the outpatient setting [facility] note has been reviewed by physician. Signing provider agrees with the documented findings, assessment, and plan of care. Objective - Vital Signs Vital signs: Vital Signs Temp 97.7 F 05/05/21 08:00 Pulse 91 05/05/21 12:05 Resp 19 05/05/21 08:00 BP 133/67 05/05/21 08:00 Pulse Ox 95 05/05/21 11:53 Intake & Output 05/04/21 05/05/21 05/05/21 18:59 06:59 18:59 Intake Total 420 Output Total 925 750 Balance -505 -750 Intake: Oral 420 Output: Urine 925 750 Other: Voiding Method Bedside Commode Bedside Commode Urinal Urinal - Labs CBC & Chem 7: 05/04/21 06:04 05/04/21 06:04 Labs: Abnormal Lab Results - Last 24 Hours (Table) 05/04/21 05/04/21 05/05/21 Range/Units 16:44 19:43 06:12 POC Glucose (mg/dL) 158 H 228 H 140 H (75-99) mg/dL 05/05/21 Range/Units 11:33 POC Glucose (mg/dL) 328 H (75-99) mg/dL
--- NOTE | 2021-05-05 14:46 | PN ---
PROGRESS NOTE DATE OF SERVICE: 05/05/2021 This 75-year-old gentleman, admitted with acute bilateral pneumonia, also had pulmonary fibrosis. The patient also had elevated troponin. The patient is extremely short of breath, on high-flow oxygen. Patient used a BiPAP before. Past medical history reviewed. REVIEW OF SYSTEMS: CARDIOVASCULAR SYSTEM: No angina. RESPIRATION: As mentioned earlier. GI: As mentioned earlier. : No dysuria. NERVOUS SYSTEM: No numbness, weakness. CURRENT MEDICATIONS: Reviewed. They include DuoNeb, aspirin, Lipitor. Doses and other medications are reviewed. PHYSICAL EXAM: Extremely short of breath. Pulse is 92, blood pressure 133/67, pulse ox 91% on 15 L. HEENT: Conjunctivae normal. NECK: No jugular venous distention. CARDIOVASCULAR: S1, S2 muffled. RESPIRATION: Breath sounds diminished at the bases. Scattered rhonchi and crackles. ABDOMEN: Soft, nontender. LEGS: No edema. No swelling. NERVOUS SYSTEM: No focal deficit. LABS: WBC ntd ASSESSMENT: 1. Acute bilateral interstitial pneumonia, possibly community-acquired. 2. COVID-19 negative. 3. Pulmonary fibrosis. 4. Acute hypoxic respiratory failure. 5. Diabetes mellitus, type 2. RECOMMENDATIONS AND DISCUSSION: In this 75-year-old gentleman who presented with multiple complex medical issues, we will continue current medications, continue with empiric antibiotics, continue the bronchodilators. Continue with BiPAP and high-flow oxygen. The prognosis is extremely guarded. Further recommendations to follow. As mentioned earlier, COVID-19 is negative. MMODL / IJN: [id number] / MTDD
--- NOTE | 2021-05-05 16:43 | P.PN ---
Subjective Progress Note Date: 05/05/21 Principal diagnosis: Shortness of breath On 04/30/2021 patient seen in follow-up on selective care unit. He is awake and alert, in no acute distress, remains on BiPAP at 10/5 and FiO2 75%, he sat 95% and subsequently affected has been decreased down to 65%. He has been able to tolerate high flow nasal cannula trials at mealtimes. Overall breathing is improving, occasional cough with production of small amount of yellow sputum. Vital signs have been stable overnight. Altered mentation, lung sounds are positive for bibasilar crackles, he remains on Lasix 20 mg by mouth twice daily, he is on inhaled and nebulized bronchodilators, he is on Zosyn. His blood and sputum cultures have shown no growth thus far. On 05/05/2021 patient seen in follow-up on selective care unit, patient is poorly short of breath, he continues to require high flow oxygen with airflow at 60 L and FiO2 of 93% in the 100% nonrebreathing mask and his pulse ox is marginal. Patient is very short of breath with any exertion, he remains on Zosyn and Levaquin for empiric antibiotic coverage, his cultures have shown no growth. Continues on IV Solu-Medrol, breathing treatments. No new labs today, his labs from yesterday showed increasing leukocytosis and white count of 27.3, his had no fevers overnight. He continues on oral Lasix. His chest x-ray from 05/01/2021 showed persistent scattered pulmonary opacities and infiltrates in both lung bonilla that were felt to be slightly improved in the right upper lung zone. Patient is maximized on medical treatment however clinically he has made little improvement. His had no nausea or vomiting, no abdominal pain. Patient has history of UIP, and he takes Ofev on an outpatient basis. In view of his worsening clinical status we discussed his clinical condition with him, his prognosis, and high likelihood that he may end up on life-support and possibly need a tracheostomy and PEG tube placement. Patient is unsure about going on life-support at this time but he feels overwhelmed with such a decision. He states he wants to think about it. Objective - Vital Signs Vital signs: Vital Signs Temp 97.7 F 05/05/21 08:00 Pulse 103 H 05/05/21 16:06 Resp 19 05/05/21 08:00 BP 133/67 05/05/21 08:00 Pulse Ox 94 L 05/05/21 15:55 Intake & Output 05/04/21 05/05/21 05/05/21 18:59 06:59 18:59 Intake Total 420 660 Output Total 925 750 Balance -505 -750 660 Intake: Oral 420 660 Output: Urine 925 750 Other: Voiding Method Bedside Commode Bedside Commode Urinal Urinal - Exam GENERAL EXAM: Alert, very pleasant 75-year-old white male, on Airvo at 60 L and FiO2 of 93% satting 94% and 100% nonrebreather mask dyspneic with conversation and any exertion HEAD: Normocephalic/atraumatic. EYES: Normal reaction of pupils, equal size. Conjunctiva pink, sclera white. NOSE: Clear with pink turbinates. THROAT: No erythema or exudates. NECK: No masses, no JVD, no thyroid enlargement, no adenopathy. CHEST: No chest wall deformity. Symmetrical expansion. LUNGS: Equal air entry with basilar crackles CVS: Regular rate and rhythm, normal S1 and S2, no gallops, no murmurs, no rubs ABDOMEN: Soft, nontender. No hepatosplenomegaly, normal bowel sounds, no guarding or rigidity. EXTREMITIES: No clubbing, no edema, no cyanosis, 2+ pulses and upper and lower extremities. MUSCULOSKELETAL: Muscle strength and tone normal. SPINE: No scoliosis or deformity SKIN: No rashes CENTRAL NERVOUS SYSTEM: Alert and oriented -3. No focal deficits, tone is normal in all 4 extremities. PSYCHIATRIC: Alert and oriented -3. Appropriate affect. Intact judgment and insight. - Labs CBC & Chem 7: 05/04/21 06:04 05/04/21 06:04 Labs: Abnormal Lab Results - Last 24 Hours (Table) 05/04/21 05/04/21 05/05/21 Range/Units 16:44 19:43 06:12 POC Glucose (mg/dL) 158 H 228 H 140 H (75-99) mg/dL 05/05/21 Range/Units 11:33 POC Glucose (mg/dL) 328 H (75-99) mg/dL Assessment and Plan Plan: Assessment: #1. Acute on chronic hypoxic respiratory failure, worsening, the patient is currently requiring Airvo at 60 L and FiO2 of 93% in addition to 100% nonreb reather mask likely related to acute exacerbation of IPF with the possibility of community-acquired pneumonia, patient is covered with Zosyn and Levaquin, cultures are negative thus far #2. Elevated troponin possibly related to supply demand mismatch #3. Biopsy-proven UIP, maintained on OFEV on an outpatient basis #4. History of right-sided hemidiaphragm pulses #5. History of mild intermittent bronchial asthma #6. Hypertension #7. Hyperlipidemia #8. DJD Plan: Continue with current antibiotics Continue with IV steroids Patient is maximized on the high flow oxygen If his hypoxia and dyspnea worsen, may placed on BiPAP support We discussed possibility of intubation with the patient in case his condition continues to deteriorate He wants to think about it he is not ready to make a decision We discussed with the patient that if he requires life-support he'll also need a tracheostomy and PEG tube placement and likely LTAC facility placement In view of his severe hypoxia, and likely acute exacerbation of IPF, his prognosis is extremely poor and guarded We'll continue supportive treatment Follow-up chest x-ray, follow-up labs CBC and CMP in the morning I performed a history & physical examination of the patient and discussed their management with my nurse practitioner, Aniya Clark. I reviewed the nurse practitioner's note and agree with the documented findings and plan of care. Lung sounds are positive for bibasilar rales throughout the lung bonilla. The findings and the impression was discussed with the patient. I attest to the documentation by the nurse practitioner. Time with Patient: Less than 30
[2021-05-05 16:51] LABS: Glucose,Whole Blood 184 mg/dL (75-99)
[2021-05-05] MEDS: MELATONIN 5 MG TABLET PO SCH (20:18)
[2021-05-05] MEDS: ATORVASTATIN 20 MG TAB PO SCH (20:18)
[2021-05-05] MEDS: MONTELUKAST 10 MG TAB PO SCH (20:18)
[2021-05-05] MEDS: ESCITALOPRAM 10 MG TAB PO SCH (20:18)
[2021-05-05 20:32] LABS: Glucose,Whole Blood 135 mg/dL (75-99)
[2021-05-05] MEDS: SODIUM CHLORIDE 0.9% 1,000 ML IV SCH (21:00)
[2021-05-05] MEDS: INSULIN DETEMIR (LEVEMIR) 100 UNIT/ML SYR SQ SCH (21:00)
[2021-05-06 06:20] LABS: Glucose,Whole Blood 155 mg/dL (75-99)
[2021-05-06] MEDS: INSULIN ASPART (NovoLOG) 100 UNIT/ML VIAL SQ SCH ×4 (06:37→20:43)
[2021-05-06] MEDS: methylPREDNISolone SOD SUCCI 125 MG/2 ML VIAL IV SCH ×4 (06:38→23:22)
[2021-05-06] MEDS: PANTOPRAZOLE 40 MG TABLET PO SCH (06:38)
[2021-05-06 07:24] LABS: Basophils % (A) 0 %; Eosinophils % (A) 0 %; HCT 36.4 % (39.0-53.0); HGB 11.9 gm/dL (13.0-17.5); Lymphocytes # (A) 0.2 k/uL (1.0-4.8); Lymphocytes % (A) 1 %; MCH 30.3 pg (25.0-35.0); MCHC 32.7 g/dL (31.0-37.0); MCV 92.5 fL (80.0-100.0); Mean Platelet Volume 10.7; Monocytes # (A) 0.7 k/uL (0-1.0); Monocytes % (A) 2 %; Neutrophils # (A) 28.7 k/uL (1.3-7.7); Neutrophils % (A) 97 %; Platelet Count 234 k/uL (150-450); RBC 3.93 m/uL (4.30-5.90); RDW 14.4 % (11.5-15.5); WBC 29.7 k/uL (3.8-10.6)
[2021-05-06 07:35] LABS: Calcium 8.7 mg/dL (8.4-10.2); Potassium 4.2 mmol/L (3.5-5.1)
[2021-05-06] MEDS: SYMBICORT 160-4.5 MCG INHALER INHALATION SCH ×2 (07:57→19:22)
[2021-05-06] MEDS: IPRATROPIUM-ALBUTEROL 3 ML NEB INHALATION SCH ×4 (07:57→19:22)
--- NOTE | 2021-05-06 08:30 | XR ---
EXAMINATION TYPE: XR chest 1V portable DATE OF EXAM: 05/06/2021 COMPARISON: X-ray dated 05/01/2021 HISTORY: Shortness of breath TECHNIQUE: Single frontal view of the chest is obtained. FINDINGS: Grossly stable bilateral pulmonary infiltrations/early fibrotic changes without obvious interval prog ression. Blunting of the left CP recess, stable. Unchanged cardiomediastinal silhouette and aortic at herosclerotic calcifications. IMPRESSION: No significant interval change as described above.
--- NOTE | 2021-05-06 08:53 | P.PN ---
Subjective Progress Note Date: 05/06/21 Principal diagnosis: Shortness of breath On 04/30/2021 patient seen in follow-up on selective care unit. He is awake and alert, in no acute distress, remains on BiPAP at 10/5 and FiO2 75%, he sat 95% and subsequently affected has been decreased down to 65%. He has been able to tolerate high flow nasal cannula trials at mealtimes. Overall breathing is improving, occasional cough with production of small amount of yellow sputum. Vital signs have been stable overnight. Altered mentation, lung sounds are positive for bibasilar crackles, he remains on Lasix 20 mg by mouth twice daily, he is on inhaled and nebulized bronchodilators, he is on Zosyn. His blood and sputum cultures have shown no growth thus far. On 05/05/2021 patient seen in follow-up on selective care unit, patient is short of breath, he continues to require high flow oxygen with airflow at 60 L and F iO2 of 93% in the 100% nonrebreathing mask and his pulse ox is marginal. Patient is very short of breath with any exertion, he remains on Zosyn and Levaquin for empiric antibiotic coverage, his cultures have shown no growth. Continues on IV Solu-Medrol, breathing treatments. No new labs today, his labs from yesterday showed increasing leukocytosis and white count of 27.3, his had no fevers overn ight. He continues on oral Lasix. His chest x-ray from 05/01/2021 showed persistent scattered pulmonary opacities and infiltrates in both lung bonilla that were felt to be slightly improved in the right upper lung zone. Patient is maximized on medical treatment however clinically he has made little improvement. His had no nausea or vomiting, no abdominal pain. Patient has history of UIP, and he takes Ofev on an outpatient basis. In view of his worsening clinical status we discussed his clinical condition with him, his prognosis, and high likelihood that he may end up on life-support and possibly need a tracheostomy and PEG tube placement. Patient is unsure about going on life-support at this time but he feels overwhelmed with such a decision. He states he wants to think about it. On 05/06/2021 patient seen in follow-up on selective care unit. He remains on high flow oxygen on Airvo at 60 L and FiO2 of 92% in addition to 100% nonrebreather mask and his pulse ox is 89-94%. Patient is dyspneic with conversation, and any exertion, he has been mostly bedbound related to his shor tness of breath. However she seems to be breathing a bit easier today, follow- up chest x-ray has been reviewed showing grossly stable bilateral pulmonary infiltrates and without significant interval change. Patient has been afebrile overnight, blood pressure has been stable however on today's labs his white count continues to trend up and is up to 29.7, hemoglobin is 11.9, sodium is 139, potassium is 4.2, chloride is 99, CO2 is 35, BUN is 66 and creatinine is 1. patient has previously been on antibiotics in the form of Levaquin that were discontinued on 05/02/2021. His blood and sputum cultures have been negative. Patient also continues on IV Solu-Medrol 60 mg every 6 hours, he is on breathing treatments he is on oral Lasix. Yesterday we discussed CODE STATUS with him, at the time patient wanted more time to think, today he states that he has given it of thought, and she does not want any heroic measures, she does want to continue with supportive care at this time everything including antibiotics, steroids bring treatments BiPAP support, he does not want CPR, defibrillation, and normal intubation and placement on mechanical ventilator. Objective - Vital Signs Vital signs: Vital Signs Temp 97.6 F 05/06/21 08:26 Pulse 99 05/06/21 08:26 Resp 22 05/06/21 08:26 BP 134/68 05/06/21 08:26 Pulse Ox 91 L 05/06/21 08:26 Intake & Output 05/05/21 05/06/21 05/06/21 18:59 06:59 18:59 Intake Total 660 Output Total 1500 Balance 660 -1500 Intake: Oral 660 Output: Urine 1500 Other: Voiding Method Bedside Commode Bedside Commode Urinal Urinal # Bowel Movements 1 1 - Exam GENERAL EXAM: Alert, very pleasant 75-year-old white male, on Airvo at 60 L and FiO2 of 93% satting 94% and 100% nonrebreather mask dyspneic with conversation and any exertion HEAD: Normocephalic/atraumatic. EYES: Normal reaction of pupils, equal size. Conjunctiva pink, sclera white. NOSE: Clear with pink turbinates. THROAT: No erythema or exudates. NECK: No masses, no JVD, no thyroid enlargement, no adenopathy. CHEST: No chest wall deformity. Symmetrical expansion. LUNGS: Equal air entry with basilar crackles CVS: Regular rate and rhythm, normal S1 and S2, no gallops, no murmurs, no rubs ABDOMEN: Soft, nontender. No hepatosplenomegaly, normal bowel sounds, no guarding or rigidity. EXTREMITIES: No clubbing, no edema, no cyanosis, 2+ pulses and upper and lower extremities. MUSCULOSKELETAL: Muscle strength and tone normal. SPINE: No scoliosis or deformity SKIN: No rashes CENTRAL NERVOUS SYSTEM: Alert and oriented -3. No focal deficits, tone is normal in all 4 extremities. PSYCHIATRIC: Alert and oriented -3. Appropriate affect. Intact judgment and insight. - Labs CBC & Chem 7: 05/06/21 06:31 05/06/21 06:31 Labs: Abnormal Lab Results - Last 24 Hours (Table) 05/05/21 05/05/21 05/05/21 Range/Units 11:33 16:49 20:10 WBC (3.8-10.6) k/uL RBC (4.30-5.90) m/uL Hgb (13.0-17.5) gm/dL Hct (39.0-53.0) % Carbon Dioxide (22-30) mmol/L BUN (9-20) mg/dL Creatinine (0.66-1.25) mg/dL Glucose (74-99) mg/dL POC Glucose (mg/dL) 328 H 184 H 135 H (75-99) mg/dL 05/06/21 05/06/21 05/06/21 Range/Units 06:16 06:31 06:31 WBC 29.7 H (3.8-10.6) k/uL RBC 3.93 L (4.30-5.90) m/uL Hgb 11.9 L (13.0-17.5) gm/dL Hct 36.4 L (39.0-53.0) % Carbon Dioxide 35 H (22-30) mmol/L BUN 66 H (9-20) mg/dL Creatinine 1.28 H (0.66-1.25) mg/dL Glucose 155 H (74-99) mg/dL POC Glucose (mg/dL) 155 H (75-99) mg/dL Assessment and Plan Plan: Assessment: #1. Acute on chronic hypoxic respiratory failure, worsening, the patient is currently requiring Airvo at 60 L and FiO2 of 93% in addition to 100% nonrebreather mask likely related to acute exacerbation of IPF with the possibility of community-acquired pneumonia, patient was on Zosyn and Levaquin, cultures are negative thus far #2. Elevated troponin possibly related to supply demand mismatch #3. Biopsy-proven UIP, maintained on OFEV on an outpatient basis #4. History of right-sided hemidiaphragm pulses #5. History of mild intermittent bronchial asthma #6. Hypertension #7. Hyperlipidemia #8. DJD #9. Leukocytosis, rule out possibility of infection Plan: Continues on on high flow oxygen May use Bipap support if becomes fatigued Continue with IV steroids Will restart Levaquin in view of worsening leucocytosis Will send cultures, and procalcitonin level We discussed possibility of intubation with the patient in case his condition continues to deteriorate The patient has made a decision to continue with supportive treatment only, Does not want intubation or mech vent support, no CPR, no defibrillation We'll continue supportive treatment Prognosis is extremely guarded Patient's sister will be notified about his decision about the DNR today She is coming into town tomorrow Follow-up chest x-ray, follow-up labs CBC and CMP in the morning I performed a history & physical examination of the patient and discussed their management with my nurse practitioner, Aniya Clark. I reviewed the nurse practitioner's note and agree with the documented findings and plan of care. Lung sounds are positive for bibasilar rales throughout the lung bonilla. The findings and the impression was discussed with the patient. I attest to the documentation by the nurse practitioner. Time with Patient: Less than 30
[2021-05-06 09:16] LABS: RBC Morphology Normal
[2021-05-06] MEDS: LEVOFLOXACIN 500MG-D5W PMX 500 MG in DEXTROSE/WATER 1 100ML.BAG IVPB SCH (09:55)
[2021-05-06] MEDS: MULTIVITAMINS, THERA 1 EACH TAB PO SCH (09:56)
[2021-05-06] MEDS: LOSARTAN 50 MG TAB PO SCH (09:56)
[2021-05-06] MEDS: ASPIRIN 81 MG PO SCH (09:56)
[2021-05-06] MEDS: guaiFENesin 600 MG TABLET.ER PO SCH ×2 (09:56→20:43)
[2021-05-06] MEDS: buPROPion 75 MG TAB PO SCH ×2 (09:56→20:42)
[2021-05-06] MEDS: FUROSEMIDE 20 MG TAB PO SCH ×2 (09:57→15:52)
[2021-05-06] MEDS: NON FORMULARY DRUG (Nintedanib Esylate [Ofev] 150 MG Capsule) PO SCH ×2 (09:58→20:44)
[2021-05-06 11:39] LABS: Glucose,Whole Blood 174 mg/dL (75-99)
[2021-05-06 13:51] LABS: Appearance,Urine Clear (Clear); Bilirubin,Urine Negative (Negative); Blood,Urine Negative (Negative); Color,Urine Yellow; Glucose,Urine (UA) Negative (Negative); Ketones,Urine Negative (Negative); Leukocyte Esterase,Urine Negative (Negative); Nitrite,Urine Negative (Negative); PH, Urine 5.5 (5.0-8.0); Protein,Urine Trace (Negative); Specific Gravity,Urine 1.026 (1.001-1.035); Urobilinogen,Urine <2.0 mg/dL (<2.0)
--- NOTE | 2021-05-06 15:20 | P.PN ---
Subjective Progress Note Date: 05/06/21 CHIEF COMPLAINT: Cholelithiasis HISTORY OF PRESENT ILLNESS: Patient is on nonrebreather for his respiratory failure with underlying idiopathic pulmonary fibrosis and community-acquired pneumonia. He is still reporting no abdominal pain. He is tolerating diet. Denies any nausea or vomiting. Patient seen and examined with Dr. spencer PHYSICAL EXAM: VITAL SIGNS: Reviewed. GENERAL: Well-developed in no acute distress. HEENT: No sclera icterus. Extraocular movements grossly intact. Moist buccal mucosa. Head is atraumatic, normocephalic. ABDOMEN: Soft. Nondistended. Nontender. NEUROLOGIC: Alert and oriented. Cranial nerves II through XII grossly intact. ASSESSMENT: 1. Cholelithiasis with probable chronic cholecystitis. Patient asymptomatic PLAN: -No surgical intervention planned during this admission -Continue to observe -Once patient has recovered from his pneumonia and respiratory status improves we can revisit his cholelithiasis in the outpatient setting Physician Batch Or Continuous Still Operator note has been reviewed by physician. Signing provider agrees with the documented findings, assessment, and plan of care. Objective - Vital Signs Vital signs: Vital Signs Temp 97.5 F L 05/06/21 12:19 Pulse 99 05/06/21 15:09 Resp 15 05/06/21 12:19 BP 123/86 05/06/21 12:19 Pulse Ox 94 L 05/06/21 12:19 Intake & Output 05/05/21 05/06/21 05/06/21 18:59 06:59 18:59 Intake Total 660 480 Output Total 1500 375 Balance 660 -1500 105 Intake: Oral 660 480 Output: Urine 1500 375 Other: Voiding Method Bedside Commode Bedside Commode Bedpan Urinal Urinal Urinal # Bowel Movements 1 1 - Labs CBC & Chem 7: 05/06/21 06:31 05/06/21 06:31 Labs: Abnormal Lab Results - Last 24 Hours (Table) 05/05/21 05/05/21 05/06/21 Range/Units 16:49 20:10 06:16 WBC (3.8-10.6) k/uL RBC (4.30-5.90) m/uL Hgb (13.0-17.5) gm/dL Hct (39.0-53.0) % Neutrophils # (1.3-7.7) k/uL Lymphocytes # (1.0-4.8) k/uL Carbon Dioxide (22-30) mmol/L BUN (9-20) mg/dL Creatinine (0.66-1.25) mg/dL Glucose (74-99) mg/dL POC Glucose (mg/dL) 184 H 135 H 155 H (75-99) mg/dL Urine Protein (Negative) 05/06/21 05/06/21 05/06/21 Range/Units 06:31 06:31 09:38 WBC 29.7 H (3.8-10.6) k/uL RBC 3.93 L (4.30-5.90) m/uL Hgb 11.9 L (13.0-17.5) gm/dL Hct 36.4 L (39.0-53.0) % Neutrophils # 28.7 H (1.3-7.7) k/uL Lymphocytes # 0.2 L (1.0-4.8) k/uL Carbon Dioxide 35 H (22-30) mmol/L BUN 66 H (9-20) mg/dL Creatinine 1.28 H (0.66-1.25) mg/dL Glucose 155 H (74-99) mg/dL POC Glucose (mg/dL) (75-99) mg/dL Urine Protein Trace H (Negative) 05/06/21 Range/Units 11:37 WBC (3.8-10.6) k/uL RBC (4.30-5.90) m/uL Hgb (13.0-17.5) gm/dL Hct (39.0-53.0) % Neutrophils # (1.3-7.7) k/uL Lymphocytes # (1.0-4.8) k/uL Carbon Dioxide (22-30) mmol/L BUN (9-20) mg/dL Creatinine (0.66-1.25) mg/dL Glucose (74-99) mg/dL POC Glucose (mg/dL) 174 H (75-99) mg/dL Urine Protein (Negative)
[2021-05-06 16:34] LABS: Glucose,Whole Blood 173 mg/dL (75-99)
[2021-05-06] MEDS: SODIUM CHLORIDE 0.9% 1,000 ML IV SCH (17:38)
[2021-05-06 20:22] LABS: Glucose,Whole Blood 139 mg/dL (75-99)
[2021-05-06] MEDS: ATORVASTATIN 20 MG TAB PO SCH (20:42)
[2021-05-06] MEDS: MONTELUKAST 10 MG TAB PO SCH (20:42)
[2021-05-06] MEDS: ESCITALOPRAM 10 MG TAB PO SCH (20:42)
[2021-05-06] MEDS: MELATONIN 5 MG TABLET PO SCH (20:43)
[2021-05-06] MEDS: INSULIN DETEMIR (LEVEMIR) 100 UNIT/ML SYR SQ SCH (20:43)
[2021-05-06] MEDS: ALPRAZolam 0.5 MG TAB PO PRN (23:25)
[2021-05-07] MEDS: PANTOPRAZOLE 40 MG TABLET PO SCH (06:07)
[2021-05-07] MEDS: methylPREDNISolone SOD SUCCI 125 MG/2 ML VIAL IV SCH ×4 (06:07→23:14)
[2021-05-07] MEDS: INSULIN ASPART (NovoLOG) 100 UNIT/ML VIAL SQ SCH ×4 (06:08→20:15)
[2021-05-07 06:13] LABS: Glucose,Whole Blood 174 mg/dL (75-99)
[2021-05-07] MEDS: IPRATROPIUM-ALBUTEROL 3 ML NEB INHALATION SCH ×4 (07:34→20:32)
[2021-05-07] MEDS: SYMBICORT 160-4.5 MCG INHALER INHALATION SCH ×2 (07:34→20:33)
[2021-05-07] MEDS: buPROPion 75 MG TAB PO SCH ×2 (07:53→20:15)
[2021-05-07] MEDS: guaiFENesin 600 MG TABLET.ER PO SCH ×2 (07:53→20:15)
[2021-05-07] MEDS: ASPIRIN 81 MG PO SCH (07:53)
[2021-05-07] MEDS: FUROSEMIDE 20 MG TAB PO SCH ×2 (07:54→17:50)
[2021-05-07] MEDS: LOSARTAN 50 MG TAB PO SCH (07:54)
[2021-05-07] MEDS: MULTIVITAMINS, THERA 1 EACH TAB PO SCH (07:54)
[2021-05-07] MEDS: LEVOFLOXACIN 500MG-D5W PMX 500 MG in DEXTROSE/WATER 1 100ML.BAG IVPB SCH (07:55)
[2021-05-07] MEDS: NON FORMULARY DRUG (Nintedanib Esylate [Ofev] 150 MG Capsule) PO SCH ×2 (07:55→20:16)
--- NOTE | 2021-05-07 09:40 | P.PN ---
Subjective Progress Note Date: 05/07/21 Principal diagnosis: Shortness of breath On 04/30/2021 patient seen in follow-up on selective care unit. He is awake and alert, in no acute distress, remains on BiPAP at 10/5 and FiO2 75%, he sat 95% and subsequently affected has been decreased down to 65%. He has been able to tolerate high flow nasal cannula trials at mealtimes. Overall breathing is improving, occasional cough with production of small amount of yellow sputum. Vital signs have been stable overnight. Altered mentation, lung sounds are positive for bibasilar crackles, he remains on Lasix 20 mg by mouth twice daily, he is on inhaled and nebulized bronchodilators, he is on Zosyn. His blood and sputum cultures have shown no growth thus far. On 05/05/2021 patient seen in follow-up on selective care unit, patient is short of breath, he continues to require high flow oxygen with airflow at 60 L and F iO2 of 93% in the 100% nonrebreathing mask and his pulse ox is marginal. Patient is very short of breath with any exertion, he remains on Zosyn and Levaquin for empiric antibiotic coverage, his cultures have shown no growth. Continues on IV Solu-Medrol, breathing treatments. No new labs today, his labs from yesterday showed increasing leukocytosis and white count of 27.3, his had no fevers overn ight. He continues on oral Lasix. His chest x-ray from 05/01/2021 showed persistent scattered pulmonary opacities and infiltrates in both lung bonilla that were felt to be slightly improved in the right upper lung zone. Patient is maximized on medical treatment however clinically he has made little improvement. His had no nausea or vomiting, no abdominal pain. Patient has history of UIP, and he takes Ofev on an outpatient basis. In view of his worsening clinical status we discussed his clinical condition with him, his prognosis, and high likelihood that he may end up on life-support and possibly need a tracheostomy and PEG tube placement. Patient is unsure about going on life-support at this time but he feels overwhelmed with such a decision. He states he wants to think about it. On 05/06/2021 patient seen in follow-up on selective care unit. He remains on high flow oxygen on Airvo at 60 L and FiO2 of 92% in addition to 100% nonrebreather mask and his pulse ox is 89-94%. Patient is dyspneic with conversation, and any exertion, he has been mostly bedbound related to his shor tness of breath. However she seems to be breathing a bit easier today, follow- up chest x-ray has been reviewed showing grossly stable bilateral pulmonary infiltrates and without significant interval change. Patient has been afebrile overnight, blood pressure has been stable however on today's labs his white count continues to trend up and is up to 29.7, hemoglobin is 11.9, sodium is 139, potassium is 4.2, chloride is 99, CO2 is 35, BUN is 66 and creatinine is 1. patient has previously been on antibiotics in the form of Levaquin that were discontinued on 05/02/2021. His blood and sputum cultures have been negative. Patient also continues on IV Solu-Medrol 60 mg every 6 hours, he is on breathing treatments he is on oral Lasix. Yesterday we discussed CODE STATUS with him, at the time patient wanted more time to think, today he states that he has given it of thought, and she does not want any heroic measures, she does want to continue with supportive care at this time everything including antibiotics, steroids bring treatments BiPAP support, he does not want CPR, defibrillation, and normal intubation and placement on mechanical ventilator. On 05-07-2021 patient seen in follow-up on selective care unit, he remains on high flow oxygen per Airvo at 60 L and FiO2 of 90% and 100% nonrebreather mask, and his pulse ox is 93-94%, he states he is breathing a bit more comfortably today, still short of breath with any exertion, at times he is able to bring up small amount of brownish tinged phlegm, sputum culture was sent, patient remains on Levaquin, he is on IV Solu-Medrol, breathing treatments. No acute events overnight. No complaint of chest discomfort. Repeat blood cultures haven't sent and pending. Patient has been afebrile overnight. Objective - Vital Signs Vital signs: Vital Signs Temp 97.8 F 05/07/21 07:56 Pulse 83 05/07/21 07:56 Resp 24 05/07/21 08:00 BP 139/72 05/07/21 07:56 Pulse Ox 93 L 05/07/21 07:56 Intake & Output 05/06/21 05/07/21 05/07/21 18:59 06:59 18:59 Intake Total 840 720 Output Total 700 825 Balance 140 -105 Intake: Intake, IV Titration 120 Amount Sodium Chloride 0.9% 1, 120 000 ml @ 20 mls/hr IV . Q24H [facility] Rx#:[id number] Oral 840 600 Output: Urine 700 825 Other: Voiding Method Bedpan Urinal # Bowel Movements 1 - Exam GENERAL EXAM: Alert, very pleasant 75-year-old white male, on Airvo at 60 L and FiO2 of 93% satting 94% and 100% nonrebreather mask dyspneic with conversation and any exertion HEAD: Normocephalic/atraumatic. EYES: Normal reaction of pupils, equal size. Conjunctiva pink, sclera white. NOSE: Clear with pink turbinates. THROAT: No erythema or exudates. NECK: No masses, no JVD, no thyroid enlargement, no adenopathy. CHEST: No chest wall deformity. Symmetrical expansion. LUNGS: Equal air entry with basilar crackles CVS: Regular rate and rhythm, normal S1 and S2, no gallops, no murmurs, no rubs ABDOMEN: Soft, nontender. No hepatosplenomegaly, normal bowel sounds, no guarding or rigidity. EXTREMITIES: No clubbing, no edema, no cyanosis, 2+ pulses and upper and lower extremities. MUSCULOSKELETAL: Muscle strength and tone normal. SPINE: No scoliosis or deformity SKIN: No rashes CENTRAL NERVOUS SYSTEM: Alert and oriented -3. No focal deficits, tone is normal in all 4 extremities. PSYCHIATRIC: Alert and oriented -3. Appropriate affect. Intact judgment and insight. - Labs CBC & Chem 7: 05/06/21 06:31 05/06/21 06:31 Labs: Abnormal Lab Results - Last 24 Hours (Table) 05/06/21 05/06/21 05/06/21 Range/Units 09:38 11:37 16:32 POC Glucose (mg/dL) 174 H 173 H (75-99) mg/dL Urine Protein Trace H (Negative) 05/06/21 05/07/21 Range/Units 20:19 06:07 POC Glucose (mg/dL) 139 H 174 H (75-99) mg/dL Urine Protein (Negative) Assessment and Plan Plan: Assessment: #1. Acute on chronic hypoxic respiratory failure, worsening, the patient is currently requiring Airvo at 60 L and FiO2 of 93% in addition to 100% nonrebreather mask likely related to acute exacerbation of IPF with the possibility of community-acquired pneumonia, patient was on Zosyn and Levaquin, cultures are negative thus far #2. Elevated troponin possibly related to supply demand mismatch #3. Biopsy-proven UIP, maintained on OFEV on an outpatient basis #4. History of right-sided hemidiaphragm pulses #5. History of mild intermittent bronchial asthma #6. Hypertension #7. Hyperlipidemia #8. DJD #9. Leukocytosis, rule out possibility of infection, follow-up blood cultures and sputum cultures pending, patient is placed back on Levaquin Plan: Breathing a bit easier although still requiring high flow oxygen Did not require bypass support last night Blood and sputum cultures have been sent and pending Follow-up pro-calcitonin is pending Continue steroids, continue antibiotics Encouraged the patient to sit up in the chair Provide incentive spirometer Xanax as needed for anxiety CODE STATUS is DO NOT RESUSCITATE per patient's wishes We'll continue to follow I performed a history & physical examination of the patient and discussed their management with my nurse practitioner, Aniya Clark. I reviewed the nurse practitioner's note and agree with the documented findings and plan of care. Lung sounds are positive for bibasilar rales throughout the lung bonilla. The findings and the impression was discussed with the patient. I attest to the documentation by the nurse practitioner. Time with Patient: Less than 30
--- NOTE | 2021-05-07 11:43 | P.PN ---
Subjective Progress Note Date: 05/07/21 CHIEF COMPLAINT: Cholelithiasis HISTORY OF PRESENT ILLNESS: Patient is admitted for his respiratory failure with underlying idiopathic pulmonary fibrosis and community-acquired pneumonia. He is still reporting no abdominal pain. He is tolerating diet. Denies any nausea or vomiting. Patient seen and examined with Dr. spencer PHYSICAL EXAM: VITAL SIGNS: Reviewed. GENERAL: Well-developed in no acute distress. HEENT: No sclera icterus. Extraocular movements grossly intact. Moist buccal mucosa. Head is atraumatic, normocephalic. ABDOMEN: Soft. Nondistended. Nontender. NEUROLOGIC: Alert and oriented. Cranial nerves II through XII grossly intact. ASSESSMENT: 1. Cholelithiasis with probable chronic cholecystitis. Patient asymptomatic PLAN: -No surgical intervention planned during this admission -Once patient has recovered from his pneumonia and respiratory status improves we can revisit his cholelithiasis in the outpatient setting Physician Background Check Coordinator note has been reviewed by physician. Signing provider agrees with the documented findings, assessment, and plan of care. Objective - Vital Signs Vital signs: Vital Signs Temp 97.8 F 05/07/21 07:56 Pulse 83 05/07/21 07:56 Resp 24 05/07/21 08:00 BP 139/72 05/07/21 07:56 Pulse Ox 93 L 05/07/21 07:56 Intake & Output 05/06/21 05/07/21 05/07/21 18:59 06:59 18:59 Intake Total 840 720 Output Total 700 825 400 Balance 140 -105 -400 Intake: Intake, IV Titration 120 Amount Sodium Chloride 0.9% 1, 120 000 ml @ 20 mls/hr IV . [facility] Rx#:[id number] Oral 840 600 Output: Urine 700 825 400 Other: Voiding Method Bedpan Urinal # Bowel Movements 1 - Labs CBC & Chem 7: 05/06/21 06:31 05/06/21 06:31 Labs: Abnormal Lab Results - Last 24 Hours (Table) 05/06/21 05/06/21 05/06/21 Range/Units 09:38 16:32 20:19 POC Glucose (mg/dL) 173 H 139 H (75-99) mg/dL Urine Protein Trace H (Negative) 05/07/21 Range/Units 06:07 POC Glucose (mg/dL) 174 H (75-99) mg/dL Urine Protein (Negative)
[2021-05-07 11:52] LABS: Glucose,Whole Blood 310 mg/dL (75-99)
--- NOTE | 2021-05-07 16:27 | P.PN ---
Subjective Progress Note Date: 05/07/21 This is a 75-year-old gentleman admitted with acute hypoxic respiratory failure secondary to acute exacerbation of pulmonary fibrosis, possible community- acquired pneumonia and multiple other medical issues. Maintained on nebulized bronchodilators, Symbicort, IV steroids, Zosyn and Levaquin. Tachypneic,cu rrently requiring Airvo 60 Flow Rate/95% FIO2, maintaining O2 sats in the mid 80s to low 90s. Afebrile, WBC 18.3. Preliminary blood cultures reporting no growth after 48 hours. BUN 46, creatinine 1.62. 04/29/2021 last night, patient developed worsening dyspnea ,desatted on airvo down into the mid 70s. Changed over to BiPAP with O2 sats improved. Currently on 85% BiPAP. Creatinine decreased to 1.38. T bili 1, AST 98, ALT 129. Reports he is not sleeping well, requesting melatonin. 04/30/2021 continues on nebulized bronchodilators, IV steroids, and empiric Zosyn. Reports occasional minimally productive cough of pale yellow sputum. Currently FiO2 better controlled on BiPAP 10/5 FIO2 75%, at 95%. Last night melatonin added to med regimen and patient reports he slept much better. Diet intake fair, consuming ensure supplements between meals. Creatinine decreased to 1.28. Afebrile, WBC 14.6 , blood cultures negative, sputum culture pending. 05/01/21 maintained on BiPAP during the night , currently wearing airvo with a partial rebreather. Maintaining O2 sats in the 90s, minimal productive cough .afebrile, WBC 15.1 Consumed approximately 75% of breakfast this morning. Creatinine continues improving, 1.18. Denies chest pain, palpitations. Chest x-ray pending. 05/06/2021 did not require BiPAP last night, maintained on airvo 60 L and NRB, to maintain O2 sats in the low 90s. Continues on oral Lasix, IV steroids and nebulized bronchodilators. Mild anxiety, dyspneic with conversing, reports less short of breath compared to yesterday. Chest x-ray reporting no significant interval change without progression. Afebrile, WBC trending up, 29.7. Renal function worsening, BUN 66, creatinine 1.28. Bicarb 35. Objective - Vital Signs Vital signs: Vital Signs Temp 97.6 F 02/22/22 08:26 Pulse 98 05/06/21 11:44 Resp 22 05/06/21 08:26 BP 134/68 05/06/21 08:26 Pulse Ox 91 L 05/06/21 08:26 Intake & Output 05/05/21 05/06/21 05/06/21 18:59 06:59 18:59 Intake Total 660 240 Output Total 1500 Balance 660 -1500 240 Intake: Oral 660 240 Output: Urine 1500 Other: Voiding Method Bedside Commode Bedside Commode Bedpan Urinal Urinal Urinal # Bowel Movements 1 1 - Exam PHYSICAL EXAM: VITAL SIGNS: [As above] GENERAL: Sitting up in bed, respiratory effort increased,on Airvo & NRB HEENT: Conjunctivae normal. eyes normal. NECK: Supple, No JVD. CARDIOVASCULAR: S1, S2 regular.No murmur RESPIRATION: Diminished with Scattered crackles. ABDOMEN: Soft, nontender . No guarding. no masses palpable.positive bowel sounds. LEGS: No edema. no swelling PSYCHIATRY: Alert and oriented X3, mood and affect normal. NERVOUS SYSTEM: Cranial N 2-12 grossly normal. No focal deficits. Strength and sensation grossly intact. - Labs CBC & Chem 7: 05/06/21 06:31 05/06/21 06:31 Labs: Abnormal Lab Results - Last 24 Hours (Table) 05/05/21 05/05/21 05/06/21 Range/Units 16:49 20:10 06:16 WBC (3.8-10.6) k/uL RBC (4.30-5.90) m/uL Hgb (13.0-17.5) gm/dL Hct (39.0-53.0) % Neutrophils # (1.3-7.7) k/uL Lymphocytes # (1.0-4.8) k/uL Carbon Dioxide (22-30) mmol/L BUN (9-20) mg/dL Creatinine (0.66-1.25) mg/dL Glucose (74-99) mg/dL POC Glucose (mg/dL) 184 H 135 H 155 H (75-99) mg/dL 05/06/21 05/06/21 05/06/21 Range/Units 06:31 06:31 11:37 WBC 29.7 H (3.8-10.6) k/uL RBC 3.93 L (4.30-5.90) m/uL Hgb 11.9 L (13.0-17.5) gm/dL Hct 36.4 L (39.0-53.0) % Neutrophils # 28.7 H (1.3-7.7) k/uL Lymphocytes # 0.2 L (1.0-4.8) k/uL Carbon Dioxide 35 H (22-30) mmol/L BUN 66 H (9-20) mg/dL Creatinine 1.28 H (0.66-1.25) mg/dL Glucose 155 H (74-99) mg/dL POC Glucose (mg/dL) 174 H (75-99) mg/dL Assessment and Plan Assessment: Acute on chronic hypoxic respiratory failure secondary to acute exacerbation of underlying pulmonary fibrosis, possible bilateral community acquired pneumonia. Wears 2 L at home. Elevated troponins, NSTEMI, related to the above Lactic acidosis, resolved Elevated d-dimer,CTA reported negative for pulmonary embolism Acute renal failure, possibly related to IV contrast Chronic mild asthma Gastroesophageal reflux disease Hypertension Hyperlipidemia DJD Hypokalemia,resolved No code, no CPR, no intubation Plan: Continue on current medication regime ,monitoring and symptomatic treatment. aggressive pulmonary toileting with nebulized bronchodilators, steroids. Worsening renal function, nephrology consulted. Prognosis guarded given multiple complex medical issues. The impression and plan of care has been dictated as directed. : I performed a history and examination of this patient, discussed the same with the dictator. I agree with the dictator's note ,documented as a scribe. Any additional findings or plans will be noted.
--- NOTE | 2021-05-07 16:44 | P.PN ---
Subjective Progress Note Date: 05/07/21 This is a 75-year-old gentleman admitted with acute hypoxic respiratory failure secondary to acute exacerbation of pulmonary fibrosis, possible community- acquired pneumonia and multiple other medical issues. Maintained on nebulized bronchodilators, Symbicort, IV steroids, Zosyn and Levaquin. Tachypneic,cu rrently requiring Airvo 60 Flow Rate/95% FIO2, maintaining O2 sats in the mid 80s to low 90s. Afebrile, WBC 18.3. Preliminary blood cultures reporting no growth after 48 hours. BUN 46, creatinine 1.62. 04/29/2021 last night, patient developed worsening dyspnea ,desatted on airvo down into the mid 70s. Changed over to BiPAP with O2 sats improved. Currently on 85% BiPAP. Creatinine decreased to 1.38. T bili 1, AST 98, ALT 129. Reports he is not sleeping well, requesting melatonin. 04/30/2021 continues on nebulized bronchodilators, IV steroids, and empiric Zosyn. Reports occasional minimally productive cough of pale yellow sputum. Currently FiO2 better controlled on BiPAP 10/5 FIO2 75%, at 95%. Last night melatonin added to med regimen and patient reports he slept much better. Diet intake fair, consuming ensure supplements between meals. Creatinine decreased to 1.28. Afebrile, WBC 14.6 , blood cultures negative, sputum culture pending. 05/01/21 maintained on BiPAP during the night , currently wearing airvo with a partial rebreather. Maintaining O2 sats in the 90s, minimal productive cough .afebrile, WBC 15.1 Consumed approximately 75% of breakfast this morning. Creatinine continues improving, 1.18. Denies chest pain, palpitations. Chest x-ray pending. 05/06/2021 did not require BiPAP last night, maintained on airvo 60 L and NRB, to maintain O2 sats in the low 90s. Continues on oral Lasix, IV steroids and nebulized bronchodilators. Mild anxiety, dyspneic with conversing, reports less short of breath compared to yesterday. Chest x-ray reporting no significant interval change without progression. Afebrile, trending up, 29.7. Renal function worsening, BUN 66, creatinine 1.28. Bicarb 35. 05/07/2021 WBC trending up .Maintained on levaquin, nebulized bronchodilators and IV steroids. Repeat blood cultures in progress. Reports good night sleep, feels better. Continues on Arava 60 L of nonrebreather maintaining O2 sats in the low 90s. Less anxiety, less shortness of breath with conversing. Afebrile. Objective - Vital Signs Vital signs: Vital Signs Temp 97.9 F 05/07/21 12:00 Pulse 100 05/07/21 16:04 Resp 26 H 05/07/21 12:34 BP 183/93 05/07/21 12:00 Pulse Ox 93 L 05/07/21 12:00 Intake & Output 05/06/21 05/07/21 05/07/21 18:59 06:59 18:59 Intake Total 840 720 Output Total 700 825 400 Balance 140 -105 -400 Intake: Intake, IV Titration 120 Amount Sodium Chloride 0.9% 1, 120 000 ml @ 20 mls/hr IV . Q24H [facility] Rx#:[id number] Oral 840 600 Output: Urine 700 825 400 Other: Voiding Method Bedpan Urinal # Bowel Movements 1 - Exam PHYSICAL EXAM: VITAL SIGNS: [As above] GENERAL: Sitting up in bed, respiratory effort increased,on Airvo & NRB HEENT: Conjunctivae normal. eyes normal. NECK: Supple, No JVD. CARDIOVASCULAR: S1, S2 regular.No murmur RESPIRATION: Diminished with Scattered crackles. ABDOMEN: Soft, nontender . No guarding. no masses palpable. no guarding.positive bowel sounds. LEGS: No edema. no swelling, no cyanosis, no clubbing. PSYCHIATRY: Alert and oriented X3, mood and affect normal. NERVOUS SYSTEM: Cranial N 2-12 grossly normal. No focal deficits. Strength and sensation grossly intact. Microbiology 05/06/21 10:18 Blood Blood Culture - Preliminary No Growth after 24 hours 05/06/21 10:21 Blood Blood Culture - Preliminary No Growth after 24 hours 04/26/21 11:40 Blood Blood Culture - Final No Growth after 144 hours 04/26/21 11:30 Blood Blood Culture - Final No Growth after 144 hours 04/27/21 21:01 Sputum Gram Stain - Final 04/27/21 21:01 Sputum Sputum Culture - Final - Labs CBC & Chem 7: 05/06/21 06:31 05/06/21 06:31 Labs: Abnormal Lab Results - Last 24 Hours (Table) 05/06/21 05/06/21 05/07/21 Range/Units 16:32 20:19 06:07 POC Glucose (mg/dL) 173 H 139 H 174 H (75-99) mg/dL 05/07/21 Range/Units 11:51 POC Glucose (mg/dL) 310 H (75-99) mg/dL Microbiology - Last 24 Hours (Table) 05/06/21 10:18 Blood Culture - Preliminary Blood No Growth after 24 hours 05/06/21 10:21 Blood Culture - Preliminary Blood No Growth after 24 hours Assessment and Plan Assessment: Acute on chronic hypoxic respiratory failure secondary to acute exacerbation of underlying pulmonary fibrosis, possible bilateral community acquired pneumonia. Wears 2 L at home. Elevated troponins, NSTEMI, related to the above Nonsustained V. tach, spontaneously resolved, asymptomatic Leukocytosis, cultures pending Lactic acidosis, resolved Elevated d-dimer,CTA reported negative for pulmonary embolism Acute renal failure, possibly related to IV contrast Chronic mild asthma Gastroesophageal reflux disease Hypertension Hyperlipidemia DJD Hypokalemia,resolved No code, no CPR, no intubation Plan: Continue on current medication regime ,monitoring and symptomatic treatment. aggressive pulmonary toileting with nebulized bronchodilators, steroids and Levaquin . Repeat blood and sputum cultures in progress. nephrology consult in place. Close monitoring of renal function with repeat labs ordered for a.m. Prognosis guarded given multiple complex medical issues. The impression and plan of care has been dictated as directed. : I performed a history and examination of this patient, discussed the same with the dictator. I agree with the dictator's note ,documented as a scribe. Any additional findings or plans will be noted.
[2021-05-07 16:54] LABS: Glucose,Whole Blood 58 mg/dL (75-99)
[2021-05-07 17:12] LABS: Glucose,Whole Blood 127 mg/dL (75-99)
[2021-05-07 18:12] LABS: Calcium 8.9 mg/dL (8.4-10.2); Potassium 4.2 mmol/L (3.5-5.1)
[2021-05-07 20:12] LABS: Glucose,Whole Blood 329 mg/dL (75-99)
[2021-05-07] MEDS: MELATONIN 5 MG TABLET PO SCH (20:15)
[2021-05-07] MEDS: MONTELUKAST 10 MG TAB PO SCH (20:15)
[2021-05-07] MEDS: ALPRAZolam 0.5 MG TAB PO PRN (20:15)
[2021-05-07] MEDS: ATORVASTATIN 20 MG TAB PO SCH (20:15)
[2021-05-07] MEDS: INSULIN DETEMIR (LEVEMIR) 100 UNIT/ML SYR SQ SCH (20:15)
[2021-05-07] MEDS: ESCITALOPRAM 10 MG TAB PO SCH (20:15)
[2021-05-07] MEDS: SODIUM CHLORIDE 0.9% 1,000 ML IV SCH (20:16)
[2021-05-08] MEDS: methylPREDNISolone SOD SUCCI 125 MG/2 ML VIAL IV SCH ×3 (06:08→17:25)
[2021-05-08] MEDS: PANTOPRAZOLE 40 MG TABLET PO SCH (06:09)
[2021-05-08] MEDS: INSULIN ASPART (NovoLOG) 100 UNIT/ML VIAL SQ SCH ×4 (06:10→20:25)
[2021-05-08 06:13] LABS: Glucose,Whole Blood 165 mg/dL (75-99)
[2021-05-08 07:23] LABS: Basophils % (A) 0 %; Eosinophils # (A) 0.1 k/uL (0-0.7); Eosinophils % (A) 0 %; HCT 35.4 % (39.0-53.0); HGB 11.5 gm/dL (13.0-17.5); Lymphocytes # (A) 0.2 k/uL (1.0-4.8); Lymphocytes % (A) 1 %; MCH 30.4 pg (25.0-35.0); MCHC 32.4 g/dL (31.0-37.0); MCV 93.8 fL (80.0-100.0); Mean Platelet Volume 10.7; Monocytes # (A) 0.8 k/uL (0-1.0); Monocytes % (A) 2 %; Neutrophils # (A) 29.8 k/uL (1.3-7.7); Neutrophils % (A) 96 %; Platelet Count 189 k/uL (150-450); RBC 3.78 m/uL (4.30-5.90); RDW 14.7 % (11.5-15.5); WBC 30.9 k/uL (3.8-10.6)
[2021-05-08 07:42] LABS: Calcium 8.7 mg/dL (8.4-10.2); Potassium 4.7 mmol/L (3.5-5.1)
[2021-05-08] MEDS: IPRATROPIUM-ALBUTEROL 3 ML NEB INHALATION SCH ×4 (07:45→19:10)
[2021-05-08] MEDS: SYMBICORT 160-4.5 MCG INHALER INHALATION SCH ×2 (07:45→19:10)
[2021-05-08] MEDS: MULTIVITAMINS, THERA 1 EACH TAB PO SCH (08:55)
[2021-05-08] MEDS: buPROPion 75 MG TAB PO SCH ×2 (08:55→20:23)
[2021-05-08] MEDS: LEVOFLOXACIN 500MG-D5W PMX 500 MG in DEXTROSE/WATER 1 100ML.BAG IVPB SCH (08:55)
[2021-05-08] MEDS: LOSARTAN 50 MG TAB PO SCH (08:55)
[2021-05-08] MEDS: guaiFENesin 600 MG TABLET.ER PO SCH ×2 (08:55→20:23)
[2021-05-08] MEDS: FUROSEMIDE 20 MG TAB PO SCH ×2 (08:55→17:26)
[2021-05-08] MEDS: ASPIRIN 81 MG PO SCH (08:55)
--- NOTE | 2021-05-08 08:59 | P.PN ---
Subjective Progress Note Date: 05/08/21 Principal diagnosis: Shortness of breath On 04/30/2021 patient seen in follow-up on selective care unit. He is awake and alert, in no acute distress, remains on BiPAP at 10/5 and FiO2 75%, he sat 95% and subsequently affected has been decreased down to 65%. He has been able to tolerate high flow nasal cannula trials at mealtimes. Overall breathing is improving, occasional cough with production of small amount of yellow sputum. Vital signs have been stable overnight. Altered mentation, lung sounds are positive for bibasilar crackles, he remains on Lasix 20 mg by mouth twice daily, he is on inhaled and nebulized bronchodilators, he is on Zosyn. His blood and sputum cultures have shown no growth thus far. On 05/05/2021 patient seen in follow-up on selective care unit, patient is short of breath, he continues to require high flow oxygen with airflow at 60 L and F iO2 of 93% in the 100% nonrebreathing mask and his pulse ox is marginal. Patient is very short of breath with any exertion, he remains on Zosyn and Levaquin for empiric antibiotic coverage, his cultures have shown no growth. Continues on IV Solu-Medrol, breathing treatments. No new labs today, his labs from yesterday showed increasing leukocytosis and white count of 27.3, his had no fevers overn ight. He continues on oral Lasix. His chest x-ray from 05/01/2021 showed persistent scattered pulmonary opacities and infiltrates in both lung bonilla that were felt to be slightly improved in the right upper lung zone. Patient is maximized on medical treatment however clinically he has made little improvement. His had no nausea or vomiting, no abdominal pain. Patient has history of UIP, and he takes Ofev on an outpatient basis. In view of his worsening clinical status we discussed his clinical condition with him, his prognosis, and high likelihood that he may end up on life-support and possibly need a tracheostomy and PEG tube placement. Patient is unsure about going on life-support at this time but he feels overwhelmed with such a decision. He states he wants to think about it. On 05/06/2021 patient seen in follow-up on selective care unit. He remains on high flow oxygen on Airvo at 60 L and FiO2 of 92% in addition to 100% nonrebreather mask and his pulse ox is 89-94%. Patient is dyspneic with conversation, and any exertion, he has been mostly bedbound related to his shor tness of breath. However she seems to be breathing a bit easier today, follow- up chest x-ray has been reviewed showing grossly stable bilateral pulmonary infiltrates and without significant interval change. Patient has been afebrile overnight, blood pressure has been stable however on today's labs his white count continues to trend up and is up to 29.7, hemoglobin is 11.9, sodium is 139, potassium is 4.2, chloride is 99, CO2 is 35, BUN is 66 and creatinine is 1. patient has previously been on antibiotics in the form of Levaquin that were discontinued on 05/02/2021. His blood and sputum cultures have been negative. Patient also continues on IV Solu-Medrol 60 mg every 6 hours, he is on breathing treatments he is on oral Lasix. Yesterday we discussed CODE STATUS with him, at the time patient wanted more time to think, today he states that he has given it of thought, and she does not want any heroic measures, she does want to continue with supportive care at this time everything including antibiotics, steroids bring treatments BiPAP support, he does not want CPR, defibrillation, and normal intubation and placement on mechanical ventilator. On 05-07-2021 patient seen in follow-up on selective care unit, he remains on high flow oxygen per Airvo at 60 L and FiO2 of 90% and 100% nonrebreather mask, and his pulse ox is 93-94%, he states he is breathing a bit more comfortably today, still short of breath with any exertion, at times he is able to bring up small amount of brownish tinged phlegm, sputum culture was sent, patient remains on Levaquin, he is on IV Solu-Medrol, breathing treatments. No acute events overnight. No complaint of chest discomfort. Repeat blood cultures haven't sent and pending. Patient has been afebrile overnight. On 05/08/2021 patient seen in follow-up on selective care unit, he remains on high flow oxygen per Airvo with 60 L and FiO2 of 89%, and 100% nonrebreather mask, his pulse ox is 94-98%, patient easily desaturates with speaking, he has conversational dyspnea. He states he rested more comfortably last night, did require Xanax. He continues on inhaled bronchodilators, he continues on oral Lasix, empiric antibiotics in the form of Levaquin, and IV steroids, follow-up chest x-ray is pending for today, today's lab work has been reviewed and there has been no further increase in his white blood cell, which is now at 30.9, woman is 11.5, sodium is 139, potassium is 4.9, chloride is 99, CO2 36, B1 is 67, creatinine is 1.05. His follow pro-calcitonin is still pending, repeat blood and sputum cultures have been sent and results are still pending, patient has had no fever or chills overnight. Lung sounds reveal diffuse crackles, good air entry noted bilaterally. Objective - Vital Signs Vital signs: Vital Signs Temp 97.6 F 05/08/21 03:58 Pulse 92 05/08/21 08:03 Resp 26 H 05/08/21 03:58 BP 148/86 05/08/21 03:58 Pulse Ox 93 L 05/08/21 04:16 Intake & Output 05/07/21 05/08/21 05/08/21 18:59 06:59 18:59 Intake Total 480 Output Total 400 1225 Balance -400 -745 Intake: Oral 480 Output: Urine 400 1225 - Exam GENERAL EXAM: Alert, very pleasant 75-year-old white male, on Airvo at 60 L and FiO2 of 93% satting 94% and 100% nonrebreather mask dyspneic with conversation and any exertion HEAD: Normocephalic/atraumatic. EYES: Normal reaction of pupils, equal size. Conjunctiva pink, sclera white. NOSE: Clear with pink turbinates. THROAT: No erythema or exudates. NECK: No masses, no JVD, no thyroid enlargement, no adenopathy. CHEST: No chest wall deformity. Symmetrical expansion. LUNGS: Equal air entry with basilar crackles CVS: Regular rate and rhythm, normal S1 and S2, no gallops, no murmurs, no rubs ABDOMEN: Soft, nontender. No hepatosplenomegaly, normal bowel sounds, no guarding or rigidity. EXTREMITIES: No clubbing, no edema, no cyanosis, 2+ pulses and upper and lower extremities. MUSCULOSKELETAL: Muscle strength and tone normal. SPINE: No scoliosis or deformity SKIN: No rashes CENTRAL NERVOUS SYSTEM: Alert and oriented -3. No focal deficits, tone is normal in all 4 extremities. PSYCHIATRIC: Alert and oriented -3. Appropriate affect. Intact judgment and insight. - Labs CBC & Chem 7: 05/08/21 06:54 05/08/21 06:54 Labs: Abnormal Lab Results - Last 24 Hours (Table) 05/07/21 05/07/21 05/07/21 Range/Units 11:51 16:44 17:10 WBC (3.8-10.6) k/uL RBC (4.30-5.90) m/uL Hgb (13.0-17.5) gm/dL Hct (39.0-53.0) % Neutrophils # (1.3-7.7) k/uL Lymphocytes # (1.0-4.8) k/uL Carbon Dioxide (22-30) mmol/L BUN (9-20) mg/dL Creatinine (0.66-1.25) mg/dL Glucose (74-99) mg/dL POC Glucose (mg/dL) 310 H 58 L 127 H (75-99) mg/dL 05/07/21 05/07/21 05/08/21 Range/Units 17:11 20:08 06:09 WBC (3.8-10.6) k/uL RBC (4.30-5.90) m/uL Hgb (13.0-17.5) gm/dL Hct (39.0-53.0) % Neutrophils # (1.3-7.7) k/uL Lymphocytes # (1.0-4.8) k/uL Carbon Dioxide 35 H (22-30) mmol/L BUN 66 H (9-20) mg/dL Creatinine 1.41 H (0.66-1.25) mg/dL Glucose (74-99) mg/dL POC Glucose (mg/dL) 329 H 165 H (75-99) mg/dL 05/08/21 05/08/21 Range/Units 06:54 06:54 WBC 30.9 H (3.8-10.6) k/uL RBC 3.78 L (4.30-5.90) m/uL Hgb 11.5 L (13.0-17.5) gm/dL Hct 35.4 L (39.0-53.0) % Neutrophils # 29.8 H (1.3-7.7) k/uL Lymphocytes # 0.2 L (1.0-4.8) k/uL Carbon Dioxide 36 H (22-30) mmol/L BUN 67 H (9-20) mg/dL Creatinine (0.66-1.25) mg/dL Glucose 166 H (74-99) mg/dL POC Glucose (mg/dL) (75-99) mg/dL Microbiology - Last 24 Hours (Table) 05/07/21 07:45 Sputum Culture - Preliminary Sputum 05/06/21 10:18 Blood Culture - Preliminary Blood No Growth after 24 hours 05/06/21 10:21 Blood Culture - Preliminary Blood No Growth after 24 hours Assessment and Plan Plan: Assessment: #1. Acute on chronic hypoxic respiratory failure, worsening, the patient is currently requiring Airvo at 60 L and FiO2 of 93% in addition to 100% nonrebreather mask likely related to acute exacerbation of IPF with the possibility of community-acquired pneumonia, patient was on Zosyn and Levaquin, cultures are negative thus far #2. Elevated troponin possibly related to supply demand mismatch #3. Biopsy-proven UIP, maintained on OFEV on an outpatient basis #4. History of right-sided hemidiaphragm pulses #5. History of mild intermittent bronchial asthma #6. Hypertension #7. Hyperlipidemia #8. DJD #9. Leukocytosis, rule out possibility of infection, follow-up blood cultures and sputum cultures pending, patient is placed back on Levaquin Plan: Patient remains on high flow oxygen, he is dyspneic with exertion and conversation Stable vitals overnight Continue empiric antibiotics, steroids and bronchodilators Continue Xanax as needed for anxiety Awaiting results of the follow-up sputum pro-calcitonin and blood cultures Encouraged the patient to sit up in a chair We'll continue to follow his clinical course I performed a history & physical examination of the patient and discussed their management with my nurse practitioner, Aniya Clark. I reviewed the nurse practitioner's note and agree with the documented findings and plan of care. Lung sounds are positive for bibasilar rales throughout the lung bonilla. The findings and the impression was discussed with the patient. I attest to the documentation by the nurse practitioner. I have personally seen and examined the patient, performed the documentation and the assessment and plan as written. Number of minutes spent on the visit: [10] Time with Patient: Less than 30
[2021-05-08 11:49] LABS: Glucose,Whole Blood 306 mg/dL (75-99)
--- NOTE | 2021-05-08 12:28 | XR ---
EXAMINATION TYPE: XR chest 1V portable DATE OF EXAM: 05/08/2021 COMPARISON: X-ray dated 05/06/2021 HISTORY: Shortness of breath TECHNIQUE: Single frontal view of the chest is obtained. FINDINGS: Persistent bilateral heterogeneous pulmonary patchy opacities/infiltrations without significant inter stalin change. No sizable pleural effusion or definite pneumothorax. Unchanged cardiac mediastinal silho uette and bony thoracic cage. IMPRESSION: No progressive lung infiltration.
--- NOTE | 2021-05-08 12:49 | P.NPCON ---
History of Present Illness - Reason for Consult acute renal failure - History of Present Illness Patient is a 75-year-old male with history of type 2 diabetes and asthma gastroesophageal reflux disease who was admitted to the hospital with complaints of cough and shortness of breath. COVID-19 PCR was negative patient was noted to have bilateral interstitial infiltrates on chest x-ray and is currently being treated for pneumonia. He has been hypoxic and currently maintained on high flow oxygen. Sputum cultures are pending blood cultures are negative. Blood pressure has not been low Serum creatinine was 1.6 around the time of admission and it did decrease to 0.92 mg/dL and then increase back up to 1.4 yesterday. Today it is down to 1.05. Patient has been voiding 24 hour output is 1.6 L. [place] currently not on any IV fluids. Maintained on small dose of oral loop diuretics. Chest CTA done on admission on 04/26/2021 showed no evidence of PE but bilateral groundglass opacities Patient remains on Cozaar 100 mg daily. Review of Systems As per HPI Past Medical History Past Medical History: Asthma, Diabetes Mellitus, GERD/Reflux, Hyperlipidemia, Hypertension, Osteoarthritis (OA) Additional Past Medical History / Comment(s): interstitial lung disease, remote history of a coccidiomycosis of the lungs. History of Any Multi-Drug Resistant Organisms: None Reported Past Surgical History: Appendectomy, Hernia Repair, Joint Replacement Additional Past Surgical History / Comment(s): lung surgery rt thoractomy benign tumor age 19, lt total knee replacement, inguinal hernia repair with mesh Past Anesthesia/Blood Transfusion Reactions: Previous Problems w/ Anesthesia Additional Past Anesthesia/Blood Transfusion Reaction / Comment(s): with last endoscopy coughed throughout procedure Past Psychological History: Anxiety, Depression Smoking Status: Never smoker Past Alcohol Use History: Daily Past Drug Use History: None Reported - Past Family History Mother Family Medical History: No Reported History Additional Family Medical History / Comment(s): adopted Sister(s) Family Medical History: Cancer Additional Family Medical History / Comment(s): pancreatic cancer Medications and Allergies Home Medications Medication Instructions Recorded Confirmed Type Escitalopram Oxalate [Lexapro] 10 mg PO HS 12/03/17 04/26/21 History Losartan Potassium [Cozaar] 100 mg PO DAILY 12/03/17 04/26/21 History Multivit-Min/FA/Lycopen/Lutein 1 tab PO DAILY 12/03/17 04/26/21 History [Centrum Silver Tablet] Omeprazole [PriLOSEC] 20 mg PO [id number] 12/03/17 04/26/21 History buPROPion [Wellbutrin] 150 mg PO BID 12/03/17 04/26/21 History Montelukast Sodium [Singulair] 10 mg PO HS 02/15/18 04/26/21 History Nintedanib Esylate [Ofev] 150 mg PO BID 01/25/19 04/26/21 History Albuterol Sulfate [Proair Hfa] 2 puff INHALATION RT-Q6H PRN 04/26/21 04/26/21 History Aspirin [Adult Low Dose Aspirin EC] 81 mg PO DAILY 04/26/21 04/26/21 History Simvastatin [Zocor] 40 mg PO HS 04/26/21 04/26/21 History Allergies Allergy/AdvReac Type Severity Reaction Status Date / Time No Known Allergies Allergy Verified 04/26/21 11:15 Physical Exam Vitals: Vital Signs Temp Pulse Pulse Resp BP Pulse Ox 05/08/21 11:47 96 05/08/21 11:35 100 05/08/21 08:03 92 05/08/21 07:45 88 05/08/21 04:16 93 L 05/08/21 03:58 97.6 F 79 26 H 148/86 91 L 05/08/21 02:00 20 05/07/21 23:48 97.6 F 67 20 149/87 91 L 05/07/21 20:49 97 05/07/21 20:33 87 93 L 05/07/21 20:00 97.6 F 94 26 H 162/83 93 L 05/07/21 16:04 100 05/07/21 16:00 97.8 F 94 24 167/73 94 L 05/07/21 15:45 102 H Intake and Output 05/07/21 05/08/21 05/08/21 22:59 06:59 14:59 Intake Total 120 360 240 Output Total 575 650 Balance -455 -290 240 Intake: Oral 120 360 240 Output: Urine 575 650 Patient is awake. He is mildly short of breath. Currently maintained on 100% nonrebreather. Examination of the heart S1 and S2 Examination lungs decreased breath sounds at the bases bilaterally wheezing is heard Abdomen is soft nontender Examination lower extremity shows no evidence of edema BOW STRING MAKER exam grossly intact Results - Lab Results Most recent lab results ABG pH 7.52 (7.35-7.45) H 04/28/21 19:45 ABG pCO2 42 mmHg (35-45) 04/28/21 19:45 ABG pO2 76 mmHg (83-108) L 04/28/21 19:45 ABG HCO3 34 mmol/L (21-25) H 04/28/21 19:45 ABG O2 Saturation 95.2 % (94-97) 04/28/21 19:45 Calcium 8.7 mg/dL (8.4-10.2) 05/08/21 06:54 Magnesium 2.0 mg/dL (1.6-2.3) 05/02/21 06:44 05/08/21 06:54 05/08/21 06:54 Assessment and Plan Assessment: 1. Acute kidney injury, nonoliguric. Patient has been diuresed. Lasix was initially IV and now changed to oral , rule out urine retention. No major hemodynamic changes noted. EF is 60-65% on initial echocardiogram. I will continue with the Cozaar and continue with current dose of Lasix as well. UA is completely benign 2. Bilateral interstitial infiltrates with history of idiopathic pulmonary fibrosis currently being treated for pneumonia as well 3. Acute hypoxic respiratory failure secondary to above 4. Idiopathic pulmonary fibrosis, biopsy proven 5. Severe pulmonary hypertension noted on echocardiogram Plan: Continue current dose of Lasix Check bladder scan Check ultrasound of the kidneys Continue with the Cozaar as well. Repeat labs in a.m.
--- NOTE | 2021-05-08 13:40 | P.PN ---
Subjective Progress Note Date: 05/08/21 This is a 75-year-old gentleman admitted with acute hypoxic respiratory failure secondary to acute exacerbation of pulmonary fibrosis, possible community- acquired pneumonia and multiple other medical issues. Maintained on nebulized bronchodilators, Symbicort, IV steroids, Zosyn and Levaquin. Tachypneic,cu rrently requiring Airvo 60 Flow Rate/95% FIO2, maintaining O2 sats in the mid 80s to low 90s. Afebrile, WBC 18.3. Preliminary blood cultures reporting no growth after 48 hours. BUN 46, creatinine 1.62. 04/29/2021 last night, patient developed worsening dyspnea ,desatted on airvo down into the mid 70s. Changed over to BiPAP with O2 sats improved. Currently on 85% BiPAP. Creatinine decreased to 1.38. T bili 1, AST 98, ALT 129. Reports he is not sleeping well, requesting melatonin. 04/30/2021 continues on nebulized bronchodilators, IV steroids, and empiric Zosyn. Reports occasional minimally productive cough of pale yellow sputum. Currently FiO2 better controlled on BiPAP 10/5 FIO2 75%, at 95%. Last night melatonin added to med regimen and patient reports he slept much better. Diet intake fair, consuming ensure supplements between meals. Creatinine decreased to 1.28. Afebrile, WBC 14.6 , blood cultures negative, sputum culture pending. 05/01/21 maintained on BiPAP during the night , currently wearing airvo with a partial rebreather. Maintaining O2 sats in the 90s, minimal productive cough .afebrile, WBC 15.1 Consumed approximately 75% of breakfast this morning. Creatinine continues improving, 1.18. Denies chest pain, palpitations. Chest x-ray pending. 05/06/2021 did not require BiPAP last night, maintained on airvo 60 L and NRB, to maintain O2 sats in the low 90s. Continues on oral Lasix, IV steroids and nebulized bronchodilators. Mild anxiety, dyspneic with conversing, reports less short of breath compared to yesterday. Chest x-ray reporting no significant interval change without progression. Afebrile, trending up, 29.7. Renal function worsening, BUN 66, creatinine 1.28. Bicarb 35. 05/07/2021 WBC trending up .Maintained on levaquin, nebulized bronchodilators and IV steroids. Repeat blood cultures in progress. Reports good night sleep, feels better. Continues on Arava 60 L of nonrebreather maintaining O2 sats in the low 90s. Less anxiety, less shortness of breath with conversing. Afebrile. 05/08/2021 maintained on nebulized bronchodilators, IV steroids, Levaquin. feels better. maintaining O2 sats in the 90s on Airvo 60L and NRB mask. Some conversational dyspnea but with less anxiety. Repeat sputum and blood cultures pending .Afebrile, WBC 30.9, hemoglobin 11.5, platelets 189. CO2 36 BUN 67, creatinine decreased to 1.05. Objective - Vital Signs Vital signs: Vital Signs Temp 97.6 F 05/08/21 03:58 Pulse 96 05/08/21 11:47 Resp 26 H 05/08/21 03:58 BP 148/86 05/08/21 03:58 Pulse Ox 93 L 05/08/21 04:16 Intake & Output 05/07/21 05/08/21 05/08/21 18:59 06:59 18:59 Intake Total 480 240 Output Total 400 1225 Balance -400 -745 240 Intake: Oral 480 240 Output: Urine 400 1225 - Exam PHYSICAL EXAM: VITAL SIGNS: [As above] GENERAL: Alert and oriented 3,Sitting up in bed, respiratory effort increased,on Airvo & NRB HEENT: Conjunctivae normal. eyes normal. NECK: Supple, No JVD. CARDIOVASCULAR: S1, S2 regular.No murmur RESPIRATION: Diminished with Scattered crackles. ABDOMEN: Soft, nontender . No guarding. no masses palpable. no guarding.positive bowel sounds. LEGS: No edema. no swelling, no cyanosis, no clubbing. NERVOUS SYSTEM: Cranial N 2-12 grossly normal. No focal deficits. Strength and sensation grossly intact. - Labs CBC & Chem 7: 05/08/21 06:54 05/08/21 06:54 Labs: Abnormal Lab Results - Last 24 Hours (Table) 05/07/21 05/07/21 05/07/21 Range/Units 16:44 17:10 17:11 WBC (3.8-10.6) k/uL RBC (4.30-5.90) m/uL Hgb (13.0-17.5) gm/dL Hct (39.0-53.0) % Neutrophils # (1.3-7.7) k/uL Lymphocytes # (1.0-4.8) k/uL Carbon Dioxide 35 H (22-30) mmol/L BUN 66 H (9-20) mg/dL Creatinine 1.41 H (0.66-1.25) mg/dL Glucose (74-99) mg/dL POC Glucose (mg/dL) 58 L 127 H (75-99) mg/dL 05/07/21 05/08/21 05/08/21 Range/Units 20:08 06:09 06:54 WBC 30.9 H (3.8-10.6) k/uL RBC 3.78 L (4.30-5.90) m/uL Hgb 11.5 L (13.0-17.5) gm/dL Hct 35.4 L (39.0-53.0) % Neutrophils # 29.8 H (1.3-7.7) k/uL Lymphocytes # 0.2 L (1.0-4.8) k/uL Carbon Dioxide (22-30) mmol/L BUN (9-20) mg/dL Creatinine (0.66-1.25) mg/dL Glucose (74-99) mg/dL POC Glucose (mg/dL) 329 H 165 H (75-99) mg/dL 05/08/21 05/08/21 Range/Units 06:54 11:47 WBC (3.8-10.6) k/uL RBC (4.30-5.90) m/uL Hgb (13.0-17.5) gm/dL Hct (39.0-53.0) % Neutrophils # (1.3-7.7) k/uL Lymphocytes # (1.0-4.8) k/uL Carbon Dioxide 36 H (22-30) mmol/L BUN 67 H (9-20) mg/dL Creatinine (0.66-1.25) mg/dL Glucose 166 H (74-99) mg/dL POC Glucose (mg/dL) 306 H (75-99) mg/dL Microbiology - Last 24 Hours (Table) 05/06/21 10:21 Blood Culture - Preliminary Blood No Growth after 48 hours 05/06/21 10:18 Blood Culture - Preliminary Blood No Growth after 48 hours 05/07/21 07:45 Gram Stain - Preliminary Sputum Sputum Culture - Preliminary Assessment and Plan Assessment: Acute on chronic hypoxic respiratory failure secondary to acute exacerbation of underlying pulmonary fibrosis, possible bilateral community acquired pneumonia. Wears 2 L at home. Elevated troponins, NSTEMI, related to the above Nonsustained V. tach, spontaneously resolved, asymptomatic Leukocytosis, cultures pending Lactic acidosis, resolved Elevated d-dimer,CTA reported negative for pulmonary embolism Acute renal failure, possibly related to IV contrast Chronic mild asthma Gastroesophageal reflux disease Hypertension Hyperlipidemia DJD Hypokalemia,resolved No code, no CPR, no intubation Plan: Continue on current medication regime ,monitoring and symptomatic treatment. Evaluated by nephrology, recommendations noted and appreciated- renal ultrasound pending. Maintain aggressive pulmonary toileting with nebulized bronchodilators, steroids and Levaquin . Repeat blood and sputum cultures in progress. Follow closely with pulmonary. Prognosis guarded given multiple complex medical issues. The impression and plan of care has been dictated as directed. : I performed a history and examination of this patient, discussed the same with the dictator. I agree with the dictator's note ,documented as a scribe. Any additional findings or plans will be noted.
--- NOTE | 2021-05-08 14:38 | P.PN ---
Subjective Progress Note Date: 05/08/21 CHIEF COMPLAINT: Cholelithiasis HISTORY OF PRESENT ILLNESS: Patient is admitted for his respiratory failure with underlying idiopathic pulmonary fibrosis and community-acquired pneumonia. He is still reporting no abdominal pain. He is tolerating diet. Denies any nausea or vomiting. Patient seen and examined with Dr. spencer PHYSICAL EXAM: VITAL SIGNS: Reviewed. GENERAL: Well-developed in no acute distress. HEENT: No sclera icterus. Extraocular movements grossly intact. Moist buccal mucosa. Head is atraumatic, normocephalic. ABDOMEN: Soft. Nondistended. Nontender. NEUROLOGIC: Alert and oriented. Cranial nerves II through XII grossly intact. ASSESSMENT: 1. Cholelithiasis with probable chronic cholecystitis. Patient asymptomatic PLAN: -No surgical intervention planned during this admission -Once patient has recovered from his pneumonia and respiratory status improves we can revisit his cholelithiasis in the outpatient setting Physician Nursing Services Manager note has been reviewed by physician. Signing provider agrees with the documented findings, assessment, and plan of care. Objective - Vital Signs Vital signs: Vital Signs Temp 97.6 F 05/08/21 03:58 Pulse 96 05/08/21 11:47 Resp 26 H 05/08/21 03:58 BP 148/86 05/08/21 03:58 Pulse Ox 93 L 05/08/21 04:16 Intake & Output 05/07/21 05/08/21 05/08/21 18:59 06:59 18:59 Intake Total 480 240 Output Total 400 1225 Balance -400 -745 240 Intake: Oral 480 240 Output: Urine 400 1225 - Labs CBC & Chem 7: 05/08/21 06:54 05/08/21 06:54 Labs: Abnormal Lab Results - Last 24 Hours (Table) 05/07/21 05/07/21 05/07/21 Range/Units 16:44 17:10 17:11 WBC (3.8-10.6) k/uL RBC (4.30-5.90) m/uL Hgb (13.0-17.5) gm/dL Hct (39.0-53.0) % Neutrophils # (1.3-7.7) k/uL Lymphocytes # (1.0-4.8) k/uL Carbon Dioxide 35 H (22-30) mmol/L BUN 66 H (9-20) mg/dL Creatinine 1.41 H (0.66-1.25) mg/dL Glucose (74-99) mg/dL POC Glucose (mg/dL) 58 L 127 H (75-99) mg/dL 05/07/21 05/08/21 05/08/21 Range/Units 20:08 06:09 06:54 WBC 30.9 H (3.8-10.6) k/uL RBC 3.78 L (4.30-5.90) m/uL Hgb 11.5 L (13.0-17.5) gm/dL Hct 35.4 L (39.0-53.0) % Neutrophils # 29.8 H (1.3-7.7) k/uL Lymphocytes # 0.2 L (1.0-4.8) k/uL Carbon Dioxide (22-30) mmol/L BUN (9-20) mg/dL Creatinine (0.66-1.25) mg/dL Glucose (74-99) mg/dL POC Glucose (mg/dL) 329 H 165 H (75-99) mg/dL 05/08/21 05/08/21 Range/Units 06:54 11:47 WBC (3.8-10.6) k/uL RBC (4.30-5.90) m/uL Hgb (13.0-17.5) gm/dL Hct (39.0-53.0) % Neutrophils # (1.3-7.7) k/uL Lymphocytes # (1.0-4.8) k/uL Carbon Dioxide 36 H (22-30) mmol/L BUN 67 H (9-20) mg/dL Creatinine (0.66-1.25) mg/dL Glucose 166 H (74-99) mg/dL POC Glucose (mg/dL) 306 H (75-99) mg/dL Microbiology - Last 24 Hours (Table) 05/06/21 10:21 Blood Culture - Preliminary Blood No Growth after 48 hours 05/06/21 10:18 Blood Culture - Preliminary Blood No Growth after 48 hours 05/07/21 07:45 Gram Stain - Preliminary Sputum Sputum Culture - Preliminary
--- NOTE | 2021-05-08 15:40 | US ---
EXAMINATION TYPE: US kidneys/renal and bladder DATE OF EXAM: 05/08/2021 COMPARISON: CT 12/26/2019 CLINICAL HISTORY: RF. Sepsis EXAM MEASUREMENTS: Right Kidney: 10.7 x 5.8 x 5.1 cm Left Kidney: 11.6 x 6.0 x 5.8 cm Post Void Residual Volume: Not calculated mL Right Kidney: No hydronephrosis or stones seen. Mid pole cyst = 1.7 x 1.8 x 1.5 cm Left Kidney: No hydronephrosis or stones seen, Multiple cysts. largest superior = 7.8 x 6.3 x 6.3 cm Bladder: No obvious masses. Bilateral Jets seen: No Normal Post Void Residual: Not calculated. Patient unable to urinate. Bladder not extremely distend ed. There is no evidence for hydronephrosis at this point in time. No nephrolithiasis is seen. Cortical medullary differentiation is maintained. The urinary bladder is anechoic. Suboptimal exam overall. Patient had difficulty breathing. Could not take in a deep breath or change positions. IMPRESSION: Technologist reports some difficulty with the exam. Renal sizes as described. Bilateral cortical cyst s
[2021-05-08 16:39] LABS: Glucose,Whole Blood 133 mg/dL (75-99)
[2021-05-08] MEDS: NON FORMULARY DRUG (Nintedanib Esylate [Ofev] 150 MG Capsule) PO SCH ×2 (16:59→20:24)
[2021-05-08 20:20] LABS: Glucose,Whole Blood 281 mg/dL (75-99)
[2021-05-08] MEDS: ALPRAZolam 0.5 MG TAB PO PRN (20:23)
[2021-05-08] MEDS: ATORVASTATIN 20 MG TAB PO SCH (20:23)
[2021-05-08] MEDS: ESCITALOPRAM 10 MG TAB PO SCH (20:23)
[2021-05-08] MEDS: INSULIN DETEMIR (LEVEMIR) 100 UNIT/ML SYR SQ SCH (20:23)
[2021-05-08] MEDS: MONTELUKAST 10 MG TAB PO SCH (20:23)
[2021-05-08] MEDS: MELATONIN 5 MG TABLET PO SCH (20:23)
[2021-05-08] MEDS: SODIUM CHLORIDE 0.9% 1,000 ML IV SCH (20:24)
[2021-05-09] MEDS: methylPREDNISolone SOD SUCCI 125 MG/2 ML VIAL IV SCH ×5 (00:03→23:07)
[2021-05-09 05:38] LABS: Glucose,Whole Blood 117 mg/dL (75-99)
[2021-05-09] MEDS: INSULIN ASPART (NovoLOG) 100 UNIT/ML VIAL SQ SCH ×4 (05:48→22:11)
[2021-05-09] MEDS: PANTOPRAZOLE 40 MG TABLET PO SCH (06:00)
[2021-05-09] MEDS: LOSARTAN 50 MG TAB PO SCH (08:57)
[2021-05-09] MEDS: MULTIVITAMINS, THERA 1 EACH TAB PO SCH (08:57)
[2021-05-09] MEDS: ASPIRIN 81 MG PO SCH (08:57)
[2021-05-09] MEDS: guaiFENesin 600 MG TABLET.ER PO SCH ×2 (08:57→20:24)
[2021-05-09] MEDS: ALPRAZolam 0.5 MG TAB PO PRN (08:57)
[2021-05-09] MEDS: FUROSEMIDE 20 MG TAB PO SCH ×2 (08:57→16:27)
[2021-05-09] MEDS: NON FORMULARY DRUG (Nintedanib Esylate [Ofev] 150 MG Capsule) PO SCH ×2 (08:58→20:23)
[2021-05-09] MEDS: buPROPion 75 MG TAB PO SCH ×2 (08:58→20:24)
[2021-05-09] MEDS: LEVOFLOXACIN 500MG-D5W PMX 500 MG in DEXTROSE/WATER 1 100ML.BAG IVPB SCH (09:00)
[2021-05-09] MEDS: IPRATROPIUM-ALBUTEROL 3 ML NEB INHALATION SCH ×4 (09:12→20:49)
[2021-05-09] MEDS: SYMBICORT 160-4.5 MCG INHALER INHALATION SCH ×2 (09:12→20:50)
--- NOTE | 2021-05-09 09:15 | P.PN ---
Subjective Patient is seen in follow-up for acute kidney injury. Renal function has improved. Creatinine 1.05 yesterday. On oral Lasix. Oral intake is fair. Currently on high flow nasal cannula as well as nonrebreather. Vital signs are stable. General: The patient appeared well nourished and normally developed. HEENT: Airvo noted. LUNGS: Breath sounds decreased. HEART: Rate and Rhythm are regular. ABDOMEN: Soft, no distention. EXTREMITITES: No edema. Objective - Vital Signs Vital signs: Vital Signs Temp 97.5 F L 05/09/21 04:00 Pulse 89 05/09/21 04:00 Resp 26 H 05/09/21 04:00 BP 135/91 05/09/21 00:00 Pulse Ox 93 L 05/09/21 04:19 Intake & Output 05/08/21 05/09/21 05/09/21 18:59 06:59 18:59 Intake Total 380 245 Output Total 750 1200 Balance -370 -1200 245 Intake: Intake, IV Titration 140 Amount Levofloxacin 500Mg-D5w 100 Pmx 500 mg In Dextrose/ Water 1 100ml.bag @ 100 mls/hr IVPB Q24H [facility] Rx#: [id number] Sodium Chloride 0.9% 1, 40 000 ml @ 20 mls/hr IV . Q24H [facility] Rx#:[id number] Oral 240 245 Output: Urine 750 1200 Stool 0 Other: Voiding Method Bedpan Urinal # Bowel Movements 1 - Labs CBC & Chem 7: 05/08/21 06:54 05/08/21 06:54 Labs: Abnormal Lab Results - Last 24 Hours (Table) 05/08/21 05/08/21 05/08/21 Range/Units 11:47 16:37 20:18 POC Glucose (mg/dL) 306 H 133 H 281 H (75-99) mg/dL 05/09/21 Range/Units 05:36 POC Glucose (mg/dL) 117 H (75-99) mg/dL Microbiology - Last 24 Hours (Table) 05/06/21 10:21 Blood Culture - Preliminary Blood No Growth after 48 hours 05/06/21 10:18 Blood Culture - Preliminary Blood No Growth after 48 hours 05/07/21 07:45 Gram Stain - Preliminary Sputum Sputum Culture - Preliminary Assessment and Plan Plan: Assessment: 1. Acute kidney injury mostly prerenal secondary to cardiorenal syndrome. Creatinine 1.05 yesterday. UA benign. No hydronephrosis noted on kidney ultras ound. 2. Acute hypoxic respiratory failure. 3. Idiopathic pulmonary fibrosis. Also be treated for pneumonia. 4. Acute on chronic diastolic CHF with severe pulmonary hypertension. 5. Benign hypertension. Stable. Plan: Maintain oral Lasix. Continue to monitor renal function and urine output.
[2021-05-09 11:46] LABS: Glucose,Whole Blood 174 mg/dL (75-99)
--- NOTE | 2021-05-09 13:02 | P.PN ---
Subjective Progress Note Date: 05/09/21 CHIEF COMPLAINT: Cholelithiasis HISTORY OF PRESENT ILLNESS: Patient is admitted for his respiratory failure with underlying idiopathic pulmonary fibrosis and community-acquired pneumonia. He is still reporting no abdominal pain. He is tolerating diet. Denies any nausea or vomiting. Afebrile. WBC 30.9 Patient seen and examined with Dr. spencer PHYSICAL EXAM: VITAL SIGNS: Reviewed. GENERAL: Well-developed in no acute distress. HEENT: No sclera icterus. Extraocular movements grossly intact. Moist buccal mucosa. Head is atraumatic, normocephalic. ABDOMEN: Soft. Nondistended. Nontender. NEUROLOGIC: Alert and oriented. Cranial nerves II through XII grossly intact. ASSESSMENT: 1. Cholelithiasis with probable chronic cholecystitis. Patient asymptomatic PLAN: -No surgical intervention planned during this admission -Once patient has recovered from his pneumonia and respiratory status improves we can revisit his cholelithiasis in the outpatient setting Physician [employer] note has been reviewed by physician. Signing provider agrees with the documented findings, assessment, and plan of care. Objective - Vital Signs Vital signs: Vital Signs Temp 97.8 F 05/09/21 08:00 Pulse 98 05/09/21 12:55 Resp 24 05/09/21 08:00 BP 170/84 05/09/21 08:00 Pulse Ox 91 L 05/09/21 09:12 Intake & Output 05/08/21 05/09/21 05/09/21 18:59 06:59 18:59 Intake Total 380 245 Output Total 750 1200 Balance -370 -1200 245 Intake: Intake, IV Titration 140 Amount Levofloxacin 500Mg-D5w 100 Pmx 500 mg In Dextrose/ Water 1 100ml.bag @ 100 mls/hr IVPB Q24H [facility] Rx#: [id number] Sodium Chloride 0.9% 1, 40 000 ml @ 20 mls/hr IV . Q24H [facility] Rx#:[id number] Oral 240 245 Output: Urine 750 1200 Stool 0 Other: Voiding Method Bedpan Urinal # Bowel Movements 1 - Labs CBC & Chem 7: 05/08/21 06:54 05/08/21 06:54 Labs: Abnormal Lab Results - Last 24 Hours (Table) 05/08/21 05/08/21 05/09/21 Range/Units 16:37 20:18 05:36 POC Glucose (mg/dL) 133 H 281 H 117 H (75-99) mg/dL 05/09/21 Range/Units 11:44 POC Glucose (mg/dL) 174 H (75-99) mg/dL Microbiology - Last 24 Hours (Table) 05/06/21 10:18 Blood Culture - Preliminary Blood No Growth after 72 hours 05/06/21 10:21 Blood Culture - Preliminary Blood No Growth after 72 hours 05/07/21 07:45 Gram Stain - Final Sputum Sputum Culture - Final
--- NOTE | 2021-05-09 14:27 | P.PN ---
<Aniya Clark M - Last Filed: 05/09/21 14:18> Subjective Progress Note Date: 05/09/21 Principal diagnosis: Shortness of breath On 04/30/2021 patient seen in follow-up on selective care unit. He is awake and alert, in no acute distress, remains on BiPAP at 10/5 and FiO2 75%, he sat 95% and subsequently affected has been decreased down to 65%. He has been able to tolerate high flow nasal cannula trials at mealtimes. Overall breathing is improving, occasional cough with production of small amount of yellow sputum. Vital signs have been stable overnight. Altered mentation, lung sounds are positive for bibasilar crackles, he remains on Lasix 20 mg by mouth twice daily, he is on inhaled and nebulized bronchodilators, he is on Zosyn. His blood and sputum cultures have shown no growth thus far. On 05/05/2021 patient seen in follow-up on selective care unit, patient is short of breath, he continues to require high flow oxygen with airflow at 60 L and FiO2 of 93% in the 100% nonrebreathing mask and his pulse ox is marginal. Patient is very short of breath with any exertion, he remains on Zosyn and Levaquin for empiric antibiotic coverage, his cultures have shown no growth. Continues on IV Solu-Medrol, breathing treatments. No new labs today, his labs from yesterday showed increasing leukocytosis and white count of 27.3, his had no fevers overnight. He continues on oral Lasix. His chest x-ray from 05/01/2021 showed persistent scattered pulmonary opacities and infiltrates in both lung bonilla that were felt to be slightly improved in the right upper lung zone. Patient is maximized on medical treatment however clinically he has made little improvement. His had no nausea or vomiting, no abdominal pain. Patient has history of UIP, and he takes Ofev on an outpatient basis. In view of his worsening clinical status we discussed his clinical condition with him, his prognosis, and high likelihood that he may end up on life-support and possibly need a tracheostomy and PEG tube placement. Patient is unsure about going on life-support at this time but he feels overwhelmed with such a decision. He states he wants to think about it. On 05/06/2021 patient seen in follow-up on selective care unit. He remains on high flow oxygen on Airvo at 60 L and FiO2 of 92% in addition to 100% nonrebreather mask and his pulse ox is 89-94%. Patient is dyspneic with conve rsation, and any exertion, he has been mostly bedbound related to his shortness of breath. However she seems to be breathing a bit easier today, follow-up chest x-ray has been reviewed showing grossly stable bilateral pulmonary infiltrates and without significant interval change. Patient has been afebrile overnight, blood pressure has been stable however on today's labs his white count continues to trend up and is up to 29.7, hemoglobin is 11.9, sodium is 139, potassium is 4.2, chloride is 99, CO2 is 35, BUN is 66 and creatinine is 1. patient has previously been on antibiotics in the form of Levaquin that were discontinued on 05/02/2021. His blood and sputum cultures have been negative. Patient also continues on IV Solu-Medrol 60 mg every 6 hours, he is on breathing treatments he is on oral Lasix. Yesterday we discussed CODE STATUS with him, at the time patient wanted more time to think, today he states that he has given it of thought, and she does not want any heroic measures, she does want to continue with supportive care at this time everything including antibiotics, steroids bring treatments BiPAP support, he does not want CPR, defibrillation, and normal intubation and placement on mechanical ventilator. On 05-07-2021 patient seen in follow-up on selective care unit, he remains on high flow oxygen per Airvo at 60 L and FiO2 of 90% and 100% nonrebreather mask, and his pulse ox is 93-94%, he states he is breathing a bit more comfortably today, still short of breath with any exertion, at times he is able to bring up small amount of brownish tinged phlegm, sputum culture was sent, patient remains on Levaquin, he is on IV Solu-Medrol, breathing treatments. No acute events overnight. No complaint of chest discomfort. Repeat blood cultures haven't sent and pending. Patient has been afebrile overnight. On 05/08/2021 patient seen in follow-up on selective care unit, he remains on high flow oxygen per Airvo with 60 L and FiO2 of 89%, and 100% nonrebreather mask, his pulse ox is 94-98%, patient easily desaturates with speaking, he has conversational dyspnea. He states he rested more comfortably last night, did require Xanax. He continues on inhaled bronchodilators, he continues on oral Lasix, empiric antibiotics in the form of Levaquin, and IV steroids, follow-up chest x-ray is pending for today, today's lab work has been reviewed and there has been no further increase in his white blood cell, which is now at 30.9, woman is 11.5, sodium is 139, potassium is 4.9, chloride is 99, CO2 36, B1 is 67, creatinine is 1.05. His follow pro-calcitonin is still pending, repeat blood and sputum cultures have been sent and results are still pending, patient has had no fever or chills overnight. Lung sounds reveal diffuse crackles, good air entry noted bilaterally. On 05/09/2021 patient seen in follow-up on selective care unit, he remains on the same set up for oxygen delivery, per Airvo at 60 L and FiO2 of 90% and 100% nonrebreather mask and his pulse ox is marginal, at around 91%. Patient is short of breath with any exertion, including conversation. He states he was having increased shortness of breath during the night. Feels improved right now, overall his clinical status has not changed. Has been afebrile overnight, hemodynamically stable, denies any complaints of chest pain. He remains on IV steroids, Levaquin for empiric antibiotic coverage, follow blood cultures and sputum cultures have been negative. Pro-calcitonin level was negative. Today's blood work is still pending. He remains on Lasix 20 mg twice daily, his renal function was noted to be improving, his renal/bladder/ ultrasound showed no hydronephrosis, no nephrolithiasis, urinary bladder was anechoic. He has been requiring intermittent doses of Xanax for increased anxiety. His family is at the bedside from out of state. His sister states they realize how ill the patient is, and his poor prognosis. At this time the patient is awaiting arrival of his patent prosecution attorney to take care of some paperwork, possibly living will. Currently status is DO NOT RESUSCITATE, Objective - Vital Signs Vital signs: Vital Signs Temp 97.8 F 05/09/21 08:00 Pulse 98 05/09/21 13:08 Resp 24 02/25/22 08:00 BP 170/84 05/09/21 08:00 Pulse Ox 91 L 05/09/21 09:12 Intake & Output 05/08/21 05/09/21 05/09/21 18:59 06:59 18:59 Intake Total 380 245 Output Total 750 1200 Balance -370 -1200 245 Intake: Intake, IV Titration 140 Amount Levofloxacin 500Mg-D5w 100 Pmx 500 mg In Dextrose/ Water 1 100ml.bag @ 100 mls/hr IVPB Q24H [facility] Rx#: [id number] Sodium Chloride 0.9% 1, 40 000 ml @ 20 mls/hr IV . Q24H [facility] Rx#:[id number] Oral 240 245 Output: Urine 750 1200 Stool 0 Other: Voiding Method Bedpan Urinal # Bowel Movements 1 - Exam GENERAL EXAM: Alert, very pleasant 75-year-old white male, on Airvo at 60 L and FiO2 of 93% satting 94% and 100% nonrebreather mask dyspneic with conversation and any exertion HEAD: Normocephalic/atraumatic. EYES: Normal reaction of pupils, equal size. Conjunctiva pink, sclera white. NOSE: Clear with pink turbinates. THROAT: No erythema or exudates. NECK: No masses, no JVD, no thyroid enlargement, no adenopathy. CHEST: No chest wall deformity. Symmetrical expansion. LUNGS: Equal air entry with basilar crackles CVS: Regular rate and rhythm, normal S1 and S2, no gallops, no murmurs, no rubs ABDOMEN: Soft, nontender. No hepatosplenomegaly, normal bowel sounds, no guarding or rigidity. EXTREMITIES: No clubbing, no edema, no cyanosis, 2+ pulses and upper and lower extremities. MUSCULOSKELETAL: Muscle strength and tone normal. SPINE: No scoliosis or deformity SKIN: No rashes CENTRAL NERVOUS SYSTEM: Alert and oriented -3. No focal deficits, tone is normal in all 4 extremities. PSYCHIATRIC: Alert and oriented -3. Appropriate affect. Intact judgment and insight. - Labs CBC & Chem 7: 05/08/21 06:54 05/08/21 06:54 Labs: Abnormal Lab Results - Last 24 Hours (Table) 05/08/21 05/08/21 05/09/21 Range/Units 16:37 20:18 05:36 POC Glucose (mg/dL) 133 H 281 H 117 H (75-99) mg/dL 05/09/21 Range/Units 11:44 POC Glucose (mg/dL) 174 H (75-99) mg/dL Microbiology - Last 24 Hours (Table) 05/06/21 10:18 Blood Culture - Preliminary Blood No Growth after 72 hours 05/06/21 10:21 Blood Culture - Preliminary Blood No Growth after 72 hours 05/07/21 07:45 Gram Stain - Final Sputum Sputum Culture - Final Assessment and Plan Plan: Assessment: #1. Acute on chronic hypoxic respiratory failure, worsening, the patient is currently requiring Airvo at 60 L and FiO2 of 93% in addition to 100% nonrebreather mask likely related to acute exacerbation of IPF with the possibility of community-acquired pneumonia, patient was on Zosyn and Levaquin, cultures are negative thus far #2. Elevated troponin possibly related to supply demand mismatch #3. Biopsy-proven UIP, maintained on OFEV on an outpatient basis #4. History of right-sided hemidiaphragm pulses #5. History of mild intermittent bronchial asthma #6. Hypertension #7. Hyperlipidemia #8. DJD #9. Leukocytosis, rule out possibility of infection, follow-up blood cultures and sputum cultures are negative, patient is placed back on Levaquin Plan: Patient's condition remains essentially the same Still requiring high flow oxygen, still quite dyspneic Continue current antibiotic coverage Continue IV steroids Continue breathing treatments We'll send a Legionella urine antigen Send influenza A and B and RSV PCR We'll continue supportive treatment I performed a history & physical examination of the patient and discussed their management with my nurse practitioner, Aniya Clark. I reviewed the nurse practitioner's note and agree with the documented findings and plan of care. Lung sounds are positive for bibasilar rales throughout the lung bonilla. The findings and the impression was discussed with the patient. I attest to the documentation by the nurse practitioner. I have personally seen and examined the patient, performed the documentation and the assessment and plan as written. Number of minutes spent on the visit: [10] Time with Patient: Less than 30 <David Savage - Last Filed: 05/09/21 19:02> Objective - Vital Signs Vital signs: Vital Signs Temp 98 F 05/09/21 16:00 Pulse 108 H 05/09/21 16:32 Resp 22 02/25/22 16:00 BP 146/95 05/09/21 16:00 Pulse Ox 90 L 05/09/21 16:00 Intake & Output 05/09/21 05/09/21 05/10/21 06:59 18:59 06:59 Intake Total 245 Output Total 1200 Balance -1200 245 Intake: Oral 245 Output: Urine 1200 Other: # Bowel Movements 1 - Labs CBC & Chem 7: 05/08/21 06:54 05/08/21 06:54 Labs: Abnormal Lab Results - Last 24 Hours (Table) 05/08/21 05/09/21 05/09/21 Range/Units 20:18 05:36 06:54 POC Glucose (mg/dL) 281 H 117 H (75-99) mg/dL Procalcitonin 0.11 H (0.02-0.09) ng/mL 05/09/21 05/09/21 Range/Units 11:44 16:18 POC Glucose (mg/dL) 174 H 235 H (75-99) mg/dL Procalcitonin (0.02-0.09) ng/mL Microbiology - Last 24 Hours (Table) 05/06/21 10:18 Blood Culture - Preliminary Blood No Growth after 72 hours 05/06/21 10:21 Blood Culture - Preliminary Blood No Growth after 72 hours 05/07/21 07:45 Gram Stain - Final Sputum Sputum Culture - Final Assessment and Plan Plan: This is a joint evaluation that was done along with a nurse practitioner. This evaluation was done and more than 20 minutes. The patient has developed an acute exacerbation of IPF and the patient responded to conventional bronchodilators and steroids and antibiotics. He remains on examination Zosyn and Levaquin. Unfortunately, he continues to require high flow oxygen in the form of Airvo along with 100% nonrebreather facemask. My recommendations are to check influenza A and B screen. Check RSV. Check a Legionella urine antigen. Continues to steroids. Continue antibiotics. Monitor oxygenation. Prognosis poor. Upon comparing the CAT scan images from 2 years ago, there is obvious worsening in the pulmonary fibrosis. DNR/DNI CODE STATUS.
--- NOTE | 2021-05-09 15:48 | P.PN ---
Subjective Progress Note Date: 05/09/21 This is a 75-year-old gentleman admitted with acute hypoxic respiratory failure secondary to acute exacerbation of pulmonary fibrosis, possible community- acquired pneumonia and multiple other medical issues. Maintained on nebulized bronchodilators, Symbicort, IV steroids, Zosyn and Levaquin. Tachypneic,cu rrently requiring Airvo 60 Flow Rate/95% FIO2, maintaining O2 sats in the mid 80s to low 90s. Afebrile, WBC 18.3. Preliminary blood cultures reporting no growth after 48 hours. BUN 46, creatinine 1.62. 04/29/2021 last night, patient developed worsening dyspnea ,desatted on airvo down into the mid 70s. Changed over to BiPAP with O2 sats improved. Currently on 85% BiPAP. Creatinine decreased to 1.38. T bili 1, AST 98, ALT 129. Reports he is not sleeping well, requesting melatonin. 04/30/2021 continues on nebulized bronchodilators, IV steroids, and empiric Zosyn. Reports occasional minimally productive cough of pale yellow sputum. Currently FiO2 better controlled on BiPAP 10/5 FIO2 75%, at 95%. Last night melatonin added to med regimen and patient reports he slept much better. Diet intake fair, consuming ensure supplements between meals. Creatinine decreased to 1.28. Afebrile, WBC 14.6 , blood cultures negative, sputum culture pending. 05/01/21 maintained on BiPAP during the night , currently wearing airvo with a partial rebreather. Maintaining O2 sats in the 90s, minimal productive cough .afebrile, WBC 15.1 Consumed approximately 75% of breakfast this morning. Creatinine continues improving, 1.18. Denies chest pain, palpitations. Chest x-ray pending. 05/06/2021 did not require BiPAP last night, maintained on airvo 60 L and NRB, to maintain O2 sats in the low 90s. Continues on oral Lasix, IV steroids and nebulized bronchodilators. Mild anxiety, dyspneic with conversing, reports less short of breath compared to yesterday. Chest x-ray reporting no significant interval change without progression. Afebrile, trending up, 29.7. Renal function worsening, BUN 66, creatinine 1.28. Bicarb 35. 05/07/2021 WBC trending up .Maintained on levaquin, nebulized bronchodilators and IV steroids. Repeat blood cultures in progress. Reports good night sleep, feels better. Continues on Arava 60 L of nonrebreather maintaining O2 sats in the low 90s. Less anxiety, less shortness of breath with conversing. Afebrile. 05/08/2021 maintained on nebulized bronchodilators, IV steroids, Levaquin. feels better. maintaining O2 sats in the 90s on Airvo 60L and NRB mask. Some conversational dyspnea but with less anxiety. Repeat sputum and blood cultures pending .Afebrile, WBC 30.9, hemoglobin 11.5, platelets 189. CO2 36 BUN 67, creatinine decreased to 1.05. 05/09/2021 continues on Levaquin, IV steroids , oral Lasix, airvo 60L and NRM , maintaining O2 sats of low 90s. Reports "rough night with increased shortness of breath, feeling a little down." Repeat sputum and blood cultures negative. Renal ultrasound reported no hydronephrosis, no nephrolithiasis, anechoic urinary bladder bilateral cortical cysts. Afebrile. Objective - Vital Signs Vital signs: Vital Signs Temp 97.8 F 05/09/21 08:00 Pulse 98 05/09/21 13:08 Resp 24 05/09/21 08:00 BP 170/84 05/09/21 08:00 Pulse Ox 91 L 05/09/21 09:12 Intake & Output 05/08/21 05/09/21 05/09/21 18:59 06:59 18:59 Intake Total 380 245 Output Total 750 1200 Balance -370 -1200 245 Intake: Intake, IV Titration 140 Amount Levofloxacin 500Mg-D5w 100 Pmx 500 mg In Dextrose/ Water 1 100ml.bag @ 100 mls/hr IVPB Q24H DANELLE Rx#: [id number] Sodium Chloride 0.9% 1, 40 000 ml @ 20 mls/hr IV . Q24H DANELLE Rx#:[id number] Oral 240 245 Output: Urine 750 1200 Stool 0 Other: Voiding Method Bedpan Urinal # Bowel Movements 1 - Exam PHYSICAL EXAM: VITAL SIGNS: [As above] GENERAL: Alert and oriented 3,Sitting up in bed, respiratory effort increased,on Airvo & NRB HEENT: Conjunctivae normal. eyes normal. NECK: Supple, No JVD. CARDIOVASCULAR: S1, S2 regular.No murmur RESPIRATION: Diminished with Scattered crackles. ABDOMEN: Soft, nontender . No guarding. no masses palpable. no guarding.positive bowel sounds. LEGS: No edema. no swelling, no cyanosis, no clubbing. NERVOUS SYSTEM: Cranial N 2-12 grossly normal. No focal deficits. Strength and sensation grossly intact. - Labs CBC & Chem 7: 05/08/21 06:54 05/08/21 06:54 Labs: Abnormal Lab Results - Last 24 Hours (Table) 05/08/21 05/08/21 05/09/21 Range/Units 16:37 20:18 05:36 POC Glucose (mg/dL) 133 H 281 H 117 H (75-99) mg/dL 05/09/21 Range/Units 11:44 POC Glucose (mg/dL) 174 H (75-99) mg/dL Microbiology - Last 24 Hours (Table) 05/06/21 10:18 Blood Culture - Preliminary Blood No Growth after 72 hours 05/06/21 10:21 Blood Culture - Preliminary Blood No Growth after 72 hours 05/07/21 07:45 Gram Stain - Final Sputum Sputum Culture - Final Assessment and Plan Assessment: Acute on chronic hypoxic respiratory failure secondary to acute exacerbation of underlying pulmonary fibrosis, possible bilateral community acquired pneumonia. Wears 2 L at home. Elevated troponins, NSTEMI, related to the above Nonsustained V. tach, spontaneously resolved, asymptomatic Leukocytosis, cultures pending Lactic acidosis, resolved Elevated d-dimer,CTA reported negative for pulmonary embolism Acute renal failure, possibly related to IV contrast Chronic mild asthma Gastroesophageal reflux disease Hypertension Hyperlipidemia DJD Hypokalemia,resolved No code, no CPR, no intubation Plan: Continue on current medication regime ,monitoring and symptomatic treatment. Aggressive pulmonary toileting with nebulized bronchodilators, steroids ,Levaquin , oral Lasix. Prognosis guarded given multiple complex medical issues. The impression and plan of care has been dictated as directed. : I performed a history and examination of this patient, discussed the same with the dictator. I agree with the dictator's note ,documented as a scribe. Any additional findings or plans will be noted.
[2021-05-09 16:19] LABS: Glucose,Whole Blood 235 mg/dL (75-99)
[2021-05-09] MEDS ORDERED: ALPRAZolam 0.25 MG TAB PO STA (19:30)
[2021-05-09 20:18] LABS: Glucose,Whole Blood 100 mg/dL (75-99)
[2021-05-09] MEDS: INSULIN DETEMIR (LEVEMIR) 100 UNIT/ML SYR SQ SCH (20:19)
[2021-05-09] MEDS: MELATONIN 5 MG TABLET PO SCH (20:24)
[2021-05-09] MEDS: ATORVASTATIN 20 MG TAB PO SCH (20:24)
[2021-05-09] MEDS: MONTELUKAST 10 MG TAB PO SCH (20:24)
[2021-05-09] MEDS: ESCITALOPRAM 10 MG TAB PO SCH (20:24)
[2021-05-09] MEDS: SODIUM CHLORIDE 0.9% 1,000 ML IV SCH (22:11)
[2021-05-10 06:17] LABS: Glucose,Whole Blood 248 mg/dL (75-99)
[2021-05-10] MEDS: INSULIN ASPART (NovoLOG) 100 UNIT/ML VIAL SQ SCH ×4 (06:21→20:16)
[2021-05-10] MEDS: methylPREDNISolone SOD SUCCI 125 MG/2 ML VIAL IV SCH ×2 (06:22→12:53)
[2021-05-10] MEDS: PANTOPRAZOLE 40 MG TABLET PO SCH (06:22)
[2021-05-10] MEDS: IPRATROPIUM-ALBUTEROL 3 ML NEB INHALATION SCH ×4 (08:19→19:16)
[2021-05-10] MEDS: SYMBICORT 160-4.5 MCG INHALER INHALATION SCH ×2 (08:19→19:17)
[2021-05-10] MEDS: ASPIRIN 81 MG PO SCH (08:26)
[2021-05-10] MEDS: buPROPion 75 MG TAB PO SCH ×2 (08:26→20:20)
[2021-05-10] MEDS: LOSARTAN 50 MG TAB PO SCH (08:26)
[2021-05-10] MEDS: FUROSEMIDE 20 MG TAB PO SCH ×2 (08:26→17:22)
[2021-05-10] MEDS: MULTIVITAMINS, THERA 1 EACH TAB PO SCH (08:26)
[2021-05-10] MEDS: guaiFENesin 600 MG TABLET.ER PO SCH ×2 (08:26→20:20)
[2021-05-10] MEDS: NON FORMULARY DRUG (Nintedanib Esylate [Ofev] 150 MG Capsule) PO SCH ×2 (08:27→20:19)
[2021-05-10 08:55] LABS: Basophils # (A) 0.1 k/uL (0-0.2); Basophils % (A) 0 %; Eosinophils % (A) 0 %; HCT 37.8 % (39.0-53.0); HGB 12.3 gm/dL (13.0-17.5); Lymphocytes # (A) 0.1 k/uL (1.0-4.8); Lymphocytes % (A) 0 %; MCH 30.7 pg (25.0-35.0); MCHC 32.7 g/dL (31.0-37.0); Mean Platelet Volume 11.1; Monocytes # (A) 0.7 k/uL (0-1.0); Monocytes % (A) 2 %; Neutrophils # (A) 35.7 k/uL (1.3-7.7); Neutrophils % (A) 97 %; Platelet Count 198 k/uL (150-450); RBC 4.02 m/uL (4.30-5.90); RDW 14.9 % (11.5-15.5); WBC 36.7 k/uL (3.8-10.6)
--- NOTE | 2021-05-10 08:58 | P.PN ---
Subjective Patient is admitted to for acute respiratory failure secondary to pulmonary fibrosis, usual interstitial pneumonia. Patient was on OFEV, patient has been on high flow oxygen via airvo. This is a significant improvement the in spite of aggressive measures. Patient is also on antibiotics with levofloxacin although his pro calcitonin is only 0.1 possibly doesn't have any infection. Patient is being evaluated for atypical pneumonia of the labs are pending Legionella urinary antigen is pending mycoplasma antibodies pending. Patient was tested for influenza and RSV which was negative. I had a lengthy discussion with the patient regarding his overall goals of care his prognosis which appears to be extremely poor patient probably will not get out of the hospital discussed hospice care with the patient. His pulmonary condition is mostly reversible. Constitutional: Denied any fatigue denied any fever. Cardio vascular: denied any chest pain, palpitations Gastrointestinal denied any nausea vomiting Pulmonary: Negative and shortness of breath Neurologic denied any new focal deficits All inpatient medications were reviewed and appropriate changes in these medications as dictated in the interval history and assessment and plan. PHYSICAL EXAMINATION: GENERAL: The patient is alert and oriented x3, patient is in acute distress. Th in built HEENT: Pupils are round and equally reacting to light. EOMI. No scleral icterus. No conjunctival pallor. Normocephalic, atraumatic. No pharyngeal erythema. No thyromegaly. CARDIOVASCULAR: S1 and S2 present. No murmurs, rubs, or gallops. PULMONARY: Coarse bilaterally ABDOMEN: Soft, nontender, nondistended, normoactive bowel sounds. No palpable organomegaly. MUSCULOSKELETAL: No joint swelling or deformity. EXTREMITIES: No cyanosis, clubbing, or pedal edema. NEUROLOGICAL: Gross neurological examination did not reveal any focal deficits. SKIN: No rashes. Assessment and Plan Assessment: Acute on chronic hypoxic respiratory failure secondary to acute exacerbation of underlying pulmonary fibrosis, there is no evidence of pneumonia. Patient remains on a high flow oxygen. Wears 2 L at home. Is extremely poor discussed hospice and comfort care with the patient Elevated troponins, NSTEMI, hypoxemia Leukocytosis secondary to systemic steroids Nonsustained V. tach, spontaneously resolved, asymptomatic Lactic acidosis, resolved Elevated d-dimer,CTA reported negative for pulmonary embolism Acute renal failure, possibly related to IV contrast my improved now Gastroesophageal reflux disease Hypertension Hyperlipidemia DJD Hypokalemia,resolved No code, patient wanted to be intubated and if he doesn't improve in 3 days then terminal related that time Objective - Vital Signs Vital signs: Vital Signs Temp 98.1 F 05/10/21 04:00 Pulse 97 05/10/21 08:29 Resp 30 H 05/10/21 08:22 BP 171/96 05/10/21 08:22 Pulse Ox 87 L 05/10/21 08:22 Intake & Output 05/09/21 05/10/21 05/10/21 18:59 06:59 18:59 Intake Total 245 Output Total 200 550 Balance 45 -550 Intake: Oral 245 Output: Urine 200 550 Stool 0 Other: Voiding Method Bedpan Urinal # Voids 1 1 # Bowel Movements 1 1 - Labs CBC & Chem 7: 05/08/21 06:54 05/08/21 06:54 Labs: Abnormal Lab Results - Last 24 Hours (Table) 05/09/21 05/09/21 05/09/21 Range/Units 06:54 11:44 16:18 POC Glucose (mg/dL) 174 H 235 H (75-99) mg/dL Procalcitonin 0.11 H (0.02-0.09) ng/mL 05/09/21 05/10/21 Range/Units 20:16 06:13 POC Glucose (mg/dL) 100 H 248 H (75-99) mg/dL Procalcitonin (0.02-0.09) ng/mL Microbiology - Last 24 Hours (Table) 05/06/21 10:18 Blood Culture - Preliminary Blood No Growth after 72 hours 05/06/21 10:21 Blood Culture - Preliminary Blood No Growth after 72 hours 05/07/21 07:45 Gram Stain - Final Sputum Sputum Culture - Final
[2021-05-10] MEDS ORDERED: FUROSEMIDE 10 MG/ML 4 ML VIAL IV STA (09:09)
[2021-05-10 09:12] LABS: Calcium 8.6 mg/dL (8.4-10.2); Magnesium 2.1 mg/dL (1.6-2.3); Potassium 4.4 mmol/L (3.5-5.1)
[2021-05-10] MEDS: ALPRAZolam 0.5 MG TAB PO SCH ×3 (10:47→20:19)
[2021-05-10 11:48] LABS: Glucose,Whole Blood 124 mg/dL (75-99)
[2021-05-10] MEDS: LEVOFLOXACIN 500MG-D5W PMX 500 MG in DEXTROSE/WATER 1 100ML.BAG IVPB SCH (12:53)
--- NOTE | 2021-05-10 13:03 | P.PN ---
Subjective Progress Note Date: 05/10/21 On 04/30/2021 patient seen in follow-up on selective care unit. He is awake and alert, in no acute distress, remains on BiPAP at 10/5 and FiO2 75%, he sat 95% and subsequently affected has been decreased down to 65%. He has been able to tolerate high flow nasal cannula trials at mealtimes. Overall breathing is improving, occasional cough with production of small amount of yellow sputum. Vital signs have been stable overnight. Altered mentation, lung sounds are positive for bibasilar crackles, he remains on Lasix 20 mg by mouth twice daily, he is on inhaled and nebulized bronchodilators, he is on Zosyn. His blood and sputum cultures have shown no growth thus far. On 05/05/2021 patient seen in follow-up on selective care unit, patient is short of breath, he continues to require high flow oxygen with airflow at 60 L and FiO2 of 93% in the 100% nonrebreathing mask and his pulse ox is marginal. Patient is very short of breath with any exertion, he remains on Zosyn and Levaquin for empiric antibiotic coverage, his cultures have shown no growth. Continues on IV Solu-Medrol, breathing treatments. No new labs today, his labs from yesterday showed increasing leukocytosis and white count of 27.3, his had no fevers overnight. He continues on oral Lasix. His chest x-ray from 05/01/2021 showed persistent scattered pulmonary opacities and infiltrates in both lung bonilla that were felt to be slightly improved in the right upper lung zone. Patient is maximized on medical treatment however clinically he has made little improvement. His had no nausea or vomiting, no abdominal pain. Patient has history of UIP, and he takes Ofev on an outpatient basis. In view of his worsening clinical status we discussed his clinical condition with him, his prognosis, and high likelihood that he may end up on life-support and possibly need a tracheostomy and PEG tube placement. Patient is unsure about going on life-support at this time but he feels overwhelmed with such a decision. He states he wants to think about it. On 05/06/2021 patient seen in follow-up on selective care unit. He remains on high flow oxygen on Airvo at 60 L and FiO2 of 92% in addition to 100% nonrebreather mask and his pulse ox is 89-94%. Patient is dyspneic with conversation, and any exertion, he has been mostly bedbound related to his shortness of breath. However she seems to be breathing a bit easier today, follow-up chest x-ray has been reviewed showing grossly stable bilateral pulmonary infiltrates and without significant interval change. Patient has been afebrile overnight, blood pressure has been stable however on today's labs his white count continues to trend up and is up to 29.7, hemoglobin is 11.9, sodium is 139, potassium is 4.2, chloride is 99, CO2 is 35, BUN is 66 and creatinine is 1. patient has previously been on antibiotics in the form of Levaquin that were discontinued on 05/02/2021. His blood and sputum cultures have been negative. Patient also continues on IV Solu-Medrol 60 mg every 6 hours, he is on breathing treatments he is on oral Lasix. Yesterday we discussed CODE STATUS with him, at the time patient wanted more time to think, today he states that he has given it of thought, and she does not want any heroic measures, she does want to continue with supportive care at this time everything including antibiotics, steroids bring treatments BiPAP support, he does not want CPR, defibrillation, and normal intubation and placement on mechanical ventilator. On 05-07-2021 patient seen in follow-up on selective care unit, he remains on high flow oxygen per Airvo at 60 L and FiO2 of 90% and 100% nonrebreather mask, and his pulse ox is 93-94%, he states he is breathing a bit more comfortably today, still short of breath with any exertion, at times he is able to bring up small amount of brownish tinged phlegm, sputum culture was sent, patient remains on Levaquin, he is on IV Solu-Medrol, breathing treatments. No acute events overnight. No complaint of chest discomfort. Repeat blood cultures haven't sent and pending. Patient has been afebrile overnight. On 05/08/2021 patient seen in follow-up on selective care unit, he remains on high flow oxygen per Airvo with 60 L and FiO2 of 89%, and 100% nonrebreather mask, his pulse ox is 94-98%, patient easily desaturates with speaking, he has conversational dyspnea. He states he rested more comfortably last night, did require Xanax. He continues on inhaled bronchodilators, he continues on oral Lasix, empiric antibiotics in the form of Levaquin, and IV steroids, follow-up chest x-ray is pending for today, today's lab work has been reviewed and there has been no further increase in his white blood cell, which is now at 30.9, woman is 11.5, sodium is 139, potassium is 4.9, chloride is 99, CO2 36, B1 is 67, creatinine is 1.05. His follow pro-calcitonin is still pending, repeat blood and sputum cultures have been sent and results are still pending, patient has had no fever or chills overnight. Lung sounds reveal diffuse crackles, good air entry noted bilaterally. On 05/09/2021 patient seen in follow-up on selective care unit, he remains on the same set up for oxygen delivery, per Airvo at 60 L and FiO2 of 90% and 100% nonrebreather mask and his pulse ox is marginal, at around 91%. Patient is short of breath with any exertion, including conversation. He states he was having increased shortness of breath during the night. Feels improved right now, overall his clinical status has not changed. Has been afebrile overnight, hemodynamically stable, denies any complaints of chest pain. He remains on IV steroids, Levaquin for empiric antibiotic coverage, follow blood cultures and sputum cultures have been negative. Pro-calcitonin level was negative. Today's blood work is still pending. He remains on Lasix 20 mg twice daily, his renal function was noted to be improving, his renal/bladder/ ultrasound showed no hydronephrosis, no nephrolithiasis, urinary bladder was anechoic. He has been requiring intermittent doses of Xanax for increased anxiety. His family is at the bedside from out of state. His sister states they realize how ill the patient is, and his poor prognosis. At this time the patient is awaiting arrival of his deputy prosecuting attorney to take care of some paperwork, possibly living will. Currently status is DO NOT RESUSCITATE, On today's evaluation of 05/10/2021, the patient remains on high flow oxygen at 60 L were identified 90% and the patient is also using 100% on a beta facemask to maintain a saturation above 90%. This patient has IPF. The patient developed an acute exacerbation of IPF with hypoxic respiratory failure and the patient has developed worsening shortness of breath and hypoxemia and the patient is currently in the hospital and his been here for the past 2 weeks. Further investigation was done yesterday. Influenza screen was negative. RSV screen was negative.: COVID 19 testing was negative. Legionella urine antigen was still pending for now. Meanwhile, the patient remains on Levaquin. The patient remains on IV Solu-Medrol. The patient is unfortunate doing poorly. There is anxious. May benefit from Xanax. He is a DNR/DNI CODE STATUS. He understands that this might self-care is a very poor prognosis. I compared the CAT scans from 2019 and there is obvious worsening in his pulmonary fibrosis in comparison. Furthermore, his blood work today, his white cell count is up to 36.7. She was at 12.3. The ends of 66 with a creatinine of 1.06 and the sodium level is at 138. Oral intake is quite diminished. His body mass index is 27.8. He remains on Levemir insulin 10 units along with NovoLog sinus Coverage. He remains on IV Solu Medrol 60 mg every 6 hours. Objective - Vital Signs Vital signs: Vital Signs Temp 98.3 F 05/10/21 12:48 Pulse 96 05/10/21 12:48 Resp 30 H 05/10/21 12:48 BP 137/87 05/10/21 12:48 Pulse Ox 87 L 05/10/21 08:22 Intake & Output 05/09/21 05/10/21 05/10/21 18:59 06:59 18:59 Intake Total 245 Output Total 200 550 0 Balance 45 -550 0 Intake: Oral 245 Output: Urine 200 550 Stool 0 0 Other: Voiding Method Bedpan Bedpan Urinal Urinal # Voids 1 1 # Bowel Movements 1 1 - Exam GENERAL EXAM: Alert, very pleasant 75-year-old white male, on Airvo at 60 L and FiO2 of 93% satting 94% and 100% nonrebreather mask dyspneic with conversation and any exertion HEAD: Normocephalic/atraumatic. EYES: Normal reaction of pupils, equal size. Conjunctiva pink, sclera white. NOSE: Clear with pink turbinates. THROAT: No erythema or exudates. NECK: No masses, no JVD, no thyroid enlargement, no adenopathy. CHEST: No chest wall deformity. Symmetrical expansion. LUNGS: Equal air entry with basilar crackles CVS: Regular rate and rhythm, normal S1 and S2, no gallops, no murmurs, no rubs ABDOMEN: Soft, nontender. No hepatosplenomegaly, normal bowel sounds, no guarding or rigidity. EXTREMITIES: No clubbing, no edema, no cyanosis, 2+ pulses and upper and lower extremities. MUSCULOSKELETAL: Muscle strength and tone normal. SPINE: No scoliosis or deformity SKIN: No rashes CENTRAL NERVOUS SYSTEM: Alert and oriented -3. No focal deficits, tone is normal in all 4 extremities. PSYCHIATRIC: Alert and oriented -3. Appropriate affect. Intact judgment and insight. - Labs CBC & Chem 7: 05/10/21 08:28 05/10/21 08:28 Labs: Abnormal Lab Results - Last 24 Hours (Table) 05/09/21 05/09/21 05/09/21 Range/Units 06:54 16:18 20:16 WBC (3.8-10.6) k/uL RBC (4.30-5.90) m/uL Hgb (13.0-17.5) gm/dL Hct (39.0-53.0) % Neutrophils # (1.3-7.7) k/uL Lymphocytes # (1.0-4.8) k/uL Carbon Dioxide (22-30) mmol/L BUN (9-20) mg/dL Glucose (74-99) mg/dL POC Glucose (mg/dL) 235 H 100 H (75-99) mg/dL Procalcitonin 0.11 H (0.02-0.09) ng/mL 05/10/21 05/10/21 05/10/21 Range/Units 06:13 08:28 08:28 WBC 36.7 H (3.8-10.6) k/uL RBC 4.02 L (4.30-5.90) m/uL Hgb 12.3 L (13.0-17.5) gm/dL Hct 37.8 L (39.0-53.0) % Neutrophils # 35.7 H (1.3-7.7) k/uL Lymphocytes # 0.1 L (1.0-4.8) k/uL Carbon Dioxide 31 H (22-30) mmol/L BUN 66 H (9-20) mg/dL Glucose 193 H (74-99) mg/dL POC Glucose (mg/dL) 248 H (75-99) mg/dL Procalcitonin (0.02-0.09) ng/mL 05/10/21 Range/Units 11:46 WBC (3.8-10.6) k/uL RBC (4.30-5.90) m/uL Hgb (13.0-17.5) gm/dL Hct (39.0-53.0) % Neutrophils # (1.3-7.7) k/uL Lymphocytes # (1.0-4.8) k/uL Carbon Dioxide (22-30) mmol/L BUN (9-20) mg/dL Glucose (74-99) mg/dL POC Glucose (mg/dL) 124 H (75-99) mg/dL Procalcitonin (0.02-0.09) ng/mL Microbiology - Last 24 Hours (Table) 05/06/21 10:21 Blood Culture - Preliminary Blood No Growth after 96 hours 05/06/21 10:18 Blood Culture - Preliminary Blood No Growth after 96 hours 05/07/21 07:45 Gram Stain - Final Sputum Sputum Culture - Final Assessment and Plan Plan: #1. Acute on chronic hypoxic respiratory failure, worsening, the patient is currently requiring Airvo at 60 L and FiO2 of 93% in addition to 100% nonrebreather mask likely related to acute exacerbation of IPF with the possibility of community-acquired pneumonia, patient was on Zosyn and Levaquin, cultures are negative thus far. Furthermore, the Procan SR level has been low. Influenza and B screen was negative and the patient had a negative RSV viral screen. The patient did not respond to steroids. The patient did not respond to diuretics. The patient did not respond to bronchodilators. The patient most likely has acute exacerbation of IPF/acute lung injury on top of his chronic IPF #2. Elevated troponin possibly related to supply demand mismatch #3. IPF with a Biopsy-proven UIP, maintained on OFEV on an outpatient basis #4. History of right-sided hemidiaphragm weakness/paralysis #5. History of mild intermittent bronchial asthma #6. Hypertension #7. Hyperlipidemia #8. DJD #9. Leukocytosis, rule out possibility of infection, follow-up blood cultures and sputum cultures are negative, and the Procan SR level is low. This is likely steroid-induced. Plan: Keep the patient on high flow oxygen with Airvo 60 L with an FiO2 of 90% Keep on the percent on a beta facemask May discontinue Darvocet amiodarone put the patient prednisone burst taper 40 mg starting dose Awaiting Legionella urine antigen Continue diuretics Monitor the white cell count Carries a very poor prognosis especially if the patient does not show any signs of improvement in terms of his oxygenation. Acute exacerbation of IPF carries a very poor prognosis and high mortality. CODE STATUS is DNR/DNI.
--- NOTE | 2021-05-10 14:41 | P.PN ---
Subjective Progress Note Date: 05/10/21 Follow-up for acute kidney injury. Feeling better, on high flow oxygen. Admits making good amount of urine. Objective - Vital Signs Vital signs: Vital Signs Temp 98.3 F 05/10/21 12:48 Pulse 96 05/10/21 12:48 Resp 30 H 05/10/21 12:48 BP 137/87 05/10/21 12:48 Pulse Ox 87 L 05/10/21 08:22 Intake & Output 05/09/21 05/10/21 05/10/21 18:59 06:59 18:59 Intake Total 245 Output Total 200 550 0 Balance 45 -550 0 Intake: Oral 245 Output: Urine 200 550 Stool 0 0 Other: Voiding Method Bedpan Bedpan Urinal Urinal # Voids 1 1 # Bowel Movements 1 1 - Exam No acute distress S1-S2 heard Decreased breath sounds No edema - Labs CBC & Chem 7: 05/10/21 08:28 05/10/21 08:28 Labs: Abnormal Lab Results - Last 24 Hours (Table) 05/09/21 05/09/21 05/09/21 Range/Units 06:54 16:18 20:16 WBC (3.8-10.6) k/uL RBC (4.30-5.90) m/uL Hgb (13.0-17.5) gm/dL Hct (39.0-53.0) % Neutrophils # (1.3-7.7) k/uL Lymphocytes # (1.0-4.8) k/uL Carbon Dioxide (22-30) mmol/L BUN (9-20) mg/dL Glucose (74-99) mg/dL POC Glucose (mg/dL) 235 H 100 H (75-99) mg/dL Procalcitonin 0.11 H (0.02-0.09) ng/mL 05/10/21 05/10/21 05/10/21 Range/Units 06:13 08:28 08:28 WBC 36.7 H (3.8-10.6) k/uL RBC 4.02 L (4.30-5.90) m/uL Hgb 12.3 L (13.0-17.5) gm/dL Hct 37.8 L (39.0-53.0) % Neutrophils # 35.7 H (1.3-7.7) k/uL Lymphocytes # 0.1 L (1.0-4.8) k/uL Carbon Dioxide 31 H (22-30) mmol/L BUN 66 H (9-20) mg/dL Glucose 193 H (74-99) mg/dL POC Glucose (mg/dL) 248 H (75-99) mg/dL Procalcitonin (0.02-0.09) ng/mL 05/10/21 Range/Units 11:46 WBC (3.8-10.6) k/uL RBC (4.30-5.90) m/uL Hgb (13.0-17.5) gm/dL Hct (39.0-53.0) % Neutrophils # (1.3-7.7) k/uL Lymphocytes # (1.0-4.8) k/uL Carbon Dioxide (22-30) mmol/L BUN (9-20) mg/dL Glucose (74-99) mg/dL POC Glucose (mg/dL) 124 H (75-99) mg/dL Procalcitonin (0.02-0.09) ng/mL Microbiology - Last 24 Hours (Table) 05/06/21 10:21 Blood Culture - Preliminary Blood No Growth after 96 hours 05/06/21 10:18 Blood Culture - Preliminary Blood No Growth after 96 hours 05/07/21 07:45 Gram Stain - Final Sputum Sputum Culture - Final Assessment and Plan Assessment: #1 acute kidney injury secondary to prerenal/cardiorenal syndrome. #2 acute hypoxic respiratory failure #3 idiopathic pulmonary fibrosis #4 acute on chronic diastolic heart failure #5 hypertension benign Plan: #1 renal function stable around baseline. #2 on Lasix 20 mg by mouth twice a day. #3 pulmonary following #4 avoid nephrotoxic agents
[2021-05-10] MEDS ORDERED: ALPRAZolam 0.5 MG TAB PO SCH (16:00)
[2021-05-10 16:21] LABS: Glucose,Whole Blood 194 mg/dL (75-99)
[2021-05-10] MEDS: INSULIN DETEMIR (LEVEMIR) 100 UNIT/ML SYR SQ SCH (20:16)
[2021-05-10] MEDS: ATORVASTATIN 20 MG TAB PO SCH (20:20)
[2021-05-10] MEDS: ESCITALOPRAM 10 MG TAB PO SCH (20:20)
[2021-05-10] MEDS: MONTELUKAST 10 MG TAB PO SCH (20:20)
[2021-05-10] MEDS: MELATONIN 5 MG TABLET PO SCH (20:20)
[2021-05-10 20:37] LABS: Glucose,Whole Blood 138 mg/dL (75-99)
[2021-05-11] MEDS ORDERED: MORPHINE SULFATE 2 MG/ML SYRINGE IVP STA (01:42)
[2021-05-11 03:50] VITALS: TEMP 97.6
[2021-05-11] MEDS: ALPRAZolam 0.5 MG TAB PO SCH (05:08)
[2021-05-11] MEDS: SODIUM CHLORIDE 0.9% 1,000 ML IV SCH (05:20)
[2021-05-11 06:35] LABS: Glucose,Whole Blood 147 mg/dL (75-99)
[2021-05-11] MEDS: INSULIN ASPART (NovoLOG) 100 UNIT/ML VIAL SQ SCH ×2 (06:37→13:17)
[2021-05-11] MEDS: PANTOPRAZOLE 40 MG TABLET PO SCH (06:37)
[2021-05-11 08:30] VITALS: BP 144/97
[2021-05-11] MEDS: ASPIRIN 81 MG PO SCH (08:33)
[2021-05-11] MEDS: FUROSEMIDE 20 MG TAB PO SCH (08:33)
[2021-05-11] MEDS: guaiFENesin 600 MG TABLET.ER PO SCH (08:33)
[2021-05-11] MEDS: LOSARTAN 50 MG TAB PO SCH (08:33)
[2021-05-11] MEDS: buPROPion 75 MG TAB PO SCH (08:34)
[2021-05-11] MEDS: NON FORMULARY DRUG (Nintedanib Esylate [Ofev] 150 MG Capsule) PO SCH (08:34)
[2021-05-11] MEDS: MULTIVITAMINS, THERA 1 EACH TAB PO SCH (08:34)
[2021-05-11] MEDS: SYMBICORT 160-4.5 MCG INHALER INHALATION SCH (08:49)
[2021-05-11] MEDS: IPRATROPIUM-ALBUTEROL 3 ML NEB INHALATION SCH ×2 (08:49→11:55)
[2021-05-11] MEDS ORDERED: predniSONE 20 MG TAB PO SCH (09:00)
[2021-05-11] MEDS ORDERED: MORPHINE SULFATE 2 MG/ML SYRINGE IVP PRN (09:54)
--- NOTE | 2021-05-11 10:37 | P.PN ---
Subjective Patient is admitted to for acute respiratory failure secondary to pulmonary fibrosis, usual interstitial pneumonia. Patient was on OFEV, patient has been on high flow oxygen via airvo. This is a significant improvement the in spite of aggressive measures. Patient is also on antibiotics with levofloxacin although his pro calcitonin is only 0.1 possibly doesn't have any infection. Patient is being evaluated for atypical pneumonia of the labs are pending Legionella urinary antigen is pending mycoplasma antibodies pending. Patient was tested for influenza and RSV which was negative. I had a lengthy discussion with the patient regarding his overall goals of care his prognosis which appears to be extremely poor patient probably will not get out of the hospital discussed hospice care with the patient. His pulmonary condition is mostly reversible. 05/11/2021 Patient is comfortable and sleeping as he received morphine. Patient the had an infected mesh no hospice visit yesterday and patient believes he is ready to go on hospice. Constitutional: Denied any fatigue denied any fever. Cardio vascular: denied any chest pain, palpitations Gastrointestinal denied any nausea vomiting Pulmonary: Negative and shortness of breath Neurologic denied any new focal deficits All inpatient medications were reviewed and appropriate changes in these medications as dictated in the interval history and assessment and plan. PHYSICAL EXAMINATION: GENERAL: The patient is alert and oriented x3, patient is in acute distress. Thin built HEENT: Pupils are round and equally reacting to light. EOMI. No scleral icterus. No conjunctival pallor. Normocephalic, atraumatic. No pharyngeal erythema. No thyromegaly. CARDIOVASCULAR: S1 and S2 present. No murmurs, rubs, or gallops. PULMONARY: Coarse bilaterally ABDOMEN: Soft, nontender, nondistended, normoactive bowel sounds. No palpable organomegaly. MUSCULOSKELETAL: No joint swelling or deformity. EXTREMITIES: No cyanosis, clubbing, or pedal edema. NEUROLOGICAL: Gross neurological examination did not reveal any focal deficits. SKIN: No rashes. Assessment and Plan Assessment: Acute on chronic hypoxic respiratory failure secondary to acute exacerbation of underlying pulmonary fibrosis, there is no evidence of pneumonia. Patient remains on a high flow oxygen. Wears 2 L at home. Is extremely poor discussed hospice and comfort care with the patient Elevated troponins, NSTEMI, hypoxemia Leukocytosis secondary to systemic steroids Nonsustained V. tach, spontaneously resolved, asymptomatic Lactic acidosis, resolved Elevated d-dimer,CTA reported negative for pulmonary embolism Acute renal failure, possibly related to IV contrast my improved now Gastroesophageal reflux disease Hypertension Hyperlipidemia DJD Hypokalemia,resolved No code, patient the wanted to go on hospice. Hospice will evaluate the patient today patient is already receiving comfort medications that is morphine at this time. Objective - Vital Signs Vital signs: Vital Signs Temp 97.6 F 05/11/21 03:48 Pulse 100 05/11/21 08:59 Resp 22 05/11/21 08:59 BP 144/97 05/11/21 08:24 Pulse Ox 90 L 05/11/21 08:49 Intake & Output 05/10/21 05/11/21 05/11/21 18:59 06:59 18:59 Output Total 300 850 0 Balance -300 -850 0 Output: Urine 300 850 Stool 0 0 0 Other: Voiding Method Bedpan Indwelling Catheter Indwelling Catheter Urinal # Voids 1 # Bowel Movements 1 - Labs CBC & Chem 7: 05/10/21 08:28 05/10/21 08:28 Labs: Abnormal Lab Results - Last 24 Hours (Table) 05/10/21 05/10/21 05/10/21 Range/Units 11:46 16:19 20:12 POC Glucose (mg/dL) 124 H 194 H 138 H (75-99) mg/dL 05/11/21 Range/Units 06:31 POC Glucose (mg/dL) 147 H (75-99) mg/dL Microbiology - Last 24 Hours (Table) 05/06/21 10:21 Blood Culture - Preliminary Blood No Growth after 96 hours 05/06/21 10:18 Blood Culture - Preliminary Blood No Growth after 96 hours
[2021-05-11 11:58] VITALS: RESP 24
[2021-05-11 12:09] VITALS: PULSE 111
[2021-05-11] MEDS: LEVOFLOXACIN 500MG-D5W PMX 500 MG in DEXTROSE/WATER 1 100ML.BAG IVPB SCH (13:17)
--- NOTE | 2021-05-11 13:51 | P.PN ---
Subjective Progress Note Date: 05/11/21 Follow-up for acute kidney injury. Still on high flow oxygen, and enrolling to hospice today. Objective - Vital Signs Vital signs: Vital Signs Temp 97.6 F 05/11/21 03:48 Pulse 111 H 05/11/21 12:07 Resp 24 05/11/21 12:07 BP 144/97 05/11/21 08:24 Pulse Ox 91 L 05/11/21 11:45 Intake & Output 05/10/21 05/11/21 05/11/21 18:59 06:59 18:59 Output Total 300 850 0 Balance -300 -850 0 Output: Urine 300 850 Stool 0 0 0 Other: Voiding Method Bedpan Indwelling Catheter Indwelling Catheter Urinal # Voids 1 # Bowel Movements 1 - Exam No acute distress S1-S2 heard Decreased breath sounds No edema - Labs CBC & Chem 7: 05/10/21 08:28 05/10/21 08:28 Labs: Abnormal Lab Results - Last 24 Hours (Table) 05/10/21 05/10/21 05/11/21 Range/Units 16:19 20:12 06:31 POC Glucose (mg/dL) 194 H 138 H 147 H (75-99) mg/dL Microbiology - Last 24 Hours (Table) 05/06/21 10:18 Blood Culture - Preliminary Blood No Growth after 120 hours 05/06/21 10:21 Blood Culture - Preliminary Blood No Growth after 120 hours Assessment and Plan Assessment: #1 acute kidney injury secondary to prerenal/cardiorenal syndrome. #2 acute hypoxic respiratory failure #3 idiopathic pulmonary fibrosis #4 acute on chronic diastolic heart failure #5 hypertension benign Plan: #1 renal function stable around baseline. #2 on Lasix 20 mg by mouth twice a day. #3 enrolling to hospice today.
--- NOTE | 2021-05-11 14:43 | P.DS ---
Providers Date of admission: 04/26/21 11:41 Attending physician: Wilson Taylor Consults: 04/26/21 11:39 Consult Physician Routine Consulting Provider: Nohemi Quiroga Consult Reason/Comments: Multifocal pneumonia Do you want consulting provider notified?: Yes 04/26/21 11:44 Consult Physician Routine Consulting Provider: [facility] Consult Reason/Comments: Elevated troponin Do you want consulting provider notified?: Yes 04/26/21 16:05 Consult Physician Routine Consulting Provider: Shubham Duke Consult Reason/Comments: asympt cholelithisis, possibly covid pneumonia Do you want consulting provider notified?: Yes 05/02/21 16:09 Consult Physician Routine Consulting Provider: Yan Escalante Consult Reason/Comments: NSVT Do you want consulting provider notified?: Yes 05/07/21 16:21 Consult Physician Routine Consulting Provider: Sushma Gar Consult Reason/Comments: renal failure Do you want consulting provider notified?: Yes Primary care physician: Wilson Taylor Hospital Course: Patient was transferred to inpatient hospice care. Please refer to my progress note for further details Plan - Discharge Summary New Discharge Prescriptions: No Action Multivit-Min/FA/Lycopen/Lutein [Centrum Silver Tablet] 1 tab PO DAILY Omeprazole [PriLOSEC] 20 mg PO AC-BRKFST Losartan Potassium [Cozaar] 100 mg PO DAILY Escitalopram Oxalate [Lexapro] 10 mg PO HS buPROPion [Wellbutrin] 150 mg PO BID Montelukast Sodium [Singulair] 10 mg PO HS Nintedanib Esylate [Ofev] 150 mg PO BID Simvastatin [Zocor] 40 mg PO HS Albuterol Sulfate [Proair Hfa] 2 puff INHALATION RT-Q6H PRN PRN Reason: Shortness Of Breath Aspirin [Adult Low Dose Aspirin EC] 81 mg PO DAILY Discharge Medication List Escitalopram Oxalate [Lexapro] 10 mg PO HS 12/03/17 [History] Losartan Potassium [Cozaar] 100 mg PO DAILY 12/03/17 [History] Multivit-Min/FA/Lycopen/Lutein [Centrum Silver Tablet] 1 tab PO DAILY 12/03/17 [ History] Omeprazole [PriLOSEC] 20 mg PO AC-BRKFST 12/03/17 [History] buPROPion [Wellbutrin] 150 mg PO BID 12/03/17 [History] Montelukast Sodium [Singulair] 10 mg PO HS 02/15/18 [History] Nintedanib Esylate [Ofev] 150 mg PO BID 01/25/19 [History] Albuterol Sulfate [Proair Hfa] 2 puff INHALATION RT-Q6H PRN 04/26/21 [History] Aspirin [Adult Low Dose Aspirin EC] 81 mg PO DAILY 04/26/21 [History] Simvastatin [Zocor] 40 mg PO HS 04/26/21 [History] Follow up Appointment(s)/Referral(s): Brent Roth DO [STAFF PHYSICIAN] - 3 Weeks Wilson Taylor DO [Primary Care Provider] - 1-2 days [facility] [NON-STAFF] - Shubham Duke MD [STAFF PHYSICIAN] - 1 Week Discharge Disposition: [facility] TO [facility]
--- NOTE | 2021-05-11 14:51 | P.PN ---
Subjective Progress Note Date: 05/11/21 On 04/30/2021 patient seen in follow-up on selective care unit. He is awake and alert, in no acute distress, remains on BiPAP at 10/5 and FiO2 75%, he sat 95% and subsequently affected has been decreased down to 65%. He has been able to tolerate high flow nasal cannula trials at mealtimes. Overall breathing is improving, occasional cough with production of small amount of yellow sputum. Vital signs have been stable overnight. Altered mentation, lung sounds are positive for bibasilar crackles, he remains on Lasix 20 mg by mouth twice daily, he is on inhaled and nebulized bronchodilators, he is on Zosyn. His blood and sputum cultures have shown no growth thus far. On 05/05/2021 patient seen in follow-up on selective care unit, patient is short of breath, he continues to require high flow oxygen with airflow at 60 L and FiO2 of 93% in the 100% nonrebreathing mask and his pulse ox is marginal. Patient is very short of breath with any exertion, he remains on Zosyn and Levaquin for empiric antibiotic coverage, his cultures have shown no growth. Continues on IV Solu-Medrol, breathing treatments. No new labs today, his labs from yesterday showed increasing leukocytosis and white count of 27.3, his had no fevers overnight. He continues on oral Lasix. His chest x-ray from 05/01/2021 showed persistent scattered pulmonary opacities and infiltrates in both lung bonilla that were felt to be slightly improved in the right upper lung zone. Patient is maximized on medical treatment however clinically he has made little improvement. His had no nausea or vomiting, no abdominal pain. Patient has history of UIP, and he takes Ofev on an outpatient basis. In view of his worsening clinical status we discussed his clinical condition with him, his prognosis, and high likelihood that he may end up on life-support and possibly need a tracheostomy and PEG tube placement. Patient is unsure about going on life-support at this time but he feels overwhelmed with such a decision. He states he wants to think about it. On 05/06/2021 patient seen in follow-up on selective care unit. He remains on high flow oxygen on Airvo at 60 L and FiO2 of 92% in addition to 100% nonrebreather mask and his pulse ox is 89-94%. Patient is dyspneic with conversation, and any exertion, he has been mostly bedbound related to his shortness of breath. However she seems to be breathing a bit easier today, follow-up chest x-ray has been reviewed showing grossly stable bilateral pulmonary infiltrates and without significant interval change. Patient has been afebrile overnight, blood pressure has been stable however on today's labs his white count continues to trend up and is up to 29.7, hemoglobin is 11.9, sodium is 139, potassium is 4.2, chloride is 99, CO2 is 35, BUN is 66 and creatinine is 1. patient has previously been on antibiotics in the form of Levaquin that were discontinued on 05/02/2021. His blood and sputum cultures have been negative. Patient also continues on IV Solu-Medrol 60 mg every 6 hours, he is on breathing treatments he is on oral Lasix. Yesterday we discussed CODE STATUS with him, at the time patient wanted more time to think, today he states that he has given it of thought, and she does not want any heroic measures, she does want to continue with supportive care at this time everything including antibiotics, steroids bring treatments BiPAP support, he does not want CPR, defibrillation, and normal intubation and placement on mechanical ventilator. On 05-07-2021 patient seen in follow-up on selective care unit, he remains on high flow oxygen per Airvo at 60 L and FiO2 of 90% and 100% nonrebreather mask, and his pulse ox is 93-94%, he states he is breathing a bit more comfortably today, still short of breath with any exertion, at times he is able to bring up small amount of brownish tinged phlegm, sputum culture was sent, patient remains on Levaquin, he is on IV Solu-Medrol, breathing treatments. No acute events overnight. No complaint of chest discomfort. Repeat blood cultures haven't sent and pending. Patient has been afebrile overnight. On 05/08/2021 patient seen in follow-up on selective care unit, he remains on high flow oxygen per Airvo with 60 L and FiO2 of 89%, and 100% nonrebreather mask, his pulse ox is 94-98%, patient easily desaturates with speaking, he has conversational dyspnea. He states he rested more comfortably last night, did require Xanax. He continues on inhaled bronchodilators, he continues on oral Lasix, empiric antibiotics in the form of Levaquin, and IV steroids, follow-up chest x-ray is pending for today, today's lab work has been reviewed and there has been no further increase in his white blood cell, which is now at 30.9, woman is 11.5, sodium is 139, potassium is 4.9, chloride is 99, CO2 36, B1 is 67, creatinine is 1.05. His follow pro-calcitonin is still pending, repeat blood and sputum cultures have been sent and results are still pending, patient has had no fever or chills overnight. Lung sounds reveal diffuse crackles, good air entry noted bilaterally. On 05/09/2021 patient seen in follow-up on selective care unit, he remains on the same set up for oxygen delivery, per Airvo at 60 L and FiO2 of 90% and 100% nonrebreather mask and his pulse ox is marginal, at around 91%. Patient is short of breath with any exertion, including conversation. He states he was having increased shortness of breath during the night. Feels improved right now, overall his clinical status has not changed. Has been afebrile overnight, hemodynamically stable, denies any complaints of chest pain. He remains on IV steroids, Levaquin for empiric antibiotic coverage, follow blood cultures and sputum cultures have been negative. Pro-calcitonin level was negative. Today's blood work is still pending. He remains on Lasix 20 mg twice daily, his renal function was noted to be improving, his renal/bladder/ ultrasound showed no hydronephrosis, no nephrolithiasis, urinary bladder was anechoic. He has been requiring intermittent doses of Xanax for increased anxiety. His family is at the bedside from out of state. His sister states they realize how ill the patient is, and his poor prognosis. At this time the patient is awaiting arrival of his lead portfolio manager to take care of some paperwork, possibly living will. Currently status is DO NOT RESUSCITATE, On today's evaluation of 05/10/2021, the patient remains on high flow oxygen at 60 L were identified 90% and the patient is also using 100% on a beta facemask to maintain a saturation above 90%. This patient has IPF. The patient developed an acute exacerbation of IPF with hypoxic respiratory failure and the patient has developed worsening shortness of breath and hypoxemia and the patient is currently in the hospital and his been here for the past 2 weeks. Further investigation was done yesterday. Influenza screen was negative. RSV screen was negative.: COVID 19 testing was negative. Legionella urine antigen was still pending for now. Meanwhile, the patient remains on Levaquin. The patient remains on IV Solu-Medrol. The patient is unfortunate doing poorly. There is anxious. May benefit from Xanax. He is a DNR/DNI CODE STATUS. He understands that this might self-care is a very poor prognosis. I compared the CAT scans from 2019 and there is obvious worsening in his pulmonary fibrosis in comparison. Furthermore, his blood work today, his white cell count is up to 36.7. She was at 12.3. The ends of 66 with a creatinine of 1.06 and the sodium level is at 138. Oral intake is quite diminished. His body mass index is 27.8. He remains on Levemir insulin 10 units along with NovoLog sinus Coverage. He remains on IV Solu Medrol 60 mg every 6 hours. 05/11/2021, the patient is doing poorly. Unfortunately, has not been in the significant progress and the patient continues to be severely hypoxic on Airvo 60 L with an FiO2 of 90% in addition to 100% on a beta facemasks. This is a typical case of an acute exacerbation of IPF. Based on his ongoing struggle with his breathing and shortness of breath, hospice evaluated the patient yesterday and the patient agreed to proceed with hospice care and the patient is going to be discharged home with hospice today. He may also received some inpatient treatment here and he has already been started on morphine, when necessary, Haldol when necessary, Robinul when necessary and scopolamine patch. He carries a very poor prognosis discussed earlier. Rest of the active treatment including antibiotics and the steroids have been all discontinued. Family is aware. Objective - Vital Signs Vital signs: Vital Signs Temp 97.6 F 05/11/21 03:48 Pulse 111 H 05/11/21 12:07 Resp 24 05/11/21 12:07 BP 144/97 05/11/21 08:24 Pulse Ox 91 L 05/11/21 11:45 Intake & Output 05/10/21 05/11/2122 18:59 06:59 18:59 Output Total 300 850 0 Balance -300 -850 0 Output: Urine 300 850 Stool 0 0 0 Other: Voiding Method Bedpan Indwelling Catheter Indwelling Catheter Urinal # Voids 1 # Bowel Movements 1 - Exam GENERAL EXAM: Alert, very pleasant 75-year-old white male, on Airvo at 60 L and FiO2 of 93% satting 94% and 100% nonrebreather mask dyspneic with conversation and any exertion HEAD: Normocephalic/atraumatic. EYES: Normal reaction of pupils, equal size. Conjunctiva pink, sclera white. NOSE: Clear with pink turbinates. THROAT: No erythema or exudates. NECK: No masses, no JVD, no thyroid enlargement, no adenopathy. CHEST: No chest wall deformity. Symmetrical expansion. LUNGS: Equal air entry with basilar crackles CVS: Regular rate and rhythm, normal S1 and S2, no gallops, no murmurs, no rubs ABDOMEN: Soft, nontender. No hepatosplenomegaly, normal bowel sounds, no guarding or rigidity. EXTREMITIES: No clubbing, no edema, no cyanosis, 2+ pulses and upper and lower extremities. MUSCULOSKELETAL: Muscle strength and tone normal. SPINE: No scoliosis or deformity SKIN: No rashes CENTRAL NERVOUS SYSTEM: Alert and oriented -3. No focal deficits, tone is normal in all 4 extremities. PSYCHIATRIC: Alert and oriented -3. Appropriate affect. Intact judgment and insight. - Labs CBC & Chem 7: 05/10/21 08:28 05/10/21 08:28 Labs: Abnormal Lab Results - Last 24 Hours (Table) 05/10/21 05/10/21 05/11/21 Range/Units 16:19 20:12 06:31 POC Glucose (mg/dL) 194 H 138 H 147 H (75-99) mg/dL Microbiology - Last 24 Hours (Table) 05/06/21 10:18 Blood Culture - Preliminary Blood No Growth after 120 hours 05/06/21 10:21 Blood Culture - Preliminary Blood No Growth after 120 hours Assessment and Plan Plan: #1. Acute on chronic hypoxic respiratory failure, worsening, the patient is currently requiring Airvo at 60 L and FiO2 of 93% in addition to 100% nonrebreather mask likely related to acute exacerbation of IPF patient failed to show any signs of improvement and the patient acute hypoxic and his breathing was extremely labored and the patient continued to have respiratory distress and failure requiring end-of-life/hospice care. #2. Elevated troponin possibly related to supply demand mismatch #3. IPF with a Biopsy-proven UIP, maintained on OFEV on an outpatient basis #4. History of right-sided hemidiaphragm weakness/paralysis #5. History of mild intermittent bronchial asthma #6. Hypertension #7. Hyperlipidemia #8. DJD #9. Leukocytosis, rule out possibility of infection, follow-up blood cultures and sputum cultures are negative, and the Procan SR level is low. This is likely steroid-induced. Plan: Agree with hospice Hospice treatment will be initiated here in the hospital and the active treatment with antibiotics and steroids will be discontinued Carries a very poor prognosis especially if the patient does not show any signs of improvement in terms of his oxygenation. Acute exacerbation of IPF carries a very poor prognosis and high mortality. CODE STATUS is DNR/DNI.
--- NOTE | 2021-05-12 07:33 | CDI ---
Documentation Clarification Form Date: 05/05/2021 08:25:00 AM From: Yudelka Ramirez Admit Date: 04/26/2021 11:41:00 AM Patient Name: Pravin Simmons Visit Number: [id number] Discharge Date: 05/11/2021 01:56:00 PM ATTENTION: The Clinical Documentation Specialists (CDI) and [facility] Coding Staff appreciate your assistance in clarifying documentation. Please respond to the clarification below the line at the bottom and electronically sign. The CDI & [facility] Coding staff will review the response and follow-up if needed. Please note: Queries are made part of the Legal Health Record. If you have any questions, please contact the author of this message via ITS. Dr. Brent Roth, DO Suspect non-STEMI related to Type II mechanism from hypoxia is documented in the 04/27 Cardiology Consult and in the 04/28 & 04/29 Cardiology Progress Notes but not further documented in subsequent notes. Clarification of the documented non-STEMI Type II is requested. History/Risk Factors per the 04/26 H/P: Pulmonary Fibrosis, Asthma, DM, GERD, Hyperlipidemia, Hypertension, Former smoker. Clinical Indicators: Presented to the ED on 04/26 with SOB & Low O2. History of pulmonary fibrosis & paralyzed diaphragm. Pulse Ox in the low 70s, 60s in triage at one point. Admit with Pneumonia and Sepsis 04/26 VS: T 97.8, P 109, R 32 (SOB), BP 165/93, PO 62 2Lnc - 96 15% nrb. 04/26 LAB: C 15.3, RBC 4.04, Hgb 12.3, Hct 36.5, Neut 13.7, Lymph 0.7; D Dimer 1.67; Glucose 196, Lactic Acid 5.8^^, 2.1^^, 1.9; Mag 1.3, Total Bili 2.0, Troponin 0.381, 0.539, 0.566; Procalcitonin 0.16 04/26 COVID Negative 04/26 CXR: Multifocal pneumonia. 04/26 CT Chest: No PE, Atypical pulmonary infection such as COVID-19, Emphysema, Cholelithiasis. Treatment 04/26: Blood cultures, O2 2Lnc - 15L nrb, IV Solumedrol 125 mg x1, IV Zosyn 200 mls/hr x1, IV Na Cl 999 mls/hr q2H, IV MagSulf 100 mls/hr q1H, po Aspirin 324 mg x1, IV Na Cl 20 mls/hr q24H, INH Duoneb QID, IV Lasix 40 mg x2, IV Levaquin 100 mls/hr q24H, INH Ventolin Q6H/prn, IV Solumedrol 60 mg q6H. Please clarify the following: : [ X ] Non-STEMI Type II Present on Admission, remains under treatment [ ] Non-STEMI Type II Present on Admission, confirmed, resolved [ ] Non-STEMI Type II ruled out [ ] Other condition, please specify [ ] Unable to determine (Template Last Revised: May 2020) MTDD
--- NOTE | 2021-05-14 12:24 | CDI ---
Documentation Clarification Form Date: 05/14/21 From: Lucy Dickson Admit Date: 04/26/2021 11:41:00 AM Patient Name: Pravin Simmons Visit Number: [id number] Discharge Date: 05/11/2021 01:56:00 PM ATTENTION: The Clinical Documentation Specialists (CDI) and [facility] Coding Staff appreciate your assistance in clarifying documentation. Please respond to the clarification below the line at the bottom and electronically sign. The CDI & [facility] Coding staff will review the response and follow-up if needed. Please note: Queries are made part of the Legal Health Record. If you have any questions, please contact the author of this message via ITS. Dr. 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 Additional clarification regarding the stage of CKD is requested. History/Risk Factors: Idiopathic pulmonary fibrosis, NSTEMI, acute and chronic hypoxic respiratory failure, acute on chronic diastolic CHF, pneumonia Clinical Indicators: No hydronephrosis noted on kidney ultrasound. Current BUN: 18, 25, 46, 48, 47, 45, 48, 66, 67, 66 Current CR: 1.24, 1.61, 1.62, 1.38, 1.28, 1.18, 0.92, 1.28, 1.41, 1.05,1.06 Current GFR: 57, 41, 41, 50, 54, 60, 81, 54, 49, 70, 69 Treatment: IV Lasix, catheter placed on 05/10 Please clarify the stage of the CKD, if known: [ ] CKD Stage 1 (GFR > 90) [ ] CKD Stage 2 (GFR 60-89) [ ] CKD Stage 3 (GFR 30-59) [ ] CKD Stage 3a (GFR 45-59) [ ] CKD Stage 3b (GFR 30-44) [ ] CKD Stage 4 (GFR 15-29) [ ] CKD Stage 5 (GFR <15) [ ] ESRD [ ] Other, please specify [ ] Unable to determine aki MTDD
== END 2021-05-11 13:56 | disposition hospice, inpatient (51) | DRG 196 ==
LOC: EC 09:55 → 3SCARD 11:41
PROVIDERS: ADMIT Family Medicine; ATTEND Family Medicine
PROC: 5A0945A Assistance with Respiratory Ventilation, 24-96 Consecutive Hours, High Flow/Velocity Cannula (ICD-10-PCS; principal; 2021-04-26)
PROC: 5A09457 Assistance with Respiratory Ventilation, 24-96 Consecutive Hours, Continuous Positive Airway Pressure (ICD-10-PCS; 2021-04-28)
DX: J84.112 Idiopathic pulmonary fibrosis (principal); I21.4 Non-ST elevation (NSTEMI) myocardial infarction; J96.21 Acute and chronic respiratory failure with hypoxia; I50.33 Acute on chronic diastolic (congestive) heart failure; J18.9 Pneumonia, unspecified organism; E87.2 Acidosis; N17.9 Acute kidney failure, unspecified; I47.2 Ventricular tachycardia; K80.10 Calculus of gallbladder with chronic cholecystitis without obstruction; J44.1 Chronic obstructive pulmonary disease with (acute) exacerbation; R04.2 Hemoptysis; J44.0 Chronic obstructive pulmonary disease with (acute) lower respiratory infection; I27.23 Pulmonary hypertension due to lung diseases and hypoxia; I11.0 Hypertensive heart disease with heart failure; E11.9 Type 2 diabetes mellitus without complications; Z66 Do not resuscitate; Z51.5 Encounter for palliative care; Z20.822 Contact with and (suspected) exposure to COVID-19; D64.9 Anemia, unspecified; J98.6 Disorders of diaphragm; J45.20 Mild intermittent asthma, uncomplicated; I34.0 Nonrheumatic mitral (valve) insufficiency; E83.42 Hypomagnesemia; E87.6 Hypokalemia; D72.829 Elevated white blood cell count, unspecified; T38.0X5A Adverse effect of glucocorticoids and synthetic analogues, initial encounter; E78.5 Hyperlipidemia, unspecified; F32.A Depression, unspecified; K21.9 Gastro-esophageal reflux disease without esophagitis; F41.9 Anxiety disorder, unspecified; E55.9 Vitamin D deficiency, unspecified; M19.90 Unspecified osteoarthritis, unspecified site; Z99.81 Dependence on supplemental oxygen; Z79.82 Long term (current) use of aspirin; Z79.899 Other long term (current) drug therapy; Z87.891 Personal history of nicotine dependence; Z86.19 Personal history of other infectious and parasitic diseases; Z90.49 Acquired absence of other specified parts of digestive tract; Z87.19 Personal history of other diseases of the digestive system; Z96.652 Presence of left artificial knee joint; Z74.01 Bed confinement status; Z98.890 Other specified postprocedural states; Z80.0 Family history of malignant neoplasm of digestive organs
CPT/HCPCS: 36415; 36600; 71045; 71046; 71275; 76770; 80048; 80053; 80076; 81003; 82805; 83036; 83605; 83735; 83880; 84145; 84484; 85025; 85027; 85379; 85610; 85730; 87040; 87070; 87205; 87502; 87634; 87635; 93005; 93306; 93970; 94640; 94660; 94760; 96374; 99291

== ENCOUNTER 2021-05-11 13:39 | Inpatient (IN) | payer MEDICAID ==
[2021-05-11] MEDS ORDERED: LORazepam 2 MG/ML INJ IV PRN (13:45)
[2021-05-11] MEDS ORDERED: ATROPINE OPHTH SOLN 1% 5ML BTL SUBLINGUAL PRN (13:45)
[2021-05-11] MEDS ORDERED: MORPHINE SULFATE 2 MG/ML SYRINGE IV PRN (13:45)
[2021-05-11] MEDS ORDERED: ONDANSETRON 4 MG/2 ML VIAL IVP PRN (13:45)
[2021-05-11] MEDS ORDERED: ACETAMINOPHEN SUPPOSITORY 650 MG SUPP RECTAL PRN (13:45)
[2021-05-11] MEDS ORDERED: GLYCOPYRROLATE 0.2 MG/ML 2 ML VIAL IVP PRN (13:45)
[2021-05-11] MEDS ORDERED: HALOPERIDOL LACTATE 5 MG/ML 1 ML VIAL IM PRN (13:45)
[2021-05-11] MEDS ORDERED: SCOPOLAMINE 1.5MG/72HR PATCH TRANSDERM SCH (14:15)
[2021-05-11] MEDS ORDERED: MORPHINE SULFATE (100 MG/2 ML) 100 MG in SODIUM CHLORIDE 0.9% 100 ML IV SCH (15:00)
[2021-05-11 16:59] VITALS: PULSE 91
[2021-05-11 18:15] VITALS: RESP 25
--- NOTE | 2021-05-13 11:43 | P.HPIM ---
Past Medical History Past Medical History: Asthma, Diabetes Mellitus, GERD/Reflux, Hyperlipidemia, Hypertension, Osteoarthritis (OA) Additional Past Medical History / Comment(s): interstitial lung disease, remote history of a coccidiomycosis of the lungs. History of Any Multi-Drug Resistant Organisms: None Reported Past Surgical History: Appendectomy, Hernia Repair, Joint Replacement Additional Past Surgical History / Comment(s): lung surgery rt thoractomy benign tumor age 19, lt total knee replacement, inguinal hernia repair with mesh Past Anesthesia/Blood Transfusion Reactions: Previous Problems w/ Anesthesia Additional Past Anesthesia/Blood Transfusion Reaction / Comment(s): with last endoscopy coughed throughout procedure Past Psychological History: Anxiety, Depression Smoking Status: Never smoker Past Alcohol Use History: Daily Past Drug Use History: None Reported - Past Family History Mother Family Medical History: No Reported History Additional Family Medical History / Comment(s): adopted Sister(s) Family Medical History: Cancer Additional Family Medical History / Comment(s): pancreatic cancer Medications and Allergies Home Medications Medication Instructions Recorded Confirmed Type Escitalopram Oxalate [Lexapro] 10 mg PO HS 12/03/17 05/11/21 History Losartan Potassium [Cozaar] 100 mg PO DAILY 12/03/17 05/11/21 History Multivit-Min/FA/Lycopen/Lutein 1 tab PO DAILY 12/03/17 05/11/21 History [Centrum Silver Tablet] Omeprazole [PriLOSEC] 20 mg PO AC-BRKFST 12/03/17 05/11/21 History buPROPion [Wellbutrin] 150 mg PO BID 12/03/17 05/11/21 History Montelukast Sodium [Singulair] 10 mg PO HS 02/15/18 05/11/21 History Nintedanib Esylate [Ofev] 150 mg PO BID 01/25/19 05/11/21 History Albuterol Sulfate [Proair Hfa] 2 puff INHALATION RT-Q6H PRN 04/26/21 05/11/21 History Aspirin [Adult Low Dose Aspirin EC] 81 mg PO DAILY 04/26/21 05/11/21 History Simvastatin [Zocor] 40 mg PO HS 04/26/21 05/11/21 History Allergies Allergy/AdvReac Type Severity Reaction Status Date / Time No Known Allergies Allergy Verified 05/11/21 15:01
--- NOTE | 2021-05-14 15:32 | P.DS ---
Providers Date of admission: 05/11/21 13:58 Attending physician: Vanesa Sung Primary care physician: Wilson Taylor [facility] Course: Refer to HPI Plan - Discharge Summary New Discharge Prescriptions: No Action Multivit-Min/FA/Lycopen/Lutein [Centrum Silver Tablet] 1 tab PO DAILY Omeprazole [PriLOSEC] 20 mg PO AC-BRKFST Losartan Potassium [Cozaar] 100 mg PO DAILY Escitalopram Oxalate [Lexapro] 10 mg PO HS buPROPion [Wellbutrin] 150 mg PO BID Montelukast Sodium [Singulair] 10 mg PO HS Nintedanib Esylate [Ofev] 150 mg PO BID Simvastatin [Zocor] 40 mg PO HS Albuterol Sulfate [Proair Hfa] 2 puff INHALATION RT-Q6H PRN PRN Reason: Shortness Of Breath Aspirin [Adult Low Dose Aspirin EC] 81 mg PO DAILY Discharge Medication List Escitalopram Oxalate [Lexapro] 10 mg PO HS 12/03/17 [History] Losartan Potassium [Cozaar] 100 mg PO DAILY 12/03/17 [History] Multivit-Min/FA/Lycopen/Lutein [Centrum Silver Tablet] 1 tab PO DAILY 12/03/17 [History] Omeprazole [PriLOSEC] 20 mg PO AC-BRKFST 12/03/17 [History] buPROPion [Wellbutrin] 150 mg PO BID 12/03/17 [History] Montelukast Sodium [Singulair] 10 mg PO HS 02/15/18 [History] Nintedanib Esylate [Ofev] 150 mg PO BID 01/25/19 [History] Albuterol Sulfate [Proair Hfa] 2 puff INHALATION RT-Q6H PRN 04/26/21 [History] Aspirin [Adult Low Dose Aspirin EC] 81 mg PO DAILY 04/26/21 [History] Simvastatin [Zocor] 40 mg PO HS 04/26/21 [History] Discharge Disposition: - Preliminary Cause of Preliminary Cause of : Pulmonary fibrosis
== END 2021-05-11 20:31 | disposition expired | DRG 951 ==
LOC: 3SCARD 13:58
PROVIDERS: ADMIT Internal Medicine; ATTEND Internal Medicine
DX: Z51.5 Encounter for palliative care (principal); J84.9 Interstitial pulmonary disease, unspecified; J84.10 Pulmonary fibrosis, unspecified; E11.9 Type 2 diabetes mellitus without complications; E78.5 Hyperlipidemia, unspecified; F32.A Depression, unspecified; F41.9 Anxiety disorder, unspecified; I10 Essential (primary) hypertension; M19.90 Unspecified osteoarthritis, unspecified site; J45.909 Unspecified asthma, uncomplicated; Z79.82 Long term (current) use of aspirin; Z79.899 Other long term (current) drug therapy; Z80.0 Family history of malignant neoplasm of digestive organs; Z96.652 Presence of left artificial knee joint; Z98.890 Other specified postprocedural states